=== PATIENT | female | born 1950 | race Caucasian/White ===

== ENCOUNTER 2023-04-06 05:58 | Inpatient (IN) | payer MEDICARE, SELFPAY ==
--- NOTE | ~2023-04-06 | US_ITS ---
EXAMINATION: US VENOUS ULTRASOUND WITH DOPPLER LOWER EXTREMITY, LEFT CLINICAL INFORMATION: New onset unilateral swelling and pain. COMPARISON: None available. TECHNIQUE: Ultrasound of the deep veins is performed from the hip to the calf with compression sonography and color and pulse Doppler assessment. Spectral analysis with color-flow imaging is performed. FINDINGS: There is normal venous compression and respiratory variation and augmented flow. The visualized common femoral vein, superficial femoral vein, profunda femoral vein, popliteal vein, and the trifurcation region shows no evidence of deep venous thrombosis. No left popliteal cyst. Mild subcutaneous edema in the left calf. US/US venous duplex LE LT IMPRESSION: No evidence of deep venous thrombosis in the visualized veins of the left lower extremity. Mild subcutaneous edema in the left calf.
--- NOTE | 2023-04-06 06:53 | PC.ADMIT ---
Patient 72 year old female. Reason for admission is AMS. Arrived via stretcher from [facility] in restraints. History of dementia and GERD Patient is confused at baseline. In ED patient unable to sign legal paperwork. Physician signed paperwork for section 12B. Patient has NKA. Refused vital signs and unable to participate in admission assessment. Report given to oncoming RN.
[2023-04-06 09:05] VITALS: BP 127/60; PULSE 106; RESP 22; TEMP 36.6; O2SAT 97
[2023-04-06] MEDS: chlorproMAZINE HCl 25 MG TABLET PO (10:58)
[2023-04-06] MEDS: amLODIPine Besylate 2.5 MG TABLET PO (11:01)
--- NOTE | 2023-04-06 11:41 | HO.PSYCHPN ---
Subjective Subjective Reason For Visit: Dementia w/ Psychosis; Amyloid Angiopathy Diagnostics Vital Signs (24Hr): Vital Signs - 24 hr 04/06/23 09:05 Temperature 98 F Pulse Rate 106 H Respiratory Rate 22 H Blood Pressure 127/60 Pulse Oximetry 97 Oxygen Delivery Method Room Air Labs 05/10/23 07:03 05/10/23 07:03 Medications Medications Current Medications Acetaminophen (Acetaminophen 325 Mg Tablet) 650 mg PO Q6H PRN PRN Reason: Headache/Pain Mild Scale (1-3) Al Hydroxide/Mg Hydroxide (Magnesium Hydrox/Alum Hydrox 30 Ml Oral.Susp) 30 ml PO Q6H PRN PRN Reason: Heartburn/Nausea Amlodipine Besylate (Amlodipine Besylate 2.5 Mg Tablet) 2.5 mg PO DAILY [facility]; Protocol Last Admin: 04/06/23 11:01 Dose: 2.5 mg Atorvastatin Calcium (Atorvastatin Calcium 40 Mg Tablet) 40 mg PO BEDTIME [facility] Chlorpromazine HCl (Chlorpromazine Hcl 25 Mg Tablet) 25 mg PO TID [facility] Last Admin: 04/06/23 10:58 Dose: 25 mg Hydroxyzine HCl (Hydroxyzine Hcl 25 Mg Tablet) 25 mg PO Q6H PRN PRN Reason: Anxiety Magnesium Hydroxide (Milk Of Magnesia 30 Ml Oral.Susp) 30 ml PO DAILY PRN PRN Reason: Constipation Melatonin (Melatonin 3 Mg Tablet) 3 mg PO BEDTIME PRN PRN Reason: Insomnia Senna/Docusate Sodium (Sennosides/Docusate Sodium Tablet) 1 tab PO BEDTIME [facility] Trazodone HCl (Trazodone Hcl 50 Mg Tablet) 50 mg PO BEDTIME MRX1 PRN PRN Reason: Insomnia Allergies Allergies Allergy/AdvReac Type Severity Reaction Status Date / Time No Known Allergies Allergy Verified 04/06/23 05:59 Assessment & Plan Time Spent With Patient Time: Total time managing care of this patient today ____ minutes.
--- NOTE | 2023-04-06 11:41 | HO.PSYADMNOT ---
HPI Date of Service: 04/06/23 Chief Complaint: Dementia w/ Psychosis; Amyloid Angiopathy Sources of Information: patient interviewed and chart reviewed Additional Sources of Information: RENAE discussed and talked to her son who is her healthcare proxy on the phone HPI Subjective Notes: Conditional Voluntary and Other Healthcare Proxy: Yes Guardianship: Yes Medical Problems Affecting Mental Status: No Narrative: Amy is a 72-year-old white, , disabled woman with 10 year history of moderate to severe dementia which has been getting worse. She was admitted very early this morning from [facility]. She is unable to give any pertinent information. Not much was available from the [facility] records. I was able to talk to her son, Isacc who is her healthcare proxy. Amy has been dealing with dementia around 10 years ago and has been on Aricept 5 mg daily. Last Saturday she became much more agitated, confused and aggressive and eventually she was taken to the emergency room and hospitalized medically at [facility] where she was put on Thorazine 50 mg t.i.d.. It was intermittently helpful. They started looking for a [facility] psych bed verses discharging her home. The family did not feel comfortable taking her home and excepted admission to [facility] as the only available option for now. She was admitted around 05:00 today and has not been a behavioral problem as of yet. Other medications include baby aspirin, daily, Lipitor 40 mg daily, Prilosec 20 mg daily and melatonin 5 mg q.h.s.. Past Psychiatric History: None known Medical Evaluation Reviewed: Yes [facility] Narrative: Positive for hypercholesterolemia and some upper GI complaints. Family History: Unknown Social History: Amy has been living with her who is a retired state wildlife officer. She has been for many years, has 3 sons. 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 I was not able to give much additional information at this time Substance History: None Trauma History: None known Diagnostics Vital Signs (24Hr): Vital Signs - 24 hr 04/06/23 09:05 Temperature 98 F Pulse Rate 106 H Respiratory Rate 22 H Blood Pressure 127/60 Pulse Oximetry 97 Oxygen Delivery Method Room Air Meds/Allergies Meds Home Medications Medication Instructions Recorded Confirmed Type aspirin 81 mg tablet,delayed 81 mg PO DAILY 04/06/23 04/06/23 History release atorvastatin 40 mg tablet 40 mg PO DAILY 04/06/23 04/06/23 History chlorpromazine 25 mg/mL injection See Rx Instructions .Route 04/06/23 04/06/23 History solution .COMPLEX PRN Agitation chlorpromazine 50 mg tablet 50 mg PO TID 04/06/23 04/06/23 History melatonin 5 mg tablet 5 mg PO BEDTIME 04/06/23 04/06/23 History omeprazole 20 mg capsule,delayed 20 mg PO DAILY 04/06/23 04/06/23 History release Allergies Allergies Allergy/AdvReac Type Severity Reaction Status Date / Time No Known Allergies Allergy Verified 04/06/23 05:59 Mental Status Exam Mental Status Exam Narrative: Nima slater was seen the morning of her admission. She is alert and oriented to person only. Speech is normal. She is not able to give any pertinent, coherent or reliable information with regards to her history. Little to no eye contact. She appears quite confused. No dangerous behaviors. She has been exhibiting paranoid ideations and possible delusions according to her son. Cognitively she is quite impaired and not able to be tested formally. Judgment impaired. Healthcare proxy is invoked Assessment & Plan Assessment & Plan (1) Dementia: Status: Acute Code(s): F03.90 - Unspecified dementia, unspecified severity, without behavioral disturbance, psychotic disturbance, mood disturbance, and anxiety Plan Amy meets criteria for hospital level of care because she is unable to function on the outside safely in light of her agitation, confusion and delusions in the past week or so. Current medications including Thorazine 50 mg t.i.d. were continued. Patient educated on: diagnosis and other Reason for continued inpatient stay Substantial Risk for: inability to function and med/psych decompensation Statement Statement: I have reviewed the history and physical and performed a pertinent examination on my patient. No changes have occurred unless specified. If the History and Physical was not performed prior to admission, the Hospitalist's service will be consulted for completing the admission physical. Time Spent With Patient Time: Total time managing care of this patient today ____ minutes.
--- NOTE | 2023-04-06 16:12 | HO.PM.IMCN ---
History of Present Illness Data of Consult Service Date: 04/06/23 Primary Care Provider: Unknown Physician HPI Reason for consult: Admission H&P Pt is a 72-year-old female with a PMH significant for advanced dementia, cerebral amyloid angiopathy, GERD, and HLD who is admitted to [facility] for worsening dementia with increased confusion, agitation, and aggressive behaviors. Patient is a transfer from [facility]. Medical consult for admission H&P. Pt is alert to person only, and only occasionally capable of following basic commands. Pt is incapable of providing HPI. Review of Systems Review of Systems: Unable to obtain due to patient's mentation [facility] Social History Household Members: Family Housing: Unknown / Unable to assess Unable to assess alcohol history related to: Unable to respond Patient Tobacco Use Status: Tobacco use Unknown Frequency of e-Cigarette/Vaping Use: Pt. unable to answer due to mental status Use of substances other than those prescribed or required for medical reasons: Unable to respond Last Used Substance: Unknown Last Used Substance Other:: Pt. unable to answer due to mental status Currently Displaying Signs/Symptoms of Drug Intoxication Withdrawal: No Spiritual Healthcare Practices: Pt. unable to answer due to mental status Anabaptist Healthcare Practices: Pt. unable to answer due to mental status Cultural Healthcare Practices: Pt. unable to answer due to mental status Advance Directives: Yes (MOLST DNR/DNI) Advance Directives Information Provided: Yes (MOLST DNR/DNI) Patient : No : No Meds Allergies Allergy/AdvReac Type Severity Reaction Status Date / Time No Known Allergies Allergy Verified 04/06/23 05:59 Active Medications: Current Medications Acetaminophen (Acetaminophen 325 Mg Tablet) 650 mg PO Q6H PRN PRN Reason: Headache/Pain Mild Scale (1-3) Al Hydroxide/Mg Hydroxide (Magnesium Hydrox/Alum Hydrox 30 Ml Oral.Susp) 30 ml PO Q6H PRN PRN Reason: Heartburn/Nausea Amlodipine Besylate (Amlodipine Besylate 2.5 Mg Tablet) 2.5 mg PO DAILY [facility]; Protocol Last Admin: 04/06/23 11:01 Dose: 2.5 mg Atorvastatin Calcium (Atorvastatin Calcium 40 Mg Tablet) 40 mg PO BEDTIME [facility] Chlorpromazine HCl (Chlorpromazine Hcl 25 Mg Tablet) 50 mg PO TID [facility] Hydroxyzine HCl (Hydroxyzine Hcl 25 Mg Tablet) 25 mg PO Q6H PRN PRN Reason: Anxiety Magnesium Hydroxide (Milk Of Magnesia 30 Ml Oral.Susp) 30 ml PO DAILY PRN PRN Reason: Constipation Melatonin (Melatonin 3 Mg Tablet) 3 mg PO BEDTIME PRN PRN Reason: Insomnia Omeprazole (Omeprazole 20 Mg Capsule.Dr) 20 mg PO DAILY@0630 [facility] Senna/Docusate Sodium (Sennosides/Docusate Sodium Tablet) 1 tab PO BEDTIME [facility] Trazodone HCl (Trazodone Hcl 50 Mg Tablet) 50 mg PO BEDTIME MRX1 PRN PRN Reason: Insomnia Home Medications Medication Instructions Recorded Confirmed Last Taken Type aspirin 81 mg tablet,delayed 81 mg PO DAILY 04/06/23 04/06/23 Unknown History release atorvastatin 40 mg tablet 40 mg PO DAILY 04/06/23 04/06/23 04/05/23 10:06 History chlorpromazine 25 mg/mL injection See Rx Instructions .Route 04/06/23 04/06/23 Unknown History solution .COMPLEX PRN Agitation chlorpromazine 50 mg tablet 50 mg PO TID 04/06/23 04/06/23 Unknown History melatonin 5 mg tablet 5 mg PO BEDTIME 04/06/23 04/06/23 04/04/23 23:47 History omeprazole 20 mg capsule,delayed 20 mg PO DAILY 04/06/23 04/06/23 Unknown History release Physical Exam Vital Signs and Narrative: Vital Signs: Last Vital Signs Temp 98 F 04/06/23 09:05 Pulse 106 H 04/06/23 09:05 Resp 22 H 04/06/23 09:05 BP 127/60 04/06/23 09:05 Pulse Ox 97 04/06/23 09:05 O2 Del Method Room Air 04/06/23 09:05 Limited d/t pt's advanced dementia and inability of following basic commands General: AOx1, no acute distress Resp: CTA bilaterally CVS: S1, S2, RRR GI: +BS, NT, no distention Skin: No rash Neuro: Cranial nerves II-XII grossly intact bilaterally. Motor grossly intact bilaterally Extremities: No edema Psych: Confused, cooperative, easily redirectable, not able to follow all commands Assessment and Plan (1) Routine history and physical examination of adult: Status: Acute Plan Pt is a 72-year-old female with a PMH significant for advanced dementia, cerebral amyloid angiopathy, GERD, and HLD who is admitted to [facility] for worsening dementia with increased confusion, agitation, and aggressive behaviors. Patient is a transfer from [facility]. Medical consult for admission H&P. Pt is alert to person only, and only occasionally capable of following basic commands. Mood disorder Plan as per Psychiatry Advanced dementia Patient presents with worsening dementia with behavioral disturbances No signs of precipitating factors: No clear sign of infection, no known recent med changes Most likely due to progression of disease HLD Continue aspirin, statin GERD Continue omeprazole Thank you for allowing us to participate in the care of this patient. Signing off at this time. Please let us know if there are any acute complaints or questions. Time Spent With Patient Time: Total time managing care of this patient today ____ minutes.
[2023-04-06] MEDS: chlorproMAZINE HCl 25 MG TABLET 50 MG PO ×2 (17:25→20:10)
[2023-04-06 18:00] VITALS: BP 130/58; PULSE 61; RESP 18; TEMP 37; O2SAT 97
[2023-04-06] MEDS: Atorvastatin Calcium 40 MG TABLET PO (20:10)
[2023-04-06] MEDS: Sennosides/Docusate Sodium TABLET 1 TAB PO (20:10)
[2023-04-07 06:00] VITALS: BP 135/60; PULSE 100; RESP 20; TEMP 37.1; O2SAT 98
[2023-04-07] MEDS: Omeprazole 20 MG CAPSULE.DR PO (06:13)
[2023-04-07] MEDS: amLODIPine Besylate 2.5 MG TABLET PO (08:24)
[2023-04-07] MEDS: chlorproMAZINE HCl 25 MG TABLET 50 MG PO ×3 (08:24→21:13)
--- NOTE | 2023-04-07 11:31 | P.PNPSI_ITS ---
Subjective Subjective Date of Service: 04/07/23 Reason For Visit: Dementia w/ Psychosis; Amyloid Angiopathy Subjective Notes: Conditional Voluntary Healthcare Proxy: Yes Medical Problems Affecting Mental Status: No Interim History: Patient was seen and discussed in rounds today. Records and plans were reviewed. She has actually settled in fairly well with no episodes of agitation or aggressive behaviors. Healthcare proxy was invoked yesterday, secondary to her current mental status and impaired judgment. She continues to exhibit signs of delusions and cognitive impairment. She has been medication compliant. Eating and sleeping adequately. She will be changed to 15 minute checks. No changes were made today Medication Compliance: Yes Side effects from medications: No Review of Systems Review of Systems Yes all other systems are reviewed and are negative Mental Status Exam Mental Status Exam Narrative: Nima slater was seen the morning of her admission. She is alert and oriented to person only. Speech is normal. She is not able to give any pertinent, coherent or reliable information with regards to her history. Little to no eye contact. She appears quite confused. No dangerous behaviors. She has been exhibiting paranoid ideations and possible delusions according to her son. Cognitively she is quite impaired and not able to be tested formally. Judgment impaired. Healthcare proxy is invoked Diagnostics Vital Signs (24Hr): Vital Signs - 24 hr 04/06/23 18:00 04/07/23 06:00 Temperature 98.6 F 98.7 F Pulse Rate 61 100 Respiratory Rate 18 20 Blood Pressure 130/58 L 135/60 Pulse Oximetry 97 98 Oxygen Delivery Method Room Air Room Air Medications Medications Current Medications Acetaminophen (Acetaminophen 325 Mg Tablet) 650 mg PO Q6H PRN PRN Reason: Headache/Pain Mild Scale (1-3) Al Hydroxide/Mg Hydroxide (Magnesium Hydrox/Alum Hydrox 30 Ml Oral.Susp) 30 ml PO Q6H PRN PRN Reason: Heartburn/Nausea Amlodipine Besylate (Amlodipine Besylate 2.5 Mg Tablet) 2.5 mg PO DAILY [facility]; Protocol Last Admin: 04/07/23 08:24 Dose: 2.5 mg Atorvastatin Calcium (Atorvastatin Calcium 40 Mg Tablet) 40 mg PO BEDTIME [facility] Last Admin: 04/06/23 20:10 Dose: 40 mg Chlorpromazine HCl (Chlorpromazine Hcl 25 Mg Tablet) 50 mg PO TID [facility] Last Admin: 04/07/23 08:24 Dose: 50 mg Hydroxyzine HCl (Hydroxyzine Hcl 25 Mg Tablet) 25 mg PO Q6H PRN PRN Reason: Anxiety Magnesium Hydroxide (Milk Of Magnesia 30 Ml Oral.Susp) 30 ml PO DAILY PRN PRN Reason: Constipation Melatonin (Melatonin 3 Mg Tablet) 3 mg PO BEDTIME PRN PRN Reason: Insomnia Omeprazole (Omeprazole 20 Mg Capsule.Dr) 20 mg PO DAILY@0630 [facility] Last Admin: 04/07/23 06:13 Dose: 20 mg Senna/Docusate Sodium (Sennosides/Docusate Sodium Tablet) 1 tab PO BEDTIME [facility] Last Admin: 04/06/23 20:10 Dose: 1 tab Trazodone HCl (Trazodone Hcl 50 Mg Tablet) 50 mg PO BEDTIME MRX1 PRN PRN Reason: Insomnia Allergies Allergies Allergy/AdvReac Type Severity Reaction Status Date / Time No Known Allergies Allergy Verified 04/06/23 05:59 Assessment & Plan Assessment & Plan (1) Routine history and physical examination of adult: Status: Acute Code(s): Z00.00 - Encounter for general adult medical examination without abnormal findings Plan Pt is a 72-year-old female with a PMH significant for advanced dementia, cerebral amyloid angiopathy, GERD, and HLD who is admitted to [facility] for worsening dementia with increased confusion, agitation, and aggressive behaviors. Patient is a transfer from [facility]. Medical consult for admission H&P. Pt is alert to person only, and only occasionally capable of following basic commands. Mood disorder Plan as per Psychiatry Advanced dementia Patient presents with worsening dementia with behavioral disturbances No signs of precipitating factors: No clear sign of infection, no known recent med changes Most likely due to progression of disease HLD Continue aspirin, statin GERD Continue omeprazole Thank you for allowing us to participate in the care of this patient. Signing off at this time. Please let us know if there are any acute complaints or questions. 04/07: Continue current regimen and plans Reason for continued inpatient stay Substantial Risk for: inability to function Time Spent With Patient Time: Total time managing care of this patient today ____ minutes.
[2023-04-07 18:00] VITALS: BP 137/65; PULSE 75; RESP 16; TEMP 37; O2SAT 97
[2023-04-07] MEDS: Atorvastatin Calcium 40 MG TABLET PO (21:12)
[2023-04-07] MEDS: Sennosides/Docusate Sodium TABLET 1 TAB PO (21:13)
[2023-04-08] MEDS: Omeprazole 20 MG CAPSULE.DR PO (06:44)
[2023-04-08 07:30] VITALS: BP 131/60; PULSE 100; RESP 15; TEMP 36.7; O2SAT 99
[2023-04-08] MEDS: amLODIPine Besylate 2.5 MG TABLET PO (09:37)
[2023-04-08] MEDS: chlorproMAZINE HCl 25 MG TABLET 50 MG PO ×3 (09:37→20:52)
--- NOTE | 2023-04-08 10:09 | P.PNPSI_ITS ---
Subjective Subjective Date of Service: 04/08/23 Reason For Visit: Dementia w/ Psychosis; Amyloid Angiopathy Subjective Notes: Conditional Voluntary (By healthcare proxy) Healthcare Proxy: Yes Interim History: The nursing staff reported that she was cooperative in the morning but nonsensical at times, it was noticed that in the evening she becomes more confused and leisure and. On interview the patient is pleasantly confused easily redirectable at this moment, she complained of back pain and we offered her Tylenol. Mental Status Exam Mental Status Exam Patient Appearance: Appropriate Patient Orientation: Person Level of Consciousness: Awake Patient Behavior: Guarded and Passive Mood Description: Withdrawn Affect Description: Constricted Patient Cognition Impaired: Yes Ability to Follow Directions: Fair Speech Pattern: Clear Hallucinations: None Delusions: Paranoid Ideation Thought Process: Distracted and Evasive Thought Content: positive for [place], positive for Poverty of Content and positive for Loose Associations Judgement: Poor Diagnostics Vital Signs (24Hr): Vital Signs - 24 hr 04/07/23 18:00 Temperature 98.6 F Pulse Rate 75 Respiratory Rate 16 Blood Pressure 137/65 Pulse Oximetry 97 Oxygen Delivery Method Room Air Medications Medications Current Medications Acetaminophen (Acetaminophen 325 Mg Tablet) 650 mg PO Q6H PRN PRN Reason: Headache/Pain Mild Scale (1-3) Al Hydroxide/Mg Hydroxide (Magnesium Hydrox/Alum Hydrox 30 Ml Oral.Susp) 30 ml PO Q6H PRN PRN Reason: Heartburn/Nausea Amlodipine Besylate (Amlodipine Besylate 2.5 Mg Tablet) 2.5 mg PO DAILY [facility]; Protocol Last Admin: 04/08/23 09:37 Dose: 2.5 mg Atorvastatin Calcium (Atorvastatin Calcium 40 Mg Tablet) 40 mg PO BEDTIME [facility] Last Admin: 04/07/23 21:12 Dose: 40 mg Chlorpromazine HCl (Chlorpromazine Hcl 25 Mg Tablet) 50 mg PO TID [facility] Last Admin: 04/08/23 09:37 Dose: 50 mg Hydroxyzine HCl (Hydroxyzine Hcl 25 Mg Tablet) 25 mg PO Q6H PRN PRN Reason: Anxiety Magnesium Hydroxide (Milk Of Magnesia 30 Ml Oral.Susp) 30 ml PO DAILY PRN PRN Reason: Constipation Melatonin (Melatonin 3 Mg Tablet) 3 mg PO BEDTIME PRN PRN Reason: Insomnia Omeprazole (Omeprazole 20 Mg Capsule.Dr) 20 mg PO DAILY@0630 [facility] Last Admin: 04/08/23 06:44 Dose: 20 mg Senna/Docusate Sodium (Sennosides/Docusate Sodium Tablet) 1 tab PO BEDTIME [facility] Last Admin: 04/07/23 21:13 Dose: 1 tab Trazodone HCl (Trazodone Hcl 50 Mg Tablet) 50 mg PO BEDTIME MRX1 PRN PRN Reason: Insomnia Allergies Allergies Allergy/AdvReac Type Severity Reaction Status Date / Time No Known Allergies Allergy Verified 04/06/23 05:59 Assessment & Plan Assessment & Plan (1) Routine history and physical examination of adult: Status: Acute Code(s): Z00.00 - Encounter for general adult medical examination without abnormal findings Plan Pt is a 72-year-old female with a PMH significant for advanced dementia, cer ebral amyloid angiopathy, GERD, and HLD who is admitted to [facility] for worsening dementia with increased confusion, agitation, and aggressive behaviors. Patient is a transfer from [facility]. Medical consult for admission H&P. Pt is alert to person only, and only occasionally capable of following basic commands. Mood disorder Plan as per Psychiatry Advanced dementia Patient presents with worsening dementia with behavioral disturbances No signs of precipitating factors: No clear sign of infection, no known recent med changes Most likely due to progression of disease HLD Continue aspirin, statin GERD Continue omeprazole Thank you for allowing us to participate in the care of this patient. Signing off at this time. Please let us know if there are any acute complaints or questions. 04/07: Continue current regimen and plans Reason for continued inpatient stay Substantial Risk for: inability to function, rapid decompensation and med/psych decompensation Time Spent With Patient Time: Total time managing care of this patient today _20___ minutes.
[2023-04-08 18:00] VITALS: BP 164/72; PULSE 105; RESP 18; TEMP 36.9; O2SAT 97
[2023-04-08] MEDS: Atorvastatin Calcium 40 MG TABLET PO (20:52)
[2023-04-08] MEDS: Sennosides/Docusate Sodium TABLET 1 TAB PO (20:52)
[2023-04-09 06:00] VITALS: BP 128/78; PULSE 101; TEMP 36.4; O2SAT 97
[2023-04-09 08:24] LABS: Glucose, Whole Blood 113 mg/dL (60-115)
[2023-04-09] MEDS: Omeprazole 20 MG CAPSULE.DR PO (10:26)
[2023-04-09] MEDS: amLODIPine Besylate 2.5 MG TABLET PO (10:26)
[2023-04-09] MEDS: chlorproMAZINE HCl 25 MG TABLET 50 MG PO ×3 (10:26→20:18)
--- NOTE | 2023-04-09 15:19 | P.PNPSI_ITS ---
Subjective Subjective Date of Service: 04/09/23 Reason For Visit: Dementia w/ Psychosis; Amyloid Angiopathy Subjective Notes: Section 7 and Section 8 Interim History: The nursing staff reported the patient had been wandering, irritable responding to internal stimuli. According to the chart the patient had been receiving Thorazine at the [facility] in [place]. The social work nurse reported that she spoke with to his children and they want her [facility]. On interview the patient is very disoriented, grossly psychotic responding to internal stimuli. Mental Status Exam Mental Status Exam Patient Appearance: Disheveled and Unkempt Patient Orientation: Person and Situation Level of Consciousness: Restless Patient Behavior: Guarded and Passive Mood Description: Withdrawn Affect Description: Labile Patient Cognition Impaired: Yes Speech Pattern: Impoverished Hallucinations: Auditory Delusions: Paranoid Ideation Thought Process: Illogical and Slowed Thinking Judgement: Poor Diagnostics Vital Signs (24Hr): Vital Signs - 24 hr 04/08/23 18:00 04/09/23 06:00 Temperature 98.4 F 97.6 F Pulse Rate 105 H 101 H Respiratory Rate 18 Blood Pressure 164/72 H 128/78 Pulse Oximetry 97 97 Oxygen Delivery Method Room Air Room Air Labs Labs: Laboratory Results - last 48 hr 04/09/23 08:19 POC Glucose 113 Medications Medications Current Medications Acetaminophen (Acetaminophen 325 Mg Tablet) 650 mg PO Q6H PRN PRN Reason: Headache/Pain Mild Scale (1-3) Al Hydroxide/Mg Hydroxide (Magnesium Hydrox/Alum Hydrox 30 Ml Oral.Susp) 30 ml PO Q6H PRN PRN Reason: Heartburn/Nausea Amlodipine Besylate (Amlodipine Besylate 2.5 Mg Tablet) 2.5 mg PO DAILY INEZ; Protocol Last Admin: 04/09/23 10:26 Dose: 2.5 mg Atorvastatin Calcium (Atorvastatin Calcium 40 Mg Tablet) 40 mg PO BEDTIME INEZ Last Admin: 04/08/23 20:52 Dose: 40 mg Chlorpromazine HCl (Chlorpromazine Hcl 25 Mg Tablet) 50 mg PO TID INEZ Last Admin: 04/09/23 10:26 Dose: 50 mg Hydroxyzine HCl (Hydroxyzine Hcl 25 Mg Tablet) 25 mg PO Q6H PRN PRN Reason: Anxiety Magnesium Hydroxide (Milk Of Magnesia 30 Ml Oral.Susp) 30 ml PO DAILY PRN PRN Reason: Constipation Melatonin (Melatonin 3 Mg Tablet) 3 mg PO BEDTIME PRN PRN Reason: Insomnia Omeprazole (Omeprazole 20 Mg Capsule.) 20 mg PO DAILY@0630 [facility] Last Admin: 04/09/23 10:26 Dose: 20 mg Senna/Docusate Sodium (Sennosides/Docusate Sodium Tablet) 1 tab PO BEDTIME [facility] Last Admin: 04/08/23 20:52 Dose: 1 tab Trazodone HCl (Trazodone Hcl 50 Mg Tablet) 50 mg PO BEDTIME MRX1 PRN PRN Reason: Insomnia Allergies Allergies Allergy/AdvReac Type Severity Reaction Status Date / Time No Known Allergies Allergy Verified 04/06/23 05:59 Assessment & Plan Assessment & Plan (1) Routine history and physical examination of adult: Status: Acute Code(s): Z00.00 - Encounter for general adult medical examination without abnormal findings Plan Pt is a 72-year-old female with a PMH significant for advanced dementia, cerebral amyloid angiopathy, GERD, and HLD who is admitted to [facility] for worsening dementia with increased confusion, agitation, and aggressive behaviors. Patient is a transfer from [facility]. Medical consult for admission H&P. Pt is alert to person only, and only occasionally capable of following basic commands. Mood disorder Plan as per Psychiatry Advanced dementia Patient presents with worsening dementia with behavioral disturbances No signs of precipitating factors: No clear sign of infection, no known recent med changes Most likely due to progression of disease HLD Continue aspirin, statin GERD Continue omeprazole Thank you for allowing us to participate in the care of this patient. Signing off at this time. Please let us know if there are any acute complaints or questions. 04/07: Continue current regimen and plans Reason for continued inpatient stay Substantial Risk for: inability to function, rapid decompensation and med/psych decompensation Time Spent With Patient Time: Total time managing care of this patient today __20__ minutes.
[2023-04-09 18:00] VITALS: BP 133/74; PULSE 110; RESP 18; TEMP 36.6; O2SAT 97
[2023-04-09] MEDS: Atorvastatin Calcium 40 MG TABLET PO (20:18)
[2023-04-09] MEDS: Sennosides/Docusate Sodium TABLET 1 TAB PO (20:18)
[2023-04-09] MEDS: hydrOXYzine HCL 25 MG TABLET PO (20:19)
[2023-04-09] MEDS: Melatonin 3 MG TABLET PO (20:19)
[2023-04-10] MEDS: Acetaminophen 325 MG TABLET 650 MG PO (01:55)
[2023-04-10] MEDS: traZODone HCL 50 MG TABLET PO (01:55)
[2023-04-10] MEDS: Omeprazole 20 MG CAPSULE.DR PO (06:14)
[2023-04-10 07:45] VITALS: BP 129/59; PULSE 88; RESP 16; TEMP 36.4; O2SAT 96
[2023-04-10] MEDS: amLODIPine Besylate 2.5 MG TABLET PO (08:11)
[2023-04-10] MEDS: chlorproMAZINE HCl 25 MG TABLET 50 MG PO ×3 (08:12→20:13)
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
[2023-04-10 18:00] VITALS: BP 141/63; PULSE 88; RESP 18; TEMP 36.6; O2SAT 96
[2023-04-10] MEDS: Atorvastatin Calcium 40 MG TABLET PO (20:13)
[2023-04-10] MEDS: Sennosides/Docusate Sodium TABLET 1 TAB PO (20:13)
[2023-04-11] MEDS: Omeprazole 20 MG CAPSULE.DR PO (05:43)
[2023-04-11 06:00] VITALS: BP 125/67; PULSE 93; RESP 18; TEMP 36.9; O2SAT 97
[2023-04-11 07:00] VITALS: BMI 24.1
[2023-04-11] MEDS: amLODIPine Besylate 2.5 MG TABLET PO (09:15)
[2023-04-11] MEDS: chlorproMAZINE HCl 25 MG TABLET 50 MG PO (09:15)
[2023-04-11] MEDS: risperiDONE 0.5 MG TABLET PO ×2 (16:26→20:52)
--- NOTE | 2023-04-11 17:02 | P.PNPSI_ITS ---
Subjective Subjective Date of Service: 04/11/23 Reason For Visit: Dementia w/ Psychosis; Amyloid Angiopathy Subjective Notes: Conditional Voluntary Interim History: The nursing staff reported the patient had being seen in the common areas watching TV calmly. She was a loosen eating picking up objects from the floor. She slept 6 hours and she states on one-to-one for safety. Today we had a family meeting and I explained that Thorazine has not help her and due to the possibility of low in blood pressure, we decided to change to a different antipsychotic the family agreed. On interview the patient is pleasantly confused. Very disorganized. Mental Status Exam Mental Status Exam Patient Appearance: Appropriate Patient Orientation: Person and Situation Level of Consciousness: Awake and Appropriate Patient Behavior: Guarded and Suspicious Mood Description: Withdrawn Affect Description: Calm Patient Cognition Impaired: Yes Ability to Follow Directions: Good Speech Pattern: Clear Hallucinations: Auditory and Visual Delusions: Paranoid Ideation Thought Process: Incoherent and Illogical Thought Content: positive for Disoriented and positive for Circumstantial Judgement: Poor Diagnostics Vital Signs (24Hr): Vital Signs - 24 hr 04/10/23 18:00 04/11/23 06:00 Temperature 97.8 F 98.4 F Pulse Rate 88 93 Respiratory Rate 18 18 Blood Pressure 141/63 H 125/67 Pulse Oximetry 96 97 Oxygen Delivery Method Room Air Room Air BMI result Body Mass Index 24.1 Medications Medications Current Medications Acetaminophen (Acetaminophen 325 Mg Tablet) 650 mg PO Q6H PRN PRN Reason: Headache/Pain Mild Scale (1-3) Last Admin: 04/10/23 01:55 Dose: 650 mg Al Hydroxide/Mg Hydroxide (Magnesium Hydrox/Alum Hydrox 30 Ml Oral.Susp) 30 ml PO Q6H PRN PRN Reason: Heartburn/Nausea Amlodipine Besylate (Amlodipine Besylate 2.5 Mg Tablet) 2.5 mg PO DAILY INEZ; Protocol Last Admin: 04/11/23 09:15 Dose: 2.5 mg Atorvastatin Calcium (Atorvastatin Calcium 40 Mg Tablet) 40 mg PO BEDTIME INEZ Last Admin: 04/10/23 20:13 Dose: 40 mg Hydroxyzine HCl (Hydroxyzine Hcl 25 Mg Tablet) 25 mg PO Q6H PRN PRN Reason: Anxiety Last Admin: 04/09/23 20:19 Dose: 25 mg Magnesium Hydroxide (Milk Of Magnesia 30 Ml Oral.Susp) 30 ml PO DAILY PRN PRN Reason: Constipation Melatonin (Melatonin 3 Mg Tablet) 3 mg PO BEDTIME PRN PRN Reason: Insomnia Last Admin: 04/09/23 20:19 Dose: 3 mg Omeprazole (Omeprazole 20 Mg Capsule.) 20 mg PO DAILY@0630 [facility] Last Admin: 04/11/23 05:43 Dose: 20 mg Risperidone (Risperidone 0.5 Mg Tablet) 0.5 mg PO TID [facility] Last Admin: 04/11/23 16:26 Dose: 0.5 mg Senna/Docusate Sodium (Sennosides/Docusate Sodium Tablet) 1 tab PO BEDTIME [facility] Last Admin: 04/10/23 20:13 Dose: 1 tab Trazodone HCl (Trazodone Hcl 50 Mg Tablet) 50 mg PO BEDTIME MRX1 PRN PRN Reason: Insomnia Last Admin: 04/10/23 01:55 Dose: 50 mg Allergies Allergies Allergy/AdvReac Type Severity Reaction Status Date / Time No Known Allergies Allergy Verified 04/06/23 05:59 Assessment & Plan Assessment & Plan (1) Routine history and physical examination of adult: Status: Acute Code(s): Z00.00 - Encounter for general adult medical examination without abnormal findings Plan Pt is a 72-year-old female with a PMH significant for advanced dementia, cerebral amyloid angiopathy, GERD, and HLD who is admitted to [facility] for worsening dementia with increased confusion, agitation, and aggressive behaviors. Patient is a transfer from [facility]. Medical consult for admission H&P. Pt is alert to person only, and only occasionally capable of following basic commands. Mood disorder Plan as per Psychiatry Advanced dementia Patient presents with worsening dementia with behavioral disturbances No signs of precipitating factors: No clear sign of infection, no known recent med changes Most likely due to progression of disease HLD Continue aspirin, statin GERD Continue omeprazole Thank you for allowing us to participate in the care of this patient. Signing off at this time. Please let us know if there are any acute complaints or questions. Plan 1. Continue with antipsychotics. 2. Continue with medical workout 3. Discontinue Thorazine 50 mg p.o. t.i.d. 4. Start Risperdal 0.5 mg p.o. t.i.d. to target psychosis Reason for continued inpatient stay Substantial Risk for: inability to function, rapid decompensation and med/psych decompensation Time Spent With Patient Time: Total time managing care of this patient today __20__ minutes.
[2023-04-11 18:00] VITALS: BP 119/57; PULSE 92; RESP 18; TEMP 36.3; O2SAT 100
[2023-04-11] MEDS: Atorvastatin Calcium 40 MG TABLET PO (20:52)
[2023-04-11] MEDS: Sennosides/Docusate Sodium TABLET 1 TAB PO (20:52)
[2023-04-12] MEDS: Omeprazole 20 MG CAPSULE.DR PO (06:07)
[2023-04-12 08:15] VITALS: BP 125/59; PULSE 91; RESP 18; TEMP 36.4; O2SAT 100
[2023-04-12] MEDS: amLODIPine Besylate 2.5 MG TABLET PO (08:35)
[2023-04-12] MEDS: risperiDONE 0.5 MG TABLET PO ×3 (08:35→20:30)
--- NOTE | 2023-04-12 14:45 | P.PNPSI_ITS ---
Subjective Subjective Date of Service: 04/12/23 Reason For Visit: Dementia w/ Psychosis; Amyloid Angiopathy Subjective Notes: Conditional Voluntary Interim History: The nursing staff reported that she had been much better less impulsive compliant with treatment. On interview the patient remains calmer but still very confused. We discussed with the team and we are going to lower her observation for one-to-one to 5 minute checks. Mental Status Exam Mental Status Exam Patient Appearance: Appropriate Patient Orientation: Person and Situation Level of Consciousness: Awake and Appropriate Patient Behavior: Guarded and Passive Mood Description: Withdrawn Affect Description: Constricted Patient Cognition Impaired: Yes Ability to Follow Directions: Good Speech Pattern: Clear Hallucinations: None Delusions: Not Present Thought Process: Distracted and Evasive Thought Content: positive for [place] and positive for Circumstantial Judgement: Fair Diagnostics Vital Signs (24Hr): Vital Signs - 24 hr 04/11/23 18:00 04/12/23 08:15 Temperature 97.4 F 97.6 F Pulse Rate 92 91 Respiratory Rate 18 18 Blood Pressure 119/57 L 125/59 L Pulse Oximetry 100 100 Oxygen Delivery Method Room Air Room Air BMI result Body Mass Index 24.1 Medications Medications Current Medications Acetaminophen (Acetaminophen 325 Mg Tablet) 650 mg PO Q6H PRN PRN Reason: Headache/Pain Mild Scale (1-3) Last Admin: 04/10/23 01:55 Dose: 650 mg Al Hydroxide/Mg Hydroxide (Magnesium Hydrox/Alum Hydrox 30 Ml Oral.Susp) 30 ml PO Q6H PRN PRN Reason: Heartburn/Nausea Amlodipine Besylate (Amlodipine Besylate 2.5 Mg Tablet) 2.5 mg PO DAILY INEZ; Protocol Last Admin: 04/12/23 08:35 Dose: 2.5 mg Atorvastatin Calcium (Atorvastatin Calcium 40 Mg Tablet) 40 mg PO BEDTIME INEZ Last Admin: 04/11/23 20:52 Dose: 40 mg Hydroxyzine HCl (Hydroxyzine Hcl 25 Mg Tablet) 25 mg PO Q6H PRN PRN Reason: Anxiety Last Admin: 04/09/23 20:19 Dose: 25 mg Magnesium Hydroxide (Milk Of Magnesia 30 Ml Oral.Susp) 30 ml PO DAILY PRN PRN Reason: Constipation Melatonin (Melatonin 3 Mg Tablet) 3 mg PO BEDTIME PRN PRN Reason: Insomnia Last Admin: 04/09/23 20:19 Dose: 3 mg Omeprazole (Omeprazole 20 Mg Capsule.Dr) 20 mg PO DAILY@0630 [facility] Last Admin: 04/12/23 06:07 Dose: 20 mg Risperidone (Risperidone 0.5 Mg Tablet) 0.5 mg PO TID [facility] Last Admin: 04/12/23 14:42 Dose: 0.5 mg Senna/Docusate Sodium (Sennosides/Docusate Sodium Tablet) 1 tab PO BEDTIME [facility] Last Admin: 04/11/23 20:52 Dose: 1 tab Trazodone HCl (Trazodone Hcl 50 Mg Tablet) 50 mg PO BEDTIME MRX1 PRN PRN Reason: Insomnia Last Admin: 04/10/23 01:55 Dose: 50 mg Allergies Allergies Allergy/AdvReac Type Severity Reaction Status Date / Time No Known Allergies Allergy Verified 04/06/23 05:59 Assessment & Plan Assessment & Plan (1) Routine history and physical examination of adult: Status: Acute Code(s): Z00.00 - Encounter for general adult medical examination without abnormal findings Plan Pt is a 72-year-old female with a PMH significant for advanced dementia, cerebral amyloid angiopathy, GERD, and HLD who is admitted to [facility] for worsening dementia with increased confusion, agitation, and aggressive behaviors. Patient is a transfer from [facility]. Medical consult for admission H&P. Pt is alert to person only, and only occasionally capable of following basic commands. Mood disorder Plan as per Psychiatry Advanced dementia Patient presents with worsening dementia with behavioral disturbances No signs of precipitating factors: No clear sign of infection, no known recent med changes Most likely due to progression of disease HLD Continue aspirin, statin GERD Continue omeprazole Thank you for allowing us to participate in the care of this patient. Signing off at this time. Please let us know if there are any acute complaints or questions. Plan 1. Continue with antipsychotics. 2. Continue with medical workout 3. Discontinue Thorazine 50 mg p.o. t.i.d. 4. Start Risperdal 0.5 mg p.o. t.i.d. to target psychosis Reason for continued inpatient stay Substantial Risk for: inability to function, rapid decompensation and med/psych decompensation Time Spent With Patient Time: Total time managing care of this patient today __20__ minutes.
[2023-04-12 18:00] VITALS: BP 120/80; PULSE 93; RESP 17; TEMP 36.3; O2SAT 100
[2023-04-12] MEDS: Sennosides/Docusate Sodium TABLET 1 TAB PO (20:30)
[2023-04-12] MEDS: Atorvastatin Calcium 40 MG TABLET PO (20:30)
[2023-04-13] MEDS: Omeprazole 20 MG CAPSULE.DR PO (07:38)
[2023-04-13 08:30] VITALS: BP 121/63; PULSE 89; RESP 15; TEMP 36.7; O2SAT 99
[2023-04-13] MEDS: amLODIPine Besylate 2.5 MG TABLET PO (09:27)
[2023-04-13] MEDS: risperiDONE 0.5 MG TABLET PO ×3 (09:27→18:25)
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
[2023-04-13 18:00] VITALS: BP 152/67; PULSE 86; RESP 16; TEMP 36.1; O2SAT 98
[2023-04-13] MEDS: Atorvastatin Calcium 40 MG TABLET PO (18:25)
[2023-04-13] MEDS: Sennosides/Docusate Sodium TABLET 1 TAB PO (18:25)
[2023-04-13] MEDS: hydrOXYzine HCL 25 MG TABLET PO (18:25)
[2023-04-13] MEDS: Melatonin 3 MG TABLET PO (21:10)
[2023-04-13] MEDS: traZODone HCL 50 MG TABLET PO (21:15)
[2023-04-14 07:30] VITALS: BP 126/60; PULSE 89; RESP 15; TEMP 36.3; O2SAT 99
[2023-04-14] MEDS: Omeprazole 20 MG CAPSULE.DR PO (08:47)
[2023-04-14] MEDS: risperiDONE 0.5 MG TABLET PO ×3 (08:47→20:30)
[2023-04-14] MEDS: amLODIPine Besylate 2.5 MG TABLET PO (08:47)
--- NOTE | 2023-04-14 10:55 | P.PNPSI_ITS ---
Subjective Subjective Date of Service: 04/14/23 Reason For Visit: Dementia w/ Psychosis; Amyloid Angiopathy Interim History: pleasant in brief interaction. exchange social niceties, no questions or complaints. per staff, on 1:1. more agitated last NOC, screaming at peer. to sleep at [place]. paranoid. taking meds. erotomanic behaviors toward 1:1 last NOC. Mental Status Exam Mental Status Exam Narrative: walking the butterfield with 1:1, adequately groomed, dressed in conor. cooperative. no PMA/PMR. speech nml rate, decr amount, decr loundess, nml latency. thoughts seem to be a mix of stereotyped social banalities and non-sequiturs. affect constricted, normo-intense, non-labile. no SI/HI/AVH expressed. Diagnostics Vital Signs (24Hr): Vital Signs - 24 hr 04/13/23 18:00 Temperature 97 F Pulse Rate 86 Respiratory Rate 16 Blood Pressure 152/67 H Pulse Oximetry 98 Oxygen Delivery Method Room Air BMI result Body Mass Index 24.1 Medications Medications Current Medications Acetaminophen (Acetaminophen 325 Mg Tablet) 650 mg PO Q6H PRN PRN Reason: Headache/Pain Mild Scale (1-3) Last Admin: 04/10/23 01:55 Dose: 650 mg Al Hydroxide/Mg Hydroxide (Magnesium Hydrox/Alum Hydrox 30 Ml Oral.Susp) 30 ml PO Q6H PRN PRN Reason: Heartburn/Nausea Amlodipine Besylate (Amlodipine Besylate 2.5 Mg Tablet) 2.5 mg PO DAILY REPLACED BY [facility]; Protocol Last Admin: 04/14/23 08:47 Dose: 2.5 mg Atorvastatin Calcium (Atorvastatin Calcium 40 Mg Tablet) 40 mg PO BEDTIME [facility] Last Admin: 04/13/23 18:25 Dose: 40 mg Hydroxyzine HCl (Hydroxyzine Hcl 25 Mg Tablet) 25 mg PO Q6H PRN PRN Reason: Anxiety Last Admin: 04/13/23 18:25 Dose: 25 mg Magnesium Hydroxide (Milk Of Magnesia 30 Ml Oral.Susp) 30 ml PO DAILY PRN PRN Reason: Constipation Melatonin (Melatonin 3 Mg Tablet) 3 mg PO BEDTIME PRN PRN Reason: Insomnia Last Admin: 04/13/23 21:10 Dose: 3 mg Omeprazole (Omeprazole 20 Mg Capsule.Dr) 20 mg PO DAILY@0630 REPLACED BY [facility] Last Admin: 04/14/23 08:47 Dose: 20 mg Risperidone (Risperidone 0.5 Mg Tablet) 0.5 mg PO TID REPLACED BY [facility] Last Admin: 04/14/23 08:47 Dose: 0.5 mg Senna/Docusate Sodium (Sennosides/Docusate Sodium Tablet) 1 tab PO BEDTIME REPLACED BY [facility] Last Admin: 04/13/23 18:25 Dose: 1 tab Trazodone HCl (Trazodone Hcl 50 Mg Tablet) 50 mg PO BEDTIME MRX1 PRN PRN Reason: Insomnia Last Admin: 04/13/23 21:15 Dose: 50 mg Allergies Allergies Allergy/AdvReac Type Severity Reaction Status Date / Time No Known Allergies Allergy Verified 04/06/23 05:59 Assessment & Plan Assessment & Plan (1) Routine history and physical examination of adult: Status: Acute Code(s): Z00.00 - Encounter for general adult medical examination without abnormal findings Plan Pt is a 72-year-old female with a PMH significant for advanced dementia, cerebral amyloid angiopathy, GERD, and HLD who is admitted to [facility] for worsening dementia with increased confusion, agitation, and aggressive behaviors. Patient is a transfer from [facility]. Medical consult for admission H&P. Pt is alert to person only, and only occasionally capable of following basic commands. Mood disorder Plan as per Psychiatry Advanced dementia Patient presents with worsening dementia with behavioral disturbances No signs of precipitating factors: No clear sign of infection, no known recent med changes Most likely due to progression of disease HLD Continue aspirin, statin GERD Continue omeprazole Thank you for allowing us to participate in the care of this patient. Signing off at this time. Please let us know if there are any acute complaints or questions. Plan 1. Continue with antipsychotics. 2. Continue with medical workout 3. Discontinue Thorazine 50 mg p.o. t.i.d. 4. Start Risperdal 0.5 mg p.o. t.i.d. to target psychosis 04/13: place back on 1:1 for safety. otherwise continue current mgmt. 04/14: continue current mgmt. periods of agitation and aggression, periods of erotomanic behavior including inappropriate touching. Reason for continued inpatient stay Substantial Risk for: harm to self, harm to others, inability to function and rapid decompensation Time Spent With Patient Time: Total time managing care of this patient today ____ minutes.
[2023-04-14] MEDS: hydrOXYzine HCL 25 MG TABLET PO (15:38)
[2023-04-14 18:00] VITALS: BP 144/67; PULSE 77; RESP 16; TEMP 36.6; O2SAT 97
[2023-04-14] MEDS: Atorvastatin Calcium 40 MG TABLET PO (20:30)
[2023-04-14] MEDS: Sennosides/Docusate Sodium TABLET 1 TAB PO (20:30)
[2023-04-15] MEDS: Omeprazole 20 MG CAPSULE.DR PO (05:34)
[2023-04-15 08:42] VITALS: BP 128/62; PULSE 82; RESP 18; TEMP 36.4; O2SAT 99
[2023-04-15] MEDS: amLODIPine Besylate 2.5 MG TABLET PO (08:44)
[2023-04-15] MEDS: risperiDONE 0.5 MG TABLET PO ×3 (08:44→20:56)
--- NOTE | 2023-04-15 10:54 | HO.PSYCHPN ---
Subjective Subjective Date of Service: 04/15/23 Reason For Visit: Dementia w/ Psychosis; Amyloid Angiopathy Interim History: calm, cooperative. walking the butterfield with 1:1 staff. social niceties, not necessarily socially appropriately put (i adrienne her a good shower, as she was heading in to have one, and she replied in kind). per staff, up and down all NOC. +meds. confused. 1:1. less restless. Mental Status Exam Mental Status Exam Narrative: walking the butterfield with 1:1, adequately groomed, dressed in conor. cooperative. no PMA/PMR. speech nml rate, decr amount, decr loundess, nml latency. thoughts seem to be a mix of stereotyped social banalities and non-sequiturs. affect constricted, normo-intense, non-labile. no SI/HI/AVH expressed. Diagnostics Vital Signs (24Hr): Vital Signs - 24 hr 04/14/23 18:00 04/15/23 08:42 Temperature 97.9 F 97.6 F Pulse Rate 77 82 Respiratory Rate 16 18 Blood Pressure 144/67 H 128/62 Pulse Oximetry 97 99 Oxygen Delivery Method Room Air Room Air BMI result Body Mass Index 24.1 Medications Medications Current Medications Acetaminophen (Acetaminophen 325 Mg Tablet) 650 mg PO Q6H PRN PRN Reason: Headache/Pain Mild Scale (1-3) Last Admin: 04/10/23 01:55 Dose: 650 mg Al Hydroxide/Mg Hydroxide (Magnesium Hydrox/Alum Hydrox 30 Ml Oral.Susp) 30 ml PO Q6H PRN PRN Reason: Heartburn/Nausea Amlodipine Besylate (Amlodipine Besylate 2.5 Mg Tablet) 2.5 mg PO DAILY [facility]; Protocol Last Admin: 04/15/23 08:44 Dose: 2.5 mg Atorvastatin Calcium (Atorvastatin Calcium 40 Mg Tablet) 40 mg PO BEDTIME [facility] Last Admin: 04/14/23 20:30 Dose: 40 mg Hydroxyzine HCl (Hydroxyzine Hcl 25 Mg Tablet) 25 mg PO Q6H PRN PRN Reason: Anxiety Last Admin: 04/14/23 15:38 Dose: 25 mg Magnesium Hydroxide (Milk Of Magnesia 30 Ml Oral.Susp) 30 ml PO DAILY PRN PRN Reason: Constipation Melatonin (Melatonin 3 Mg Tablet) 3 mg PO BEDTIME PRN PRN Reason: Insomnia Last Admin: 04/13/23 21:10 Dose: 3 mg Omeprazole (Omeprazole 20 Mg Capsule.) 20 mg PO DAILY@0630 [facility] Last Admin: 04/15/23 05:34 Dose: 20 mg Risperidone (Risperidone 0.5 Mg Tablet) 0.5 mg PO TID [facility] Last Admin: 04/15/23 08:44 Dose: 0.5 mg Senna/Docusate Sodium (Sennosides/Docusate Sodium Tablet) 1 tab PO BEDTIME [facility] Last Admin: 04/14/23 20:30 Dose: 1 tab Trazodone HCl (Trazodone Hcl 50 Mg Tablet) 50 mg PO BEDTIME MRX1 PRN PRN Reason: Insomnia Last Admin: 04/13/23 21:15 Dose: 50 mg Allergies Allergies Allergy/AdvReac Type Severity Reaction Status Date / Time No Known Allergies Allergy Verified 04/06/23 05:59 Assessment & Plan Assessment & Plan (1) Routine history and physical examination of adult: Status: Acute Code(s): Z00.00 - Encounter for general adult medical examination without abnormal findings Plan Pt is a 72-year-old female with a PMH significant for advanced dementia, cerebral amyloid angiopathy, GERD, and HLD who is admitted to [facility] for worsening dementia with increased confusion, agitation, and aggressive behaviors. Patient is a transfer from [facility]. Medical consult for admission H&P. Pt is alert to person only, and only occasionally capable of following basic commands. Mood disorder Plan as per Psychiatry Advanced dementia Patient presents with worsening dementia with behavioral disturbances No signs of precipitating factors: No clear sign of infection, no known recent med changes Most likely due to progression of disease HLD Continue aspirin, statin GERD Continue omeprazole Thank you for allowing us to participate in the care of this patient. Signing off at this time. Please let us know if there are any acute complaints or questions. Plan 1. Continue with antipsychotics. 2. Continue with medical workout 3. Discontinue Thorazine 50 mg p.o. t.i.d. 4. Start Risperdal 0.5 mg p.o. t.i.d. to target psychosis 04/13: place back on 1:1 for safety. otherwise continue current mgmt. 04/14: continue current mgmt. periods of agitation and aggression, periods of erotomanic behavior including inappropriate touching. 04/15: up and down all night, disorganized. pleasant today. less restless per staff. Reason for continued inpatient stay Substantial Risk for: inability to function and rapid decompensation Time Spent With Patient Time: Total time managing care of this patient today ____ minutes.
[2023-04-15 18:00] VITALS: BP 127/69; PULSE 89; RESP 18; TEMP 36.8; O2SAT 99
[2023-04-15] MEDS: Melatonin 3 MG TABLET PO (20:56)
[2023-04-15] MEDS: Atorvastatin Calcium 40 MG TABLET PO (20:56)
[2023-04-15] MEDS: Sennosides/Docusate Sodium TABLET 1 TAB PO (20:56)
[2023-04-15] MEDS: hydrOXYzine HCL 25 MG TABLET PO (20:56)
[2023-04-16] MEDS: Omeprazole 20 MG CAPSULE.DR PO (05:32)
[2023-04-16 08:45] VITALS: BP 123/56; PULSE 93; RESP 18; TEMP 36.7; O2SAT 100
[2023-04-16] MEDS: amLODIPine Besylate 2.5 MG TABLET PO (08:47)
[2023-04-16] MEDS: risperiDONE 0.5 MG TABLET PO ×3 (08:47→21:20)
--- NOTE | 2023-04-16 10:20 | P.PNPSI_ITS ---
Subjective Subjective Date of Service: 04/16/23 Reason For Visit: Dementia w/ Psychosis; Amyloid Angiopathy Subjective Notes: Conditional Voluntary Interim History: The nursing staff reported the patient has been fully compliant with treatment, she denies suicidal ideation or homicidal ideation no evidence of hallucinations at this point. She looks disorganized and she slept 7 hours. Her appetite has improved, she sleeps poorly in the morning and in the evening but 100% at lunch. 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 On interview the patient denies new symptoms pleasantly confused, easily redirectable. Mental Status Exam Mental Status Exam Patient Appearance: Appropriate Patient Orientation: Person and Situation Level of Consciousness: Awake Patient Behavior: Guarded and Passive Mood Description: Withdrawn Affect Description: Constricted Patient Cognition Impaired: Yes Ability to Follow Directions: Good Speech Pattern: Clear Hallucinations: None Delusions: Not Present Thought Process: Distracted and Evasive Thought Content: positive for [place] and positive for [place] of Content Judgement: Poor Diagnostics Vital Signs (24Hr): Vital Signs - 24 hr 04/15/23 18:00 04/16/23 08:45 Temperature 98.3 F 98.0 F Pulse Rate 89 93 Respiratory Rate 18 18 Blood Pressure 127/69 123/56 L Pulse Oximetry 99 100 Oxygen Delivery Method Room Air Room Air BMI result Body Mass Index 24.1 Medications Medications Current Medications Acetaminophen (Acetaminophen 325 Mg Tablet) 650 mg PO Q6H PRN PRN Reason: Headache/Pain Mild Scale (1-3) Last Admin: 04/10/23 01:55 Dose: 650 mg Al Hydroxide/Mg Hydroxide (Magnesium Hydrox/Alum Hydrox 30 Ml Oral.Susp) 30 ml PO Q6H PRN PRN Reason: Heartburn/Nausea Amlodipine Besylate (Amlodipine Besylate 2.5 Mg Tablet) 2.5 mg PO DAILY [facility]; Protocol Last Admin: 04/16/23 08:47 Dose: 2.5 mg Atorvastatin Calcium (Atorvastatin Calcium 40 Mg Tablet) 40 mg PO BEDTIME [facility] Last Admin: 04/15/23 20:56 Dose: 40 mg Hydroxyzine HCl (Hydroxyzine Hcl 25 Mg Tablet) 25 mg PO Q6H PRN PRN Reason: Anxiety Last Admin: 04/15/23 20:56 Dose: 25 mg Magnesium Hydroxide (Milk Of Magnesia 30 Ml Oral.Susp) 30 ml PO DAILY PRN PRN Reason: Constipation Melatonin (Melatonin 3 Mg Tablet) 3 mg PO BEDTIME PRN PRN Reason: Insomnia Last Admin: 04/15/23 20:56 Dose: 3 mg Omeprazole (Omeprazole 20 Mg Capsule.) 20 mg PO DAILY@0630 [facility] Last Admin: 04/16/23 05:32 Dose: 20 mg Risperidone (Risperidone 0.5 Mg Tablet) 0.5 mg PO TID [facility] Last Admin: 04/16/23 08:47 Dose: 0.5 mg Senna/Docusate Sodium (Sennosides/Docusate Sodium Tablet) 1 tab PO BEDTIME [facility] Last Admin: 04/15/23 20:56 Dose: 1 tab Trazodone HCl (Trazodone Hcl 50 Mg Tablet) 50 mg PO BEDTIME MRX1 PRN PRN Reason: Insomnia Last Admin: 04/13/23 21:15 Dose: 50 mg Allergies Allergies Allergy/AdvReac Type Severity Reaction Status Date / Time No Known Allergies Allergy Verified 04/06/23 05:59 Assessment & Plan Assessment & Plan (1) Routine history and physical examination of adult: Status: Acute Code(s): Z00.00 - Encounter for general adult medical examination without abnormal findings Plan Pt is a 72-year-old female with a PMH significant for advanced dementia, cerebral amyloid angiopathy, GERD, and HLD who is admitted to [facility] for worsening dementia with increased confusion, agitation, and aggressive behaviors. Patient is a transfer from [facility]. Medical consult for admission H&P. Pt is alert to person only, and only occasionally capable of following basic commands. Mood disorder Plan as per Psychiatry Advanced dementia Patient presents with worsening dementia with behavioral disturbances No signs of precipitating factors: No clear sign of infection, no known recent med changes Most likely due to progression of disease HLD Continue aspirin, statin GERD Continue omeprazole Thank you for allowing us to participate in the care of this patient. Signing off at this time. Please let us know if there are any acute complaints or questions. Plan 1. Continue with antipsychotics. 2. Continue with medical workout 3. Discontinue Thorazine 50 mg p.o. t.i.d. 4. Start Risperdal 0.5 mg p.o. t.i.d. to target psychosis 04/13: place back on 1:1 for safety. otherwise continue current mgmt. 04/14: continue current mgmt. periods of agitation and aggression, periods of erotomanic behavior including inappropriate touching. 04/15: up and down all night, disorganized. pleasant today. less restless per staff. 04/16 no changes in treatment Reason for continued inpatient stay Substantial Risk for: inability to function, rapid decompensation and med/psych decompensation Time Spent With Patient Time: Total time managing care of this patient today __20__ minutes.
[2023-04-16] MEDS: hydrOXYzine HCL 25 MG TABLET PO ×2 (16:45→23:42)
[2023-04-16 18:00] VITALS: BP 139/65; PULSE 96; RESP 18; TEMP 37.1; O2SAT 99
[2023-04-16] MEDS: Melatonin 3 MG TABLET PO (21:20)
[2023-04-16] MEDS: Atorvastatin Calcium 40 MG TABLET PO (21:20)
[2023-04-16] MEDS: Sennosides/Docusate Sodium TABLET 1 TAB PO (21:20)
[2023-04-16] MEDS: traZODone HCL 50 MG TABLET PO (23:35)
[2023-04-16] MEDS: Acetaminophen 325 MG TABLET 650 MG PO (23:35)
[2023-04-17] MEDS: Omeprazole 20 MG CAPSULE.DR PO (06:01)
[2023-04-17 07:50] VITALS: BP 127/58; PULSE 72; RESP 18; TEMP 36.4; O2SAT 97
[2023-04-17] MEDS: amLODIPine Besylate 2.5 MG TABLET PO (07:51)
[2023-04-17] MEDS: risperiDONE 0.5 MG TABLET PO ×3 (07:51→20:08)
--- NOTE | 2023-04-17 11:29 | HO.PSYCHPN ---
Subjective Subjective Date of Service: 04/17/23 Reason For Visit: Dementia w/ Psychosis; Amyloid Angiopathy Subjective Notes: Conditional Voluntary Healthcare Proxy: Yes Interim History: The nursing staff reported the patient had been confused, she remains on one-to-one for safety. Yesterday in the evening she was slightly agitated and needed Atarax p.r.n.. She slept 6 hours. The social sciences research scientist reported that the family is working with the family and divorce legal assistant to take care of her assets. On interview the patient denies new symptoms she looks pleasantly confused. In general, the staff has noticed that the patient is slightly better since we changed Thorazine and started Risperdal. Mental Status Exam Mental Status Exam Patient Appearance: Appropriate Patient Orientation: Person Level of Consciousness: Awake and Disoriented Patient Behavior: Guarded Mood Description: Constricted Affect Description: Constricted Patient Cognition Impaired: Yes Ability to Follow Directions: Fair Speech Pattern: Impoverished Hallucinations: None Delusions: Not Present Thought Process: Distracted Thought Content: positive for [place] and positive for Thought Blocking Judgement: Poor Diagnostics Vital Signs (24Hr): Vital Signs - 24 hr 04/16/23 18:00 04/17/23 07:50 Temperature 98.8 F 97.6 F Pulse Rate 96 72 Respiratory Rate 18 18 Blood Pressure 139/65 127/58 L Pulse Oximetry 99 97 Oxygen Delivery Method Room Air Room Air BMI result Body Mass Index 24.1 Medications Medications Current Medications Acetaminophen (Acetaminophen 325 Mg Tablet) 650 mg PO Q6H PRN PRN Reason: Headache/Pain Mild Scale (1-3) Last Admin: 04/16/23 23:35 Dose: 650 mg Al Hydroxide/Mg Hydroxide (Magnesium Hydrox/Alum Hydrox 30 Ml Oral.Susp) 30 ml PO Q6H PRN PRN Reason: Heartburn/Nausea Amlodipine Besylate (Amlodipine Besylate 2.5 Mg Tablet) 2.5 mg PO DAILY [facility]; Protocol Last Admin: 04/17/23 07:51 Dose: 2.5 mg Atorvastatin Calcium (Atorvastatin Calcium 40 Mg Tablet) 40 mg PO BEDTIME [facility] Last Admin: 04/16/23 21:20 Dose: 40 mg Hydroxyzine HCl (Hydroxyzine Hcl 25 Mg Tablet) 25 mg PO Q6H PRN PRN Reason: Anxiety Last Admin: 04/16/23 23:42 Dose: 25 mg Magnesium Hydroxide (Milk Of Magnesia 30 Ml Oral.Susp) 30 ml PO DAILY PRN PRN Reason: Constipation Melatonin (Melatonin 3 Mg Tablet) 3 mg PO BEDTIME PRN PRN Reason: Insomnia Last Admin: 04/16/23 21:20 Dose: 3 mg Omeprazole (Omeprazole 20 Mg Capsule.Dr) 20 mg PO DAILY@0630 [facility] Last Admin: 04/17/23 06:01 Dose: 20 mg Risperidone (Risperidone 0.5 Mg Tablet) 0.5 mg PO TID [facility] Last Admin: 04/17/23 07:51 Dose: 0.5 mg Senna/Docusate Sodium (Sennosides/Docusate Sodium Tablet) 1 tab PO BEDTIME [facility] Last Admin: 04/16/23 21:20 Dose: 1 tab Trazodone HCl (Trazodone Hcl 50 Mg Tablet) 50 mg PO BEDTIME MRX1 PRN PRN Reason: Insomnia Last Admin: 04/16/23 23:35 Dose: 50 mg Allergies Allergies Allergy/AdvReac Type Severity Reaction Status Date / Time No Known Allergies Allergy Verified 04/06/23 05:59 Assessment & Plan Assessment & Plan (1) Routine history and physical examination of adult: Status: Acute Code(s): Z00.00 - Encounter for general adult medical examination without abnormal findings Plan Pt is a 72-year-old female with a PMH significant for advanced dementia, cerebral amyloid angiopathy, GERD, and HLD who is admitted to [facility] for worsening dementia with increased confusion, agitation, and aggressive behaviors. Patient is a transfer from [facility]. Medical consult for admission H&P. Pt is alert to person only, and only occasionally capable of following basic commands. Mood disorder Plan as per Psychiatry Advanced dementia Patient presents with worsening dementia with behavioral disturbances No signs of precipitating factors: No clear sign of infection, no known recent med changes Most likely due to progression of disease HLD Continue aspirin, statin GERD Continue omeprazole Thank you for allowing us to participate in the care of this patient. Signing off at this time. Please let us know if there are any acute complaints or questions. Plan 1. Continue with antipsychotics. 2. Continue with medical workout 3. Discontinue Thorazine 50 mg p.o. t.i.d. 4. Start Risperdal 0.5 mg p.o. t.i.d. to target psychosis 5. On one-to-one for safety. 6. Continue assessment of her behavior Reason for continued inpatient stay Substantial Risk for: inability to function, rapid decompensation and med/psych decompensation Time Spent With Patient Time: Total time managing care of this patient today _20___ minutes.
[2023-04-17 19:00] VITALS: BP 144/65; PULSE 73; RESP 16; TEMP 36; O2SAT 98
[2023-04-17] MEDS: Atorvastatin Calcium 40 MG TABLET PO (20:08)
[2023-04-17] MEDS: Sennosides/Docusate Sodium TABLET 1 TAB PO (20:08)
[2023-04-18 06:00] VITALS: BP 121/75; PULSE 95; RESP 18; TEMP 36.6; O2SAT 94
[2023-04-18] MEDS: Omeprazole 20 MG CAPSULE.DR PO (08:33)
[2023-04-18] MEDS: amLODIPine Besylate 2.5 MG TABLET PO (08:33)
[2023-04-18] MEDS: risperiDONE 0.5 MG TABLET PO ×3 (08:33→20:04)
--- NOTE | 2023-04-18 14:17 | HO.PSYCHPN ---
Subjective Subjective Date of Service: 04/18/23 Reason For Visit: Dementia w/ Psychosis; Amyloid Angiopathy Subjective Notes: Conditional Voluntary Interim History: The nursing staff reported the patient had been confused labile at times but no changes in her behavior. The occupational therapist reports that she has been participating groups. The psychiatric social worker supervisor reported the family is trying to get the financial clearance for long-term care. On interview the patient remains pleasantly confused. No evidence of EPS with current medications Mental Status Exam Mental Status Exam Patient Appearance: Appropriate Patient Orientation: Person and Situation Level of Consciousness: Awake and Appropriate Patient Behavior: Guarded and Passive Mood Description: Withdrawn Affect Description: Constricted Patient Cognition Impaired: Yes Ability to Follow Directions: Good Speech Pattern: Clear Hallucinations: None Delusions: Not Present Thought Process: Illogical Thought Content: positive for [place] Judgement: Fair Diagnostics Vital Signs (24Hr): Vital Signs - 24 hr 04/17/23 19:00 Temperature 96.8 F Pulse Rate 73 Respiratory Rate 16 Blood Pressure 144/65 H Pulse Oximetry 98 Oxygen Delivery Method Room Air BMI result Body Mass Index 24.1 Medications Medications Current Medications Acetaminophen (Acetaminophen 325 Mg Tablet) 650 mg PO Q6H PRN PRN Reason: Headache/Pain Mild Scale (1-3) Last Admin: 04/16/23 23:35 Dose: 650 mg Al Hydroxide/Mg Hydroxide (Magnesium Hydrox/Alum Hydrox 30 Ml Oral.Susp) 30 ml PO Q6H PRN PRN Reason: Heartburn/Nausea Amlodipine Besylate (Amlodipine Besylate 2.5 Mg Tablet) 2.5 mg PO DAILY [facility]; Protocol Last Admin: 04/18/23 08:33 Dose: 2.5 mg Atorvastatin Calcium (Atorvastatin Calcium 40 Mg Tablet) 40 mg PO BEDTIME [facility] Last Admin: 04/17/23 20:08 Dose: 40 mg Hydroxyzine HCl (Hydroxyzine Hcl 25 Mg Tablet) 25 mg PO Q6H PRN PRN Reason: Anxiety Last Admin: 04/16/23 23:42 Dose: 25 mg Magnesium Hydroxide (Milk Of Magnesia 30 Ml Oral.Susp) 30 ml PO DAILY PRN PRN Reason: Constipation Melatonin (Melatonin 3 Mg Tablet) 3 mg PO BEDTIME PRN PRN Reason: Insomnia Last Admin: 04/16/23 21:20 Dose: 3 mg Omeprazole (Omeprazole 20 Mg Capsule.Dr) 20 mg PO DAILY@30 [facility] Last Admin: 04/18/23 08:33 Dose: 20 mg Risperidone (Risperidone 0.5 Mg Tablet) 0.5 mg PO TID [facility] Last Admin: 04/18/23 08:33 Dose: 0.5 mg Senna/Docusate Sodium (Sennosides/Docusate Sodium Tablet) 1 tab PO BEDTIME [facility] Last Admin: 04/17/23 20:08 Dose: 1 tab Trazodone HCl (Trazodone Hcl 50 Mg Tablet) 50 mg PO BEDTIME MRX1 PRN PRN Reason: Insomnia Last Admin: 04/16/23 23:35 Dose: 50 mg Allergies Allergies Allergy/AdvReac Type Severity Reaction Status Date / Time No Known Allergies Allergy Verified 04/06/23 05:59 Assessment & Plan Assessment & Plan (1) Routine history and physical examination of adult: Status: Acute Code(s): Z00.00 - Encounter for general adult medical examination without abnormal findings Plan Pt is a 72-year-old female with a PMH significant for advanced dementia, cerebral amyloid angiopathy, GERD, and HLD who is admitted to [facility] for worsening dementia with increased confusion, agitation, and aggressive behaviors. Patient is a transfer from [facility]. Medical consult for admission H&P. Pt is alert to person only, and only occasionally capable of following basic commands. Mood disorder Plan as per Psychiatry Advanced dementia Patient presents with worsening dementia with behavioral disturbances No signs of precipitating factors: No clear sign of infection, no known recent med changes Most likely due to progression of disease HLD Continue aspirin, statin GERD Continue omeprazole Thank you for allowing us to participate in the care of this patient. Signing off at this time. Please let us know if there are any acute complaints or questions. Plan 1. Continue with antipsychotics. 2. Continue with medical workout 3. Discontinue Thorazine 50 mg p.o. t.i.d. 4. Start Risperdal 0.5 mg p.o. t.i.d. to target psychosis 5. On one-to-one for safety. 6. Continue assessment of her behavior Reason for continued inpatient stay Substantial Risk for: inability to function, rapid decompensation and med/psych decompensation Time Spent With Patient Time: Total time managing care of this patient today __20__ minutes.
[2023-04-18 20:01] VITALS: BP 132/60; PULSE 82; RESP 18; TEMP 36.8; O2SAT 99
[2023-04-18] MEDS: Sennosides/Docusate Sodium TABLET 1 TAB PO (20:04)
[2023-04-18] MEDS: Atorvastatin Calcium 40 MG TABLET PO (20:04)
[2023-04-18] MEDS: traZODone HCL 50 MG TABLET PO (23:52)
[2023-04-18] MEDS: hydrOXYzine HCL 25 MG TABLET PO (23:52)
[2023-04-19 08:20] VITALS: BP 122/58; PULSE 86; TEMP 36.8; O2SAT 98
[2023-04-19] MEDS: Omeprazole 20 MG CAPSULE.DR PO (08:23)
[2023-04-19] MEDS: amLODIPine Besylate 2.5 MG TABLET PO (08:24)
[2023-04-19] MEDS: risperiDONE 0.5 MG TABLET PO ×2 (08:24→16:39)
--- NOTE | 2023-04-19 13:43 | P.PNPSI_ITS ---
Subjective Subjective Date of Service: 04/19/23 Reason For Visit: Dementia w/ Psychosis; Amyloid Angiopathy Subjective Notes: Conditional Voluntary Interim History: The nursing staff reported the patient is on one-to-one for safety. She had been pacing all day long and she has poor safety awareness. She has been pleasant and cooperative but later in the evening more agitated. She went to bed at 13:00. On interview the patient looks pleasantly confused we increase Risperdal to 1 mg p.o. q.h.s. and 0.5 p.o. b.i.d. since she responded initially to Risperdal. Mental Status Exam Mental Status Exam Patient Appearance: Appropriate Patient Orientation: Person Level of Consciousness: Disoriented Patient Behavior: Guarded and Passive Mood Description: Withdrawn Affect Description: Constricted Patient Cognition Impaired: Yes Ability to Follow Directions: Good Speech Pattern: Clear Hallucinations: None Delusions: Paranoid Ideation Thought Process: Distracted and Linear Thought Content: positive for [place] and positive for Thought [place] Judgement: Poor Diagnostics Vital Signs (24Hr): Vital Signs - 24 hr 04/18/23 20:01 04/19/23 06:00 Temperature 98.2 F 98.2 F Pulse Rate 82 86 Respiratory Rate 18 Blood Pressure 132/60 122/58 L Pulse Oximetry 99 98 Oxygen Delivery Method Room Air Room Air BMI result Body Mass Index 24.1 Medications Medications Current Medications Acetaminophen (Acetaminophen 325 Mg Tablet) 650 mg PO Q6H PRN PRN Reason: Headache/Pain Mild Scale (1-3) Last Admin: 04/16/23 23:35 Dose: 650 mg Al Hydroxide/Mg Hydroxide (Magnesium Hydrox/Alum Hydrox 30 Ml Oral.Susp) 30 ml PO Q6H PRN PRN Reason: Heartburn/Nausea Amlodipine Besylate (Amlodipine Besylate 2.5 Mg Tablet) 2.5 mg PO DAILY [facility]; Protocol Last Admin: 04/19/23 08:24 Dose: 2.5 mg Atorvastatin Calcium (Atorvastatin Calcium 40 Mg Tablet) 40 mg PO BEDTIME [facility] Last Admin: 04/18/23 20:04 Dose: 40 mg Hydroxyzine HCl (Hydroxyzine Hcl 25 Mg Tablet) 25 mg PO Q6H PRN PRN Reason: Anxiety Last Admin: 04/18/23 23:52 Dose: 25 mg Magnesium Hydroxide (Milk Of Magnesia 30 Ml Oral.Susp) 30 ml PO DAILY PRN PRN Reason: Constipation Melatonin (Melatonin 3 Mg Tablet) 3 mg PO BEDTIME PRN PRN Reason: Insomnia Last Admin: 04/16/23 21:20 Dose: 3 mg Omeprazole (Omeprazole 20 Mg Capsule.Dr) 20 mg PO DAILY@0630 [facility] Last Admin: 04/19/23 08:23 Dose: 20 mg Risperidone (Risperidone 0.5 Mg Tablet) 0.5 mg PO BID@0800,1700 [facility] Risperidone (Risperidone 1 Mg Tablet) 1 mg PO BEDTIME [facility] Senna/Docusate Sodium (Sennosides/Docusate Sodium Tablet) 1 tab PO BEDTIME [facility] Last Admin: 04/18/23 20:04 Dose: 1 tab Trazodone HCl (Trazodone Hcl 50 Mg Tablet) 50 mg PO BEDTIME MRX1 PRN PRN Reason: Insomnia Last Admin: 04/18/23 23:52 Dose: 50 mg Allergies Allergies Allergy/AdvReac Type Severity Reaction Status Date / Time No Known Allergies Allergy Verified 04/06/23 05:59 Assessment & Plan Assessment & Plan (1) Routine history and physical examination of adult: Status: Acute Code(s): Z00.00 - Encounter for general adult medical examination without abnormal findings Plan Pt is a 72-year-old female with a PMH significant for advanced dementia, cerebral amyloid angiopathy, GERD, and HLD who is admitted to [facility] for worsening dementia with increased confusion, agitation, and aggressive behaviors. Patient is a transfer from [facility]. Medical consult for admission H&P. Pt is alert to person only, and only occasionally capable of following basic commands. Mood disorder Plan as per Psychiatry Advanced dementia Patient presents with worsening dementia with behavioral disturbances No signs of precipitating factors: No clear sign of infection, no known recent med changes Most likely due to progression of disease HLD Continue aspirin, statin GERD Continue omeprazole Thank you for allowing us to participate in the care of this patient. Signing off at this time. Please let us know if there are any acute complaints or questions. Plan 1. Continue with antipsychotics. 2. Continue with medical workout 3. Discontinue Thorazine 50 mg p.o. t.i.d. 4. Start Risperdal 0.5 mg p.o. t.i.d. to target psychosis. On 04/19 Risperdal was increased to 0.5 p.o. b.i.d. and 1 p.o. q.h.s. 5. On one-to-one for safety. 6. Continue assessment of her behavior Reason for continued inpatient stay Substantial Risk for: inability to function, rapid decompensation and med/psych decompensation Time Spent With Patient Time: Total time managing care of this patient today _20___ minutes.
[2023-04-19 18:00] VITALS: BP 136/72; PULSE 76; RESP 18; TEMP 36.8; O2SAT 94
[2023-04-19 18:20] VITALS: BMI 24.4
[2023-04-19] MEDS: Sennosides/Docusate Sodium TABLET 1 TAB PO (20:26)
[2023-04-19] MEDS: Acetaminophen 325 MG TABLET 650 MG PO (20:26)
[2023-04-19] MEDS: risperiDONE 1 MG TABLET PO (20:26)
[2023-04-19] MEDS: Atorvastatin Calcium 40 MG TABLET PO (20:26)
[2023-04-19] MEDS: hydrOXYzine HCL 25 MG TABLET PO (20:26)
[2023-04-19] MEDS: Melatonin 3 MG TABLET PO (20:26)
[2023-04-20] MEDS: Omeprazole 20 MG CAPSULE.DR PO (06:11)
[2023-04-20 07:52] VITALS: BP 106/58; PULSE 82; RESP 20; TEMP 36.5; O2SAT 98
[2023-04-20] MEDS: risperiDONE 0.5 MG TABLET PO ×2 (08:48→17:09)
[2023-04-20] MEDS: amLODIPine Besylate 2.5 MG TABLET PO (08:48)
[2023-04-20 11:01] VITALS: BP 115/57
--- NOTE | 2023-04-20 11:11 | P.PNPSI_ITS ---
Subjective Subjective Date of Service: 04/20/23 Reason For Visit: Dementia w/ Psychosis; Amyloid Angiopathy Subjective Notes: Conditional Voluntary Interim History: The nursing staff reported the patient had been compliant with treatment, she remains confused. On interview the patient denies new symptoms she has nonsensical at times but easily redirectable. Mental Status Exam Mental Status Exam Patient Appearance: Appropriate Patient Orientation: Person and Situation Level of Consciousness: Awake and Appropriate Patient Behavior: Cooperative Mood Description: Withdrawn Affect Description: Labile Patient Cognition Impaired: Yes Ability to Follow Directions: Good Speech Pattern: Clear Hallucinations: None Delusions: Not Present Thought Process: Illogical and Distracted Thought Content: positive for Disoriented and positive for [place] Judgement: Poor Diagnostics Vital Signs (24Hr): Vital Signs - 24 hr 04/19/23 18:00 04/20/23 07:52 04/20/23 11:01 Temperature 98.3 F 97.7 F Pulse Rate 76 82 Respiratory Rate 18 20 Blood Pressure 136/72 106/58 L 115/57 L Pulse Oximetry 94 98 Oxygen Delivery Method Room Air Room Air BMI result Body Mass Index 24.4 Medications Medications Current Medications Acetaminophen (Acetaminophen 325 Mg Tablet) 650 mg PO Q6H PRN PRN Reason: Headache/Pain Mild Scale (1-3) Last Admin: 04/19/23 20:26 Dose: 650 mg Al Hydroxide/Mg Hydroxide (Magnesium Hydrox/Alum Hydrox 30 Ml Oral.Susp) 30 ml PO Q6H PRN PRN Reason: Heartburn/Nausea Amlodipine Besylate (Amlodipine Besylate 2.5 Mg Tablet) 2.5 mg PO DAILY [facility]; Protocol Last Admin: 04/20/23 08:48 Dose: 2.5 mg Atorvastatin Calcium (Atorvastatin Calcium 40 Mg Tablet) 40 mg PO BEDTIME [facility] Last Admin: 04/19/23 20:26 Dose: 40 mg Hydroxyzine HCl (Hydroxyzine Hcl 25 Mg Tablet) 25 mg PO Q6H PRN PRN Reason: Anxiety Last Admin: 04/19/23 20:26 Dose: 25 mg Magnesium Hydroxide (Milk Of Magnesia 30 Ml Oral.Susp) 30 ml PO DAILY PRN PRN Reason: Constipation Melatonin (Melatonin 3 Mg Tablet) 3 mg PO BEDTIME PRN PRN Reason: Insomnia Last Admin: 04/19/23 20:26 Dose: 3 mg Omeprazole (Omeprazole 20 Mg Capsule.Dr) 20 mg PO DAILY@0630 [facility] Last Admin: 04/20/23 06:11 Dose: 20 mg Risperidone (Risperidone 0.5 Mg Tablet) 0.5 mg PO BID@0800,1700 [facility] Last Admin: 04/20/23 08:48 Dose: 0.5 mg Risperidone (Risperidone 1 Mg Tablet) 1 mg PO BEDTIME [facility] Last Admin: 04/19/23 20:26 Dose: 1 mg Senna/Docusate Sodium (Sennosides/Docusate Sodium Tablet) 1 tab PO BEDTIME [facility] Last Admin: 04/19/23 20:26 Dose: 1 tab Trazodone HCl (Trazodone Hcl 50 Mg Tablet) 50 mg PO BEDTIME MRX1 PRN PRN Reason: Insomnia Last Admin: 04/18/23 23:52 Dose: 50 mg Allergies Allergies Allergy/AdvReac Type Severity Reaction Status Date / Time No Known Allergies Allergy Verified 04/06/23 05:59 Assessment & Plan Assessment & Plan (1) Routine history and physical examination of adult: Status: Acute Code(s): Z00.00 - Encounter for general adult medical examination without abnormal findings Plan Pt is a 72-year-old female with a PMH significant for advanced dementia, cerebral amyloid angiopathy, GERD, and HLD who is admitted to [facility] for worsening dementia with increased confusion, agitation, and aggressive behaviors. Patient is a transfer from [facility]. Medical consult for admission H&P. Pt is alert to person only, and only occasionally capable of following basic commands. Mood disorder Plan as per Psychiatry Advanced dementia Patient presents with worsening dementia with behavioral disturbances No signs of precipitating factors: No clear sign of infection, no known recent med changes Most likely due to progression of disease HLD Continue aspirin, statin GERD Continue omeprazole Thank you for allowing us to participate in the care of this patient. Signing off at this time. Please let us know if there are any acute complaints or questions. Plan 1. Continue with antipsychotics. 2. Continue with medical workout 3. Discontinue Thorazine 50 mg p.o. t.i.d. 4. Start Risperdal 0.5 mg p.o. t.i.d. to target psychosis. On 04/19 Risperdal was increased to 0.5 p.o. b.i.d. and 1 p.o. q.h.s. 5. On one-to-one for safety. 6. Continue assessment of her behavior Reason for continued inpatient stay Substantial Risk for: inability to function, rapid decompensation and med/psych decompensation Time Spent With Patient Time: Total time managing care of this patient today _20___ minutes.
--- NOTE | 2023-04-20 14:53 | PC.NURSE ---
Morning blood pressure 106/58 and asymptomatic. Rechecked Amy's bp at 1100 and 115/57 and MD Norma engel.
[2023-04-20] MEDS: traZODone HCL 50 MG TABLET PO (20:36)
[2023-04-20] MEDS: risperiDONE 1 MG TABLET PO (20:36)
[2023-04-20] MEDS: Atorvastatin Calcium 40 MG TABLET PO (20:36)
[2023-04-20] MEDS: Sennosides/Docusate Sodium TABLET 1 TAB PO (20:36)
[2023-04-20] MEDS: hydrOXYzine HCL 25 MG TABLET PO (23:11)
[2023-04-20] MEDS: Melatonin 3 MG TABLET PO (23:11)
[2023-04-21 08:21] VITALS: BP 115/68; PULSE 87; RESP 20; TEMP 36.4; O2SAT 99
[2023-04-21] MEDS: risperiDONE 0.5 MG TABLET PO ×2 (08:40→16:50)
[2023-04-21] MEDS: Omeprazole 20 MG CAPSULE.DR PO (08:40)
[2023-04-21] MEDS: amLODIPine Besylate 2.5 MG TABLET PO (08:40)
--- NOTE | 2023-04-21 08:41 | P.PNPSI_ITS ---
Subjective Subjective Date of Service: 04/21/23 Reason For Visit: Dementia w/ Psychosis; Amyloid Angiopathy Subjective Notes: Conditional Voluntary Interim History: The nursing staff reported the patient being pleasantly confused she remains on one-to-one for safety. Last night she was up at night but slept 5-6 hours she was trying to kind of the bed. On interview the patient remains pleasantly confused. Mental Status Exam Mental Status Exam Patient Appearance: Appropriate Patient Orientation: Person Level of Consciousness: Awake Patient Behavior: Guarded and Passive Mood Description: Calm and Withdrawn Affect Description: Labile Patient Cognition Impaired: Yes Ability to Follow Directions: Good Speech Pattern: Clear Hallucinations: None Delusions: Paranoid Ideation Thought Process: Illogical Thought Content: positive for [place] and positive for [place] Judgement: Poor Diagnostics Vital Signs (24Hr): Vital Signs - 24 hr 04/20/23 11:01 Blood Pressure 115/57 L BMI result Body Mass Index 24.4 Medications Medications Current Medications Acetaminophen (Acetaminophen 325 Mg Tablet) 650 mg PO Q6H PRN PRN Reason: Headache/Pain Mild Scale (1-3) Last Admin: 04/19/23 20:26 Dose: 650 mg Al Hydroxide/Mg Hydroxide (Magnesium Hydrox/Alum Hydrox 30 Ml Oral.Susp) 30 ml PO Q6H PRN PRN Reason: Heartburn/Nausea Amlodipine Besylate (Amlodipine Besylate 2.5 Mg Tablet) 2.5 mg PO DAILY [facility]; Protocol Last Admin: 04/20/23 08:48 Dose: 2.5 mg Atorvastatin Calcium (Atorvastatin Calcium 40 Mg Tablet) 40 mg PO BEDTIME [facility] Last Admin: 04/20/23 20:36 Dose: 40 mg Hydroxyzine HCl (Hydroxyzine Hcl 25 Mg Tablet) 25 mg PO Q6H PRN PRN Reason: Anxiety Last Admin: 04/20/23 23:11 Dose: 25 mg Magnesium Hydroxide (Milk Of Magnesia 30 Ml Oral.Susp) 30 ml PO DAILY PRN PRN Reason: Constipation Melatonin (Melatonin 3 Mg Tablet) 3 mg PO BEDTIME PRN PRN Reason: Insomnia Last Admin: 04/20/23 23:11 Dose: 3 mg Omeprazole (Omeprazole 20 Mg Capsule.Dr) 20 mg PO DAILY@0630 [facility] Last Admin: 04/20/23 06:11 Dose: 20 mg Risperidone (Risperidone 0.5 Mg Tablet) 0.5 mg PO BID@0800,1700 [facility] Last Admin: 04/20/23 17:09 Dose: 0.5 mg Risperidone (Risperidone 1 Mg Tablet) 1 mg PO BEDTIME [facility] Last Admin: 04/20/23 20:36 Dose: 1 mg Senna/Docusate Sodium (Sennosides/Docusate Sodium Tablet) 1 tab PO BEDTIME [facility] Last Admin: 04/20/23 20:36 Dose: 1 tab Trazodone HCl (Trazodone Hcl 50 Mg Tablet) 50 mg PO BEDTIME MRX1 PRN PRN Reason: Insomnia Last Admin: 04/20/23 20:36 Dose: 50 mg Allergies Allergies Allergy/AdvReac Type Severity Reaction Status Date / Time No Known Allergies Allergy Verified 04/06/23 05:59 Assessment & Plan Assessment & Plan (1) Routine history and physical examination of adult: Status: Acute Code(s): Z00.00 - Encounter for general adult medical examination without abnormal findings Plan Pt is a 72-year-old female with a PMH significant for advanced dementia, cerebral amyloid angiopathy, GERD, and HLD who is admitted to [facility] for worsening dementia with increased confusion, agitation, and aggressive behaviors. Patient is a transfer from [facility]. Medical consult for admission H&P. Pt is alert to person only, and only occasionally capable of following basic commands. Mood disorder Plan as per Psychiatry Advanced dementia Patient presents with worsening dementia with behavioral disturbances No signs of precipitating factors: No clear sign of infection, no known recent med changes Most likely due to progression of disease HLD Continue aspirin, statin GERD Continue omeprazole Thank you for allowing us to participate in the care of this patient. Signing off at this time. Please let us know if there are any acute complaints or que stions. Plan 1. Continue with antipsychotics. 2. Continue with medical workout 3. Discontinue Thorazine 50 mg p.o. t.i.d. 4. Start Risperdal 0.5 mg p.o. t.i.d. to target psychosis. On 04/19 Risperdal was increased to 0.5 p.o. b.i.d. and 1 p.o. q.h.s. 5. On one-to-one for safety. 6. Continue assessment of her behavior Reason for continued inpatient stay Substantial Risk for: inability to function, rapid decompensation and med/psych decompensation Time Spent With Patient Time: Total time managing care of this patient today _20___ minutes.
[2023-04-21 18:00] VITALS: BP 132/60; PULSE 80; RESP 20; TEMP 36.7; O2SAT 95
[2023-04-21] MEDS: Sennosides/Docusate Sodium TABLET 1 TAB PO (20:10)
[2023-04-21] MEDS: Atorvastatin Calcium 40 MG TABLET PO (20:10)
[2023-04-21] MEDS: risperiDONE 1 MG TABLET PO (20:10)
[2023-04-22] MEDS: traZODone HCL 50 MG TABLET PO ×2 (00:53→20:01)
[2023-04-22] MEDS: hydrOXYzine HCL 25 MG TABLET PO (00:54)
[2023-04-22] MEDS: Omeprazole 20 MG CAPSULE.DR PO (06:15)
[2023-04-22 09:30] VITALS: BP 110/80; PULSE 84; RESP 20; TEMP 35.9; O2SAT 99
[2023-04-22] MEDS: risperiDONE 0.5 MG TABLET PO ×2 (09:35→16:38)
[2023-04-22] MEDS: amLODIPine Besylate 2.5 MG TABLET PO (09:36)
[2023-04-22] MEDS: Divalproex Sodium Sprinkles 125 MG CAP.DR.SPR PO ×3 (09:37→19:59)
--- NOTE | 2023-04-22 16:05 | P.PNPSI_ITS ---
Subjective Subjective Date of Service: 04/22/23 Reason For Visit: Dementia w/ Psychosis; Amyloid Angiopathy Subjective Notes: Conditional Voluntary Interim History: The nursing staff reported the patient had been confused on one-to-one, needs constant redirection. The staff has noticed that the patient has been touching the clothing of other peers and staff. On interview the patient denies new symptoms she stated that she is doing fabulous that she does not have any medical concerns. She looks very disoriented and confused but easily redirectable. A little more in impulsive. Mental Status Exam Mental Status Exam Patient Appearance: Well Grooomed and Appropriate Patient Orientation: Person and Situation Level of Consciousness: Awake and Appropriate Patient Behavior: Guarded and Passive Mood Description: Calm Affect Description: Cheerful and Anxious Patient Cognition Impaired: Yes Ability to Follow Directions: Good Speech Pattern: Clear Hallucinations: None Delusions: Not Present Thought Process: Distracted Thought Content: positive for [place] Judgement: Poor Diagnostics Vital Signs (24Hr): Vital Signs - 24 hr 04/21/23 18:00 04/22/23 09:30 Temperature 98.1 F 96.6 F L Pulse Rate 80 84 Respiratory Rate 20 20 Blood Pressure 132/60 110/80 Pulse Oximetry 95 99 Oxygen Delivery Method Room Air Room Air BMI result Body Mass Index 24.4 Medications Medications Current Medications Acetaminophen (Acetaminophen 325 Mg Tablet) 650 mg PO Q6H PRN PRN Reason: Headache/Pain Mild Scale (1-3) Last Admin: 04/19/23 20:26 Dose: 650 mg Al Hydroxide/Mg Hydroxide (Magnesium Hydrox/Alum Hydrox 30 Ml Oral.Susp) 30 ml PO Q6H PRN PRN Reason: Heartburn/Nausea Amlodipine Besylate (Amlodipine Besylate 2.5 Mg Tablet) 2.5 mg PO DAILY [facility]; Protocol Last Admin: 04/22/23 09:36 Dose: 2.5 mg Atorvastatin Calcium (Atorvastatin Calcium 40 Mg Tablet) 40 mg PO BEDTIME [facility] Last Admin: 04/21/23 20:10 Dose: 40 mg Divalproex Sodium (Divalproex Sodium Sprinkles 125 Mg ) 125 mg PO TID [facility] Last Admin: 04/22/23 15:28 Dose: 125 mg Hydroxyzine HCl (Hydroxyzine Hcl 25 Mg Tablet) 25 mg PO Q6H PRN PRN Reason: Anxiety Last Admin: 04/22/23 00:54 Dose: 25 mg Magnesium Hydroxide (Milk Of Magnesia 30 Ml Oral.Susp) 30 ml PO DAILY PRN PRN Reason: Constipation Melatonin (Melatonin 3 Mg Tablet) 3 mg PO BEDTIME PRN PRN Reason: Insomnia Last Admin: 04/20/23 23:11 Dose: 3 mg Omeprazole (Omeprazole 20 Mg Capsule.Dr) 20 mg PO DAILY@0630 [facility] Last Admin: 04/22/23 06:15 Dose: 20 mg Risperidone (Risperidone 0.5 Mg Tablet) 0.5 mg PO BID@0800,1700 [facility] Last Admin: 04/22/23 09:35 Dose: 0.5 mg Risperidone (Risperidone 1 Mg Tablet) 1 mg PO BEDTIME [facility] Last Admin: 04/21/23 20:10 Dose: 1 mg Senna/Docusate Sodium (Sennosides/Docusate Sodium Tablet) 1 tab PO BEDTIME [facility] Last Admin: 04/21/23 20:10 Dose: 1 tab Trazodone HCl (Trazodone Hcl 50 Mg Tablet) 50 mg PO BEDTIME MRX1 PRN PRN Reason: Insomnia Last Admin: 04/22/23 00:53 Dose: 50 mg Allergies Allergies Allergy/AdvReac Type Severity Reaction Status Date / Time No Known Allergies Allergy Verified 04/06/23 05:59 Assessment & Plan Assessment & Plan (1) Routine history and physical examination of adult: Status: Acute Code(s): Z00.00 - Encounter for general adult medical examination without abnormal findings Plan Pt is a 72-year-old female with a PMH significant for advanced dementia, cerebral amyloid angiopathy, GERD, and HLD who is admitted to [facility] for worsening dementia with increased confusion, agitation, and aggressive behaviors. Patient is a transfer from [facility]. Medical consult for admission H&P. Pt is alert to person only, and only occasionally capable of following basic commands. Mood disorder Plan as per Psychiatry Advanced dementia Patient presents with worsening dementia with behavioral disturbances No signs of precipitating factors: No clear sign of infection, no known recent med changes Most likely due to progression of disease HLD Continue aspirin, statin GERD Continue omeprazole Thank you for allowing us to participate in the care of this patient. Signing off at this time. Please let us know if there are any acute complaints or questions. Plan 1. Continue with antipsychotics. 2. Continue with medical workout 3. Discontinue Thorazine 50 mg p.o. t.i.d. 4. Start Risperdal 0.5 mg p.o. t.i.d. to target psychosis. On 04/19 Risperdal was increased to 0.5 p.o. b.i.d. and 1 p.o. q.h.s. 5. On one-to-one for safety. 6. Continue assessment of her behavior . 7. On April 22 to be started Depakote 125 p.o. t.i.d. to target impulsivity Reason for continued inpatient stay Substantial Risk for: inability to function, rapid decompensation and med/psych decompensation Time Spent With Patient Time: Total time managing care of this patient today __20__ minutes.
[2023-04-22 18:00] VITALS: BP 133/59; PULSE 88; TEMP 36.6; O2SAT 97
[2023-04-22] MEDS: Melatonin 3 MG TABLET PO (19:59)
[2023-04-22] MEDS: Sennosides/Docusate Sodium TABLET 1 TAB PO (20:00)
[2023-04-22] MEDS: risperiDONE 1 MG TABLET PO (20:00)
[2023-04-22] MEDS: Atorvastatin Calcium 40 MG TABLET PO (20:00)
[2023-04-23 08:10] VITALS: BP 120/55; PULSE 81; RESP 20; TEMP 36; O2SAT 96
[2023-04-23] MEDS: risperiDONE 0.5 MG TABLET PO ×2 (08:11→16:46)
[2023-04-23] MEDS: Omeprazole 20 MG CAPSULE.DR PO (08:11)
[2023-04-23] MEDS: Divalproex Sodium Sprinkles 125 MG CAP.DR.SPR PO ×3 (08:11→20:34)
[2023-04-23] MEDS: amLODIPine Besylate 2.5 MG TABLET PO (08:12)
--- NOTE | 2023-04-23 17:17 | HO.PSYCHPN ---
Subjective Subjective Date of Service: 04/23/23 Reason For Visit: Dementia w/ Psychosis; Amyloid Angiopathy Subjective Notes: Conditional Voluntary Interim History: Pt presents as pleasant. Some degree of aphasia noted. Pt not oriented to place or situation. Pt visible on the unit, holding hands with staff. She denies SI/HI. Per nursing, pt slept through the night. No behavioral concerns. Medication Compliance: Yes Review of Systems Review of Systems Unable to obtain due to patient's mentation Yes all other systems are reviewed and are negative and Unobtainable due to mental status Mental Status Exam Mental Status Exam Patient Appearance: Well Grooomed and Appropriate Patient Orientation: Person and Situation Level of Consciousness: Awake and Appropriate Patient Behavior: Guarded and Passive Mood Description: Calm Affect Description: Cheerful and Anxious Patient Cognition Impaired: Yes Ability to Follow Directions: Good Speech Pattern: Clear Diagnostics Vital Signs (24Hr): Vital Signs - 24 hr 04/22/23 18:00 04/23/23 08:10 Temperature 97.8 F 96.8 F Pulse Rate 88 81 Respiratory Rate 20 Blood Pressure 133/59 L 120/55 L Pulse Oximetry 97 96 Oxygen Delivery Method Room Air Room Air BMI result Body Mass Index 24.4 Medications Medications Current Medications Acetaminophen (Acetaminophen 325 Mg Tablet) 650 mg PO Q6H PRN PRN Reason: Headache/Pain Mild Scale (1-3) Last Admin: 04/19/23 20:26 Dose: 650 mg Al Hydroxide/Mg Hydroxide (Magnesium Hydrox/Alum Hydrox 30 Ml Oral.Susp) 30 ml PO Q6H PRN PRN Reason: Heartburn/Nausea Amlodipine Besylate (Amlodipine Besylate 2.5 Mg Tablet) 2.5 mg PO DAILY [facility]; Protocol Last Admin: 04/23/23 08:12 Dose: 2.5 mg Atorvastatin Calcium (Atorvastatin Calcium 40 Mg Tablet) 40 mg PO BEDTIME [facility] Last Admin: 04/22/23 20:00 Dose: 40 mg Divalproex Sodium (Divalproex Sodium Sprinkles 125 Mg ) 125 mg PO TID [facility] Last Admin: 04/23/23 15:07 Dose: 125 mg Hydroxyzine HCl (Hydroxyzine Hcl 25 Mg Tablet) 25 mg PO Q6H PRN PRN Reason: Anxiety Last Admin: 04/22/23 00:54 Dose: 25 mg Magnesium Hydroxide (Milk Of Magnesia 30 Ml Oral.Susp) 30 ml PO DAILY PRN PRN Reason: Constipation Melatonin (Melatonin 3 Mg Tablet) 3 mg PO BEDTIME PRN PRN Reason: Insomnia Last Admin: 04/22/23 19:59 Dose: 3 mg Omeprazole (Omeprazole 20 Mg Capsule.Dr) 20 mg PO DAILY@0630 [facility] Last Admin: 04/23/23 08:11 Dose: 20 mg Risperidone (Risperidone 0.5 Mg Tablet) 0.5 mg PO BID@0800,1700 [facility] Last Admin: 04/23/23 16:46 Dose: 0.5 mg Risperidone (Risperidone 1 Mg Tablet) 1 mg PO BEDTIME [facility] Last Admin: 04/22/23 20:00 Dose: 1 mg Senna/Docusate Sodium (Sennosides/Docusate Sodium Tablet) 1 tab PO BEDTIME [facility] Last Admin: 04/22/23 20:00 Dose: 1 tab Trazodone HCl (Trazodone Hcl 50 Mg Tablet) 50 mg PO BEDTIME PRN PRN Reason: Insomnia Allergies Allergies Allergy/AdvReac Type Severity Reaction Status Date / Time No Known Allergies Allergy Verified 04/06/23 05:59 Assessment & Plan Assessment & Plan (1) Routine history and physical examination of adult: Status: Acute Code(s): Z00.00 - Encounter for general adult medical examination without abnormal findings Plan Pt is a 72-year-old female with a PMH significant for advanced dementia, cerebral amyloid angiopathy, GERD, and HLD who is admitted to [facility] for worsening dementia with increased confusion, agitation, and aggressive behaviors. Patient is a transfer from [facility]. Medical consult for admission H&P. Pt is alert to person only, and only occasionally capable of following basic commands. Mood disorder Plan as per Psychiatry Advanced dementia Patient presents with worsening dementia with behavioral disturbances No signs of precipitating factors: No clear sign of infection, no known recent med changes Most likely due to progression of disease HLD Continue aspirin, statin GERD Continue omeprazole Thank you for allowing us to participate in the care of this patient. Signing off at this time. Please let us know if there are any acute complaints or questions. Plan 04/23 continue tx. Reason for continued inpatient stay Substantial Risk for: inability to function Time Spent With Patient Time: Total time managing care of this patient today ____ minutes.
[2023-04-23 18:00] VITALS: BP 135/64; PULSE 82; RESP 19; TEMP 36.4
[2023-04-23] MEDS: Sennosides/Docusate Sodium TABLET 1 TAB PO (20:34)
[2023-04-23] MEDS: traZODone HCL 50 MG TABLET PO (20:34)
[2023-04-23] MEDS: Acetaminophen 325 MG TABLET 650 MG PO (20:34)
[2023-04-23] MEDS: Atorvastatin Calcium 40 MG TABLET PO (20:34)
[2023-04-23] MEDS: risperiDONE 1 MG TABLET PO (20:35)
[2023-04-24 08:00] VITALS: BP 101/55; PULSE 79; RESP 18; TEMP 36.8; O2SAT 96
[2023-04-24] MEDS: risperiDONE 0.5 MG TABLET PO ×2 (08:36→17:55)
[2023-04-24] MEDS: Divalproex Sodium Sprinkles 125 MG CAP.DR.SPR PO ×2 (08:37→14:37)
[2023-04-24] MEDS: amLODIPine Besylate 2.5 MG TABLET PO (08:37)
--- NOTE | 2023-04-24 12:21 | HO.PSYCHPN ---
Subjective Subjective Date of Service: 04/24/23 Reason For Visit: Dementia w/ Psychosis; Amyloid Angiopathy Subjective Notes: Conditional Voluntary Interim History: The nursing staff reported the patient had been count, cooperative, fully compliant with treatment. Impulsive at times but easily redirectable. Yesterday she touched and other p.r.n. she was redirected. No evidence of aggression. On interview the patient is pleasantly confused. Mental Status Exam Mental Status Exam Patient Appearance: Appropriate Patient Orientation: Person and Situation Level of Consciousness: Awake and Appropriate Patient Behavior: Guarded and Passive Mood Description: Withdrawn Affect Description: Constricted Patient Cognition Impaired: Yes Ability to Follow Directions: Good Speech Pattern: Clear Hallucinations: None Delusions: Not Present Thought Process: Distracted and Linear Thought Content: positive for [place] and positive for Poverty of Content Judgement: Fair Diagnostics Vital Signs (24Hr): Vital Signs - 24 hr 04/23/23 18:00 04/24/23 08:00 Temperature 97.5 F 98.3 F Pulse Rate 82 79 Respiratory Rate 19 18 Blood Pressure 135/64 101/55 L Pulse Oximetry 96 Oxygen Delivery Method Room Air Room Air BMI result Body Mass Index 24.4 Medications Medications Current Medications Acetaminophen (Acetaminophen 325 Mg Tablet) 650 mg PO Q6H PRN PRN Reason: Headache/Pain Mild Scale (1-3) Last Admin: 04/23/23 20:34 Dose: 650 mg Al Hydroxide/Mg Hydroxide (Magnesium Hydrox/Alum Hydrox 30 Ml Oral.Susp) 30 ml PO Q6H PRN PRN Reason: Heartburn/Nausea Amlodipine Besylate (Amlodipine Besylate 2.5 Mg Tablet) 2.5 mg PO DAILY [facility]; Protocol Last Admin: 04/24/23 08:37 Dose: 2.5 mg Atorvastatin Calcium (Atorvastatin Calcium 40 Mg Tablet) 40 mg PO BEDTIME [facility] Last Admin: 04/23/23 20:34 Dose: 40 mg Divalproex Sodium (Divalproex Sodium Sprinkles 125 Mg ) 125 mg PO TID [facility] Last Admin: 04/24/23 08:37 Dose: 125 mg Hydroxyzine HCl (Hydroxyzine Hcl 25 Mg Tablet) 25 mg PO Q6H PRN PRN Reason: Anxiety Last Admin: 04/22/23 00:54 Dose: 25 mg Magnesium Hydroxide (Milk Of Magnesia 30 Ml Oral.Susp) 30 ml PO DAILY PRN PRN Reason: Constipation Melatonin (Melatonin 3 Mg Tablet) 3 mg PO BEDTIME PRN PRN Reason: Insomnia Last Admin: 04/22/23 19:59 Dose: 3 mg Omeprazole (Omeprazole 20 Mg Capsule.Dr) 20 mg PO DAILY@0630 [facility] Last Admin: 04/24/23 05:47 Dose: Not Given Risperidone (Risperidone 0.5 Mg Tablet) 0.5 mg PO BID@0800,1700 [facility] Last Admin: 04/24/23 08:36 Dose: 0.5 mg Risperidone (Risperidone 1 Mg Tablet) 1 mg PO BEDTIME [facility] Last Admin: 04/23/23 20:35 Dose: 1 mg Senna/Docusate Sodium (Sennosides/Docusate Sodium Tablet) 1 tab PO BEDTIME [facility] Last Admin: 04/23/23 20:34 Dose: 1 tab Trazodone HCl (Trazodone Hcl 50 Mg Tablet) 50 mg PO BEDTIME PRN PRN Reason: Insomnia Last Admin: 04/23/23 20:34 Dose: 50 mg Allergies Allergies Allergy/AdvReac Type Severity Reaction Status Date / Time No Known Allergies Allergy Verified 04/06/23 05:59 Assessment & Plan Assessment & Plan (1) Routine history and physical examination of adult: Status: Acute Code(s): Z00.00 - Encounter for general adult medical examination without abnormal findings Plan Pt is a 72-year-old female with a PMH significant for advanced dementia, cerebral amyloid angiopathy, GERD, and HLD who is admitted to [facility] for worsening dementia with increased confusion, agitation, and aggressive behaviors. Patient is a transfer from [facility]. Medical consult for admission H&P. Pt is alert to person only, and only occasionally capable of following basic commands. Mood disorder Plan as per Psychiatry Advanced dementia Patient presents with worsening dementia with behavioral disturbances No signs of precipitating factors: No clear sign of infection, no known recent med changes Most likely due to progression of disease HLD Continue aspirin, statin GERD Continue omeprazole Thank you for allowing us to participate in the care of this patient. Signing off at this time. Please let us know if there are any acute complaints or questions. Plan 1. Continue with antipsychotics. 2. Waiting for placement Reason for continued inpatient stay Substantial Risk for: inability to function, rapid decompensation and med/psych decompensation Time Spent With Patient Time: Total time managing care of this patient today ____ minutes.
[2023-04-24 18:00] VITALS: BP 134/65; PULSE 90; RESP 18; TEMP 36.8; O2SAT 98
[2023-04-24] MEDS: risperiDONE 1 MG TABLET PO (20:36)
[2023-04-24] MEDS: Atorvastatin Calcium 40 MG TABLET PO (20:36)
[2023-04-24] MEDS: traZODone HCL 50 MG TABLET PO (20:36)
[2023-04-24] MEDS: Divalproex Sodium Sprinkles 125 MG CAP.DR.SPR 250 MG PO (20:37)
[2023-04-24] MEDS: hydrOXYzine HCL 25 MG TABLET PO (20:37)
[2023-04-24] MEDS: Melatonin 3 MG TABLET PO (20:38)
[2023-04-24] MEDS: Sennosides/Docusate Sodium TABLET 1 TAB PO (20:38)
[2023-04-25 09:30] VITALS: BP 120/53; PULSE 74; RESP 15; TEMP 36.4; O2SAT 99
[2023-04-25] MEDS: amLODIPine Besylate 2.5 MG TABLET PO (09:48)
[2023-04-25] MEDS: Divalproex Sodium Sprinkles 125 MG CAP.DR.SPR 250 MG PO ×3 (09:48→20:49)
[2023-04-25] MEDS: Omeprazole 20 MG CAPSULE.DR PO (09:49)
--- NOTE | 2023-04-25 13:39 | P.PNPSI_ITS ---
Subjective Subjective Date of Service: 04/25/23 Reason For Visit: Dementia w/ Psychosis; Amyloid Angiopathy Subjective Notes: Conditional Voluntary Interim History: The nursing staff reported the patient has been impulsive still on one-to-one since she is unsafe. On interview the patient is pleasantly confused, disinhibited at times. Yesterday we increase Depakote up to 250 mg p.o. t.i.d. to target impulsivity. Mental Status Exam Mental Status Exam Patient Appearance: Well Grooomed and Appropriate Patient Orientation: Person and Situation Level of Consciousness: Awake and Appropriate Patient Behavior: Cooperative and Restless Mood Description: Cheerful Affect Description: Labile Patient Cognition Impaired: Yes Ability to Follow Directions: Good Speech Pattern: Clear Hallucinations: None Delusions: Paranoid Ideation Thought Process: Incoherent, Illogical and Distracted Thought Content: positive for Poverty of Content and positive for Loose Associations Judgement: Poor Diagnostics Vital Signs (24Hr): Vital Signs - 24 hr 04/24/23 18:00 04/25/23 09:30 Temperature 98.2 F 97.5 F Pulse Rate 90 74 Respiratory Rate 18 15 Blood Pressure 134/65 120/53 L Pulse Oximetry 98 99 Oxygen Delivery Method Room Air Room Air BMI result Body Mass Index 24.4 Medications Medications Current Medications Acetaminophen (Acetaminophen 325 Mg Tablet) 650 mg PO Q6H PRN PRN Reason: Headache/Pain Mild Scale (1-3) Last Admin: 04/23/23 20:34 Dose: 650 mg Al Hydroxide/Mg Hydroxide (Magnesium Hydrox/Alum Hydrox 30 Ml Oral.Susp) 30 ml PO Q6H PRN PRN Reason: Heartburn/Nausea Amlodipine Besylate (Amlodipine Besylate 2.5 Mg Tablet) 2.5 mg PO DAILY [facility]; Protocol Last Admin: 04/25/23 09:48 Dose: 2.5 mg Atorvastatin Calcium (Atorvastatin Calcium 40 Mg Tablet) 40 mg PO BEDTIME [facility] Last Admin: 04/24/23 20:36 Dose: 40 mg Divalproex Sodium (Divalproex Sodium Sprinkles 125 Mg ) 250 mg PO TID [facility] Last Admin: 04/25/23 09:48 Dose: 250 mg Hydroxyzine HCl (Hydroxyzine Hcl 25 Mg Tablet) 25 mg PO Q6H PRN PRN Reason: Anxiety Last Admin: 04/24/23 20:37 Dose: 25 mg Magnesium Hydroxide (Milk Of Magnesia 30 Ml Oral.Susp) 30 ml PO DAILY PRN PRN Reason: Constipation Melatonin (Melatonin 3 Mg Tablet) 3 mg PO BEDTIME PRN PRN Reason: Insomnia Last Admin: 04/24/23 20:38 Dose: 3 mg Omeprazole (Omeprazole 20 Mg Capsule.Dr) 20 mg PO DAILY@0630 [facility] Last Admin: 04/25/23 09:49 Dose: 20 mg Risperidone (Risperidone 0.5 Mg Tablet) 0.5 mg PO BID@0800,1700 [facility] Last Admin: 04/24/23 17:55 Dose: 0.5 mg Risperidone (Risperidone 1 Mg Tablet) 1 mg PO BEDTIME [facility] Last Admin: 04/24/23 20:36 Dose: 1 mg Senna/Docusate Sodium (Sennosides/Docusate Sodium Tablet) 1 tab PO BEDTIME [facility] Last Admin: 04/24/23 20:38 Dose: 1 tab Trazodone HCl (Trazodone Hcl 50 Mg Tablet) 50 mg PO BEDTIME PRN PRN Reason: Insomnia Last Admin: 04/24/23 20:36 Dose: 50 mg Allergies Allergies Allergy/AdvReac Type Severity Reaction Status Date / Time No Known Allergies Allergy Verified 04/06/23 05:59 Assessment & Plan Assessment & Plan (1) Routine history and physical examination of adult: Status: Acute Code(s): Z00.00 - Encounter for general adult medical examination without abnormal findings Plan Pt is a 72-year-old female with a PMH significant for advanced dementia, cerebral amyloid angiopathy, GERD, and HLD who is admitted to [facility] for worsening dementia with increased confusion, agitation, and aggressive behaviors. Patient is a transfer from [facility]. Medical consult for admission H&P. Pt is alert to person only, and only occasionally capable of following basic commands. Mood disorder Plan as per Psychiatry Advanced dementia Patient presents with worsening dementia with behavioral disturbances No signs of precipitating factors: No clear sign of infection, no known recent med changes Most likely due to progression of disease HLD Continue aspirin, statin GERD Continue omeprazole Thank you for allowing us to participate in the care of this patient. Signing off at this time. Please let us know if there are any acute complaints or questions. Plan 1. Continue with antipsychotics. 2. Waiting for placement 3. Increased Depakote up to 250 mg p.o. t.i.d. to target impulsivity Reason for continued inpatient stay Substantial Risk for: inability to function, rapid decompensation and med/psych decompensation Time Spent With Patient Time: Total time managing care of this patient today __20__ minutes.
[2023-04-25] MEDS: risperiDONE 0.5 MG TABLET PO ×2 (14:51→18:59)
--- NOTE | 2023-04-25 16:49 | PC.NURSE ---
THIS PT.'S MORNING DOSE OF RISPERADOL WAS ADMINISTERED AT 1451. THIS NURSE REACHED OUT TO DR. DUKES VIA [place], TO INQUIRE ABOUT HER STILL RECEIVING HER 1700 DOSE OF THE MEDICATION. HE STATED THAT LONG HER SYSTALIC BP IS GREATER THAN 90 AND DIASTOLIC BP IS GREATER THAN 60, TO ADMINISTER THE EVENING DOSE.
[2023-04-25 18:00] VITALS: BP 134/59; PULSE 70; RESP 18; TEMP 36.4; O2SAT 98
[2023-04-25] MEDS: Sennosides/Docusate Sodium TABLET 1 TAB PO (20:49)
[2023-04-25] MEDS: Atorvastatin Calcium 40 MG TABLET PO (20:49)
[2023-04-25] MEDS: risperiDONE 1 MG TABLET PO (20:49)
[2023-04-26 07:30] VITALS: BP 117/56; PULSE 71; RESP 15; TEMP 36.5; O2SAT 99
[2023-04-26] MEDS: Divalproex Sodium Sprinkles 125 MG CAP.DR.SPR 250 MG PO ×3 (10:55→20:22)
[2023-04-26] MEDS: risperiDONE 0.5 MG TABLET PO ×2 (10:55→18:18)
[2023-04-26] MEDS: Omeprazole 20 MG CAPSULE.DR PO (10:55)
[2023-04-26] MEDS: amLODIPine Besylate 2.5 MG TABLET PO (10:56)
[2023-04-26 18:00] VITALS: BP 134/69; PULSE 75; RESP 16; TEMP 37.2; O2SAT 99
--- NOTE | 2023-04-26 19:32 | HO.PSYCHPN ---
Subjective Subjective Date of Service: 04/26/23 Reason For Visit: Dementia w/ Psychosis; Amyloid Angiopathy Interim History: Pt has been walking around unit, with one to one holding staff hand which seems to be related to her vision and reassurance fear of fall. Pt pleasant on approach although not oriented to place, situation. She is easily redirected. no aggression or combative behaviors, mostly pacing and walking. VS stable. Review of Systems Review of Systems Unable to obtain due to patient's mentation Yes all other systems are reviewed and are negative and Unobtainable due to mental status Mental Status Exam Mental Status Exam Narrative: walking the butterfield with 1:1, adequately groomed, dressed in conor. cooperative. no PMA/PMR. speech nml rate, decr amount, decr loundess, nml latency. thoughts seem to be a mix of stereotyped social banalities and non-sequiturs. affect constricted, normo-intense, non-labile. no SI/HI/AVH expressed. Diagnostics Vital Signs (24Hr): Vital Signs - 24 hr 04/26/23 07:30 Temperature 97.7 F Pulse Rate 71 Respiratory Rate 15 Blood Pressure 117/56 L Pulse Oximetry 99 Oxygen Delivery Method Room Air BMI result Body Mass Index 24.4 Medications Medications Current Medications Acetaminophen (Acetaminophen 325 Mg Tablet) 650 mg PO Q6H PRN PRN Reason: Headache/Pain Mild Scale (1-3) Last Admin: 04/23/23 20:34 Dose: 650 mg Al Hydroxide/Mg Hydroxide (Magnesium Hydrox/Alum Hydrox 30 Ml Oral.Susp) 30 ml PO Q6H PRN PRN Reason: Heartburn/Nausea Amlodipine Besylate (Amlodipine Besylate 2.5 Mg Tablet) 2.5 mg PO DAILY [facility]; Protocol Last Admin: 04/26/23 10:56 Dose: 2.5 mg Atorvastatin Calcium (Atorvastatin Calcium 40 Mg Tablet) 40 mg PO BEDTIME [facility] Last Admin: 04/25/23 20:49 Dose: 40 mg Divalproex Sodium (Divalproex Sodium Sprinkles 125 Mg ) 250 mg PO TID [facility] Last Admin: 04/26/23 16:17 Dose: 250 mg Hydroxyzine HCl (Hydroxyzine Hcl 25 Mg Tablet) 25 mg PO Q6H PRN PRN Reason: Anxiety Last Admin: 04/24/23 20:37 Dose: 25 mg Magnesium Hydroxide (Milk Of Magnesia 30 Ml Oral.Susp) 30 ml PO DAILY PRN PRN Reason: Constipation Melatonin (Melatonin 3 Mg Tablet) 3 mg PO BEDTIME PRN PRN Reason: Insomnia Last Admin: 04/24/23 20:38 Dose: 3 mg Omeprazole (Omeprazole 20 Mg Capsule.Dr) 20 mg PO DAILY@0630 [facility] Last Admin: 04/26/23 10:55 Dose: 20 mg Risperidone (Risperidone 0.5 Mg Tablet) 0.5 mg PO BID@0800,1700 [facility] Last Admin: 04/26/23 18:18 Dose: 0.5 mg Risperidone (Risperidone 1 Mg Tablet) 1 mg PO BEDTIME [facility] Last Admin: 04/25/23 20:49 Dose: 1 mg Senna/Docusate Sodium (Sennosides/Docusate Sodium Tablet) 1 tab PO BEDTIME [facility] Last Admin: 04/25/23 20:49 Dose: 1 tab Trazodone HCl (Trazodone Hcl 50 Mg Tablet) 50 mg PO BEDTIME PRN PRN Reason: Insomnia Last Admin: 04/24/23 20:36 Dose: 50 mg Allergies Allergies Allergy/AdvReac Type Severity Reaction Status Date / Time No Known Allergies Allergy Verified 04/06/23 05:59 Assessment & Plan Assessment & Plan (1) Major neurocognitive disorder: Status: Acute Code(s): F03.90 - Unspecified dementia, unspecified severity, without behavioral disturbance, psychotic disturbance, mood disturbance, and anxiety Plan Pt is a 72-year-old female with a PMH significant for advanced dementia, cerebral amyloid angiopathy, GERD, and HLD who is admitted to [facility] for worsening dementia with increased confusion, agitation, and aggressive behaviors. Patient is a transfer from [facility]. Medical consult for admission H&P. Pt is alert to person only, and only occasionally capable of following basic commands. Mood disorder Plan as per Psychiatry Advanced dementia Patient presents with worsening dementia with behavioral disturbances No signs of precipitating factors: No clear sign of infection, no known recent med changes Most likely due to progression of disease HLD Continue aspirin, statin GERD Continue omeprazole Thank you for allowing us to participate in the care of this patient. Signing off at this time. Please let us know if there are any acute complaints or questions. Plan 04/26 continue tx. Reason for continued inpatient stay Substantial Risk for: inability to function Time Spent With Patient Time: Total time managing care of this patient today ____ minutes.
[2023-04-26] MEDS: Atorvastatin Calcium 40 MG TABLET PO (20:21)
[2023-04-26] MEDS: Sennosides/Docusate Sodium TABLET 1 TAB PO (20:21)
[2023-04-26] MEDS: traZODone HCL 50 MG TABLET PO (20:23)
[2023-04-26] MEDS: risperiDONE 1 MG TABLET PO (20:23)
[2023-04-26] MEDS: Melatonin 3 MG TABLET PO (20:23)
[2023-04-27] MEDS: Omeprazole 20 MG CAPSULE.DR PO (05:29)
[2023-04-27 08:45] VITALS: BP 114/73; PULSE 76; RESP 16; TEMP 36.3; O2SAT 98
[2023-04-27] MEDS: risperiDONE 0.5 MG TABLET PO ×2 (08:50→17:16)
[2023-04-27] MEDS: amLODIPine Besylate 2.5 MG TABLET PO (08:50)
[2023-04-27] MEDS: Divalproex Sodium Sprinkles 125 MG CAP.DR.SPR 250 MG PO ×3 (08:51→22:11)
--- NOTE | 2023-04-27 17:19 | P.PNPSI_ITS ---
Subjective Subjective Date of Service: 04/27/23 Reason For Visit: Dementia w/ Psychosis; Amyloid Angiopathy Subjective Notes: Conditional Voluntary Interim History: Pt continues to present as pleasant, she has been walking around unit, with one to one holding staff hand. Pt pleasant on approach although not oriented to place, situation. She is easily redirected. no aggression or combative behaviors, mostly pacing and walking. VS stable. Per nursing, pt slept through the night. Taking meds as prescribed. Review of Systems Review of Systems Unable to obtain due to patient's mentation Yes all other systems are reviewed and are negative and Unobtainable due to mental status Mental Status Exam Mental Status Exam Narrative: walking the butterfield with 1:1, adequately groomed, dressed in conor. cooperative. no PMA/PMR. speech nml rate, decr amount, decr loundess, nml latency. thoughts seem to be a mix of stereotyped social banalities and non-sequiturs. affect constricted, normo-intense, non-labile. no SI/HI/AVH expressed. Diagnostics Vital Signs (24Hr): Vital Signs - 24 hr 04/26/23 18:00 04/27/23 08:45 Temperature 98.9 F 97.3 F Pulse Rate 75 76 Respiratory Rate 16 16 Blood Pressure 134/69 114/73 Pulse Oximetry 99 98 Oxygen Delivery Method Room Air Room Air BMI result Body Mass Index 24.4 Medications Medications Current Medications Acetaminophen (Acetaminophen 325 Mg Tablet) 650 mg PO Q6H PRN PRN Reason: Headache/Pain Mild Scale (1-3) Last Admin: 04/23/23 20:34 Dose: 650 mg Al Hydroxide/Mg Hydroxide (Magnesium Hydrox/Alum Hydrox 30 Ml Oral.Susp) 30 ml PO Q6H PRN PRN Reason: Heartburn/Nausea Amlodipine Besylate (Amlodipine Besylate 2.5 Mg Tablet) 2.5 mg PO DAILY [facility]; Protocol Last Admin: 04/27/23 08:50 Dose: 2.5 mg Atorvastatin Calcium (Atorvastatin Calcium 40 Mg Tablet) 40 mg PO BEDTIME [facility] Last Admin: 04/26/23 20:21 Dose: 40 mg Divalproex Sodium (Divalproex Sodium Sprinkles 125 Mg ) 250 mg PO TID [facility] Last Admin: 04/27/23 15:57 Dose: 250 mg Hydroxyzine HCl (Hydroxyzine Hcl 25 Mg Tablet) 25 mg PO Q6H PRN PRN Reason: Anxiety Last Admin: 04/24/23 20:37 Dose: 25 mg Magnesium Hydroxide (Milk Of Magnesia 30 Ml Oral.Susp) 30 ml PO DAILY PRN PRN Reason: Constipation Melatonin (Melatonin 3 Mg Tablet) 3 mg PO BEDTIME PRN PRN Reason: Insomnia Last Admin: 04/26/23 20:23 Dose: 3 mg Omeprazole (Omeprazole 20 Mg Capsule.Dr) 20 mg PO DAILY@0630 [facility] Last Admin: 04/27/23 05:29 Dose: 20 mg Risperidone (Risperidone 0.5 Mg Tablet) 0.5 mg PO BID@0800,1700 [facility] Last Admin: 04/27/23 17:16 Dose: 0.5 mg Risperidone (Risperidone 1 Mg Tablet) 1 mg PO BEDTIME [facility] Last Admin: 04/26/23 20:23 Dose: 1 mg Senna/Docusate Sodium (Sennosides/Docusate Sodium Tablet) 1 tab PO BEDTIME [facility] Last Admin: 04/26/23 20:21 Dose: 1 tab Trazodone HCl (Trazodone Hcl 50 Mg Tablet) 50 mg PO BEDTIME PRN PRN Reason: Insomnia Last Admin: 04/26/23 20:23 Dose: 50 mg Allergies Allergies Allergy/AdvReac Type Severity Reaction Status Date / Time No Known Allergies Allergy Verified 04/06/23 05:59 Assessment & Plan Assessment & Plan (1) Major neurocognitive disorder: Status: Acute Code(s): F03.90 - Unspecified dementia, unspecified severity, without behavioral disturbance, psychotic disturbance, mood disturbance, and anxiety Plan Pt is a 72-year-old female with a PMH significant for advanced dementia, cerebral amyloid angiopathy, GERD, and HLD who is admitted to [facility] for worsening dementia with increased confusion, agitation, and aggressive behaviors. Patient is a transfer from [facility]. Medical consult for admission H&P. Pt is alert to person only, and only occasionally capable of following basic commands. Mood disorder Plan as per Psychiatry Advanced dementia Patient presents with worsening dementia with behavioral disturbances No signs of precipitating factors: No clear sign of infection, no known recent med changes Most likely due to progression of disease HLD Continue aspirin, statin GERD Continue omeprazole Thank you for allowing us to participate in the care of this patient. Signing off at this time. Please let us know if there are any acute complaints or questions. Plan 04/26 continue tx. 04/27 continue tx. Reason for continued inpatient stay Substantial Risk for: inability to function Time Spent With Patient Time: Total time managing care of this patient today ____ minutes.
[2023-04-27 18:00] VITALS: RESP 17
[2023-04-27] MEDS: Atorvastatin Calcium 40 MG TABLET PO (22:11)
[2023-04-27] MEDS: Sennosides/Docusate Sodium TABLET 1 TAB PO (22:12)
[2023-04-27] MEDS: risperiDONE 1 MG TABLET PO (22:12)
[2023-04-28] MEDS: Omeprazole 20 MG CAPSULE.DR PO (06:20)
[2023-04-28 08:27] VITALS: BP 114/56; PULSE 72; RESP 18; TEMP 36.5; O2SAT 99
[2023-04-28] MEDS: risperiDONE 0.5 MG TABLET PO ×2 (09:23→17:09)
[2023-04-28] MEDS: amLODIPine Besylate 2.5 MG TABLET PO (09:23)
[2023-04-28] MEDS: Divalproex Sodium Sprinkles 125 MG CAP.DR.SPR 250 MG PO ×3 (09:24→20:46)
[2023-04-28 18:00] VITALS: BP 117/63; PULSE 81; RESP 18; TEMP 36.8; O2SAT 97
--- NOTE | 2023-04-28 18:20 | P.PNPSI_ITS ---
Subjective Subjective Date of Service: 04/28/23 Reason For Visit: Dementia w/ Psychosis; Amyloid Angiopathy Subjective Notes: Conditional Voluntary Interim History: Pt continues to present as pleasant, she has been walking around unit, with one to one holding staff hand. Pt pleasant on approach although not oriented to place, situation. She is easily redirected. no aggression or combative behaviors, mostly pacing and walking. VS stable. Per nursing, pt slept through the night. Taking meds as prescribed. Review of Systems Review of Systems Unable to obtain due to patient's mentation Yes all other systems are reviewed and are negative and Unobtainable due to mental status Mental Status Exam Mental Status Exam Narrative: walking the butterfield with 1:1, adequately groomed, dressed in conor. cooperative. no PMA/PMR. speech nml rate, decr amount, decr loundess, nml latency. thoughts seem to be a mix of stereotyped social banalities and non-sequiturs. affect constricted, normo-intense, non-labile. no SI/HI/AVH expressed. Diagnostics Vital Signs (24Hr): Vital Signs - 24 hr 04/28/23 08:27 Temperature 97.7 F Pulse Rate 72 Respiratory Rate 18 Blood Pressure 114/56 L Pulse Oximetry 99 Oxygen Delivery Method Room Air BMI result Body Mass Index 24.4 Medications Medications Current Medications Acetaminophen (Acetaminophen 325 Mg Tablet) 650 mg PO Q6H PRN PRN Reason: Headache/Pain Mild Scale (1-3) Last Admin: 04/23/23 20:34 Dose: 650 mg Al Hydroxide/Mg Hydroxide (Magnesium Hydrox/Alum Hydrox 30 Ml Oral.Susp) 30 ml PO Q6H PRN PRN Reason: Heartburn/Nausea Amlodipine Besylate (Amlodipine Besylate 2.5 Mg Tablet) 2.5 mg PO DAILY [facility]; Protocol Last Admin: 04/28/23 09:23 Dose: 2.5 mg Atorvastatin Calcium (Atorvastatin Calcium 40 Mg Tablet) 40 mg PO BEDTIME [facility] Last Admin: 04/27/23 22:19 Dose: Not Given Divalproex Sodium (Divalproex Sodium Sprinkles 125 Mg ) 250 mg PO TID [facility] Last Admin: 04/28/23 14:36 Dose: 250 mg Hydroxyzine HCl (Hydroxyzine Hcl 25 Mg Tablet) 25 mg PO Q6H PRN PRN Reason: Anxiety Last Admin: 04/24/23 20:37 Dose: 25 mg Magnesium Hydroxide (Milk Of Magnesia 30 Ml Oral.Susp) 30 ml PO DAILY PRN PRN Reason: Constipation Melatonin (Melatonin 3 Mg Tablet) 3 mg PO BEDTIME PRN PRN Reason: Insomnia Last Admin: 04/26/23 20:23 Dose: 3 mg Omeprazole (Omeprazole 20 Mg Capsule.Dr) 20 mg PO DAILY@0630 [facility] Last Admin: 04/28/23 06:20 Dose: 20 mg Risperidone (Risperidone 0.5 Mg Tablet) 0.5 mg PO BID@0800,1700 [facility] Last Admin: 04/28/23 17:09 Dose: 0.5 mg Risperidone (Risperidone 1 Mg Tablet) 1 mg PO BEDTIME [facility] Last Admin: 04/27/23 22:19 Dose: Not Given Senna/Docusate Sodium (Sennosides/Docusate Sodium Tablet) 1 tab PO BEDTIME [facility] Last Admin: 04/27/23 22:20 Dose: Not Given Trazodone HCl (Trazodone Hcl 50 Mg Tablet) 50 mg PO BEDTIME PRN PRN Reason: Insomnia Last Admin: 04/26/23 20:23 Dose: 50 mg Allergies Allergies Allergy/AdvReac Type Severity Reaction Status Date / Time No Known Allergies Allergy Verified 04/06/23 05:59 Assessment & Plan Assessment & Plan (1) Major neurocognitive disorder: Status: Acute Code(s): F03.90 - Unspecified dementia, unspecified severity, without behavioral disturbance, psychotic disturbance, mood disturbance, and anxiety Plan Pt is a 72-year-old female with a PMH significant for advanced dementia, cerebral amyloid angiopathy, GERD, and HLD who is admitted to [facility] for worsening dementia with increased confusion, agitation, and aggressive behaviors. Patient is a transfer from [facility]. Medical consult for admission H&P. Pt is alert to person only, and only occasionally capable of following basic commands. Mood disorder Plan as per Psychiatry Advanced dementia Patient presents with worsening dementia with behavioral disturbances No signs of precipitating factors: No clear sign of infection, no known recent med changes Most likely due to progression of disease HLD Continue aspirin, statin GERD Continue omeprazole Thank you for allowing us to participate in the care of this patient. Signing off at this time. Please let us know if there are any acute complaints or questions. Plan 6/9 continue tx. 04/27 continue tx. 04/28 continue tx. Reason for continued inpatient stay Substantial Risk for: inability to function Time Spent With Patient Time: Total time managing care of this patient today ____ minutes.
[2023-04-28] MEDS: Melatonin 3 MG TABLET PO (20:44)
[2023-04-28] MEDS: Sennosides/Docusate Sodium TABLET 1 TAB PO (20:44)
[2023-04-28] MEDS: risperiDONE 1 MG TABLET PO (20:45)
[2023-04-28] MEDS: traZODone HCL 50 MG TABLET PO (20:45)
[2023-04-28] MEDS: Acetaminophen 325 MG TABLET 650 MG PO (20:45)
[2023-04-28] MEDS: hydrOXYzine HCL 25 MG TABLET PO (20:46)
[2023-04-28] MEDS: Atorvastatin Calcium 40 MG TABLET PO (20:46)
[2023-04-29] MEDS: Omeprazole 20 MG CAPSULE.DR PO (06:03)
[2023-04-29 08:35] VITALS: BP 104/61; PULSE 80; RESP 18; TEMP 36.7; O2SAT 96
[2023-04-29] MEDS: Divalproex Sodium Sprinkles 125 MG CAP.DR.SPR 250 MG PO ×3 (08:54→20:52)
[2023-04-29] MEDS: amLODIPine Besylate 2.5 MG TABLET PO (08:54)
[2023-04-29] MEDS: risperiDONE 0.5 MG TABLET PO ×2 (08:54→16:55)
--- NOTE | 2023-04-29 13:30 | P.PNPSI_ITS ---
Subjective Subjective Date of Service: 04/29/23 Reason For Visit: Dementia w/ Psychosis; Amyloid Angiopathy Subjective Notes: Conditional Voluntary (By healthcare proxy) Healthcare Proxy: Yes Interim History: The nursing staff reported that she had been confused nonsensical on one-to-one observation for impulsivity. She had been incontinent of urine overnight. Today on rounds we decided to lower her level of observation to 5 minutes checks but later on the nursing staff reported that the patient was in the bathroom playing with her feces, smearing around her vagina and hands. We needed to put her back on one-to-one. On interview the patient is pleasantly confused. Mental Status Exam Mental Status Exam Patient Appearance: Appropriate Patient Orientation: Person and Situation Level of Consciousness: Awake and Appropriate Patient Behavior: Guarded and Passive Mood Description: Withdrawn Affect Description: Withdrawn and Constricted Patient Cognition Impaired: Yes Ability to Follow Directions: Good Speech Pattern: Clear Hallucinations: None Delusions: Not Present Thought Process: Illogical and Distracted Thought Content: positive for [place] and positive for Poverty of Content Judgement: Fair Diagnostics Vital Signs (24Hr): Vital Signs - 24 hr 04/28/23 18:00 04/29/23 08:35 Temperature 98.2 F 98.0 F Pulse Rate 81 80 Respiratory Rate 18 18 Blood Pressure 117/63 104/61 Pulse Oximetry 97 96 Oxygen Delivery Method Room Air Room Air BMI result Body Mass Index 24.4 Medications Medications Current Medications Acetaminophen (Acetaminophen 325 Mg Tablet) 650 mg PO Q6H PRN PRN Reason: Headache/Pain Mild Scale (1-3) Last Admin: 04/28/23 20:45 Dose: 650 mg Al Hydroxide/Mg Hydroxide (Magnesium Hydrox/Alum Hydrox 30 Ml Oral.Susp) 30 ml PO Q6H PRN PRN Reason: Heartburn/Nausea Amlodipine Besylate (Amlodipine Besylate 2.5 Mg Tablet) 2.5 mg PO DAILY ON LICENSE OF [facility]; Protocol Last Admin: 04/29/23 08:54 Dose: 2.5 mg Atorvastatin Calcium (Atorvastatin Calcium 40 Mg Tablet) 40 mg PO BEDTIME ON LICENSE OF [facility] Last Admin: 04/28/23 20:46 Dose: 40 mg Divalproex Sodium (Divalproex Sodium Sprinkles 125 Mg ) 250 mg PO TID ON LICENSE OF [facility] Last Admin: 04/29/23 08:54 Dose: 250 mg Hydroxyzine HCl (Hydroxyzine Hcl 25 Mg Tablet) 25 mg PO Q6H PRN PRN Reason: Anxiety Last Admin: 04/28/23 20:46 Dose: 25 mg Magnesium Hydroxide (Milk Of Magnesia 30 Ml Oral.Susp) 30 ml PO DAILY PRN PRN Reason: Constipation Melatonin (Melatonin 3 Mg Tablet) 3 mg PO BEDTIME PRN PRN Reason: Insomnia Last Admin: 04/28/23 20:44 Dose: 3 mg Omeprazole (Omeprazole 20 Mg Capsule.Dr) 20 mg PO DAILY@0630 ON LICENSE OF [facility] Last Admin: 04/29/23 06:03 Dose: 20 mg Risperidone (Risperidone 0.5 Mg Tablet) 0.5 mg PO BID@0800,1700 ON LICENSE OF [facility] Last Admin: 04/29/23 08:54 Dose: 0.5 mg Risperidone (Risperidone 1 Mg Tablet) 1 mg PO BEDTIME ON LICENSE OF [facility] Last Admin: 04/28/23 20:45 Dose: 1 mg Senna/Docusate Sodium (Sennosides/Docusate Sodium Tablet) 1 tab PO BEDTIME ON LICENSE OF [facility] Last Admin: 04/28/23 20:44 Dose: 1 tab Trazodone HCl (Trazodone Hcl 50 Mg Tablet) 50 mg PO BEDTIME PRN PRN Reason: Insomnia Last Admin: 04/28/23 20:45 Dose: 50 mg Allergies Allergies Allergy/AdvReac Type Severity Reaction Status Date / Time No Known Allergies Allergy Verified 04/06/23 05:59 Assessment & Plan Assessment & Plan (1) Major neurocognitive disorder: Status: Acute Code(s): F03.90 - Unspecified dementia, unspecified severity, without behavioral disturbance, psychotic disturbance, mood disturbance, and anxiety Plan Pt is a 72-year-old female with a PMH significant for advanced dementia, cerebral amyloid angiopathy, GERD, and HLD who is admitted to [facility] for worsening dementia with increased confusion, agitation, and aggressive behaviors. Patient is a transfer from [facility]. Medical consult for admission H&P. Pt is alert to person only, and only occasionally capable of following basic commands. Mood disorder Plan as per Psychiatry Advanced dementia Patient presents with worsening dementia with behavioral disturbances No signs of precipitating factors: No clear sign of infection, no known recent med changes Most likely due to progression of disease HLD Continue aspirin, statin GERD Continue omeprazole Thank you for allowing us to participate in the care of this patient. Signing off at this time. Please let us know if there are any acute complaints or questions. Plan 1. Keep on one-to-one. 2. Depakote level for tomorrow. 3. Continue antipsychotics as prescribed. 4. Depakote level, CBC with differential BMP and lipid panel for tomorrow morning fasting Reason for continued inpatient stay Substantial Risk for: inability to function, rapid decompensation and med/psych decompensation Time Spent With Patient Time: Total time managing care of this patient today _20___ minutes.
[2023-04-29 18:00] VITALS: BP 119/62; PULSE 80; RESP 18; TEMP 36.7; O2SAT 97
[2023-04-29] MEDS: risperiDONE 1 MG TABLET PO (20:52)
[2023-04-29] MEDS: Sennosides/Docusate Sodium TABLET 1 TAB PO (20:52)
[2023-04-29] MEDS: Atorvastatin Calcium 40 MG TABLET PO (20:52)
[2023-04-30 07:38] LABS: MANUAL DIFF FLAG NO
[2023-04-30 07:41] LABS: Basophils Percent Auto 0.8 % (0-2); Eosinophils Absolute Auto 0.1 X10*3/uL (0.0-0.4); Eosinophils Percent Auto 1.8 % (0-4); Hematocrit 34.4 % (37.0-47.0); Hemoglobin 11.3 g/dl (12.0-16.0); Imm Gran Abs Auto 0.01 X10*3/uL (0.00-0.03); Imm Gran Pct Auto 0.3 % (0.0-0.4); Lymphocytes Absolute Auto 1.4 X10*3/uL (1.2-4.9); Lymphocytes Percent Auto 36.6 % (20-40); Mean Corpuscular HGB Conc 32.8 g/dl (31.0-35.0); Mean Corpuscular Hemoglobin 29.2 pg (27.0-33.0); Mean Corpuscular Volume 88.9 fL (80.0-98.0); Mean Platelet Volume 9.9 fL (9.4-12.3); Monocytes Absolute Auto 0.4 X10*3/uL (0.1-1.2); Monocytes Percent Auto 11.3 % (2-11); Neutrophils Absolute Auto 1.9 x10*3/uL (2.0-8.3); Neutrophils Percent Auto 49.2 % (45-73); Platelet Count 262 X10*3/uL (160-400); Red Blood Count 3.87 X10*6/uL (4.20-5.50); White Blood Count 3.9 X10*3/uL (4.8-10.8)
[2023-04-30 07:54] LABS: Estimated Average Glucose 97 mg/dL; Hemoglobin A1C 93.5255 umol/L
[2023-04-30 07:55] VITALS: BP 106/57; PULSE 73; RESP 16; TEMP 36.6; O2SAT 97
[2023-04-30 07:56] LABS: Valproate 95.3 mcg/mL (50.0-100.0)
[2023-04-30] MEDS: Divalproex Sodium Sprinkles 125 MG CAP.DR.SPR 250 MG PO ×3 (07:58→20:01)
[2023-04-30] MEDS: Omeprazole 20 MG CAPSULE.DR PO (07:58)
[2023-04-30] MEDS: amLODIPine Besylate 2.5 MG TABLET PO (07:58)
[2023-04-30] MEDS: risperiDONE 0.5 MG TABLET PO ×2 (07:58→15:59)
[2023-04-30 08:05] LABS: Alanine Aminotransferase 25 U/L (0-31); Albumin Level 3.5 g/dL (3.5-5.0); Alkaline Phosphatase 57 U/L (39-117); Anion Gap 12 (12-20); Aspartate Amino Transferase 21 U/L (5-31); Bilirubin Direct 0.1 mg/dL (0.0-0.5); Bilirubin Total 0.5 mg/dL (0.0-1.0); Blood Urea Nitrogen 14 mg/dL (9-16); Calcium 9.2 mg/dL (8.4-10.2); Carbon Dioxide 28 mmol/L (22-29); Chloride 106 mmol/L (96-108); Cholesterol 143 mg/dL; Creatinine Clr Calc Pharmacy 64.3; Estimated Glomerular Filt Rate > 60; Glucose Random 77 mg/dL (60-115); HDL Cholesterol 38 mg/dL; LDL Cholesterol Calculated 93 mg/dl; Potassium 3.9 mmol/L (3.3-5.1); Sodium 142 mmol/L (135-145); Total Protein 5.9 g/dL (6.5-8.0); Triglycerides 61 mg/dL
[2023-04-30 08:19] LABS: Thyroid Stimulating Hormone 0.04 uIU/mL (0.32-4.0)
--- NOTE | 2023-04-30 10:54 | HO.PSYCHPN ---
Subjective Subjective Date of Service: 04/30/23 Reason For Visit: Dementia w/ Psychosis; Amyloid Angiopathy Subjective Notes: Conditional Voluntary (By healthcare proxy) Healthcare Proxy: Yes Interim History: The nursing staff reported the patient is back on one-to-one since she was playing with feces yesterday. Her blood work of today came back with Depakote and a therapeutic level. He The occupational therapist reports that the patient is too demented to be clinically assessed. On interview the patient is pleasantly confused denies new symptoms. We will start Namenda 5 mg p.o. q.a.m. since the patient is very demented Mental Status Exam Mental Status Exam Patient Appearance: Well Grooomed and Appropriate Patient Orientation: Person and Situation Level of Consciousness: Awake and Appropriate Patient Behavior: Cooperative and Passive Mood Description: Withdrawn Affect Description: Labile Patient Cognition Impaired: Yes Ability to Follow Directions: Fair Speech Pattern: Clear Hallucinations: None Delusions: Paranoid Ideation Thought Process: Illogical and Distracted Thought Content: positive for Poverty of Content, positive for Thought Blocking and positive for Incoherent Judgement: Fair Diagnostics Vital Signs (24Hr): Vital Signs - 24 hr 04/29/23 18:00 04/30/23 07:55 Temperature 98.1 F 97.9 F Pulse Rate 80 73 Respiratory Rate 18 16 Blood Pressure 119/62 106/57 L Pulse Oximetry 97 97 Oxygen Delivery Method Room Air Room Air BMI result Body Mass Index 24.4 Labs 04/30/23 07:24 04/30/23 07:24 Labs: Laboratory Results - last 48 hr 04/30/23 04/30/23 04/30/23 07:24 07:24 07:24 WBC 3.9 L RBC 3.87 L Hgb 11.3 L Hct 34.4 L MCV 88.9 MCH 29.2 MCHC 32.8 RDW 13.0 Plt Count 262 MPV 9.9 Immature Gran % (Auto) 0.3 Neut % (Auto) 49.2 Lymph % (Auto) 36.6 [place] % (Auto) 11.3 H Eos % (Auto) 1.8 Baso % (Auto) 0.8 Lymph # (Auto) 1.4 [place] # (Auto) 0.4 Eos # (Auto) 0.1 Baso # (Auto) 0.0 Abs Immat Gran (auto) 0.01 Absolute Neuts (auto) 1.9 L Absolute Nucleated RBC 0.000 Nucleated RBC % (auto) 0.0 Sodium 142 Potassium 3.9 Chloride 106 Carbon Dioxide 28 Anion Gap 12 BUN 14 Creatinine 0.74 Estim Creat Clear Calc 64.3 Estimated GFR > 60 Random Glucose 77 Estimat Average Glucose 97 Hemoglobin A1c % 5.0 Calcium 9.2 Total Bilirubin 0.5 Direct Bilirubin 0.1 AST 21 ALT 25 Alkaline Phosphatase 57 Total Protein 5.9 L Albumin 3.5 Triglycerides 61 Cholesterol 143 LDL Cholesterol, Calc 93 HDL Cholesterol 38 TSH 0.04 L Valproic Acid 04/30/23 07:24 WBC RBC Hgb Hct MCV MCH MCHC RDW Plt Count MPV Immature Gran % (Auto) Neut % (Auto) Lymph % (Auto) [place] % (Auto) Eos % (Auto) Baso % (Auto) Lymph # (Auto) [place] # (Auto) Eos # (Auto) Baso # (Auto) Abs Immat Gran (auto) Absolute Neuts (auto) Absolute Nucleated RBC Nucleated RBC % (auto) Sodium Potassium Chloride Carbon Dioxide Anion Gap BUN Creatinine Estim Creat Clear Calc Estimated GFR Random Glucose Estimat Average Glucose Hemoglobin A1c % Calcium Total Bilirubin Direct Bilirubin AST ALT Alkaline Phosphatase Total Protein Albumin Triglycerides Cholesterol LDL Cholesterol, Calc HDL Cholesterol TSH Valproic Acid 95.3 Medications Medications Current Medications Acetaminophen (Acetaminophen 325 Mg Tablet) 650 mg PO Q6H PRN PRN Reason: Headache/Pain Mild Scale (1-3) Last Admin: 04/28/23 20:45 Dose: 650 mg Al Hydroxide/Mg Hydroxide (Magnesium Hydrox/Alum Hydrox 30 Ml Oral.Susp) 30 ml PO Q6H PRN PRN Reason: Heartburn/Nausea Amlodipine Besylate (Amlodipine Besylate 2.5 Mg Tablet) 2.5 mg PO DAILY [facility]; Protocol Last Admin: 04/30/23 07:58 Dose: 2.5 mg Atorvastatin Calcium (Atorvastatin Calcium 40 Mg Tablet) 40 mg PO BEDTIME [facility] Last Admin: 04/29/23 20:52 Dose: 40 mg Divalproex Sodium (Divalproex Sodium Sprinkles 125 Mg ) 250 mg PO TID [facility] Last Admin: 04/30/23 07:58 Dose: 250 mg Hydroxyzine HCl (Hydroxyzine Hcl 25 Mg Tablet) 25 mg PO Q6H PRN PRN Reason: Anxiety Last Admin: 06/11/23 20:46 Dose: 25 mg Magnesium Hydroxide (Milk Of Magnesia 30 Ml Oral.Susp) 30 ml PO DAILY PRN PRN Reason: Constipation Melatonin (Melatonin 3 Mg Tablet) 3 mg PO BEDTIME PRN PRN Reason: Insomnia Last Admin: 04/28/23 20:44 Dose: 3 mg Memantine (Memantine Hcl 5 Mg Tablet) 5 mg PO DAILY [facility] Last Admin: 04/30/23 10:16 Dose: Not Given Omeprazole (Omeprazole 20 Mg Capsule.Dr) 20 mg PO DAILY@0630 [facility] Last Admin: 04/30/23 07:58 Dose: 20 mg Risperidone (Risperidone 0.5 Mg Tablet) 0.5 mg PO BID@0800,1700 [facility] Last Admin: 04/30/23 07:58 Dose: 0.5 mg Risperidone (Risperidone 1 Mg Tablet) 1 mg PO BEDTIME [facility] Last Admin: 04/29/23 20:52 Dose: 1 mg Senna/Docusate Sodium (Sennosides/Docusate Sodium Tablet) 1 tab PO BEDTIME [facility] Last Admin: 04/29/23 20:52 Dose: 1 tab Trazodone HCl (Trazodone Hcl 50 Mg Tablet) 50 mg PO BEDTIME PRN PRN Reason: Insomnia Last Admin: 04/28/23 20:45 Dose: 50 mg Allergies Allergies Allergy/AdvReac Type Severity Reaction Status Date / Time No Known Allergies Allergy Verified 04/06/23 05:59 Assessment & Plan Assessment & Plan (1) Major neurocognitive disorder: Status: Acute Code(s): F03.90 - Unspecified dementia, unspecified severity, without behavioral disturbance, psychotic disturbance, mood disturbance, and anxiety Plan Pt is a 72-year-old female with a PMH significant for advanced dementia, cerebral amyloid angiopathy, GERD, and HLD who is admitted to [facility] for worsening dementia with increased confusion, agitation, and aggressive behaviors. Patient is a transfer from [facility]. Medical consult for admission H&P. Pt is alert to person only, and only occasionally capable of following basic commands. Mood disorder Plan as per Psychiatry Advanced dementia Patient presents with worsening dementia with behavioral disturbances No signs of precipitating factors: No clear sign of infection, no known recent med changes Most likely due to progression of disease HLD Continue aspirin, statin GERD Continue omeprazole Thank you for allowing us to participate in the care of this patient. Signing off at this time. Please let us know if there are any acute complaints or questions. Plan 1. Keep on one-to-one. 2. Depakote level for tomorrow. 3. Continue antipsychotics as prescribed. 4. Depakote level, CBC with differential BMP and lipid panel came back with therapeutic Depakote and low TSH. 5. Start Namenda 5 mg p.o. daily. 6. Referral to hospitalist team for low TSH Reason for continued inpatient stay Substantial Risk for: inability to function, rapid decompensation and med/psych decompensation Time Spent With Patient Time: Total time managing care of this patient today __20__ minutes.
[2023-04-30 14:26] LABS: Free T4 (Free Thyroxine) 1.02 ng/dL (0.71-1.85)
--- NOTE | 2023-04-30 15:22 | PM.EVENT ---
Event Note Date of Service: 04/30/23 Event Note: 72 year old female advanced dementia, cerebral amyloid angiopathy, GERD, and hyperlipidemia admitted [facility] found to have suppressed TSH of 0.04 this morning. Free T4 normal at 1.02. On exam, there is no exophthalmos, tremors, goiter. Patient is not a good historian secondary to her dementia but does deny any visual changes or palpitations. There have been no episodes of tachycardia. No known history of thyroid dysfunction. Discussed with Dr. Nunez in endocrinology. This is likely a sick euthyroid. Recommends repeat TSH, free T4, and free T3. Will also check TRAb. If free T3 elevated, recommends treating with methimazole. If TRAb posive, suggestive of Graves, check thyroid uptake NM study. At this point, treatment not necessary per endocrinology. Time Spent With Patient Time: Total time managing care of this patient today ____ minutes.
[2023-04-30 18:00] VITALS: BP 126/73; PULSE 79; RESP 18; TEMP 36.5; O2SAT 97
[2023-04-30] MEDS: risperiDONE 1 MG TABLET PO (20:01)
[2023-04-30] MEDS: Sennosides/Docusate Sodium TABLET 1 TAB PO (20:01)
[2023-04-30] MEDS: Atorvastatin Calcium 40 MG TABLET PO (20:01)
[2023-05-01] MEDS: Acetaminophen 325 MG TABLET 650 MG PO (01:20)
[2023-05-01] MEDS: traZODone HCL 50 MG TABLET PO ×2 (01:21→21:14)
[2023-05-01] MEDS: hydrOXYzine HCL 25 MG TABLET PO ×2 (01:21→21:14)
[2023-05-01 08:19] VITALS: BP 124/57; PULSE 73; RESP 18; TEMP 36.2; O2SAT 98
[2023-05-01 09:01] LABS: TSH reflex Free T4 0.07 uIU/mL (0.32-4.0)
[2023-05-01 09:34] LABS: Free T4 (Free Thyroxine) 0.99 ng/dL (0.71-1.85)
[2023-05-01] MEDS: Divalproex Sodium Sprinkles 125 MG CAP.DR.SPR 250 MG PO ×3 (11:28→21:14)
[2023-05-01] MEDS: amLODIPine Besylate 2.5 MG TABLET PO (11:28)
[2023-05-01] MEDS: Omeprazole 20 MG CAPSULE.DR PO (11:28)
[2023-05-01] MEDS: Memantine HCl 5 MG TABLET PO (11:28)
[2023-05-01] MEDS: risperiDONE 0.5 MG TABLET PO (11:28)
--- NOTE | 2023-05-01 13:11 | HO.PSYCHPN ---
Subjective Subjective Date of Service: 05/01/23 Reason For Visit: Dementia w/ Psychosis; Amyloid Angiopathy Subjective Notes: Conditional Voluntary (By healthcare proxy) Interim History: The nursing staff reported the patient had we wandering the unit, with her eyes closed at times and she has verbalized that she had being scared at times self dialogue in. On interview the patient was confused. We will increase Risperdal up to 1 mg p.o. t.i.d. Mental Status Exam Mental Status Exam Patient Appearance: Well Grooomed and Appropriate Patient Orientation: Person and Situation Level of Consciousness: Awake and Appropriate Patient Behavior: Guarded and Passive Mood Description: Withdrawn Affect Description: Constricted Patient Cognition Impaired: Yes Ability to Follow Directions: Good Speech Pattern: Clear Hallucinations: None Delusions: Paranoid Ideation Thought Process: Illogical and Evasive Thought Content: positive for [place] Judgement: Poor Diagnostics Vital Signs (24Hr): Vital Signs - 24 hr 04/30/23 18:00 05/01/23 08:19 Temperature 97.7 F 97.1 F Pulse Rate 79 73 Respiratory Rate 18 18 Blood Pressure 126/73 124/57 L Pulse Oximetry 97 98 Oxygen Delivery Method Room Air Room Air BMI result Body Mass Index 24.4 Labs 04/30/23 07:24 04/30/23 07:24 Labs: Laboratory Results - last 48 hr 04/30/23 04/30/23 04/30/23 07:24 07:24 07:24 WBC 3.9 L RBC 3.87 L Hgb 11.3 L Hct 34.4 L MCV 88.9 MCH 29.2 MCHC 32.8 RDW 13.0 Plt Count 262 MPV 9.9 Immature Gran % (Auto) 0.3 Neut % (Auto) 49.2 Lymph % (Auto) 36.6 [place] % (Auto) 11.3 H Eos % (Auto) 1.8 Baso % (Auto) 0.8 Lymph # (Auto) 1.4 [place] # (Auto) 0.4 Eos # (Auto) 0.1 Baso # (Auto) 0.0 Abs Immat Gran (auto) 0.01 Absolute Neuts (auto) 1.9 L Absolute Nucleated RBC 0.000 Nucleated RBC % (auto) 0.0 Sodium 142 Potassium 3.9 Chloride 106 Carbon Dioxide 28 Anion Gap 12 BUN 14 Creatinine 0.74 Estim Creat Clear Calc 64.3 Estimated GFR > 60 Random Glucose 77 Estimat Average Glucose 97 Hemoglobin A1c % 5.0 Calcium 9.2 Total Bilirubin 0.5 Direct Bilirubin 0.1 AST 21 ALT 25 Alkaline Phosphatase 57 Total Protein 5.9 L Albumin 3.5 Triglycerides 61 Cholesterol 143 LDL Cholesterol, Calc 93 HDL Cholesterol 38 TSH 0.04 L Free T4 1.02 Valproic Acid 04/30/23 05/01/23 07:24 08:07 WBC RBC Hgb Hct MCV MCH MCHC RDW Plt Count MPV Immature Gran % (Auto) Neut % (Auto) Lymph % (Auto) [place] % (Auto) Eos % (Auto) Baso % (Auto) Lymph # (Auto) [place] # (Auto) Eos # (Auto) Baso # (Auto) Abs Immat Gran (auto) Absolute Neuts (auto) Absolute Nucleated RBC Nucleated RBC % (auto) Sodium Potassium Chloride Carbon Dioxide Anion Gap BUN Creatinine Estim Creat Clear Calc Estimated GFR Random Glucose Estimat Average Glucose Hemoglobin A1c % Calcium Total Bilirubin Direct Bilirubin AST ALT Alkaline Phosphatase Total Protein Albumin Triglycerides Cholesterol LDL Cholesterol, Calc HDL Cholesterol TSH 0.07 L Free T4 0.99 Valproic Acid 95.3 Medications Medications Current Medications Acetaminophen (Acetaminophen 325 Mg Tablet) 650 mg PO Q6H PRN PRN Reason: Headache/Pain Mild Scale (1-3) Last Admin: 05/01/23 01:20 Dose: 650 mg Al Hydroxide/Mg Hydroxide (Magnesium Hydrox/Alum Hydrox 30 Ml Oral.Susp) 30 ml PO Q6H PRN PRN Reason: Heartburn/Nausea Amlodipine Besylate (Amlodipine Besylate 2.5 Mg Tablet) 2.5 mg PO DAILY [facility]; Protocol Last Admin: 05/01/23 11:28 Dose: 2.5 mg Atorvastatin Calcium (Atorvastatin Calcium 40 Mg Tablet) 40 mg PO BEDTIME [facility] Last Admin: 04/30/23 20:01 Dose: 40 mg Divalproex Sodium (Divalproex Sodium Sprinkles 125 Mg ) 250 mg PO TID [facility] Last Admin: 05/01/23 11:28 Dose: 250 mg Hydroxyzine HCl (Hydroxyzine Hcl 25 Mg Tablet) 25 mg PO Q6H PRN PRN Reason: Anxiety Last Admin: 05/01/23 01:21 Dose: 25 mg Magnesium Hydroxide (Milk Of Magnesia 30 Ml Oral.Susp) 30 ml PO DAILY PRN PRN Reason: Constipation Melatonin (Melatonin 3 Mg Tablet) 3 mg PO BEDTIME PRN PRN Reason: Insomnia Last Admin: 04/28/23 20:44 Dose: 3 mg Memantine (Memantine Hcl 5 Mg Tablet) 5 mg PO DAILY [facility] Last Admin: 05/01/23 11:28 Dose: 5 mg Omeprazole (Omeprazole 20 Mg Capsule.) 20 mg PO DAILY@0630 [facility] Last Admin: 05/01/23 11:28 Dose: 20 mg Risperidone (Risperidone 1 Mg Tablet) 1 mg PO BEDTIME [facility] Last Admin: 04/30/23 20:01 Dose: 1 mg Risperidone (Risperidone 1 Mg Tablet) 1 mg PO BID@0800,1700 [facility] Senna/Docusate Sodium (Sennosides/Docusate Sodium Tablet) 1 tab PO BEDTIME [facility] Last Admin: 04/30/23 20:01 Dose: 1 tab Trazodone HCl (Trazodone Hcl 50 Mg Tablet) 50 mg PO BEDTIME PRN PRN Reason: Insomnia Last Admin: 05/01/23 01:21 Dose: 50 mg Allergies Allergies Allergy/AdvReac Type Severity Reaction Status Date / Time No Known Allergies Allergy Verified 04/06/23 05:59 Assessment & Plan Assessment & Plan (1) Major neurocognitive disorder: Status: Acute Code(s): F03.90 - Unspecified dementia, unspecified severity, without behavioral disturbance, psychotic disturbance, mood disturbance, and anxiety Plan Pt is a 72-year-old female with a PMH significant for advanced dementia, cerebral amyloid angiopathy, GERD, and HLD who is admitted to [facility] for worsening dementia with increased confusion, agitation, and aggressive behaviors. Patient is a transfer from [facility]. Medical consult for admission H&P. Pt is alert to person only, and only occasionally capable of following basic commands. Mood disorder Plan as per Psychiatry Advanced dementia Patient presents with worsening dementia with behavioral disturbances No signs of precipitating factors: No clear sign of infection, no known recent med changes Most likely due to progression of disease HLD Continue aspirin, statin GERD Continue omeprazole Thank you for allowing us to participate in the care of this patient. Signing off at this time. Please let us know if there are any acute complaints or questions. Plan 1. Keep on one-to-one. 2. Depakote level for tomorrow. 3. Continue antipsychotics as prescribed. On May 01 we increased Risperdal at to 3 mg a day 4. Depakote level, CBC with differential BMP and lipid panel came back with therapeutic Depakote and low TSH. 5. Start Namenda 5 mg p.o. daily. 6. Referral to hospitalist team for low TSH Reason for continued inpatient stay Substantial Risk for: inability to function, rapid decompensation and med/psych decompensation Time Spent With Patient Time: Total time managing care of this patient today _20___ minutes.
[2023-05-01] MEDS: risperiDONE 1 MG TABLET PO ×2 (17:46→21:15)
[2023-05-01 18:00] VITALS: BP 102/53; PULSE 77; RESP 16; TEMP 36.6; O2SAT 97
[2023-05-01] MEDS: Atorvastatin Calcium 40 MG TABLET PO (21:15)
[2023-05-01] MEDS: Melatonin 3 MG TABLET PO (21:15)
[2023-05-01] MEDS: Sennosides/Docusate Sodium TABLET 1 TAB PO (21:15)
[2023-05-02] MEDS: risperiDONE 1 MG TABLET PO ×3 (09:34→20:19)
[2023-05-02] MEDS: Memantine HCl 5 MG TABLET PO ×2 (09:34→20:19)
[2023-05-02] MEDS: Divalproex Sodium Sprinkles 125 MG CAP.DR.SPR 250 MG PO ×3 (09:34→20:19)
[2023-05-02 09:35] VITALS: BP 101/56; PULSE 67; RESP 18; TEMP 36.4; O2SAT 97
[2023-05-02] MEDS: amLODIPine Besylate 2.5 MG TABLET PO (09:35)
[2023-05-02 13:43] VITALS: BMI 23.7
--- NOTE | 2023-05-02 15:12 | HO.PSYCHPN ---
Subjective Subjective Date of Service: 05/02/23 Reason For Visit: Dementia w/ Psychosis; Amyloid Angiopathy Subjective Notes: Conditional Voluntary (By healthcare proxy) Interim History: The nursing staff reported the patient has been on one-to-one, remains confused but easily redirectable. On interview the patient denies new symptoms, still impulsive at times at this moment she is on Risperdal 1 mg p.o. t.i.d. and Namenda will be increased to 5 mg p.o. b.i.d. for severe neuro cognitive impairment. Mental Status Exam Mental Status Exam Patient Appearance: Well Grooomed and Appropriate Patient Orientation: Person and Situation Level of Consciousness: Awake and Appropriate Patient Behavior: Guarded and Passive Mood Description: Withdrawn Affect Description: Constricted Patient Cognition Impaired: Yes Ability to Follow Directions: Good Speech Pattern: Clear Hallucinations: None Delusions: Paranoid Ideation Thought Process: Illogical Thought Content: positive for [place] and positive for Poverty of Content Judgement: Fair Diagnostics Vital Signs (24Hr): Vital Signs - 24 hr 05/01/23 18:00 05/02/23 09:35 Temperature 97.9 F 97.6 F Pulse Rate 77 67 Respiratory Rate 16 18 Blood Pressure 102/53 L 101/56 L Pulse Oximetry 97 97 Oxygen Delivery Method Room Air Room Air BMI result Body Mass Index 23.7 Labs 04/30/23 07:24 04/30/23 07:24 Labs: Laboratory Results - last 48 hr 05/01/23 08:07 TSH 0.07 L Free T4 0.99 Medications Medications Current Medications Acetaminophen (Acetaminophen 325 Mg Tablet) 650 mg PO Q6H PRN PRN Reason: Headache/Pain Mild Scale (1-3) Last Admin: 05/01/23 01:20 Dose: 650 mg Al Hydroxide/Mg Hydroxide (Magnesium Hydrox/Alum Hydrox 30 Ml Oral.Susp) 30 ml PO Q6H PRN PRN Reason: Heartburn/Nausea Amlodipine Besylate (Amlodipine Besylate 2.5 Mg Tablet) 2.5 mg PO DAILY [facility]; Protocol Last Admin: 05/02/23 09:35 Dose: 2.5 mg Atorvastatin Calcium (Atorvastatin Calcium 40 Mg Tablet) 40 mg PO BEDTIME [facility] Last Admin: 05/01/23 21:15 Dose: 40 mg Divalproex Sodium (Divalproex Sodium Sprinkles 125 Mg ) 250 mg PO TID [facility] Last Admin: 05/02/23 14:06 Dose: 250 mg Hydroxyzine HCl (Hydroxyzine Hcl 25 Mg Tablet) 25 mg PO Q6H PRN PRN Reason: Anxiety Last Admin: 05/01/23 21:14 Dose: 25 mg Magnesium Hydroxide (Milk Of Magnesia 30 Ml Oral.Susp) 30 ml PO DAILY PRN PRN Reason: Constipation Melatonin (Melatonin 3 Mg Tablet) 3 mg PO BEDTIME PRN PRN Reason: Insomnia Last Admin: 05/01/23 21:15 Dose: 3 mg Memantine (Memantine Hcl 5 Mg Tablet) 5 mg PO BID [facility] Last Admin: 05/02/23 09:34 Dose: 5 mg Omeprazole (Omeprazole 20 Mg Capsule.) 20 mg PO DAILY@0630 [facility] Last Admin: 05/02/23 06:23 Dose: Not Given Risperidone (Risperidone 1 Mg Tablet) 1 mg PO BEDTIME [facility] Last Admin: 05/01/23 21:15 Dose: 1 mg Risperidone (Risperidone 1 Mg Tablet) 1 mg PO BID@0800,1700 [facility] Last Admin: 05/02/23 09:34 Dose: 1 mg Senna/Docusate Sodium (Sennosides/Docusate Sodium Tablet) 1 tab PO BEDTIME [facility] Last Admin: 05/01/23 21:15 Dose: 1 tab Trazodone HCl (Trazodone Hcl 50 Mg Tablet) 50 mg PO BEDTIME PRN PRN Reason: Insomnia Last Admin: 05/01/23 21:14 Dose: 50 mg Allergies Allergies Allergy/AdvReac Type Severity Reaction Status Date / Time No Known Allergies Allergy Verified 04/06/23 05:59 Assessment & Plan Assessment & Plan (1) Major neurocognitive disorder: Status: Acute Code(s): F03.90 - Unspecified dementia, unspecified severity, without behavioral disturbance, psychotic disturbance, mood disturbance, and anxiety Plan Pt is a 72-year-old female with a PMH significant for advanced dementia, cerebral amyloid angiopathy, GERD, and HLD who is admitted to [facility] for worsening dementia with increased confusion, agitation, and aggressive behaviors. Patient is a transfer from [facility]. Medical consult for admission H&P. Pt is alert to person only, and only occasionally capable of following basic commands. Mood disorder Plan as per Psychiatry Advanced dementia Patient presents with worsening dementia with behavioral disturbances No signs of precipitating factors: No clear sign of infection, no known recent med changes Most likely due to progression of disease HLD Continue aspirin, statin GERD Continue omeprazole Thank you for allowing us to participate in the care of this patient. Signing off at this time. Please let us know if there are any acute complaints or questions. Plan 1. Keep on one-to-one. 2. Depakote level for tomorrow. 3. Continue antipsychotics as prescribed. On May 01 we increased Risperdal at to 3 mg a day 4. Depakote level, CBC with differential BMP and lipid panel came back with therapeutic Depakote and low TSH. 5. Start Namenda 5 mg p.o. daily. On May 02 it was increased to 5 mg p.o. b.i.d. 6. Referral to hospitalist team for low TSH Reason for continued inpatient stay Substantial Risk for: inability to function, rapid decompensation and med/psych decompensation Time Spent With Patient Time: Total time managing care of this patient today __20__ minutes.
[2023-05-02] MEDS: Acetaminophen 325 MG TABLET 650 MG PO (17:12)
[2023-05-02 18:00] VITALS: BP 119/53; PULSE 80; RESP 18; TEMP 36.8; O2SAT 99
[2023-05-02] MEDS: Atorvastatin Calcium 40 MG TABLET PO (20:19)
[2023-05-02] MEDS: Sennosides/Docusate Sodium TABLET 1 TAB PO (20:19)
[2023-05-03 08:12] VITALS: BP 108/56; PULSE 88; RESP 18; TEMP 36.3; O2SAT 98
[2023-05-03] MEDS: risperiDONE 1 MG TABLET PO ×3 (09:48→20:20)
[2023-05-03] MEDS: Divalproex Sodium Sprinkles 125 MG CAP.DR.SPR 250 MG PO ×3 (09:48→20:20)
[2023-05-03] MEDS: amLODIPine Besylate 2.5 MG TABLET PO (09:49)
[2023-05-03] MEDS: Memantine HCl 5 MG TABLET PO ×2 (09:49→20:20)
--- NOTE | 2023-05-03 14:17 | HO.PSYCHPN ---
Subjective Subjective Date of Service: 05/03/23 Reason For Visit: Dementia w/ Psychosis; Amyloid Angiopathy Subjective Notes: Conditional Voluntary Interim History: The nursing staff reported the patient had being slightly sedated after Namenda was started. Still on one-to-one, confused but redirectable. The administrator social welfare reported that she was referred to [facility]. On interview the patient is pleasantly confused no new symptoms. We will keep on Namenda 5 mg p.o. b.i.d. to target dementia. Mental Status Exam Mental Status Exam Patient Appearance: Well Grooomed and Appropriate Patient Orientation: Person and Situation Level of Consciousness: Awake and Appropriate Patient Behavior: Guarded and Passive Mood Description: Withdrawn Affect Description: Constricted Patient Cognition Impaired: Yes Ability to Follow Directions: Good Speech Pattern: Clear Hallucinations: None Delusions: Not Present Thought Process: Illogical and Distracted Thought Content: positive for [place], positive for Poverty of Content and positive for Thought Blocking Judgement: Poor Diagnostics Vital Signs (24Hr): Vital Signs - 24 hr 05/02/23 18:00 05/03/23 08:12 Temperature 98.2 F 97.3 F Pulse Rate 80 88 Respiratory Rate 18 18 Blood Pressure 119/53 L 108/56 L Pulse Oximetry 99 98 Oxygen Delivery Method Room Air Room Air BMI result Body Mass Index 23.7 Labs 04/30/23 07:24 04/30/23 07:24 Medications Medications Current Medications Acetaminophen (Acetaminophen 325 Mg Tablet) 650 mg PO Q6H PRN PRN Reason: Headache/Pain Mild Scale (1-3) Last Admin: 05/02/23 17:12 Dose: 650 mg Al Hydroxide/Mg Hydroxide (Magnesium Hydrox/Alum Hydrox 30 Ml Oral.Susp) 30 ml PO Q6H PRN PRN Reason: Heartburn/Nausea Amlodipine Besylate (Amlodipine Besylate 2.5 Mg Tablet) 2.5 mg PO DAILY [facility]; Protocol Last Admin: 05/03/23 09:49 Dose: 2.5 mg Atorvastatin Calcium (Atorvastatin Calcium 40 Mg Tablet) 40 mg PO BEDTIME [facility] Last Admin: 05/02/23 20:19 Dose: 40 mg Divalproex Sodium (Divalproex Sodium Sprinkles 125 Mg ) 250 mg PO TID [facility] Last Admin: 05/03/23 09:48 Dose: 250 mg Hydroxyzine HCl (Hydroxyzine Hcl 25 Mg Tablet) 25 mg PO Q6H PRN PRN Reason: Anxiety Last Admin: 05/01/23 21:14 Dose: 25 mg Magnesium Hydroxide (Milk Of Magnesia 30 Ml Oral.Susp) 30 ml PO DAILY PRN PRN Reason: Constipation Melatonin (Melatonin 3 Mg Tablet) 3 mg PO BEDTIME PRN PRN Reason: Insomnia Last Admin: 05/01/23 21:15 Dose: 3 mg Memantine (Memantine Hcl 5 Mg Tablet) 5 mg PO BID [facility] Last Admin: 05/03/23 09:49 Dose: 5 mg Omeprazole (Omeprazole 20 Mg Capsule.Dr) 20 mg PO DAILY@0630 [facility] Last Admin: 05/03/23 06:30 Dose: Not Given Risperidone (Risperidone 1 Mg Tablet) 1 mg PO BEDTIME [facility] Last Admin: 05/02/23 20:19 Dose: 1 mg Risperidone (Risperidone 1 Mg Tablet) 1 mg PO BID@0800,1700 [facility] Last Admin: 05/03/23 09:48 Dose: 1 mg Senna/Docusate Sodium (Sennosides/Docusate Sodium Tablet) 1 tab PO BEDTIME [facility] Last Admin: 05/02/23 20:19 Dose: 1 tab Trazodone HCl (Trazodone Hcl 50 Mg Tablet) 50 mg PO BEDTIME PRN PRN Reason: Insomnia Last Admin: 05/01/23 21:14 Dose: 50 mg Allergies Allergies Allergy/AdvReac Type Severity Reaction Status Date / Time No Known Allergies Allergy Verified 04/06/23 05:59 Assessment & Plan Assessment & Plan (1) Major neurocognitive disorder: Status: Acute Code(s): F03.90 - Unspecified dementia, unspecified severity, without behavioral disturbance, psychotic disturbance, mood disturbance, and anxiety Plan Pt is a 72-year-old female with a PMH significant for advanced dementia, cerebral amyloid angiopathy, GERD, and HLD who is admitted to [facility] for worsening dementia with increased confusion, agitation, and aggressive behaviors. Patient is a transfer from [facility]. Medical consult for admission H&P. Pt is alert to person only, and only occasionally capable of following basic commands. Mood disorder Plan as per Psychiatry Advanced dementia Patient presents with worsening dementia with behavioral disturbances No signs of precipitating factors: No clear sign of infection, no known recent med changes Most likely due to progression of disease HLD Continue aspirin, statin GERD Continue omeprazole Thank you for allowing us to participate in the care of this patient. Signing off at this time. Please let us know if there are any acute complaints or questions. Plan 1. Keep on one-to-one. 2. Depakote level for tomorrow. 3. Continue antipsychotics as prescribed. On May 01 we increased Risperdal at to 3 mg a day 4. Depakote level, CBC with differential BMP and lipid panel came back with therapeutic Depakote and low TSH. 5. Start Namenda 5 mg p.o. daily. On May 02 it was increased to 5 mg p.o. b.i.d. 6. Referral to hospitalist team for low TSH Reason for continued inpatient stay Substantial Risk for: inability to function, rapid decompensation and med/psych decompensation Time Spent With Patient Time: Total time managing care of this patient today __20__ minutes.
[2023-05-03 18:00] VITALS: BP 143/68; PULSE 78; RESP 18; TEMP 36.6; O2SAT 95
[2023-05-03 18:49] LABS: Triiodothyronine T3 Free 3.6 pg/mL (2.3-4.2)
[2023-05-03] MEDS: hydrOXYzine HCL 25 MG TABLET PO (20:20)
[2023-05-03] MEDS: Acetaminophen 325 MG TABLET 650 MG PO (20:20)
[2023-05-03] MEDS: Melatonin 3 MG TABLET PO (20:20)
[2023-05-03] MEDS: Sennosides/Docusate Sodium TABLET 1 TAB PO (20:20)
[2023-05-03] MEDS: Atorvastatin Calcium 40 MG TABLET PO (20:20)
[2023-05-04] MEDS: Omeprazole 20 MG CAPSULE.DR PO (05:53)
[2023-05-04 08:35] VITALS: BP 136/63; PULSE 80; RESP 18; TEMP 36.1; O2SAT 98
--- NOTE | 2023-05-04 11:04 | P.PNPSI_ITS ---
Subjective Subjective Date of Service: 05/04/23 Reason For Visit: Dementia w/ Psychosis; Amyloid Angiopathy Subjective Notes: Conditional Voluntary Healthcare Proxy: No Guardianship: No Medical Problems Affecting Mental Status: No Interim History: Patient was seen and discussed in rounds today. Records and plans were reviewed. She continues to be confused. Placement is being explored. She is on one-to-one because of intrusiveness. She is medication compliant. Eating most of the time. No changes were made today. She is tolerating Namenda Review of Systems Review of Systems Unable to obtain due to patient's mentation Yes all other systems are reviewed and are negative and Unobtainable due to mental status Mental Status Exam Mental Status Exam Patient Appearance: Well Grooomed and Appropriate Patient Orientation: Person and Situation Level of Consciousness: Awake and Appropriate Patient Behavior: Guarded and Passive Mood Description: Withdrawn Affect Description: Constricted Patient Cognition Impaired: Yes Ability to Follow Directions: Good Speech Pattern: Clear Hallucinations: None Delusions: Not Present Thought Process: Illogical and Distracted Thought Content: positive for [place], positive for Poverty of Content and positive for Thought Blocking Judgement: Poor Diagnostics Vital Signs (24Hr): Vital Signs - 24 hr 05/03/23 18:00 05/04/23 08:35 Temperature 97.8 F 96.9 F Pulse Rate 78 80 Respiratory Rate 18 18 Blood Pressure 143/68 H 136/63 Pulse Oximetry 95 98 Oxygen Delivery Method Room Air Room Air BMI result Body Mass Index 23.7 Labs 04/30/23 07:24 04/30/23 07:24 Labs: Laboratory Results - last 48 hr 05/01/23 08:07 Free T3 3.6 Medications Medications Current Medications Acetaminophen (Acetaminophen 325 Mg Tablet) 650 mg PO Q6H PRN PRN Reason: Headache/Pain Mild Scale (1-3) Last Admin: 05/03/23 20:20 Dose: 650 mg Al Hydroxide/Mg Hydroxide (Magnesium Hydrox/Alum Hydrox 30 Ml Oral.Susp) 30 ml PO Q6H PRN PRN Reason: Heartburn/Nausea Amlodipine Besylate (Amlodipine Besylate 2.5 Mg Tablet) 2.5 mg PO DAILY [facility]; Protocol Last Admin: 05/03/23 09:49 Dose: 2.5 mg Atorvastatin Calcium (Atorvastatin Calcium 40 Mg Tablet) 40 mg PO BEDTIME [facility] Last Admin: 05/03/23 20:20 Dose: 40 mg Divalproex Sodium (Divalproex Sodium Sprinkles 125 Mg Cap.) 250 mg PO TID [facility] Last Admin: 05/03/23 20:20 Dose: 250 mg Hydroxyzine HCl (Hydroxyzine Hcl 25 Mg Tablet) 25 mg PO Q6H PRN PRN Reason: Anxiety Last Admin: 05/03/23 20:20 Dose: 25 mg Magnesium Hydroxide (Milk Of Magnesia 30 Ml Oral.Susp) 30 ml PO DAILY PRN PRN Reason: Constipation Melatonin (Melatonin 3 Mg Tablet) 3 mg PO BEDTIME PRN PRN Reason: Insomnia Last Admin: 05/03/23 20:20 Dose: 3 mg Memantine (Memantine Hcl 5 Mg Tablet) 5 mg PO BID [facility] Last Admin: 05/03/23 20:20 Dose: 5 mg Omeprazole (Omeprazole 20 Mg Capsule.) 20 mg PO DAILY@0630 [facility] Last Admin: 05/04/23 05:53 Dose: 20 mg Risperidone (Risperidone 1 Mg Tablet) 1 mg PO BEDTIME [facility] Last Admin: 05/03/23 20:20 Dose: 1 mg Risperidone (Risperidone 1 Mg Tablet) 1 mg PO BID@0800,1700 [facility] Last Admin: 05/03/23 16:01 Dose: 1 mg Senna/Docusate Sodium (Sennosides/Docusate Sodium Tablet) 1 tab PO BEDTIME [facility] Last Admin: 05/03/23 20:20 Dose: 1 tab Trazodone HCl (Trazodone Hcl 50 Mg Tablet) 50 mg PO BEDTIME PRN PRN Reason: Insomnia Last Admin: 05/01/23 21:14 Dose: 50 mg Allergies Allergies Allergy/AdvReac Type Severity Reaction Status Date / Time No Known Allergies Allergy Verified 04/06/23 05:59 Assessment & Plan Assessment & Plan (1) Major neurocognitive disorder: Status: Acute Code(s): F03.90 - Unspecified dementia, unspecified severity, without behavioral disturbance, psychotic disturbance, mood disturbance, and anxiety Plan Pt is a 72-year-old female with a PMH significant for advanced dementia, cerebral amyloid angiopathy, GERD, and HLD who is admitted to [facility] for worsening dementia with increased confusion, agitation, and aggressive behaviors. Patient is a transfer from [facility]. Medical consult for admission H&P. Pt is alert to person only, and only occasionally capable of following basic commands. Mood disorder Plan as per Psychiatry Advanced dementia Patient presents with worsening dementia with behavioral disturbances No signs of precipitating factors: No clear sign of infection, no known recent med changes Most likely due to progression of disease HLD Continue aspirin, statin GERD Continue omeprazole Thank you for allowing us to participate in the care of this patient. Signing off at this time. Please let us know if there are any acute complaints or questions. Plan 1. Keep on one-to-one. 2. Depakote level for tomorrow. 3. Continue antipsychotics as prescribed. On May 01 we increased Risperdal at to 3 mg a day 4. Depakote level, CBC with differential BMP and lipid panel came back with therapeutic Depakote and low TSH. 5. Start Namenda 5 mg p.o. daily. On May 02 it was increased to 5 mg p.o. b.i.d. 6. Referral to hospitalist team for low TSH 05/04: Continue current regimen and plans Reason for continued inpatient stay Substantial Risk for: inability to function Time Spent With Patient Time: Total time managing care of this patient today ____ minutes.
[2023-05-04] MEDS: amLODIPine Besylate 2.5 MG TABLET PO (11:39)
[2023-05-04] MEDS: risperiDONE 1 MG TABLET PO ×3 (11:39→20:02)
[2023-05-04] MEDS: Divalproex Sodium Sprinkles 125 MG CAP.DR.SPR 250 MG PO ×3 (11:39→20:01)
[2023-05-04] MEDS: Memantine HCl 5 MG TABLET PO ×2 (11:40→20:02)
[2023-05-04 18:00] VITALS: BP 132/85; PULSE 86; RESP 18; TEMP 36.7; O2SAT 96
[2023-05-04] MEDS: Acetaminophen 325 MG TABLET 650 MG PO (20:01)
[2023-05-04] MEDS: Sennosides/Docusate Sodium TABLET 1 TAB PO (20:02)
[2023-05-04] MEDS: Melatonin 3 MG TABLET PO (20:02)
[2023-05-04] MEDS: hydrOXYzine HCL 25 MG TABLET PO (20:02)
[2023-05-04] MEDS: Atorvastatin Calcium 40 MG TABLET PO (20:02)
[2023-05-05] MEDS: Omeprazole 20 MG CAPSULE.DR PO (05:28)
[2023-05-05 08:29] VITALS: BP 134/63; PULSE 62; RESP 18; TEMP 36.1; O2SAT 96
[2023-05-05] MEDS: risperiDONE 1 MG TABLET PO ×3 (09:23→21:04)
[2023-05-05] MEDS: amLODIPine Besylate 2.5 MG TABLET PO (09:23)
[2023-05-05] MEDS: Memantine HCl 5 MG TABLET PO ×2 (09:24→21:03)
[2023-05-05] MEDS: Divalproex Sodium Sprinkles 125 MG CAP.DR.SPR 250 MG PO ×3 (09:24→21:03)
--- NOTE | 2023-05-05 10:37 | P.PNPSI_ITS ---
Subjective Subjective Date of Service: 05/05/23 Reason For Visit: Dementia w/ Psychosis; Amyloid Angiopathy Subjective Notes: Conditional Voluntary Healthcare Proxy: No Guardianship: No Medical Problems Affecting Mental Status: No Interim History: Patient was seen and discussed in rounds today. Records and plans were reviewed. She continues to be disorganized and confused. She was incontinent of feces. She is in bed, calm with no complaints. Eating adequately. No changes were made today Medication Compliance: Yes Side effects from medications: No Attending Groups: No Review of Systems Review of Systems Yes Unobtainable due to mental status Diagnostics Vital Signs (24Hr): Vital Signs - 24 hr 05/04/23 18:00 Temperature 98.1 F Pulse Rate 86 Respiratory Rate 18 Blood Pressure 132/85 Pulse Oximetry 96 Oxygen Delivery Method Room Air BMI result Body Mass Index 23.7 Labs 04/30/23 07:24 04/30/23 07:24 Labs: Laboratory Results - last 48 hr 05/01/23 08:07 Free T3 3.6 Medications Medications Current Medications Acetaminophen (Acetaminophen 325 Mg Tablet) 650 mg PO Q6H PRN PRN Reason: Headache/Pain Mild Scale (1-3) Last Admin: 05/04/23 20:01 Dose: 650 mg Al Hydroxide/Mg Hydroxide (Magnesium Hydrox/Alum Hydrox 30 Ml Oral.Susp) 30 ml PO Q6H PRN PRN Reason: Heartburn/Nausea Amlodipine Besylate (Amlodipine Besylate 2.5 Mg Tablet) 2.5 mg PO DAILY [facility]; Protocol Last Admin: 05/05/23 09:23 Dose: 2.5 mg Atorvastatin Calcium (Atorvastatin Calcium 40 Mg Tablet) 40 mg PO BEDTIME [facility] Last Admin: 05/04/23 20:02 Dose: 40 mg Divalproex Sodium (Divalproex Sodium Sprinkles 125 Mg ) 250 mg PO TID [facility] Last Admin: 05/05/23 09:24 Dose: 250 mg Hydroxyzine HCl (Hydroxyzine Hcl 25 Mg Tablet) 25 mg PO Q6H PRN PRN Reason: Anxiety Last Admin: 05/04/23 20:02 Dose: 25 mg Magnesium Hydroxide (Milk Of Magnesia 30 Ml Oral.Susp) 30 ml PO DAILY PRN PRN Reason: Constipation Melatonin (Melatonin 3 Mg Tablet) 3 mg PO BEDTIME PRN PRN Reason: Insomnia Last Admin: 05/04/23 20:02 Dose: 3 mg Memantine (Memantine Hcl 5 Mg Tablet) 5 mg PO BID [facility] Last Admin: 05/05/23 09:24 Dose: 5 mg Omeprazole (Omeprazole 20 Mg Capsule.) 20 mg PO DAILY@0630 [facility] Last Admin: 05/05/23 05:28 Dose: 20 mg Risperidone (Risperidone 1 Mg Tablet) 1 mg PO BEDTIME [facility] Last Admin: 05/04/23 20:02 Dose: 1 mg Risperidone (Risperidone 1 Mg Tablet) 1 mg PO BID@0800,1700 [facility] Last Admin: 05/05/23 09:23 Dose: 1 mg Senna/Docusate Sodium (Sennosides/Docusate Sodium Tablet) 1 tab PO BEDTIME [facility] Last Admin: 05/04/23 20:02 Dose: 1 tab Trazodone HCl (Trazodone Hcl 50 Mg Tablet) 50 mg PO BEDTIME PRN PRN Reason: Insomnia Last Admin: 05/01/23 21:14 Dose: 50 mg Allergies Allergies Allergy/AdvReac Type Severity Reaction Status Date / Time No Known Allergies Allergy Verified 04/06/23 05:59 Assessment & Plan Assessment & Plan (1) Major neurocognitive disorder: Status: Acute Code(s): F03.90 - Unspecified dementia, unspecified severity, without behavioral disturbance, psychotic disturbance, mood disturbance, and anxiety Plan Pt is a 72-year-old female with a PMH significant for advanced dementia, cerebral amyloid angiopathy, GERD, and HLD who is admitted to [facility] for worsening dementia with increased confusion, agitation, and aggressive behaviors. Patient is a transfer from [facility]. Medical consult for admission H&P. Pt is alert to person only, and only occasionally capable of following basic commands. Mood disorder Plan as per Psychiatry Advanced dementia Patient presents with worsening dementia with behavioral disturbances No signs of precipitating factors: No clear sign of infection, no known recent med changes Most likely due to progression of disease HLD Continue aspirin, statin GERD Continue omeprazole Thank you for allowing us to participate in the care of this patient. Signing off at this time. Please let us know if there are any acute complaints or questions. Plan 1. Keep on one-to-one. 2. Depakote level for tomorrow. 3. Continue antipsychotics as prescribed. On May 01 we increased Risperdal at to 3 mg a day 4. Depakote level, CBC with differential BMP and lipid panel came back with therapeutic Depakote and low TSH. 5. Start Namenda 5 mg p.o. daily. On May 02 it was increased to 5 mg p.o. b.i.d. 6. Referral to hospitalist team for low TSH 05/04: Continue current regimen and plans 05/05: Continue current plans and regimen Reason for continued inpatient stay Substantial Risk for: inability to function Time Spent With Patient Time: Total time managing care of this patient today ____ minutes.
[2023-05-05 18:00] VITALS: BP 139/62; PULSE 69; RESP 18; TEMP 36.3; O2SAT 94
[2023-05-05] MEDS: Atorvastatin Calcium 40 MG TABLET PO (21:03)
[2023-05-05] MEDS: Sennosides/Docusate Sodium TABLET 1 TAB PO (21:04)
[2023-05-05] MEDS: hydrOXYzine HCL 25 MG TABLET PO (22:21)
[2023-05-05] MEDS: traZODone HCL 50 MG TABLET PO (22:21)
[2023-05-06 08:06] VITALS: BP 119/58; PULSE 74; RESP 18; TEMP 36.6; O2SAT 97
[2023-05-06] MEDS: amLODIPine Besylate 2.5 MG TABLET PO (09:49)
[2023-05-06] MEDS: Omeprazole 20 MG CAPSULE.DR PO (09:49)
[2023-05-06] MEDS: risperiDONE 1 MG TABLET PO ×3 (09:50→20:44)
[2023-05-06] MEDS: Divalproex Sodium Sprinkles 125 MG CAP.DR.SPR 250 MG PO ×3 (09:50→20:43)
--- NOTE | 2023-05-06 09:53 | HO.PSYCHPN ---
Subjective Subjective Date of Service: 05/06/23 Reason For Visit: Dementia w/ Psychosis; Amyloid Angiopathy Subjective Notes: Conditional Voluntary Interim History: The nursing staff reported the patient was disorganized, pacing the hallway on one-to-one for safety. She needed trazodone at night for sleep. The staff has noticed that since we started amend that the patient looks more hypoactive and sedated. On interview the patient was sleeping soundly in her bed, she responded to verbal stimuli reported that she was doing fine but looks extremely confused. We will discontinue Namenda due to over-sedation and due to her advanced dementia, it is unlikely that Namenda will do a positive impact on her mental status. Mental Status Exam Mental Status Exam Patient Appearance: Appropriate Patient Orientation: Person and Situation Level of Consciousness: Awake and Appropriate Patient Behavior: Guarded and Passive Mood Description: Labile Affect Description: Appropriate and Cheerful Patient Cognition Impaired: Yes Ability to Follow Directions: Good Speech Pattern: Clear Hallucinations: None Delusions: Paranoid Ideation Thought Process: Incoherent and Illogical Thought Content: positive for [place], positive for Poverty of Content and positive for Thought Blocking Judgement: Poor Diagnostics Vital Signs (24Hr): Vital Signs - 24 hr 05/05/23 18:00 05/06/23 08:06 Temperature 97.4 F 97.9 F Pulse Rate 69 74 Respiratory Rate 18 18 Blood Pressure 139/62 119/58 L Pulse Oximetry 94 97 Oxygen Delivery Method Room Air Room Air BMI result Body Mass Index 23.7 Labs 04/30/23 07:24 04/30/23 07:24 Medications Medications Current Medications Acetaminophen (Acetaminophen 325 Mg Tablet) 650 mg PO Q6H PRN PRN Reason: Headache/Pain Mild Scale (1-3) Last Admin: 05/04/23 20:01 Dose: 650 mg Al Hydroxide/Mg Hydroxide (Magnesium Hydrox/Alum Hydrox 30 Ml Oral.Susp) 30 ml PO Q6H PRN PRN Reason: Heartburn/Nausea Amlodipine Besylate (Amlodipine Besylate 2.5 Mg Tablet) 2.5 mg PO DAILY [facility]; Protocol Last Admin: 05/06/23 09:49 Dose: 2.5 mg Atorvastatin Calcium (Atorvastatin Calcium 40 Mg Tablet) 40 mg PO BEDTIME [facility] Last Admin: 05/05/23 21:03 Dose: 40 mg Divalproex Sodium (Divalproex Sodium Sprinkles 125 Mg Cap..Spr) 250 mg PO TID [facility] Last Admin: 05/06/23 09:50 Dose: 250 mg Hydroxyzine HCl (Hydroxyzine Hcl 25 Mg Tablet) 25 mg PO Q6H PRN PRN Reason: Anxiety Last Admin: 05/05/23 22:21 Dose: 25 mg Magnesium Hydroxide (Milk Of Magnesia 30 Ml Oral.Susp) 30 ml PO DAILY PRN PRN Reason: Constipation Melatonin (Melatonin 3 Mg Tablet) 3 mg PO BEDTIME PRN PRN Reason: Insomnia Last Admin: 05/04/23 20:02 Dose: 3 mg Omeprazole (Omeprazole 20 Mg Capsule.) 20 mg PO DAILY@0630 [facility] Last Admin: 05/06/23 09:49 Dose: 20 mg Risperidone (Risperidone 1 Mg Tablet) 1 mg PO BEDTIME [facility] Last Admin: 05/05/23 21:04 Dose: 1 mg Risperidone (Risperidone 1 Mg Tablet) 1 mg PO BID@0800,1700 [facility] Last Admin: 05/06/23 09:50 Dose: 1 mg Senna/Docusate Sodium (Sennosides/Docusate Sodium Tablet) 1 tab PO BEDTIME [facility] Last Admin: 05/05/23 21:04 Dose: 1 tab Trazodone HCl (Trazodone Hcl 50 Mg Tablet) 50 mg PO BEDTIME PRN PRN Reason: Insomnia Last Admin: 05/05/23 22:21 Dose: 50 mg Allergies Allergies Allergy/AdvReac Type Severity Reaction Status Date / Time No Known Allergies Allergy Verified 04/06/23 05:59 Assessment & Plan Assessment & Plan (1) Major neurocognitive disorder: Status: Acute Code(s): F03.90 - Unspecified dementia, unspecified severity, without behavioral disturbance, psychotic disturbance, mood disturbance, and anxiety Plan Pt is a 72-year-old female with a PMH significant for advanced dementia, cerebral amyloid angiopathy, GERD, and HLD who is admitted to [facility] for worsening dementia with increased confusion, agitation, and aggressive behaviors. Patient is a transfer [facility]. Medical consult for admission H&P. Pt is alert to person only, and only occasionally capable of following basic commands. Mood disorder Plan as per Psychiatry Advanced dementia Patient presents with worsening dementia with behavioral disturbances No signs of precipitating factors: No clear sign of infection, no known recent med changes Most likely due to progression of disease HLD Continue aspirin, statin GERD Continue omeprazole Thank you for allowing us to participate in the care of this patient. Signing off at this time. Please let us know if there are any acute complaints or questions. Plan 1. Keep on one-to-one. 2. Depakote level for tomorrow. 3. Continue antipsychotics as prescribed. On May 01 we increased Risperdal at to 3 mg a day 4. Depakote level, CBC with differential BMP and lipid panel came back with therapeutic Depakote and low TSH. 5. Start Namenda 5 mg p.o. daily. On May 02 it was increased to 5 mg p.o. b.i.d. but later on May 06 we discontinued due to over-sedation. 6. Referral to hospitalist team for low TSH Reason for continued inpatient stay Substantial Risk for: inability to function, rapid decompensation and med/psych decompensation Time Spent With Patient Time: Total time managing care of this patient today _20___ minutes.
[2023-05-06 18:00] VITALS: BP 116/56; PULSE 79; RESP 18; TEMP 36.6; O2SAT 98
[2023-05-06] MEDS: Atorvastatin Calcium 40 MG TABLET PO (20:43)
[2023-05-06] MEDS: Sennosides/Docusate Sodium TABLET 1 TAB PO (20:44)
[2023-05-07 08:05] VITALS: BP 153/83; PULSE 78; RESP 18; TEMP 36.1; O2SAT 98
[2023-05-07] MEDS: Omeprazole 20 MG CAPSULE.DR PO (08:26)
[2023-05-07] MEDS: amLODIPine Besylate 2.5 MG TABLET PO (08:26)
[2023-05-07] MEDS: risperiDONE 1 MG TABLET PO ×3 (08:26→20:17)
[2023-05-07] MEDS: Divalproex Sodium Sprinkles 125 MG CAP.DR.SPR 250 MG PO ×3 (08:26→20:17)
--- NOTE | 2023-05-07 13:29 | P.PNPSI_ITS ---
Subjective Subjective Date of Service: 05/07/23 Reason For Visit: Dementia w/ Psychosis; Amyloid Angiopathy Subjective Notes: Conditional Voluntary Interim History: The nursing staff reported the patient remains confused and slightly sedated. She slept 8 hours. Yesterday we discontinue Namenda due to over-sedation but there is no changes in her mental status. On interview the patient remains pleasantly confused, impulsive on one-to-one for safety. Mental Status Exam Mental Status Exam Patient Appearance: Appropriate Patient Orientation: Person and Situation Level of Consciousness: Awake and Appropriate Patient Behavior: Guarded and Passive Mood Description: Withdrawn Affect Description: Constricted Patient Cognition Impaired: Yes Ability to Follow Directions: Good Speech Pattern: Clear Hallucinations: None Delusions: Not Present Thought Process: Incoherent and Distracted Thought Content: positive for [place] and positive for Poverty of Content Judgement: Fair Diagnostics Vital Signs (24Hr): Vital Signs - 24 hr 05/06/23 18:00 05/07/23 08:05 Temperature 97.9 F 97 F Pulse Rate 79 78 Respiratory Rate 18 18 Blood Pressure 116/56 L 153/83 H Pulse Oximetry 98 98 Oxygen Delivery Method Room Air Room Air BMI result Body Mass Index 23.7 Labs 04/30/23 07:24 04/30/23 07:24 Medications Medications Current Medications Acetaminophen (Acetaminophen 325 Mg Tablet) 650 mg PO Q6H PRN PRN Reason: Headache/Pain Mild Scale (1-3) Last Admin: 05/04/23 20:01 Dose: 650 mg Al Hydroxide/Mg Hydroxide (Magnesium Hydrox/Alum Hydrox 30 Ml Oral.Susp) 30 ml PO Q6H PRN PRN Reason: Heartburn/Nausea Amlodipine Besylate (Amlodipine Besylate 2.5 Mg Tablet) 2.5 mg PO DAILY [facility]; Protocol Last Admin: 05/07/23 08:26 Dose: 2.5 mg Atorvastatin Calcium (Atorvastatin Calcium 40 Mg Tablet) 40 mg PO BEDTIME [facility] Last Admin: 05/06/23 20:43 Dose: 40 mg Divalproex Sodium (Divalproex Sodium Sprinkles 125 Mg ) 250 mg PO TID [facility] Last Admin: 05/07/23 08:26 Dose: 250 mg Hydroxyzine HCl (Hydroxyzine Hcl 25 Mg Tablet) 25 mg PO Q6H PRN PRN Reason: Anxiety Last Admin: 05/05/23 22:21 Dose: 25 mg Magnesium Hydroxide (Milk Of Magnesia 30 Ml Oral.Susp) 30 ml PO DAILY PRN PRN Reason: Constipation Melatonin (Melatonin 3 Mg Tablet) 3 mg PO BEDTIME PRN PRN Reason: Insomnia Last Admin: 05/04/23 20:02 Dose: 3 mg Omeprazole (Omeprazole 20 Mg Capsule.Dr) 20 mg PO DAILY@0630 [facility] Last Admin: 05/07/23 08:26 Dose: 20 mg Risperidone (Risperidone 1 Mg Tablet) 1 mg PO BEDTIME [facility] Last Admin: 05/06/23 20:44 Dose: 1 mg Risperidone (Risperidone 1 Mg Tablet) 1 mg PO BID@0800,1700 [facility] Last Admin: 05/07/23 08:26 Dose: 1 mg Senna/Docusate Sodium (Sennosides/Docusate Sodium Tablet) 1 tab PO BEDTIME [facility] Last Admin: 05/06/23 20:44 Dose: 1 tab Trazodone HCl (Trazodone Hcl 50 Mg Tablet) 50 mg PO BEDTIME PRN PRN Reason: Insomnia Last Admin: 05/05/23 22:21 Dose: 50 mg Allergies Allergies Allergy/AdvReac Type Severity Reaction Status Date / Time No Known Allergies Allergy Verified 04/06/23 05:59 Assessment & Plan Assessment & Plan (1) Major neurocognitive disorder: Status: Acute Code(s): F03.90 - Unspecified dementia, unspecified severity, without behavioral disturbance, psychotic disturbance, mood disturbance, and anxiety Plan Pt is a 72-year-old female with a PMH significant for advanced dementia, c erebral amyloid angiopathy, GERD, and HLD who is admitted to [facility] for worsening dementia with increased confusion, agitation, and aggressive behaviors. Patient is a transfer from [facility]. Medical consult for admission H&P. Pt is alert to person only, and only occasionally c apable of following basic commands. Mood disorder Plan as per Psychiatry Advanced dementia Patient presents with worsening dementia with behavioral disturbances No signs of precipitating factors: No clear sign of infection, no known recent med changes Most likely due to progression of disease HLD Continue aspirin, statin GERD Continue omeprazole Thank you for allowing us to participate in the care of this patient. Signing off at this time. Please let us know if there are any acute complaints or questions. Plan 1. Keep on one-to-one. 2. Depakote level for tomorrow. 3. Continue antipsychotics as prescribed. On May 01 we increased Risperdal at to 3 mg a day 4. Depakote level, CBC with differential BMP and lipid panel came back with therapeutic Depakote and low TSH. 5. Start Namenda 5 mg p.o. daily. On May 02 it was increased to 5 mg p.o. b.i.d. but later on May 06 we discontinued due to over-sedation. 6. Referral to hospitalist team for low TSH Reason for continued inpatient stay Substantial Risk for: inability to function, rapid decompensation and med/psych decompensation Time Spent With Patient Time: Total time managing care of this patient today __20__ minutes.
[2023-05-07 19:35] VITALS: BP 115/84; PULSE 75; RESP 18; TEMP 36.7; O2SAT 96
[2023-05-07] MEDS: Atorvastatin Calcium 40 MG TABLET PO (20:17)
[2023-05-07] MEDS: Sennosides/Docusate Sodium TABLET 1 TAB PO (20:17)
[2023-05-07 20:48] LABS: Thyrotropin Receptor Antibody <1.00 IU/L (<=2.00)
[2023-05-07] MEDS: Melatonin 3 MG TABLET PO (23:24)
[2023-05-07] MEDS: hydrOXYzine HCL 25 MG TABLET PO (23:24)
[2023-05-08 08:00] VITALS: BP 113/56; PULSE 73; RESP 18; TEMP 36.7; O2SAT 96
[2023-05-08] MEDS: risperiDONE 1 MG TABLET PO ×3 (08:28→20:58)
[2023-05-08] MEDS: Divalproex Sodium Sprinkles 125 MG CAP.DR.SPR 250 MG PO ×3 (08:29→20:58)
[2023-05-08] MEDS: Omeprazole 20 MG CAPSULE.DR PO (08:29)
[2023-05-08] MEDS: amLODIPine Besylate 2.5 MG TABLET PO (08:29)
--- NOTE | 2023-05-08 11:16 | P.PNPSI_ITS ---
Subjective Subjective Date of Service: 05/08/23 Reason For Visit: Dementia w/ Psychosis; Amyloid Angiopathy Subjective Notes: Conditional Voluntary Interim History: The nursing staff reported the patient slept well last night she is on one-to-one since she walks with art close and she is very demented, extremely impaired, needs help for feeding and other ADL less. On interview the patient is pleasantly confused easily redirectable. Mental Status Exam Mental Status Exam Patient Appearance: Appropriate Patient Orientation: Person and Situation Level of Consciousness: Awake Patient Behavior: Guarded and Suspicious Mood Description: Constricted Affect Description: Labile Patient Cognition Impaired: Yes Ability to Follow Directions: Good Speech Pattern: Clear Hallucinations: None Delusions: Not Present Thought Process: Disoriented and Illogical Thought Content: positive for [place], positive for Poverty of Content and positive for Disorganized Judgement: Poor Diagnostics Vital Signs (24Hr): Vital Signs - 24 hr 05/07/23 19:35 05/08/23 08:00 Temperature 98.0 F 98.0 F Pulse Rate 75 73 Respiratory Rate 18 18 Blood Pressure 115/84 113/56 L Pulse Oximetry 96 96 Oxygen Delivery Method Room Air Room Air BMI result Body Mass Index 23.7 Labs 04/30/23 07:24 04/30/23 07:24 Labs: Laboratory Results - last 48 hr 05/01/23 08:07 TSH Receptor Ab <1.00 Medications Medications Current Medications Acetaminophen (Acetaminophen 325 Mg Tablet) 650 mg PO Q6H PRN PRN Reason: Headache/Pain Mild Scale (1-3) Last Admin: 05/04/23 20:01 Dose: 650 mg Al Hydroxide/Mg Hydroxide (Magnesium Hydrox/Alum Hydrox 30 Ml Oral.Susp) 30 ml PO Q6H PRN PRN Reason: Heartburn/Nausea Amlodipine Besylate (Amlodipine Besylate 2.5 Mg Tablet) 2.5 mg PO DAILY [facility]; Protocol Last Admin: 05/08/23 08:29 Dose: 2.5 mg Atorvastatin Calcium (Atorvastatin Calcium 40 Mg Tablet) 40 mg PO BEDTIME [facility] Last Admin: 05/07/23 20:17 Dose: 40 mg Divalproex Sodium (Divalproex Sodium Sprinkles 125 Mg Jhon.) 250 mg PO TID [facility] Last Admin: 05/08/23 08:29 Dose: 250 mg Hydroxyzine HCl (Hydroxyzine Hcl 25 Mg Tablet) 25 mg PO Q6H PRN PRN Reason: Anxiety Last Admin: 05/07/23 23:24 Dose: 25 mg Magnesium Hydroxide (Milk Of Magnesia 30 Ml Oral.Susp) 30 ml PO DAILY PRN PRN Reason: Constipation Melatonin (Melatonin 3 Mg Tablet) 3 mg PO BEDTIME PRN PRN Reason: Insomnia Last Admin: 05/07/23 23:24 Dose: 3 mg Omeprazole (Omeprazole 20 Mg Capsule.Dr) 20 mg PO DAILY@0630 [facility] Last Admin: 05/08/23 08:29 Dose: 20 mg Risperidone (Risperidone 1 Mg Tablet) 1 mg PO BEDTIME [facility] Last Admin: 05/07/23 20:17 Dose: 1 mg Risperidone (Risperidone 1 Mg Tablet) 1 mg PO BID@0800,1700 [facility] Last Admin: 05/08/23 08:28 Dose: 1 mg Senna/Docusate Sodium (Sennosides/Docusate Sodium Tablet) 1 tab PO BEDTIME [facility] Last Admin: 05/07/23 20:17 Dose: 1 tab Trazodone HCl (Trazodone Hcl 50 Mg Tablet) 50 mg PO BEDTIME PRN PRN Reason: Insomnia Last Admin: 05/05/23 22:21 Dose: 50 mg Allergies Allergies Allergy/AdvReac Type Severity Reaction Status Date / Time No Known Allergies Allergy Verified 04/06/23 05:59 Assessment & Plan Assessment & Plan (1) Major neurocognitive disorder: Status: Acute Code(s): F03.90 - Unspecified dementia, unspecified severity, without behavioral disturbance, psychotic disturbance, mood disturbance, and anxiety Plan Pt is a 72-year-old female with a PMH significant for advanced dementia, cerebral amyloid angiopathy, GERD, and HLD who is admitted to [facility] for worsening dementia with increased confusion, agitation, and aggressive behavior s. Patient is a transfer from [facility]. Medical consult for admission H&P. Pt is alert to person only, and only occasionally capable of following basic commands. Mood disorder Plan as per Psychiatry Advanced dementia Patient presents with worsening dementia with behavioral disturbances No signs of precipitating factors: No clear sign of infection, no known recent med changes Most likely due to progression of disease HLD Continue aspirin, statin GERD Continue omeprazole Thank you for allowing us to participate in the care of this patient. Signing off at this time. Please let us know if there are any acute complaints or questions. Plan 1. Keep on one-to-one. 2. Depakote level for tomorrow. 3. Continue antipsychotics as prescribed. On May 01 we increased Risperdal at to 3 mg a day 4. Depakote level, CBC with differential BMP and lipid panel came back with therapeutic Depakote and low TSH. 5. Start Namenda 5 mg p.o. daily. On May 02 it was increased to 5 mg p.o. b.i.d. but later on May 06 we discontinued due to over-sedation. 6. Referral to hospitalist team for low TSH. Workout came up negative no need to add any medication at this point Reason for continued inpatient stay Substantial Risk for: inability to function, rapid decompensation and med/psych decompensation Time Spent With Patient Time: Total time managing care of this patient today __20__ minutes.
[2023-05-08 18:00] VITALS: BP 128/68; PULSE 83; RESP 18; TEMP 36.3; O2SAT 96
[2023-05-08] MEDS: Sennosides/Docusate Sodium TABLET 1 TAB PO (20:58)
[2023-05-08] MEDS: hydrOXYzine HCL 25 MG TABLET PO (20:58)
[2023-05-08] MEDS: Atorvastatin Calcium 40 MG TABLET PO (20:58)
[2023-05-08] MEDS: Acetaminophen 325 MG TABLET 650 MG PO (20:58)
[2023-05-08] MEDS: Melatonin 3 MG TABLET PO (23:28)
[2023-05-09] MEDS: Omeprazole 20 MG CAPSULE.DR PO (05:46)
[2023-05-09 07:00] VITALS: BMI 24.3
[2023-05-09 07:30] VITALS: BP 128/59; PULSE 82; RESP 18; TEMP 36.9; O2SAT 96
[2023-05-09] MEDS: amLODIPine Besylate 2.5 MG TABLET PO (10:17)
[2023-05-09] MEDS: Divalproex Sodium Sprinkles 125 MG CAP.DR.SPR 250 MG PO ×3 (10:17→20:28)
[2023-05-09] MEDS: risperiDONE 1 MG TABLET PO ×3 (10:17→20:28)
--- NOTE | 2023-05-09 15:09 | HO.PSYCHPN ---
Subjective Subjective Date of Service: 05/09/23 Reason For Visit: Dementia w/ Psychosis; Amyloid Angiopathy Subjective Notes: Conditional Voluntary Interim History: The nursing staff reported the patient remains on one-to-one, very confused. No changes on her mental status after discontinue Namenda. On interview, the patient is very confused unable to follow the interview. Mental Status Exam Mental Status Exam Patient Appearance: Well Grooomed Patient Orientation: Person and Situation Level of Consciousness: Awake and Appropriate Patient Behavior: Guarded and Passive Mood Description: Withdrawn Affect Description: Labile Patient Cognition Impaired: Yes Ability to Follow Directions: Fair Speech Pattern: Impoverished Hallucinations: None Delusions: Paranoid Ideation Thought Process: Disoriented, Illogical and Distracted Thought Content: positive for Poverty of Content and positive for Thought Blocking Judgement: Poor Diagnostics Vital Signs (24Hr): Vital Signs - 24 hr 05/08/23 18:00 05/09/23 07:30 Temperature 97.4 F 98.4 F Pulse Rate 83 82 Respiratory Rate 18 18 Blood Pressure 128/68 128/59 L Pulse Oximetry 96 96 Oxygen Delivery Method Room Air Room Air BMI result Body Mass Index 24.3 Labs 04/30/23 07:24 04/30/23 07:24 Labs: Laboratory Results - last 48 hr 05/01/23 08:07 TSH Receptor Ab <1.00 Medications Medications Current Medications Acetaminophen (Acetaminophen 325 Mg Tablet) 650 mg PO Q6H PRN PRN Reason: Headache/Pain Mild Scale (1-3) Last Admin: 05/08/23 20:58 Dose: 650 mg Al Hydroxide/Mg Hydroxide (Magnesium Hydrox/Alum Hydrox 30 Ml Oral.Susp) 30 ml PO Q6H PRN PRN Reason: Heartburn/Nausea Amlodipine Besylate (Amlodipine Besylate 2.5 Mg Tablet) 2.5 mg PO DAILY [facility]; Protocol Last Admin: 05/09/23 10:17 Dose: 2.5 mg Atorvastatin Calcium (Atorvastatin Calcium 40 Mg Tablet) 40 mg PO BEDTIME [facility] Last Admin: 05/08/23 20:58 Dose: 40 mg Divalproex Sodium (Divalproex Sodium Sprinkles 125 Mg ) 250 mg PO TID [facility] Last Admin: 05/09/23 10:17 Dose: 250 mg Hydroxyzine HCl (Hydroxyzine Hcl 25 Mg Tablet) 25 mg PO Q6H PRN PRN Reason: Anxiety Last Admin: 05/08/23 20:58 Dose: 25 mg Magnesium Hydroxide (Milk Of Magnesia 30 Ml Oral.Susp) 30 ml PO DAILY PRN PRN Reason: Constipation Melatonin (Melatonin 3 Mg Tablet) 3 mg PO BEDTIME PRN PRN Reason: Insomnia Last Admin: 05/08/23 23:28 Dose: 3 mg Omeprazole (Omeprazole 20 Mg Capsule.Dr) 20 mg PO DAILY@0630 [facility] Last Admin: 05/09/23 05:46 Dose: 20 mg Risperidone (Risperidone 1 Mg Tablet) 1 mg PO BEDTIME [facility] Last Admin: 05/08/23 20:58 Dose: 1 mg Risperidone (Risperidone 1 Mg Tablet) 1 mg PO BID@0800,1700 [facility] Last Admin: 05/09/23 10:17 Dose: 1 mg Senna/Docusate Sodium (Sennosides/Docusate Sodium Tablet) 1 tab PO BEDTIME [facility] Last Admin: 05/08/23 20:58 Dose: 1 tab Trazodone HCl (Trazodone Hcl 50 Mg Tablet) 50 mg PO BEDTIME PRN PRN Reason: Insomnia Last Admin: 05/05/23 22:21 Dose: 50 mg Allergies Allergies Allergy/AdvReac Type Severity Reaction Status Date / Time No Known Allergies Allergy Verified 04/06/23 05:59 Assessment & Plan Assessment & Plan (1) Major neurocognitive disorder: Status: Acute Code(s): F03.90 - Unspecified dementia, unspecified severity, without behavioral disturbance, psychotic disturbance, mood disturbance, and anxiety Plan Pt is a 72-year-old female with a PMH significant for advanced dementia, cerebral amyloid angiopathy, GERD, and HLD who is admitted to [facility] for worsening dementia with increased confusion, agitation, and aggressive behaviors. Patient is a transfer from [facility]. Medical consult for admission H&P. Pt is alert to person only, and only occasionally capable of following basic commands. Mood disorder Plan as per Psychiatry Advanced dementia Patient presents with worsening dementia with behavioral disturbances No signs of precipitating factors: No clear sign of infection, no known recent med changes Most likely due to progression of disease HLD Continue aspirin, statin GERD Continue omeprazole Thank you for allowing us to participate in the care of this patient. Signing off at this time. Please let us know if there are any acute complaints or questions. Plan 1. Keep on one-to-one. 2. Depakote level for tomorrow. 3. Continue antipsychotics as prescribed. On May 01 we increased Risperdal at to 3 mg a day 4. Depakote level, CBC with differential BMP and lipid panel came back with therapeutic Depakote and low TSH. 5. Start Namenda 5 mg p.o. daily. On May 02 it was increased to 5 mg p.o. b.i.d. but later on May 06 we discontinued due to over-sedation. 6. Referral to hospitalist team for low TSH. Workout came up negative no need to add any medication at this point 7. Family meeting for tomorrow. Reason for continued inpatient stay Substantial Risk for: inability to function, rapid decompensation and med/psych decompensation Time Spent With Patient Time: Total time managing care of this patient today __20__ minutes.
[2023-05-09 18:00] VITALS: BP 115/62; PULSE 87; RESP 18; TEMP 36.8; O2SAT 97
[2023-05-09] MEDS: Sennosides/Docusate Sodium TABLET 1 TAB PO (20:28)
[2023-05-09] MEDS: Atorvastatin Calcium 40 MG TABLET PO (20:28)
[2023-05-10] MEDS: traZODone HCL 50 MG TABLET PO ×2 (00:53→20:03)
[2023-05-10] MEDS: hydrOXYzine HCL 25 MG TABLET PO (00:53)
--- NOTE | 2023-05-10 00:59 | PC.NURSE ---
Addendum entered by Ramírez Bob RN 05/10/23 06:37: Patient was arousable to light pain and took her omeprazole at followup Addendum entered by Ramírez Bob RN 05/10/23 05:39: Patient arouses to sternal rub, but is very sleepy and unable to take her omeprazole despite attempts to awaken her. Addendum entered by Ramírez Bob RN 05/10/23 05:11: Patient continued to be OOB with eyes closed wandering and refusing to try and sleep, was assisted to [facility] in wheelchair and was assisted to ambulate. Discussed with MD and new order for Ativan 1 mg PO once administered with good effect, slept the remainder of the night. Addendum entered by Ramírez Bob RN 05/10/23 01:05: noncompliant patient, agitated, swearing and inappropriate language threatening staff. redirectable. Ambulated. refusing to attempt to sleep. Original Note: Patient with insomnia, agitation, anxiety, wandering with eyes closed, 1:1 sitter helping to maintain safety. Administered PRN atarax and trazodone with results pending, per emar
[2023-05-10] MEDS: LORazepam 1 MG TABLET PO (03:03)
[2023-05-10] MEDS: Omeprazole 20 MG CAPSULE.DR PO (06:31)
[2023-05-10 07:18] LABS: MANUAL DIFF FLAG NO
[2023-05-10 07:30] LABS: Basophils Percent Auto 0.8 % (0-2); Eosinophils Absolute Auto 0.2 X10*3/uL (0.0-0.4); Eosinophils Percent Auto 3.1 % (0-4); Hemoglobin 10.8 g/dl (12.0-16.0); Imm Gran Abs Auto 0.01 X10*3/uL (0.00-0.03); Imm Gran Pct Auto 0.2 % (0.0-0.4); Lymphocytes Absolute Auto 1.3 X10*3/uL (1.2-4.9); Lymphocytes Percent Auto 26.8 % (20-40); Mean Corpuscular HGB Conc 32.7 g/dl (31.0-35.0); Mean Corpuscular Hemoglobin 28.7 pg (27.0-33.0); Mean Corpuscular Volume 87.8 fL (80.0-98.0); Mean Platelet Volume 10.4 fL (9.4-12.3); Monocytes Absolute Auto 0.8 X10*3/uL (0.1-1.2); Monocytes Percent Auto 17.2 % (2-11); Neutrophils Absolute Auto 2.5 x10*3/uL (2.0-8.3); Neutrophils Percent Auto 51.9 % (45-73); Platelet Count 167 X10*3/uL (160-400); Red Blood Count 3.76 X10*6/uL (4.20-5.50); Red Cell Distribution Width 13.2 % (11.0-16.0); White Blood Count 4.8 X10*3/uL (4.8-10.8)
[2023-05-10 07:33] LABS: Valproate 92.1 mcg/mL (50.0-100.0)
[2023-05-10 07:35] LABS: Anion Gap 11 (12-20); Blood Urea Nitrogen 13 mg/dL (9-16); Calcium 9.1 mg/dL (8.4-10.2); Carbon Dioxide 30 mmol/L (22-29); Chloride 106 mmol/L (96-108); Estimated Glomerular Filt Rate > 60; Glucose Random 79 mg/dL (60-115); Potassium 3.7 mmol/L (3.3-5.1); Sodium 143 mmol/L (135-145)
[2023-05-10 08:00] VITALS: BP 126/64; PULSE 84; RESP 18; TEMP 36.6; O2SAT 95
[2023-05-10] MEDS: Divalproex Sodium Sprinkles 125 MG CAP.DR.SPR 250 MG PO ×3 (11:35→20:03)
[2023-05-10] MEDS: amLODIPine Besylate 2.5 MG TABLET PO (11:35)
--- NOTE | 2023-05-10 12:22 | HO.PSYCHPN ---
Subjective Subjective Date of Service: 05/10/23 Reason For Visit: Dementia w/ Psychosis; Amyloid Angiopathy Subjective Notes: Conditional Voluntary Interim History: The nursing staff reported the patient remains on one-to-one for safety, she is unable to participate in groups and she is extremely impaired. Last night she received Ativan for anxiety. Today we decided to discontinue hydroxyzine as p.r.n. since it can worsen her confusion and changed to Ativan. On interview the patient is pleasantly confused but looks slightly sedated so we will decided to lower Risperdal to 0.5 p.o. b.i.d. 1 mg p.o. q.h.s.. We will have a family meeting today at 01:30. Mental Status Exam Mental Status Exam Patient Appearance: Well Grooomed and Appropriate Patient Orientation: Person and Situation Level of Consciousness: Awake and Appropriate Patient Behavior: Guarded and Passive Mood Description: Withdrawn Affect Description: Constricted Patient Cognition Impaired: Yes Ability to Follow Directions: Good Speech Pattern: Clear Hallucinations: None Delusions: Paranoid Ideation Thought Process: Incoherent and Distracted Thought Content: positive for Poverty of Content, positive for Loose Associations and positive for Thought Blocking Judgement: Fair Diagnostics Vital Signs (24Hr): Vital Signs - 24 hr 05/09/23 18:00 05/10/23 08:00 Temperature 98.2 F 97.8 F Pulse Rate 87 84 Respiratory Rate 18 18 Blood Pressure 115/62 126/64 Pulse Oximetry 97 95 Oxygen Delivery Method Room Air Room Air BMI result Body Mass Index 24.3 Labs 05/10/23 07:03 05/10/23 07:03 Labs: Laboratory Results - last 48 hr 05/10/23 05/10/23 05/10/23 07:03 07:03 07:03 WBC 4.8 RBC 3.76 L Hgb 10.8 L Hct 33.0 L MCV 87.8 MCH 28.7 MCHC 32.7 RDW 13.2 Plt Count 167 D MPV 10.4 Immature Gran % (Auto) 0.2 Neut % (Auto) 51.9 Lymph % (Auto) 26.8 [place] % (Auto) 17.2 H Eos % (Auto) 3.1 Baso % (Auto) 0.8 Lymph # (Auto) 1.3 [place] # (Auto) 0.8 Eos # (Auto) 0.2 Baso # (Auto) 0.0 Abs Immat Gran (auto) 0.01 Absolute Neuts (auto) 2.5 Absolute Nucleated RBC 0.000 Nucleated RBC % (auto) 0.0 Sodium 143 Potassium 3.7 Chloride 106 Carbon Dioxide 30 H Anion Gap 11 L BUN 13 Creatinine 0.78 Estim Creat Clear Calc 61.0 Estimated GFR > 60 Random Glucose 79 Calcium 9.1 Valproic Acid 92.1 Medications Medications Current Medications Acetaminophen (Acetaminophen 325 Mg Tablet) 650 mg PO Q6H PRN PRN Reason: Headache/Pain Mild Scale (1-3) Last Admin: 05/08/23 20:58 Dose: 650 mg Al Hydroxide/Mg Hydroxide (Magnesium Hydrox/Alum Hydrox 30 Ml Oral.Susp) 30 ml PO Q6H PRN PRN Reason: Heartburn/Nausea Amlodipine Besylate (Amlodipine Besylate 2.5 Mg Tablet) 2.5 mg PO DAILY [facility]; Protocol Last Admin: 05/10/23 11:35 Dose: 2.5 mg Atorvastatin Calcium (Atorvastatin Calcium 40 Mg Tablet) 40 mg PO BEDTIME [facility] Last Admin: 05/09/23 20:28 Dose: 40 mg Divalproex Sodium (Divalproex Sodium Sprinkles 125 Mg ) 250 mg PO TID [facility] Last Admin: 05/10/23 11:35 Dose: 250 mg Lorazepam (Lorazepam 0.5 Mg Tablet) 0.5 mg PO Q8H PRN PRN Reason: Anxiety Magnesium Hydroxide (Milk Of Magnesia 30 Ml Oral.Susp) 30 ml PO DAILY PRN PRN Reason: Constipation Melatonin (Melatonin 3 Mg Tablet) 3 mg PO BEDTIME PRN PRN Reason: Insomnia Last Admin: 05/08/23 23:28 Dose: 3 mg Omeprazole (Omeprazole 20 Mg Capsule.) 20 mg PO DAILY@0630 [facility] Last Admin: 05/10/23 06:31 Dose: 20 mg Risperidone (Risperidone 1 Mg Tablet) 1 mg PO BEDTIME [facility] Last Admin: 05/09/23 20:28 Dose: 1 mg Risperidone (Risperidone 0.5 Mg Tablet) 0.5 mg PO BID@0800,1700 [facility] Senna/Docusate Sodium (Sennosides/Docusate Sodium Tablet) 1 tab PO BEDTIME [facility] Last Admin: 05/09/23 20:28 Dose: 1 tab Trazodone HCl (Trazodone Hcl 50 Mg Tablet) 50 mg PO BEDTIME PRN PRN Reason: Insomnia Last Admin: 05/10/23 00:53 Dose: 50 mg Allergies Allergies Allergy/AdvReac Type Severity Reaction Status Date / Time No Known Allergies Allergy Verified 04/06/23 05:59 Assessment & Plan Assessment & Plan (1) Major neurocognitive disorder: Status: Acute Code(s): F03.90 - Unspecified dementia, unspecified severity, without behavioral disturbance, psychotic disturbance, mood disturbance, and anxiety Plan Pt is a 72-year-old female with a PMH significant for advanced dementia, cerebral amyloid angiopathy, GERD, and HLD who is admitted to [facility] for worsening dementia with increased confusion, agitation, and aggressive behaviors. Patient is a transfer from [facility]. Medical consult for admission H&P. Pt is alert to person only, and only occasionally capable of following basic commands. Mood disorder Plan as per Psychiatry Advanced dementia Patient presents with worsening dementia with behavioral disturbances No signs of precipitating factors: No clear sign of infection, no known recent med changes Most likely due to progression of disease HLD Continue aspirin, statin GERD Continue omeprazole Thank you for allowing us to participate in the care of this patient. Signing off at this time. Please let us know if there are any acute complaints or questions. Plan 1. Keep on one-to-one. 2. Depakote level for tomorrow. 3. Continue antipsychotics as prescribed. On May 01 we increased Risperdal at to 3 mg a day 4. Depakote level, CBC with differential BMP and lipid panel came back with therapeutic Depakote and low TSH. 5. Start Namenda 5 mg p.o. daily. On May 02 it was increased to 5 mg p.o. b.i.d. but later on May 06 we discontinued due to over-sedation. 6. Referral to hospitalist team for low TSH. Workout came up negative no need to add any medication at this point 7. Family meeting for today at 13:30. Reason for continued inpatient stay Substantial Risk for: inability to function, rapid decompensation and med/psych decompensation Time Spent With Patient Time: Total time managing care of this patient today _20___ minutes.
[2023-05-10] MEDS: risperiDONE 0.5 MG TABLET PO (17:54)
[2023-05-10 18:00] VITALS: BP 114/55; PULSE 80; RESP 16; TEMP 37.1; O2SAT 98
[2023-05-10] MEDS: LORazepam 0.5 MG TABLET PO (18:33)
[2023-05-10] MEDS: Atorvastatin Calcium 40 MG TABLET PO (20:03)
[2023-05-10] MEDS: Sennosides/Docusate Sodium TABLET 1 TAB PO (20:03)
[2023-05-10] MEDS: Melatonin 3 MG TABLET PO (20:03)
[2023-05-10] MEDS: risperiDONE 1 MG TABLET PO (20:04)
[2023-05-11 08:26] VITALS: BP 118/67; PULSE 80; RESP 18; TEMP 36.5; O2SAT 97
[2023-05-11] MEDS: amLODIPine Besylate 2.5 MG TABLET PO (08:51)
[2023-05-11] MEDS: Divalproex Sodium Sprinkles 125 MG CAP.DR.SPR 250 MG PO ×3 (08:52→19:59)
[2023-05-11] MEDS: Omeprazole 20 MG CAPSULE.DR PO (08:52)
[2023-05-11] MEDS: risperiDONE 0.5 MG TABLET PO ×2 (08:52→16:17)
--- NOTE | 2023-05-11 11:41 | HO.PSYCHPN ---
Subjective Subjective Date of Service: 05/11/23 Reason For Visit: Dementia w/ Psychosis; Amyloid Angiopathy Interim History: The RN reported they feel she is less communicative and less alert since last week (this RN worked with her a week ago.) The patient remains on one-to-one for safety, she is unable to participate in groups and she is extremely impaired. She was seen in her room and was laying in bed. 1:1 at bedside. Patient said I feel wonderful when asked how she's doing. She was laying in bed, eyes closed but awake. Review of Systems Review of Systems Unable to obtain due to patient's mentation Yes all other systems are reviewed and are negative and Unobtainable due to mental status Mental Status Exam Mental Status Exam Narrative: walking the butterfield with 1:1, adequately groomed, dressed in conor. cooperative. no PMA/PMR. speech nml rate, decr amount, decr loundess, nml latency. thoughts seem to be a mix of stereotyped social banalities and non-sequiturs. affect constricted, normo-intense, non-labile. no SI/HI/AVH expressed. Patient Appearance: Well Grooomed and Appropriate Patient Orientation: Person and Situation Level of Consciousness: Awake and Appropriate Patient Behavior: Guarded and Passive Mood Description: Withdrawn Affect Description: Constricted Patient Cognition Impaired: Yes Ability to Follow Directions: Good Speech Pattern: Clear Diagnostics Vital Signs (24Hr): Vital Signs - 24 hr 05/10/23 18:00 05/11/23 08:26 Temperature 98.8 F 97.7 F Pulse Rate 80 80 Respiratory Rate 16 18 Blood Pressure 114/55 L 118/67 Pulse Oximetry 98 97 Oxygen Delivery Method Room Air Room Air BMI result Body Mass Index 24.3 Labs 05/10/23 07:03 05/10/23 07:03 Labs: Laboratory Results - last 48 hr 05/10/23 05/10/23 05/10/23 07:03 07:03 07:03 WBC 4.8 RBC 3.76 L Hgb 10.8 L Hct 33.0 L MCV 87.8 MCH 28.7 MCHC 32.7 RDW 13.2 Plt Count 167 D MPV 10.4 Immature Gran % (Auto) 0.2 Neut % (Auto) 51.9 Lymph % (Auto) 26.8 [place] % (Auto) 17.2 H Eos % (Auto) 3.1 Baso % (Auto) 0.8 Lymph # (Auto) 1.3 [place] # (Auto) 0.8 Eos # (Auto) 0.2 Baso # (Auto) 0.0 Abs Immat Gran (auto) 0.01 Absolute Neuts (auto) 2.5 Absolute Nucleated RBC 0.000 Nucleated RBC % (auto) 0.0 Sodium 143 Potassium 3.7 Chloride 106 Carbon Dioxide 30 H Anion Gap 11 L BUN 13 Creatinine 0.78 Estim Creat Clear Calc 61.0 Estimated GFR > 60 Random Glucose 79 Calcium 9.1 Valproic Acid 92.1 Medications Medications Current Medications Acetaminophen (Acetaminophen 325 Mg Tablet) 650 mg PO Q6H PRN PRN Reason: Headache/Pain Mild Scale (1-3) Last Admin: 05/08/23 20:58 Dose: 650 mg Al Hydroxide/Mg Hydroxide (Magnesium Hydrox/Alum Hydrox 30 Ml Oral.Susp) 30 ml PO Q6H PRN PRN Reason: Heartburn/Nausea Amlodipine Besylate (Amlodipine Besylate 2.5 Mg Tablet) 2.5 mg PO DAILY [facility]; Protocol Last Admin: 05/11/23 08:51 Dose: 2.5 mg Atorvastatin Calcium (Atorvastatin Calcium 40 Mg Tablet) 40 mg PO BEDTIME [facility] Last Admin: 05/10/23 20:03 Dose: 40 mg Divalproex Sodium (Divalproex Sodium Sprinkles 125 Mg Cap.) 250 mg PO TID [facility] Last Admin: 05/11/23 08:52 Dose: 250 mg Lorazepam (Lorazepam 0.5 Mg Tablet) 0.5 mg PO Q8H PRN PRN Reason: Anxiety Last Admin: 05/10/23 18:33 Dose: 0.5 mg Magnesium Hydroxide (Milk Of Magnesia 30 Ml Oral.Susp) 30 ml PO DAILY PRN PRN Reason: Constipation Melatonin (Melatonin 3 Mg Tablet) 3 mg PO BEDTIME PRN PRN Reason: Insomnia Last Admin: 05/10/23 20:03 Dose: 3 mg Omeprazole (Omeprazole 20 Mg Capsule.) 20 mg PO DAILY@0630 [facility] Last Admin: 05/11/23 08:52 Dose: 20 mg Risperidone (Risperidone 1 Mg Tablet) 1 mg PO BEDTIME [facility] Last Admin: 05/10/23 20:04 Dose: 1 mg Risperidone (Risperidone 0.5 Mg Tablet) 0.5 mg PO BID@0800,1700 [facility] Last Admin: 05/11/23 08:52 Dose: 0.5 mg Senna/Docusate Sodium (Sennosides/Docusate Sodium Tablet) 1 tab PO BEDTIME [facility] Last Admin: 05/10/23 20:03 Dose: 1 tab Trazodone HCl (Trazodone Hcl 50 Mg Tablet) 50 mg PO BEDTIME PRN PRN Reason: Insomnia Last Admin: 05/10/23 20:03 Dose: 50 mg Allergies Allergies Allergy/AdvReac Type Severity Reaction Status Date / Time No Known Allergies Allergy Verified 04/06/23 05:59 Assessment & Plan Assessment & Plan (1) Major neurocognitive disorder: Status: Acute Code(s): F03.90 - Unspecified dementia, unspecified severity, without behavioral disturbance, psychotic disturbance, mood disturbance, and anxiety Plan Pt is a 72-year-old female with a PMH significant for advanced dementia, cerebral amyloid angiopathy, GERD, and HLD who is admitted to [facility] for worsening dementia with increased confusion, agitation, and aggressive behaviors. Patient is a transfer from [facility]. Medical consult for admission H&P. Pt is alert to person only, and only occasionally capable of following basic commands. Mood disorder Plan as per Psychiatry Advanced dementia Patient presents with worsening dementia with behavioral disturbances No signs of precipitating factors: No clear sign of infection, no known recent med changes Most likely due to progression of disease HLD Continue aspirin, statin GERD Continue omeprazole Thank you for allowing us to participate in the care of this patient. Signing off at this time. Please let us know if there are any acute complaints or questions. Plan 1. Keep on one-to-one. 2. Depakote level for tomorrow. 3. Continue antipsychotics as prescribed. On May 01 we increased Risperdal at to 3 mg a day 4. Depakote level, CBC with differential BMP and lipid panel came back with therapeutic Depakote and low TSH. 5. Start Namenda 5 mg p.o. daily. On May 02 it was increased to 5 mg p.o. b.i.d. but later on May 06 we discontinued due to over-sedation. 6. Referral to hospitalist team for low TSH. Workout came up negative no need to add any medication at this point 7. Family meeting for today at 13:30. 05/11: Checked Ammonia and UA which were unrevealing. Will lower Risperidone to HS only. Reason for continued inpatient stay Substantial Risk for: harm to others, inability to function and rapid decompensation Time Spent With Patient Time: Total time managing care of this patient today ____ minutes.
[2023-05-11 14:22] LABS: Ammonia 17 umol/L (13-55)
--- NOTE | 2023-05-11 17:51 | PC.NURSE ---
Clean catch urine obtained from resident after dinner. Specimens being sent to lab. Urine strong smelling and dark yellow.
[2023-05-11 18:00] VITALS: BP 168/65; PULSE 80; RESP 18; TEMP 36.8; O2SAT 97
[2023-05-11 18:01] LABS: Appearance Urine Clear; Color Urine Yellow; Glucose Urine UA Negative (Negative); Leukocyte Esterase Urine Trace (Negative); Nitrite Urine Negative (Negative); PH 5.5 (5.0-9.0); Specific Gravity - Urine 1.025 (1.005-1.025); UMIC TRIGGER UACC YES; Urine Blood Negative (Negative); Urine Ketones Trace mg/dL (Negative); Urine Protein Negative (Neg-Trace)
[2023-05-11 18:03] LABS: Bacteria Urine None Seen (None Seen); Hyaline Casts Urine 0-2 /LPF (0-2); RBC Urine 0-2 /HPF (0-2); Squamous Epithelial Cell Urine 0-2 /HPF (0-2); WBC Urine 0-5 /HPF (0-5)
[2023-05-11] MEDS: traZODone HCL 50 MG TABLET PO (19:57)
[2023-05-11] MEDS: risperiDONE 1 MG TABLET PO (19:58)
[2023-05-11] MEDS: LORazepam 0.5 MG TABLET PO (19:58)
[2023-05-11] MEDS: Atorvastatin Calcium 40 MG TABLET PO (20:01)
[2023-05-11] MEDS: Melatonin 3 MG TABLET PO (20:01)
[2023-05-11] MEDS: Sennosides/Docusate Sodium TABLET 1 TAB PO (22:40)
[2023-05-12 08:34] VITALS: BP 134/59; PULSE 72; RESP 18; TEMP 36.1; O2SAT 98
[2023-05-12] MEDS: Omeprazole 20 MG CAPSULE.DR PO (08:54)
[2023-05-12] MEDS: Divalproex Sodium Sprinkles 125 MG CAP.DR.SPR 250 MG PO ×3 (08:55→20:38)
[2023-05-12] MEDS: risperiDONE 0.5 MG TABLET PO ×2 (08:55→16:07)
[2023-05-12] MEDS: amLODIPine Besylate 2.5 MG TABLET PO (09:25)
[2023-05-12 18:00] VITALS: BP 120/70; PULSE 70; RESP 18; TEMP 36.2; O2SAT 97
--- NOTE | 2023-05-12 19:38 | HO.PSYCHPN ---
Subjective Subjective Date of Service: 05/12/23 Reason For Visit: Dementia w/ Psychosis; Amyloid Angiopathy Interim History: Patient continues confused. She has her eyes shut majority of the time when talking with others and sometimes even when using the walker. She has a 1:1 with her. The patient remains on one-to-one for safety, she is unable to participate in groups and she is extremely impaired. Patient's Ammonia level and urinalysis were non-revelaing for reversible causes of confusion. Review of Systems Review of Systems Unable to obtain due to patient's mentation Yes all other systems are reviewed and are negative and Unobtainable due to mental status Mental Status Exam Mental Status Exam Narrative: walking the butterfield with 1:1, adequately groomed, dressed in conor. cooperative. no PMA/PMR. speech nml rate, decr amount, decr loundess, nml latency. thoughts seem to be a mix of stereotyped social banalities and non-sequiturs. affect constricted, normo-intense, non-labile. no SI/HI/AVH expressed. Patient Appearance: Well Grooomed and Appropriate Patient Orientation: Person and Situation Level of Consciousness: Awake and Appropriate Patient Behavior: Guarded and Passive Mood Description: Withdrawn Affect Description: Constricted Patient Cognition Impaired: Yes Ability to Follow Directions: Good Speech Pattern: Clear Diagnostics Vital Signs (24Hr): Vital Signs - 24 hr 05/12/23 08:34 Temperature 97 F Pulse Rate 72 Respiratory Rate 18 Blood Pressure 134/59 L Pulse Oximetry 98 Oxygen Delivery Method Room Air BMI result Body Mass Index 24.3 Labs 05/10/23 07:03 05/10/23 07:03 Labs: Laboratory Results - last 48 hr 05/11/23 05/11/23 14:11 17:45 Ammonia 17 Urine Color Yellow Urine Appearance Clear Urine pH 5.5 Ur Specific Energy 1.025 Urine Protein Negative Urine Glucose (UA) Negative Urine Ketones Trace Urine Blood Negative Urine Nitrite Negative Ur Leukocyte Esterase Trace H Urine RBC 0-2 Urine WBC 0-5 Ur Squamous Epith Cells 0-2 Urine Bacteria None Seen Hyaline Casts 0-2 Medications Medications Current Medications Acetaminophen (Acetaminophen 325 Mg Tablet) 650 mg PO Q6H PRN PRN Reason: Headache/Pain Mild Scale (1-3) Last Admin: 05/08/23 20:58 Dose: 650 mg Al Hydroxide/Mg Hydroxide (Magnesium Hydrox/Alum Hydrox 30 Ml Oral.Susp) 30 ml PO Q6H PRN PRN Reason: Heartburn/Nausea Amlodipine Besylate (Amlodipine Besylate 2.5 Mg Tablet) 2.5 mg PO DAILY [facility]; Protocol Last Admin: 05/12/23 09:25 Dose: 2.5 mg Atorvastatin Calcium (Atorvastatin Calcium 40 Mg Tablet) 40 mg PO BEDTIME [facility] Last Admin: 05/11/23 20:01 Dose: 40 mg Divalproex Sodium (Divalproex Sodium Sprinkles 125 Mg CapSpr) 250 mg PO TID [facility] Last Admin: 05/12/23 14:40 Dose: 250 mg Lorazepam (Lorazepam 0.5 Mg Tablet) 0.5 mg PO Q8H PRN PRN Reason: Anxiety Last Admin: 05/11/23 19:58 Dose: 0.5 mg Magnesium Hydroxide (Milk Of Magnesia 30 Ml Oral.Susp) 30 ml PO DAILY PRN PRN Reason: Constipation Melatonin (Melatonin 3 Mg Tablet) 3 mg PO BEDTIME PRN PRN Reason: Insomnia Last Admin: 05/11/23 20:01 Dose: 3 mg Omeprazole (Omeprazole 20 Mg Capsule.) 20 mg PO DAILY@0630 [facility] Last Admin: 05/12/23 08:54 Dose: 20 mg Risperidone (Risperidone 1 Mg Tablet) 1 mg PO BEDTIME [facility] Last Admin: 05/11/23 19:58 Dose: 1 mg Risperidone (Risperidone 0.5 Mg Tablet) 0.5 mg PO BID@0800,1700 [facility] Last Admin: 05/12/23 16:07 Dose: 0.5 mg Senna/Docusate Sodium (Sennosides/Docusate Sodium Tablet) 1 tab PO BEDTIME [facility] Last Admin: 05/11/23 22:40 Dose: 1 tab Trazodone HCl (Trazodone Hcl 50 Mg Tablet) 50 mg PO BEDTIME PRN PRN Reason: Insomnia Last Admin: 05/11/23 19:57 Dose: 50 mg Allergies Allergies Allergy/AdvReac Type Severity Reaction Status Date / Time No Known Allergies Allergy Verified 04/06/23 05:59 Assessment & Plan Assessment & Plan (1) Major neurocognitive disorder: Status: Acute Code(s): F03.90 - Unspecified dementia, unspecified severity, without behavioral disturbance, psychotic disturbance, mood disturbance, and anxiety Plan Pt is a 72-year-old female with a PMH significant for advanced dementia, cerebral amyloid angiopathy, GERD, and HLD who is admitted to [facility] for worsening dementia with increased confusion, agitation, and aggressive behaviors. Patient is a transfer from [facility]. Medical consult for admission H&P. Pt is alert to person only, and only occasionally capable of following basic commands. Mood disorder Plan as per Psychiatry Advanced dementia Patient presents with worsening dementia with behavioral disturbances No signs of precipitating factors: No clear sign of infection, no known recent med changes Most likely due to progression of disease HLD Continue aspirin, statin GERD Continue omeprazole Thank you for allowing us to participate in the care of this patient. Signing off at this time. Please let us know if there are any acute complaints or questions. Plan 1. Keep on one-to-one. 2. Depakote level for tomorrow. 3. Continue antipsychotics as prescribed. On May 01 we increased Risperdal at to 3 mg a day 4. Depakote level, CBC with differential BMP and lipid panel came back with therapeutic Depakote and low TSH. 5. Start Namenda 5 mg p.o. daily. On May 02 it was increased to 5 mg p.o. b.i.d. but later on May 06 we discontinued due to over-sedation. 6. Referral to hospitalist team for low TSH. Workout came up negative no need to add any medication at this point 7. Family meeting for today at 13:30. 05/11: Checked Ammonia and UA which were unrevealing. Will lower Risperidone to HS only. 05/12:Continue current treatment plan. Reason for continued inpatient stay Substantial Risk for: inability to function and rapid decompensation Time Spent With Patient Time: Total time managing care of this patient today ____ minutes.
[2023-05-12] MEDS: Sennosides/Docusate Sodium TABLET 1 TAB PO (20:38)
[2023-05-12] MEDS: traZODone HCL 50 MG TABLET PO (20:38)
[2023-05-12] MEDS: risperiDONE 1 MG TABLET PO (20:38)
[2023-05-12] MEDS: Atorvastatin Calcium 40 MG TABLET PO (20:38)
[2023-05-12] MEDS: LORazepam 0.5 MG TABLET PO (20:42)
[2023-05-12] MEDS: Melatonin 3 MG TABLET PO (20:42)
[2023-05-13 07:48] VITALS: BP 109/59; PULSE 73; RESP 20; TEMP 36.4; O2SAT 97
--- NOTE | 2023-05-13 10:02 | HO.PSYCHPN ---
Subjective Subjective Date of Service: 05/13/23 Reason For Visit: Dementia w/ Psychosis; Amyloid Angiopathy Subjective Notes: Conditional Voluntary (By healthcare proxy) Interim History: The nursing staff reported the patient has shown decreased mobility, she is confused nonsensical at times on one-to-one for safety. She had been still walking with her eyes closed even though that Risperdal had been lowered. No changes in her behavior with the lower end of Zyprexa. On interview the patient is pleasantly confused, nonsensical at times. Mental Status Exam Mental Status Exam Patient Appearance: Well Grooomed Patient Orientation: Person Level of Consciousness: Awake Patient Behavior: Guarded and Passive Mood Description: Withdrawn Affect Description: Constricted Patient Cognition Impaired: Yes Ability to Follow Directions: Good Speech Pattern: Clear Hallucinations: None Delusions: Not Present Thought Process: Incoherent and Distracted Thought Content: positive for [place], positive for [place] of Content and positive for Thought Blocking Judgement: Poor Diagnostics Vital Signs (24Hr): Vital Signs - 24 hr 05/12/23 18:00 05/13/23 07:48 Temperature 97.1 F 97.6 F Pulse Rate 70 73 Respiratory Rate 18 20 Blood Pressure 120/70 109/59 L Pulse Oximetry 97 97 Oxygen Delivery Method Room Air Room Air BMI result Body Mass Index 24.3 Labs 05/10/23 07:03 05/10/23 07:03 Labs: Laboratory Results - last 48 hr 05/11/23 05/11/23 14:11 17:45 Ammonia 17 Urine Color Yellow Urine Appearance Clear Urine pH 5.5 Ur Specific Stacy 1.025 Urine Protein Negative Urine Glucose (UA) Negative Urine Ketones Trace Urine Blood Negative Urine Nitrite Negative Ur Leukocyte Esterase Trace H Urine RBC 0-2 Urine WBC 0-5 Ur Squamous Epith Cells 0-2 Urine Bacteria None Seen Hyaline Casts 0-2 Medications Medications Current Medications Acetaminophen (Acetaminophen 325 Mg Tablet) 650 mg PO Q6H PRN PRN Reason: Headache/Pain Mild Scale (1-3) Last Admin: 05/08/23 20:58 Dose: 650 mg Al Hydroxide/Mg Hydroxide (Magnesium Hydrox/Alum Hydrox 30 Ml Oral.Susp) 30 ml PO Q6H PRN PRN Reason: Heartburn/Nausea Amlodipine Besylate (Amlodipine Besylate 2.5 Mg Tablet) 2.5 mg PO DAILY [facility]; Protocol Last Admin: 05/12/23 09:25 Dose: 2.5 mg Atorvastatin Calcium (Atorvastatin Calcium 40 Mg Tablet) 40 mg PO BEDTIME [facility] Last Admin: 05/12/23 20:38 Dose: 40 mg Divalproex Sodium (Divalproex Sodium Sprinkles 125 Mg Cap.Spr) 250 mg PO TID [facility] Last Admin: 05/12/23 20:38 Dose: 250 mg Lorazepam (Lorazepam 0.5 Mg Tablet) 0.5 mg PO Q8H PRN PRN Reason: Anxiety Last Admin: 05/12/23 20:42 Dose: 0.5 mg Magnesium Hydroxide (Milk Of Magnesia 30 Ml Oral.Susp) 30 ml PO DAILY PRN PRN Reason: Constipation Melatonin (Melatonin 3 Mg Tablet) 3 mg PO BEDTIME PRN PRN Reason: Insomnia Last Admin: 05/12/23 20:42 Dose: 3 mg Omeprazole (Omeprazole 20 Mg Capsule.) 20 mg PO DAILY@0630 [facility] Last Admin: 05/12/23 08:54 Dose: 20 mg Risperidone (Risperidone 1 Mg Tablet) 1 mg PO BEDTIME [facility] Last Admin: 05/12/23 20:38 Dose: 1 mg Senna/Docusate Sodium (Sennosides/Docusate Sodium Tablet) 1 tab PO BEDTIME [facility] Last Admin: 05/12/23 20:38 Dose: 1 tab Trazodone HCl (Trazodone Hcl 50 Mg Tablet) 50 mg PO BEDTIME PRN PRN Reason: Insomnia Last Admin: 05/12/23 20:38 Dose: 50 mg Allergies Allergies Allergy/AdvReac Type Severity Reaction Status Date / Time No Known Allergies Allergy Verified 04/06/23 05:59 Assessment & Plan Assessment & Plan (1) Major neurocognitive disorder: Status: Acute Code(s): F03.90 - Unspecified dementia, unspecified severity, without behavioral disturbance, psychotic disturbance, mood disturbance, and anxiety Plan Pt is a 72-year-old female with a PMH significant for advanced dementia, cerebral amyloid angiopathy, GERD, and HLD who is admitted to [facility] for worsening dementia with increased confusion, agitation, and aggressive behaviors. Patient is a transfer from [facility]. Medical consult for admission H&P. Pt is alert to person only, and only occasionally capable of following basic commands. Mood disorder Plan as per Psychiatry Advanced dementia Patient presents with worsening dementia with behavioral disturbances No signs of precipitating factors: No clear sign of infection, no known recent med changes Most likely due to progression of disease HLD Continue aspirin, statin GERD Continue omeprazole Thank you for allowing us to participate in the care of this patient. Signing off at this time. Please let us know if there are any acute complaints or questions. Plan 1. Keep on one-to-one. 2. Depakote level for tomorrow. 3. Continue antipsychotics as prescribed. On May 01 we increased Risperdal at to 3 mg a day 4. Depakote level, CBC with differential BMP and lipid panel came back with therapeutic Depakote and low TSH. 5. Start Namenda 5 mg p.o. daily. On May 02 it was increased to 5 mg p.o. b.i.d. but later on May 06 we discontinued due to over-sedation. 6. Referral to hospitalist team for low TSH. Workout came up negative no need to add any medication at this point 7. Family meeting last Saturday and discussed discharge planning. The family is aware that the barrier for discharge is the need of one-to-one for safety. 8. Risperdal has been lowered due to over-sedation but still she walks with her eyes closed. Reason for continued inpatient stay Substantial Risk for: inability to function, rapid decompensation and med/psych decompensation Time Spent With Patient Time: Total time managing care of this patient today __20__ minutes.
[2023-05-13] MEDS: amLODIPine Besylate 2.5 MG TABLET PO (10:59)
[2023-05-13] MEDS: Divalproex Sodium Sprinkles 125 MG CAP.DR.SPR 250 MG PO ×3 (10:59→20:10)
[2023-05-13 18:00] VITALS: BP 136/89; PULSE 85; RESP 18; TEMP 36.5; O2SAT 95
[2023-05-13] MEDS: Atorvastatin Calcium 40 MG TABLET PO (20:10)
[2023-05-13] MEDS: Sennosides/Docusate Sodium TABLET 1 TAB PO (20:10)
[2023-05-13] MEDS: risperiDONE 1 MG TABLET PO (20:10)
[2023-05-13] MEDS: Acetaminophen 325 MG TABLET 650 MG PO (20:10)
[2023-05-13] MEDS: Melatonin 3 MG TABLET PO (20:10)
[2023-05-13] MEDS: traZODone HCL 50 MG TABLET PO (20:11)
[2023-05-14] MEDS: LORazepam 0.5 MG TABLET PO ×2 (04:21→21:11)
[2023-05-14] MEDS: Omeprazole 20 MG CAPSULE.DR PO (06:35)
[2023-05-14 10:30] VITALS: BP 132/78; PULSE 87; RESP 18; TEMP 36.2; O2SAT 97
[2023-05-14] MEDS: Divalproex Sodium Sprinkles 125 MG CAP.DR.SPR 250 MG PO ×3 (10:37→21:10)
[2023-05-14] MEDS: amLODIPine Besylate 2.5 MG TABLET PO (10:37)
--- NOTE | 2023-05-14 11:13 | P.PNPSI_ITS ---
Subjective Subjective Date of Service: 05/14/23 Reason For Visit: Dementia w/ Psychosis; Amyloid Angiopathy Subjective Notes: Conditional Voluntary Interim History: The nursing staff reported the patient slept poorly on and off during the night. Her ammonia level was normal. She was seeing pacing the hallway with one-to-one since she walks with her eyes closed. The social sciences department chair reported that [facility] that probably could accommodate to her needs. On interview the patient is pleasantly confused no new symptoms. Mental Status Exam Mental Status Exam Patient Appearance: Well Grooomed and Appropriate Patient Orientation: Person and Situation Level of Consciousness: Awake and Appropriate Patient Behavior: Guarded and Passive Mood Description: Calm Affect Description: Constricted Patient Cognition Impaired: Yes Ability to Follow Directions: Good Speech Pattern: Clear Hallucinations: None Delusions: Paranoid Ideation Thought Process: Distracted Thought Content: positive for Poverty of Content and positive for Thought Blocking Judgement: Poor Diagnostics Vital Signs (24Hr): Vital Signs - 24 hr 05/13/23 18:00 05/14/23 10:30 Temperature 97.7 F 97.2 F Pulse Rate 85 87 Respiratory Rate 18 18 Blood Pressure 136/89 132/78 Pulse Oximetry 95 97 Oxygen Delivery Method Room Air Room Air BMI result Body Mass Index 24.3 Labs 05/10/23 07:03 05/10/23 07:03 Medications Medications Current Medications Acetaminophen (Acetaminophen 325 Mg Tablet) 650 mg PO Q6H PRN PRN Reason: Headache/Pain Mild Scale (1-3) Last Admin: 05/13/23 20:10 Dose: 650 mg Al Hydroxide/Mg Hydroxide (Magnesium Hydrox/Alum Hydrox 30 Ml Oral.Susp) 30 ml PO Q6H PRN PRN Reason: Heartburn/Nausea Amlodipine Besylate (Amlodipine Besylate 2.5 Mg Tablet) 2.5 mg PO DAILY [facility]; Protocol Last Admin: 05/14/23 10:37 Dose: 2.5 mg Atorvastatin Calcium (Atorvastatin Calcium 40 Mg Tablet) 40 mg PO BEDTIME [facility] Last Admin: 05/13/23 20:10 Dose: 40 mg Divalproex Sodium (Divalproex Sodium Sprinkles 125 Mg ) 250 mg PO TID [facility] Last Admin: 05/14/23 10:37 Dose: 250 mg Lorazepam (Lorazepam 0.5 Mg Tablet) 0.5 mg PO Q8H PRN PRN Reason: Anxiety Last Admin: 05/14/23 04:21 Dose: 0.5 mg Magnesium Hydroxide (Milk Of Magnesia 30 Ml Oral.Susp) 30 ml PO DAILY PRN PRN Reason: Constipation Melatonin (Melatonin 3 Mg Tablet) 3 mg PO BEDTIME PRN PRN Reason: Insomnia Last Admin: 05/13/23 20:10 Dose: 3 mg Omeprazole (Omeprazole 20 Mg Capsule.Dr) 20 mg PO DAILY@0630 [facility] Last Admin: 05/14/23 06:35 Dose: 20 mg Risperidone (Risperidone 1 Mg Tablet) 1 mg PO BEDTIME [facility] Last Admin: 05/13/23 20:10 Dose: 1 mg Senna/Docusate Sodium (Sennosides/Docusate Sodium Tablet) 1 tab PO BEDTIME [facility] Last Admin: 05/13/23 20:10 Dose: 1 tab Trazodone HCl (Trazodone Hcl 50 Mg Tablet) 50 mg PO BEDTIME PRN PRN Reason: Insomnia Last Admin: 05/13/23 20:11 Dose: 50 mg Allergies Allergies Allergy/AdvReac Type Severity Reaction Status Date / Time No Known Allergies Allergy Verified 04/06/23 05:59 Assessment & Plan Assessment & Plan (1) Major neurocognitive disorder: Status: Acute Code(s): F03.90 - Unspecified dementia, unspecified severity, without behavioral disturbance, psychotic disturbance, mood disturbance, and anxiety Plan Pt is a 72-year-old female with a PMH significant for advanced dementia, cerebral amyloid angiopathy, GERD, and HLD who is admitted to [facility] for worsening dementia with increased confusion, agitation, and aggressive behaviors. Patient is a transfer from [facility]. Medical consult for admission H&P. Pt is alert to person only, and only occasionally capable of following basic commands. Mood disorder Plan as per Psychiatry Advanced dementia Patient presents with worsening dementia with behavioral disturbances No signs of precipitating factors: No clear sign of infection, no known recent med changes Most likely due to progression of disease HLD Continue aspirin, statin GERD Continue omeprazole Thank you for allowing us to participate in the care of this patient. Signing off at this time. Please let us know if there are any acute complaints or questions. Plan 1. Keep on one-to-one. 2. Depakote level for tomorrow. 3. Continue antipsychotics as prescribed. On May 01 we increased Risperdal at to 3 mg a day 4. Depakote level, CBC with differential BMP and lipid panel came back with therapeutic Depakote and low TSH. 5. Start Namenda 5 mg p.o. daily. On May 02 it was increased to 5 mg p.o. b.i.d. but later on May 06 we discontinued due to over-sedation. 6. Referral to hospitalist team for low TSH. Workout came up negative no need to add any medication at this point 7. Family meeting last Saturday and discussed discharge planning. The family is aware that the barrier for discharge is the need of one-to-one for safety. 8. Risperdal has been lowered due to over-sedation but still she walks with her eyes closed. Reason for continued inpatient stay Substantial Risk for: inability to function, rapid decompensation and med/psych decompensation Time Spent With Patient Time: Total time managing care of this patient today __20__ minutes.
[2023-05-14 18:00] VITALS: BP 119/61; PULSE 75; RESP 16; TEMP 36.1; O2SAT 95
[2023-05-14] MEDS: Melatonin 3 MG TABLET PO (21:10)
[2023-05-14] MEDS: Atorvastatin Calcium 40 MG TABLET PO (21:10)
[2023-05-14] MEDS: traZODone HCL 50 MG TABLET PO (21:10)
[2023-05-14] MEDS: risperiDONE 1 MG TABLET PO (21:11)
[2023-05-14] MEDS: Sennosides/Docusate Sodium TABLET 1 TAB PO (21:17)
[2023-05-15 08:32] VITALS: BP 117/57; PULSE 72; RESP 16; TEMP 36.6; O2SAT 94
[2023-05-15] MEDS: Divalproex Sodium Sprinkles 125 MG CAP.DR.SPR 250 MG PO ×3 (08:41→20:39)
[2023-05-15] MEDS: amLODIPine Besylate 2.5 MG TABLET PO (08:41)
--- NOTE | 2023-05-15 11:30 | P.PNPSI_ITS ---
Subjective Subjective Date of Service: 05/15/23 Reason For Visit: Dementia w/ Psychosis; Amyloid Angiopathy Subjective Notes: Conditional Voluntary Interim History: The nursing staff reported the patient had been compliant with treatment, she remains confused, walking with her eyes closed even though that Risperdal was lowered even only at night. The social worker aide reported that a facilities willing to take her with extra staff for one-to-one for safety. On interview the patient remains pleasantly confused. Mental Status Exam Mental Status Exam Patient Appearance: Well Grooomed and Appropriate Patient Orientation: Person and Situation Level of Consciousness: Awake and Appropriate Patient Behavior: Guarded and Passive Mood Description: Withdrawn Affect Description: Constricted Patient Cognition Impaired: Yes Ability to Follow Directions: Good Speech Pattern: Clear Hallucinations: None Delusions: Not Present Thought Process: Distracted and Evasive Thought Content: positive for [place] and positive for Thought Blocking Judgement: Poor Diagnostics Vital Signs (24Hr): Vital Signs - 24 hr 05/14/23 18:00 05/15/23 08:32 Temperature 97 F 97.9 F Pulse Rate 75 72 Respiratory Rate 16 16 Blood Pressure 119/61 117/57 L Pulse Oximetry 95 94 Oxygen Delivery Method Room Air Room Air BMI result Body Mass Index 24.3 Labs 05/10/23 07:03 05/10/23 07:03 Medications Medications Current Medications Acetaminophen (Acetaminophen 325 Mg Tablet) 650 mg PO Q6H PRN PRN Reason: Headache/Pain Mild Scale (1-3) Last Admin: 05/13/23 20:10 Dose: 650 mg Al Hydroxide/Mg Hydroxide (Magnesium Hydrox/Alum Hydrox 30 Ml Oral.Susp) 30 ml PO Q6H PRN PRN Reason: Heartburn/Nausea Amlodipine Besylate (Amlodipine Besylate 2.5 Mg Tablet) 2.5 mg PO DAILY [facility]; Protocol Last Admin: 05/15/23 08:41 Dose: 2.5 mg Atorvastatin Calcium (Atorvastatin Calcium 40 Mg Tablet) 40 mg PO BEDTIME [facility] Last Admin: 05/14/23 21:10 Dose: 40 mg Divalproex Sodium (Divalproex Sodium Sprinkles 125 Mg ) 250 mg PO TID [facility] Last Admin: 05/15/23 08:41 Dose: 250 mg Lorazepam (Lorazepam 0.5 Mg Tablet) 0.5 mg PO Q8H PRN PRN Reason: Anxiety Last Admin: 05/14/23 21:11 Dose: 0.5 mg Magnesium Hydroxide (Milk Of Magnesia 30 Ml Oral.Susp) 30 ml PO DAILY PRN PRN Reason: Constipation Melatonin (Melatonin 3 Mg Tablet) 3 mg PO BEDTIME PRN PRN Reason: Insomnia Last Admin: 05/14/23 21:10 Dose: 3 mg Omeprazole (Omeprazole 20 Mg Capsule.Dr) 20 mg PO DAILY@0630 [facility] Last Admin: 05/15/23 08:48 Dose: Not Given Risperidone (Risperidone 1 Mg Tablet) 1 mg PO BEDTIME [facility] Last Admin: 05/14/23 21:11 Dose: 1 mg Senna/Docusate Sodium (Sennosides/Docusate Sodium Tablet) 1 tab PO BEDTIME [facility] Last Admin: 05/14/23 21:17 Dose: 1 tab Trazodone HCl (Trazodone Hcl 50 Mg Tablet) 50 mg PO BEDTIME PRN PRN Reason: Insomnia Last Admin: 05/14/23 21:10 Dose: 50 mg Allergies Allergies Allergy/AdvReac Type Severity Reaction Status Date / Time No Known Allergies Allergy Verified 04/06/23 05:59 Assessment & Plan Assessment & Plan (1) Major neurocognitive disorder: Status: Acute Code(s): F03.90 - Unspecified dementia, unspecified severity, without behavioral disturbance, psychotic disturbance, mood disturbance, and anxiety Plan Pt is a 72-year-old female with a PMH significant for advanced dementia, cerebral amyloid angiopathy, GERD, and HLD who is admitted to [facility] for worsening dementia with increased confusion, agitation, and aggressive behavio rs. Patient is a transfer from [facility] [place]. Medical consult for admission H&P. Pt is alert to person only, and only occasionally capable of following basic commands. Mood disorder Plan as per Psychiatry Advanced dementia Patient presents with worsening dementia with behavioral disturbances No signs of precipitating factors: No clear sign of infection, no known recent med changes Most likely due to progression of disease HLD Continue aspirin, statin GERD Continue omeprazole Thank you for allowing us to participate in the care of this patient. Signing off at this time. Please let us know if there are any acute complaints or questions. Plan 1. Keep on one-to-one. 2. Depakote level for tomorrow. 3. Continue antipsychotics as prescribed. On May 01 we increased Risperdal at to 3 mg a day 4. Depakote level, CBC with differential BMP and lipid panel came back with therapeutic Depakote and low TSH. 5. Start Namenda 5 mg p.o. daily. On May 02 it was increased to 5 mg p.o. b.i.d. but later on May 06 we discontinued due to over-sedation. 6. Referral to hospitalist team for low TSH. Workout came up negative no need to add any medication at this point 7. Family meeting last Saturday and discussed discharge planning. The family is aware that the barrier for discharge is the need of one-to-one for safety. 8. Risperdal has been lowered due to over-sedation but still she walks with her eyes closed. Reason for continued inpatient stay Substantial Risk for: inability to function, rapid decompensation and med/psych decompensation Time Spent With Patient Time: Total time managing care of this patient today _20___ minutes.
[2023-05-15 18:00] VITALS: BP 143/63; PULSE 82; RESP 18; TEMP 36.6; O2SAT 97
[2023-05-15] MEDS: traZODone HCL 50 MG TABLET PO (20:39)
[2023-05-15] MEDS: risperiDONE 1 MG TABLET PO (20:40)
[2023-05-15] MEDS: LORazepam 0.5 MG TABLET PO (20:40)
[2023-05-15] MEDS: Melatonin 3 MG TABLET PO (20:40)
[2023-05-16] MEDS: Omeprazole 20 MG CAPSULE.DR PO (05:42)
[2023-05-16 08:00] VITALS: BP 104/56; PULSE 69; RESP 16; TEMP 36.8; O2SAT 96
[2023-05-16] MEDS: Divalproex Sodium Sprinkles 125 MG CAP.DR.SPR 250 MG PO ×3 (08:42→21:27)
[2023-05-16] MEDS: amLODIPine Besylate 2.5 MG TABLET PO (08:42)
--- NOTE | 2023-05-16 14:25 | P.PNPSI_ITS ---
Subjective Subjective Date of Service: 05/16/23 Reason For Visit: Dementia w/ Psychosis; Amyloid Angiopathy Subjective Notes: Conditional Voluntary Interim History: The nursing staff reported the patient had been compliant with treatment, she slept all night. She remains grossly confused but easily redirectable. The social human services assistants reported that she was referred to [facility] and we are waiting for response. On interview the patient remains pleasantly confused on one-to-one for safety. Mental Status Exam Mental Status Exam Patient Appearance: Well Grooomed and Appropriate Patient Orientation: Person and Situation Level of Consciousness: Awake and Appropriate Patient Behavior: Guarded and Passive Mood Description: Withdrawn Affect Description: Constricted Patient Cognition Impaired: Yes Ability to Follow Directions: Fair Speech Pattern: Clear Hallucinations: None Delusions: Not Present Thought Content: positive for [place], positive for Poverty of Content and positive for Thought Blocking Judgement: Poor Diagnostics Vital Signs (24Hr): Vital Signs - 24 hr 05/15/23 18:00 05/16/23 08:00 Temperature 98 F 98.3 F Pulse Rate 82 69 Respiratory Rate 18 16 Blood Pressure 143/63 H 104/56 L Pulse Oximetry 97 96 Oxygen Delivery Method Room Air Room Air BMI result Body Mass Index 24.3 Labs 05/10/23 07:03 05/10/23 07:03 Medications Medications Current Medications Acetaminophen (Acetaminophen 325 Mg Tablet) 650 mg PO Q6H PRN PRN Reason: Headache/Pain Mild Scale (1-3) Last Admin: 05/13/23 20:10 Dose: 650 mg Al Hydroxide/Mg Hydroxide (Magnesium Hydrox/Alum Hydrox 30 Ml Oral.Susp) 30 ml PO Q6H PRN PRN Reason: Heartburn/Nausea Amlodipine Besylate (Amlodipine Besylate 2.5 Mg Tablet) 2.5 mg PO DAILY [facility]; Protocol Last Admin: 05/16/23 08:42 Dose: 2.5 mg Atorvastatin Calcium (Atorvastatin Calcium 40 Mg Tablet) 40 mg PO BEDTIME [facility] Last Admin: 05/16/23 00:17 Dose: Not Given Divalproex Sodium (Divalproex Sodium Sprinkles 125 Mg ) 250 mg PO TID [facility] Last Admin: 05/16/23 08:42 Dose: 250 mg Lorazepam (Lorazepam 0.5 Mg Tablet) 0.5 mg PO Q8H PRN PRN Reason: Anxiety Last Admin: 05/15/23 20:40 Dose: 0.5 mg Magnesium Hydroxide (Milk Of Magnesia 30 Ml Oral.Susp) 30 ml PO DAILY PRN PRN Reason: Constipation Melatonin (Melatonin 3 Mg Tablet) 3 mg PO BEDTIME PRN PRN Reason: Insomnia Last Admin: 05/15/23 20:40 Dose: 3 mg Omeprazole (Omeprazole 20 Mg Capsule.Dr) 20 mg PO DAILY@0630 [facility] Last Admin: 05/16/23 05:42 Dose: 20 mg Risperidone (Risperidone 1 Mg Tablet) 1 mg PO BEDTIME [facility] Last Admin: 05/15/23 20:40 Dose: 1 mg Senna/Docusate Sodium (Sennosides/Docusate Sodium Tablet) 1 tab PO BEDTIME [facility] Last Admin: 05/16/23 00:18 Dose: Not Given Trazodone HCl (Trazodone Hcl 50 Mg Tablet) 50 mg PO BEDTIME PRN PRN Reason: Insomnia Last Admin: 05/15/23 20:39 Dose: 50 mg Allergies Allergies Allergy/AdvReac Type Severity Reaction Status Date / Time No Known Allergies Allergy Verified 04/06/23 05:59 Assessment & Plan Assessment & Plan (1) Major neurocognitive disorder: Status: Acute Code(s): F03.90 - Unspecified dementia, unspecified severity, without behavioral disturbance, psychotic disturbance, mood disturbance, and anxiety Plan Pt is a 72-year-old female with a PMH significant for advanced dementia, cerebral amyloid angiopathy, GERD, and HLD who is admitted to [facility] for worsening dementia with increased confusion, agitation, and aggressive behaviors. Patient is a transfer from [facility]. Medical consult for admission H&P. Pt is alert to person only, and only occasionally capable of following basic commands. Mood disorder Plan as per Psychiatry Advanced dementia Patient presents with worsening dementia with behavioral disturbances No signs of precipitating factors: No clear sign of infection, no known recent med changes Most likely due to progression of disease HLD Continue aspirin, statin GERD Continue omeprazole Thank you for allowing us to participate in the care of this patient. Signing off at this time. Please let us know if there are any acute complaints or questions. Plan 1. Keep on one-to-one. 2. Depakote level for tomorrow. 3. Continue antipsychotics as prescribed. On May 01 we increased Risperdal at to 3 mg a day 4. Depakote level, CBC with differential BMP and lipid panel came back with therapeutic Depakote and low TSH. 5. Start Namenda 5 mg p.o. daily. On May 02 it was increased to 5 mg p.o. b.i.d. but later on May 06 we discontinued due to over-sedation. 6. Referral to hospitalist team for low TSH. Workout came up negative no need to add any medication at this point 7. Family meeting last Saturday and discussed discharge planning. The family is aware that the barrier for discharge is the need of one-to-one for safety. 8. Risperdal has been lowered due to over-sedation but still she walks with her eyes closed. Reason for continued inpatient stay Substantial Risk for: inability to function, rapid decompensation and med/psych decompensation Time Spent With Patient Time: Total time managing care of this patient today __20__ minutes.
[2023-05-16 15:00] VITALS: BMI 24.4
[2023-05-16] MEDS: risperiDONE 1 MG TABLET PO (21:27)
[2023-05-16] MEDS: Sennosides/Docusate Sodium TABLET 1 TAB PO (21:27)
[2023-05-16] MEDS: LORazepam 0.5 MG TABLET PO (21:27)
[2023-05-16] MEDS: Atorvastatin Calcium 40 MG TABLET PO (21:27)
[2023-05-16] MEDS: traZODone HCL 50 MG TABLET PO (21:27)
[2023-05-16] MEDS: Melatonin 3 MG TABLET PO (21:27)
[2023-05-17 08:30] VITALS: BP 113/60; PULSE 78; TEMP 36.2; O2SAT 100
[2023-05-17] MEDS: Divalproex Sodium Sprinkles 125 MG CAP.DR.SPR 250 MG PO ×3 (08:37→20:27)
[2023-05-17] MEDS: amLODIPine Besylate 2.5 MG TABLET PO (08:37)
[2023-05-17] MEDS: Omeprazole 20 MG CAPSULE.DR PO (08:38)
--- NOTE | 2023-05-17 09:24 | P.PNPSI_ITS ---
Subjective Subjective Date of Service: 05/17/23 Reason For Visit: Dementia w/ Psychosis; Amyloid Angiopathy Subjective Notes: Conditional Voluntary Interim History: The nursing staff reported the patient had been compliant with treatment, she had limited p.o. intake but overall she looks stable. She has been walking with her eyes closed even though that we discontinue Risperdal during the day. The social media campaign manager reported that the family went to [facility] and they are waiting for placement. On interview the patient denies new symptoms pleasantly confused and easily redirectable, one-to-one for safety. Mental Status Exam Mental Status Exam Patient Appearance: Appropriate Patient Orientation: Person and Situation Level of Consciousness: Awake and Appropriate Patient Behavior: Guarded and Passive Mood Description: Withdrawn Affect Description: Constricted Patient Cognition Impaired: Yes Ability to Follow Directions: Good Speech Pattern: Clear Hallucinations: None Delusions: Not Present Thought Process: Distracted and Slowed Thinking Thought Content: positive for [place] and positive for Poverty of Content Judgement: Poor Diagnostics Vital Signs (24Hr): Vital Signs - 24 hr 05/17/23 08:30 Temperature 97.2 F Pulse Rate 78 Blood Pressure 113/60 Pulse Oximetry 100 Oxygen Delivery Method Room Air BMI result Body Mass Index 24.4 Labs 05/10/23 07:03 05/10/23 07:03 Medications Medications Current Medications Acetaminophen (Acetaminophen 325 Mg Tablet) 650 mg PO Q6H PRN PRN Reason: Headache/Pain Mild Scale (1-3) Last Admin: 05/13/23 20:10 Dose: 650 mg Al Hydroxide/Mg Hydroxide (Magnesium Hydrox/Alum Hydrox 30 Ml Oral.Susp) 30 ml PO Q6H PRN PRN Reason: Heartburn/Nausea Amlodipine Besylate (Amlodipine Besylate 2.5 Mg Tablet) 2.5 mg PO DAILY [facility]; Protocol Last Admin: 05/17/23 08:37 Dose: 2.5 mg Atorvastatin Calcium (Atorvastatin Calcium 40 Mg Tablet) 40 mg PO BEDTIME [facility] Last Admin: 05/16/23 21:27 Dose: 40 mg Divalproex Sodium (Divalproex Sodium Sprinkles 125 Mg ) 250 mg PO TID [facility] Last Admin: 05/17/23 08:37 Dose: 250 mg Lorazepam (Lorazepam 0.5 Mg Tablet) 0.5 mg PO Q8H PRN PRN Reason: Anxiety Last Admin: 05/16/23 21:27 Dose: 0.5 mg Magnesium Hydroxide (Milk Of Magnesia 30 Ml Oral.Susp) 30 ml PO DAILY PRN PRN Reason: Constipation Melatonin (Melatonin 3 Mg Tablet) 3 mg PO BEDTIME PRN PRN Reason: Insomnia Last Admin: 05/16/23 21:27 Dose: 3 mg Omeprazole (Omeprazole 20 Mg Capsule.Dr) 20 mg PO DAILY@0630 [facility] Last Admin: 05/17/23 08:38 Dose: 20 mg Risperidone (Risperidone 1 Mg Tablet) 1 mg PO BEDTIME [facility] Last Admin: 05/16/23 21:27 Dose: 1 mg Senna/Docusate Sodium (Sennosides/Docusate Sodium Tablet) 1 tab PO BEDTIME [facility] Last Admin: 05/16/23 21:27 Dose: 1 tab Trazodone HCl (Trazodone Hcl 50 Mg Tablet) 50 mg PO BEDTIME PRN PRN Reason: Insomnia Last Admin: 05/16/23 21:27 Dose: 50 mg Allergies Allergies Allergy/AdvReac Type Severity Reaction Status Date / Time No Known Allergies Allergy Verified 04/06/23 05:59 Assessment & Plan Assessment & Plan (1) Major neurocognitive disorder: Status: Acute Code(s): F03.90 - Unspecified dementia, unspecified severity, without behavioral disturbance, psychotic disturbance, mood disturbance, and anxiety Plan Pt is a 72-year-old female with a PMH significant for advanced dementia, cerebral amyloid angiopathy, GERD, and HLD who is admitted to [facility] for worsening dementia with increased confusion, agitation, and aggressive behaviors. Patient is a transfer from [facility]. Medical consult for admission H&P. Pt is alert to person only, and only occasionally capable of following basic commands. Mood disorder Plan as per Psychiatry Advanced dementia Patient presents with worsening dementia with behavioral disturbances No signs of precipitating factors: No clear sign of infection, no known recent med changes Most likely due to progression of disease HLD Continue aspirin, statin GERD Continue omeprazole Thank you for allowing us to participate in the care of this patient. Signing off at this time. Please let us know if there are any acute complaints or questions. Plan 1. Keep on one-to-one. 2. Depakote level for tomorrow. 3. Continue antipsychotics as prescribed. On May 01 we increased Risperdal at to 3 mg a day 4. Depakote level, CBC with differential BMP and lipid panel came back with therapeutic Depakote and low TSH. 5. Start Namenda 5 mg p.o. daily. On May 02 it was increased to 5 mg p.o. b.i.d. but later on May 06 we discontinued due to over-sedation. 6. Referral to hospitalist team for low TSH. Workout came up negative no need to add any medication at this point 7. Family meeting last Saturday and discussed discharge planning. The family is aware that the barrier for discharge is the need of one-to-one for safety. 8. Risperdal has been lowered due to over-sedation but still she walks with her eyes closed. Reason for continued inpatient stay Substantial Risk for: inability to function, rapid decompensation and med/psych decompensation Time Spent With Patient Time: Total time managing care of this patient today _20___ minutes.
[2023-05-17 18:00] VITALS: BP 139/68; PULSE 79; RESP 18; TEMP 36.6; O2SAT 96
[2023-05-17] MEDS: Acetaminophen 325 MG TABLET 650 MG PO (20:27)
[2023-05-17] MEDS: Atorvastatin Calcium 40 MG TABLET PO (20:28)
[2023-05-17] MEDS: Sennosides/Docusate Sodium TABLET 1 TAB PO (20:28)
[2023-05-17] MEDS: traZODone HCL 50 MG TABLET PO (20:29)
[2023-05-17] MEDS: risperiDONE 1 MG TABLET PO (20:29)
[2023-05-17] MEDS: Melatonin 3 MG TABLET PO (20:29)
[2023-05-18] MEDS: Omeprazole 20 MG CAPSULE.DR PO (05:34)
[2023-05-18 08:29] VITALS: BP 110/55; PULSE 75; RESP 20; TEMP 36.7; O2SAT 96
[2023-05-18] MEDS: Divalproex Sodium Sprinkles 125 MG CAP.DR.SPR 250 MG PO ×3 (09:11→20:47)
[2023-05-18 11:23] VITALS: BP 116/59; PULSE 73
--- NOTE | 2023-05-18 15:15 | PC.NURSE ---
Morning BP 110/55 and asymptomatic, held morning Norvasc 2.5mg. Rechecked BP at 1123 and 116/59. Madeleine Hunt NP aware of BP readings and holding of Norvasc.
--- NOTE | 2023-05-18 16:02 | HO.PSYCHPN ---
Subjective Subjective Date of Service: 05/18/23 Reason For Visit: Dementia w/ Psychosis; Amyloid Angiopathy Interim History: Pt was seen and discussed with her team. Records and plans reviewed. She remains on one to one as team report she ambulates often, but with eyes closed, so her fall risk is high. Team reports improvement after visited on 05/17. Hypotensive this a.m. 110/55-[facility] held. Medication Compliance: Yes Side effects from medications: Yes (hypotensive this a.m.) Attending Groups: Intermittent Review of Systems Acute medical concerns: No Medical Review of Systems: unchanged Mental Status Exam Mental Status Exam Patient Appearance: Appropriate Patient Orientation: Person and Situation Level of Consciousness: Awake and Appropriate Patient Behavior: Guarded and Passive Mood Description: Withdrawn Affect Description: Constricted Patient Cognition Impaired: Yes Ability to Follow Directions: Good Speech Pattern: Clear Hallucinations: None Delusions: Not Present Thought Process: Distracted and Slowed Thinking Thought Content: positive for [place] and positive for Poverty of Content Judgement: Poor Diagnostics Vital Signs (24Hr): Vital Signs - 24 hr 05/17/23 18:00 05/18/23 08:29 05/18/23 11:23 Temperature 98 F 98.0 F Pulse Rate 79 75 73 Respiratory Rate 18 20 Blood Pressure 139/68 110/55 L 116/59 L Pulse Oximetry 96 96 Oxygen Delivery Method Room Air Room Air BMI result Body Mass Index 24.4 Labs 05/10/23 07:03 05/10/23 07:03 Medications Medications Current Medications Acetaminophen (Acetaminophen 325 Mg Tablet) 650 mg PO Q6H PRN PRN Reason: Headache/Pain Mild Scale (1-3) Last Admin: 05/17/23 20:27 Dose: 650 mg Al Hydroxide/Mg Hydroxide (Magnesium Hydrox/Alum Hydrox 30 Ml Oral.Susp) 30 ml PO Q6H PRN PRN Reason: Heartburn/Nausea Amlodipine Besylate (Amlodipine Besylate 2.5 Mg Tablet) 2.5 mg PO DAILY [facility]; Protocol Last Admin: 05/18/23 09:14 Dose: Not Given Atorvastatin Calcium (Atorvastatin Calcium 40 Mg Tablet) 40 mg PO BEDTIME [facility] Last Admin: 05/17/23 20:28 Dose: 40 mg Divalproex Sodium (Divalproex Sodium Sprinkles 125 Mg ) 250 mg PO TID [facility] Last Admin: 05/18/23 14:36 Dose: 250 mg Lorazepam (Lorazepam 0.5 Mg Tablet) 0.5 mg PO Q8H PRN PRN Reason: Anxiety Last Admin: 05/16/23 21:27 Dose: 0.5 mg Magnesium Hydroxide (Milk Of Magnesia 30 Ml Oral.Susp) 30 ml PO DAILY PRN PRN Reason: Constipation Melatonin (Melatonin 3 Mg Tablet) 3 mg PO BEDTIME PRN PRN Reason: Insomnia Last Admin: 05/17/23 20:29 Dose: 3 mg Omeprazole (Omeprazole 20 Mg Capsule.Dr) 20 mg PO DAILY@30 [facility] Last Admin: 05/18/23 05:34 Dose: 20 mg Risperidone (Risperidone 1 Mg Tablet) 1 mg PO BEDTIME [facility] Last Admin: 05/17/23 20:29 Dose: 1 mg Senna/Docusate Sodium (Sennosides/Docusate Sodium Tablet) 1 tab PO BEDTIME [facility] Last Admin: 05/17/23 20:28 Dose: 1 tab Trazodone HCl (Trazodone Hcl 50 Mg Tablet) 50 mg PO BEDTIME PRN PRN Reason: Insomnia Last Admin: 05/17/23 20:29 Dose: 50 mg Allergies Allergies Allergy/AdvReac Type Severity Reaction Status Date / Time No Known Allergies Allergy Verified 04/06/23 05:59 Assessment & Plan Assessment & Plan (1) Major neurocognitive disorder: Status: Acute Code(s): F03.90 - Unspecified dementia, unspecified severity, without behavioral disturbance, psychotic disturbance, mood disturbance, and anxiety Plan Pt is a 72-year-old female with a PMH significant for advanced dementia, cerebral amyloid angiopathy, GERD, and HLD who is admitted to [facility] for worsening dementia with increased confusion, agitation, and aggressive behaviors. Patient is a transfer from [facility]. Medical consult for admission H&P. Pt is alert to person only, and only occasionally capable of following basic commands. Mood disorder Plan as per Psychiatry Advanced dementia Patient presents with worsening dementia with behavioral disturbances No signs of precipitating factors: No clear sign of infection, no known recent med changes Most likely due to progression of disease HLD Continue aspirin, statin GERD Continue omeprazole Thank you for allowing us to participate in the care of this patient. Signing off at this time. Please let us know if there are any acute complaints or questions. Plan 1. Keep on one-to-one. 2. Depakote level for tomorrow. 3. Continue antipsychotics as prescribed. On May 01 we increased Risperdal at to 3 mg a day 4. Depakote level, CBC with differential BMP and lipid panel came back with therapeutic Depakote and low TSH. 5. Start Namenda 5 mg p.o. daily. On May 02 it was increased to 5 mg p.o. b.i.d. but later on May 06 we discontinued due to over-sedation. 6. Referral to hospitalist team for low TSH. Workout came up negative no need to add any medication at this point 7. Family meeting last Saturday and discussed discharge planning. The family is aware that the barrier for discharge is the need of one-to-one for safety. 8. Risperdal has been lowered due to over-sedation but still she walks with her eyes closed. 05/18/23: Continue current regime and plan of care. Reason for continued inpatient stay Substantial Risk for: med/psych decompensation Time Spent With Patient Time: Total time managing care of this patient today ____ minutes.
[2023-05-18 18:00] VITALS: BP 137/64; PULSE 95; RESP 18; TEMP 37.1; O2SAT 95
[2023-05-18] MEDS: Melatonin 3 MG TABLET PO (20:47)
[2023-05-18] MEDS: risperiDONE 1 MG TABLET PO (20:47)
[2023-05-18] MEDS: Atorvastatin Calcium 40 MG TABLET PO (20:47)
[2023-05-18] MEDS: traZODone HCL 50 MG TABLET PO (20:47)
[2023-05-18] MEDS: Sennosides/Docusate Sodium TABLET 1 TAB PO (20:47)
[2023-05-18] MEDS: Acetaminophen 325 MG TABLET 650 MG PO (20:48)
[2023-05-19] MEDS: Omeprazole 20 MG CAPSULE.DR PO (05:33)
[2023-05-19 08:22] VITALS: BP 98/52; PULSE 77; RESP 20; TEMP 36.1; O2SAT 96
[2023-05-19] MEDS: Divalproex Sodium Sprinkles 125 MG CAP.DR.SPR 250 MG PO ×3 (08:26→20:30)
[2023-05-19] MEDS: Acetaminophen 325 MG TABLET 650 MG PO ×2 (09:03→23:09)
--- NOTE | 2023-05-19 09:04 | HO.PSYCHPN ---
Subjective Subjective Date of Service: 05/19/23 Reason For Visit: Dementia w/ Psychosis; Amyloid Angiopathy Interim History: Pt seen, reviewed with team. Dejon landers, BP 111/53. PO intake has decreased, team will order nutrition consult. Pt remains with confusion and disorganization. Mental Status Exam Mental Status Exam Patient Appearance: Appropriate Patient Orientation: Person and Situation Level of Consciousness: Awake and Appropriate Patient Behavior: Guarded and Passive Mood Description: Withdrawn Affect Description: Constricted Patient Cognition Impaired: Yes Ability to Follow Directions: Good Speech Pattern: Clear Hallucinations: None Delusions: Not Present Thought Process: Distracted and Slowed Thinking Thought Content: positive for [place] and positive for Poverty of Content Judgement: Poor Diagnostics Vital Signs (24Hr): Vital Signs - 24 hr 05/18/23 11:23 05/18/23 18:00 05/19/23 08:22 Temperature 98.7 F 97.0 F Pulse Rate 73 95 77 Respiratory Rate 18 20 Blood Pressure 116/59 L 137/64 98/52 L Pulse Oximetry 95 96 Oxygen Delivery Method Room Air Room Air BMI result Body Mass Index 24.4 Labs 05/10/23 07:03 05/10/23 07:03 Medications Medications Current Medications Acetaminophen (Acetaminophen 325 Mg Tablet) 650 mg PO Q6H PRN PRN Reason: Headache/Pain Mild Scale (1-3) Last Admin: 05/18/23 20:48 Dose: 650 mg Al Hydroxide/Mg Hydroxide (Magnesium Hydrox/Alum Hydrox 30 Ml Oral.Susp) 30 ml PO Q6H PRN PRN Reason: Heartburn/Nausea Amlodipine Besylate (Amlodipine Besylate 2.5 Mg Tablet) 2.5 mg PO DAILY [facility]; Protocol Last Admin: 05/19/23 08:28 Dose: Not Given Atorvastatin Calcium (Atorvastatin Calcium 40 Mg Tablet) 40 mg PO BEDTIME [facility] Last Admin: 05/18/23 20:47 Dose: 40 mg Divalproex Sodium (Divalproex Sodium Sprinkles 125 Mg ) 250 mg PO TID [facility] Last Admin: 05/19/23 08:26 Dose: 250 mg Lorazepam (Lorazepam 0.5 Mg Tablet) 0.5 mg PO Q8H PRN PRN Reason: Anxiety Last Admin: 05/16/23 21:27 Dose: 0.5 mg Magnesium Hydroxide (Milk Of Magnesia 30 Ml Oral.Susp) 30 ml PO DAILY PRN PRN Reason: Constipation Melatonin (Melatonin 3 Mg Tablet) 3 mg PO BEDTIME PRN PRN Reason: Insomnia Last Admin: 05/18/23 20:47 Dose: 3 mg Omeprazole (Omeprazole 20 Mg Capsule.Dr) 20 mg PO DAILY@0630 [facility] Last Admin: 05/19/23 05:33 Dose: 20 mg Risperidone (Risperidone 1 Mg Tablet) 1 mg PO BEDTIME [facility] Last Admin: 05/18/23 20:47 Dose: 1 mg Senna/Docusate Sodium (Sennosides/Docusate Sodium Tablet) 1 tab PO BEDTIME [facility] Last Admin: 05/18/23 20:47 Dose: 1 tab Trazodone HCl (Trazodone Hcl 50 Mg Tablet) 50 mg PO BEDTIME PRN PRN Reason: Insomnia Last Admin: 05/18/23 20:47 Dose: 50 mg Allergies Allergies Allergy/AdvReac Type Severity Reaction Status Date / Time No Known Allergies Allergy Verified 04/06/23 05:59 Assessment & Plan Assessment & Plan (1) Major neurocognitive disorder: Status: Acute Code(s): F03.90 - Unspecified dementia, unspecified severity, without behavioral disturbance, psychotic disturbance, mood disturbance, and anxiety Plan Pt is a 72-year-old female with a PMH significant for advanced dementia, cerebral amyloid angiopathy, GERD, and HLD who is admitted to [facility] for worsening dementia with increased confusion, agitation, and aggressive behaviors. Patient is a transfer from [facility]. Medical consult for admission H&P. Pt is alert to person only, and only occasionally capable of following basic commands. Mood disorder Plan as per Psychiatry Advanced dementia Patient presents with worsening dementia with behavioral disturbances No signs of precipitating factors: No clear sign of infection, no known recent med changes Most likely due to progression of disease HLD Continue aspirin, statin GERD Continue omeprazole Thank you for allowing us to participate in the care of this patient. Signing off at this time. Please let us know if there are any acute complaints or questions. Plan 1. Keep on one-to-one. 2. Depakote level for tomorrow. 3. Continue antipsychotics as prescribed. On May 01 we increased Risperdal at to 3 mg a day 4. Depakote level, CBC with differential BMP and lipid panel came back with therapeutic Depakote and low TSH. 5. Start Namenda 5 mg p.o. daily. On May 02 it was increased to 5 mg p.o. b.i.d. but later on May 06 we discontinued due to over-sedation. 6. Referral to hospitalist team for low TSH. Workout came up negative no need to add any medication at this point 7. Family meeting last Saturday and discussed discharge planning. The family is aware that the barrier for discharge is the need of one-to-one for safety. 8. Risperdal has been lowered due to over-sedation but still she walks with her eyes closed. 05/18/23: Continue current regime and plan of care. 05/19/23: Nutrition Consult Continue current regime Informed Consent: does not understand Reason for continued inpatient stay Substantial Risk for: rapid decompensation Time Spent With Patient Time: Total time managing care of this patient today ____ minutes.
[2023-05-19 11:27] VITALS: BP 111/53
--- NOTE | 2023-05-19 12:28 | PC.NURSE ---
Morning BP 98/52 and Amy reported some lightheadedness. Morning dose of Norvasc held and Madeleine Bailon NP notified. Oral fluids encouraged and provided. Recheck of BP at 1127 111/53 and Amy reported lightheadedness resolved. Updated Madeleine Bailon on new BP and resolved lightheadedness. Will continue to encourage and provide oral fluids.
--- NOTE | 2023-05-19 14:58 | PC.NURSE ---
Intake of meals poor. Only bites of breakfast eaten and sips of Ensure taken. Declined lunch and declined Ensure when offered at lunchtime. Madeleine Bailon NP notified and nutritional consult placed.
[2023-05-19 18:00] VITALS: BP 114/56; PULSE 75; RESP 18; TEMP 36.6; O2SAT 94
[2023-05-19] MEDS: risperiDONE 1 MG TABLET PO (20:30)
[2023-05-19] MEDS: Sennosides/Docusate Sodium TABLET 1 TAB PO (20:30)
[2023-05-19] MEDS: Atorvastatin Calcium 40 MG TABLET PO (20:30)
[2023-05-19] MEDS: LORazepam 0.5 MG TABLET PO (20:31)
[2023-05-19] MEDS: Melatonin 3 MG TABLET PO (20:31)
[2023-05-19] MEDS: traZODone HCL 50 MG TABLET PO (23:10)
[2023-05-20 08:00] VITALS: BP 103/59; PULSE 74; RESP 18; TEMP 36.4; O2SAT 98
[2023-05-20] MEDS: amLODIPine Besylate 2.5 MG TABLET PO (08:40)
[2023-05-20] MEDS: Omeprazole 20 MG CAPSULE.DR PO (08:40)
[2023-05-20] MEDS: Divalproex Sodium Sprinkles 125 MG CAP.DR.SPR 250 MG PO ×3 (08:41→20:34)
--- NOTE | 2023-05-20 12:13 | HO.PSYCHPN ---
Subjective Subjective Date of Service: 05/20/23 Reason For Visit: Dementia w/ Psychosis; Amyloid Angiopathy Subjective Notes: Conditional Voluntary Interim History: The nursing staff reported the patient remains on one-to-one for safety, she had been compliant with treatment. On interview the patient remains pleasantly confused easily redirectable, waiting for placement. The social work lecturer reported that they are working on the placement on the halfway facility with extra help for safety. The family is very involved in her care. Mental Status Exam Mental Status Exam Patient Appearance: Appropriate Patient Orientation: Person Level of Consciousness: Awake Patient Behavior: Appropriate and Cooperative Mood Description: Calm Affect Description: Blunted Patient Cognition Impaired: Yes Ability to Follow Directions: Good Speech Pattern: Clear Hallucinations: None Delusions: Not Present Thought Process: Illogical, Distracted and Slowed Thinking Thought Content: positive for [place] and positive for Poverty of Content Judgement: Fair Diagnostics Vital Signs (24Hr): Vital Signs - 24 hr 05/19/23 18:00 05/20/23 08:00 Temperature 97.8 F 97.6 F Pulse Rate 75 74 Respiratory Rate 18 18 Blood Pressure 114/56 L 103/59 L Pulse Oximetry 94 98 Oxygen Delivery Method Room Air Room Air BMI result Body Mass Index 24.4 Labs 05/10/23 07:03 05/10/23 07:03 Medications Medications Current Medications Acetaminophen (Acetaminophen 325 Mg Tablet) 650 mg PO Q6H PRN PRN Reason: Headache/Pain Mild Scale (1-3) Last Admin: 05/19/23 23:09 Dose: 650 mg Al Hydroxide/Mg Hydroxide (Magnesium Hydrox/Alum Hydrox 30 Ml Oral.Susp) 30 ml PO Q6H PRN PRN Reason: Heartburn/Nausea Amlodipine Besylate (Amlodipine Besylate 2.5 Mg Tablet) 2.5 mg PO DAILY [facility]; Protocol Last Admin: 05/20/23 08:40 Dose: 2.5 mg Atorvastatin Calcium (Atorvastatin Calcium 40 Mg Tablet) 40 mg PO BEDTIME [facility] Last Admin: 05/19/23 20:30 Dose: 40 mg Divalproex Sodium (Divalproex Sodium Sprinkles 125 Mg ) 250 mg PO TID [facility] Last Admin: 05/20/23 08:41 Dose: 250 mg Magnesium Hydroxide (Milk Of Magnesia 30 Ml Oral.Susp) 30 ml PO DAILY PRN PRN Reason: Constipation Melatonin (Melatonin 3 Mg Tablet) 3 mg PO BEDTIME PRN PRN Reason: Insomnia Last Admin: 05/19/23 20:31 Dose: 3 mg Omeprazole (Omeprazole 20 Mg Capsule.) 20 mg PO DAILY@0630 [facility] Last Admin: 05/20/23 08:40 Dose: 20 mg Risperidone (Risperidone 1 Mg Tablet) 1 mg PO BEDTIME [facility] Last Admin: 05/19/23 20:30 Dose: 1 mg Senna/Docusate Sodium (Sennosides/Docusate Sodium Tablet) 1 tab PO BEDTIME [facility] Last Admin: 05/19/23 20:30 Dose: 1 tab Trazodone HCl (Trazodone Hcl 50 Mg Tablet) 50 mg PO BEDTIME PRN PRN Reason: Insomnia Last Admin: 05/19/23 23:10 Dose: 50 mg Allergies Allergies Allergy/AdvReac Type Severity Reaction Status Date / Time No Known Allergies Allergy Verified 04/06/23 05:59 Assessment & Plan Assessment & Plan (1) Major neurocognitive disorder: Status: Acute Code(s): F03.90 - Unspecified dementia, unspecified severity, without behavioral disturbance, psychotic disturbance, mood disturbance, and anxiety Plan Pt is a 72-year-old female with a PMH significant for advanced dementia, cerebral amyloid angiopathy, GERD, and HLD who is admitted to [facility] for worsening dementia with increased confusion, agitation, and aggressive behaviors. Patient is a transfer from [facility]. Medical consult for admission H&P. Pt is alert to person only, and only occasionally capable of following basic commands. Mood disorder Plan as per Psychiatry Advanced dementia Patient presents with worsening dementia with behavioral disturbances No signs of precipitating factors: No clear sign of infection, no known recent med changes Most likely due to progression of disease HLD Continue aspirin, statin GERD Continue omeprazole Thank you for allowing us to participate in the care of this patient. Signing off at this time. Please let us know if there are any acute complaints or questions. Plan 1. Keep on one-to-one. 2. Depakote level for tomorrow. 3. Continue antipsychotics as prescribed. On May 01 we increased Risperdal at to 3 mg a day 4. Depakote level, CBC with differential BMP and lipid panel came back with therapeutic Depakote and low TSH. 5. Start Namenda 5 mg p.o. daily. On May 02 it was increased to 5 mg p.o. b.i.d. but later on May 06 we discontinued due to over-sedation. 6. Referral to hospitalist team for low TSH. Workout came up negative no need to add any medication at this point 7. Family meeting last Saturday and discussed discharge planning. The family is aware that the barrier for discharge is the need of one-to-one for safety. 8. Risperdal has been lowered due to over-sedation but still she walks with her eyes closed. She is on 1 mg p.o. q.h.s. with resolution of her psychosis. 9. Waiting for placement Reason for continued inpatient stay Substantial Risk for: inability to function, rapid decompensation and med/psych decompensation Time Spent With Patient Time: Total time managing care of this patient today __20__ minutes.
--- NOTE | 2023-05-20 13:40 | MHC.CLN ---
NUTRITION CONSULT FOR POOR PO. NURSING REPORTED THAT PATIENT TOOK BITES AND SIPS OVER WEEKEND. TODAY, ATE 100% AT BREAKFAST AND 25% AT LUNCH. STAFF REPORTS THAT PATIENT SITS ONLY A SHORT TIME FOR MEALS. ADDING ENSURE BID TO PROMOTE NUTRITIONAL INTAKE. SUPPLEMENT PROVIDES [address], [address] TO MONITOR WEEKLY.
[2023-05-20 18:00] VITALS: BP 126/58; PULSE 74; RESP 18; TEMP 36.4; O2SAT 96
[2023-05-20] MEDS: Atorvastatin Calcium 40 MG TABLET PO (20:34)
[2023-05-20] MEDS: Melatonin 3 MG TABLET PO (20:35)
[2023-05-20] MEDS: risperiDONE 1 MG TABLET PO (20:35)
[2023-05-20] MEDS: Acetaminophen 325 MG TABLET 650 MG PO (20:36)
[2023-05-20] MEDS: Sennosides/Docusate Sodium TABLET 1 TAB PO (20:36)
[2023-05-20] MEDS: traZODone HCL 50 MG TABLET PO (23:25)
[2023-05-21] MEDS: traZODone HCL 50 MG TABLET PO ×2 (01:36→19:51)
[2023-05-21] MEDS: Omeprazole 20 MG CAPSULE.DR PO (06:00)
[2023-05-21 08:15] VITALS: BP 109/59; PULSE 70; RESP 18; TEMP 36.7; O2SAT 96
[2023-05-21] MEDS: Divalproex Sodium Sprinkles 125 MG CAP.DR.SPR 250 MG PO ×3 (08:47→19:49)
[2023-05-21] MEDS: amLODIPine Besylate 2.5 MG TABLET PO (08:47)
--- NOTE | 2023-05-21 13:41 | HO.PSYCHPN ---
Subjective Subjective Date of Service: 05/21/23 Reason For Visit: Dementia w/ Psychosis; Amyloid Angiopathy Subjective Notes: Conditional Voluntary Interim History: Per nursing, pt up most night. Pt walking in [place] holding hand with one to one. No combative or aggressive behaviors towards self or others. Pt taking medications. BP low 109/59, Hr 70 Review of Systems Review of Systems Unable to obtain due to patient's mentation Yes all other systems are reviewed and are negative and Unobtainable due to mental status Mental Status Exam Mental Status Exam Narrative: walking the [place] with 1:1, adequately groomed, dressed in conor. cooperative. no PMA/PMR. speech nml rate, decr amount, decr loundess, nml latency. thoughts seem to be a mix of stereotyped social banalities and non-sequiturs. affect constricted, normo-intense, non-labile. no SI/HI/AVH expressed. Diagnostics Vital Signs (24Hr): Vital Signs - 24 hr 05/20/23 18:00 05/21/23 08:15 Temperature 97.6 F 98.1 F Pulse Rate 74 70 Respiratory Rate 18 18 Blood Pressure 126/58 L 109/59 L Pulse Oximetry 96 96 Oxygen Delivery Method Room Air Room Air BMI result Body Mass Index 24.4 Labs 05/10/23 07:03 05/10/23 07:03 Medications Medications Current Medications Acetaminophen (Acetaminophen 325 Mg Tablet) 650 mg PO Q6H PRN PRN Reason: Headache/Pain Mild Scale (1-3) Last Admin: 05/20/23 20:36 Dose: 650 mg Al Hydroxide/Mg Hydroxide (Magnesium Hydrox/Alum Hydrox 30 Ml Oral.Susp) 30 ml PO Q6H PRN PRN Reason: Heartburn/Nausea Amlodipine Besylate (Amlodipine Besylate 2.5 Mg Tablet) 2.5 mg PO DAILY [facility]; Protocol Last Admin: 05/21/23 08:47 Dose: 2.5 mg Atorvastatin Calcium (Atorvastatin Calcium 40 Mg Tablet) 40 mg PO BEDTIME [facility] Last Admin: 05/20/23 20:34 Dose: 40 mg Divalproex Sodium (Divalproex Sodium Sprinkles 125 Mg ) 250 mg PO TID [facility] Last Admin: 05/21/23 08:47 Dose: 250 mg Magnesium Hydroxide (Milk Of Magnesia 30 Ml Oral.Susp) 30 ml PO DAILY PRN PRN Reason: Constipation Melatonin (Melatonin 3 Mg Tablet) 3 mg PO BEDTIME PRN PRN Reason: Insomnia Last Admin: 05/20/23 20:35 Dose: 3 mg Omeprazole (Omeprazole 20 Mg Capsule.) 20 mg PO DAILY@0630 [facility] Last Admin: 05/21/23 06:00 Dose: 20 mg Risperidone (Risperidone 1 Mg Tablet) 1 mg PO BEDTIME COUNT [facility]CLUDES [facility] Last Admin: 05/20/23 20:35 Dose: 1 mg Senna/Docusate Sodium (Sennosides/Docusate Sodium Tablet) 1 tab PO BEDTIME COUNT [facility]CLUD[facility] Last Admin: 05/20/23 20:36 Dose: 1 tab Trazodone HCl (Trazodone Hcl 50 Mg Tablet) 50 mg PO BEDTIME PRN PRN Reason: Insomnia Last Admin: 05/21/23 01:36 Dose: 50 mg Allergies Allergies Allergy/AdvReac Type Severity Reaction Status Date / Time No Known Allergies Allergy Verified 04/06/23 05:59 Assessment & Plan Assessment & Plan (1) Major neurocognitive disorder: Status: Acute Code(s): F03.90 - Unspecified dementia, unspecified severity, without behavioral disturbance, psychotic disturbance, mood disturbance, and anxiety Plan Pt is a 72-year-old female with a PMH significant for advanced dementia, cerebral amyloid angiopathy, GERD, and HLD who is admitted to [facility] for worsening dementia with increased confusion, agitation, and aggressive behaviors. Patient is a transfer from [facility]. Medical consult for admission H&P. Pt is alert to person only, and only occasionally capable of following basic commands. Mood disorder Plan as per Psychiatry Advanced dementia Patient presents with worsening dementia with behavioral disturbances No signs of precipitating factors: No clear sign of infection, no known recent med changes Most likely due to progression of disease HLD Continue aspirin, statin GERD Continue omeprazole Thank you for allowing us to participate in the care of this patient. Signing off at this time. Please let us know if there are any acute complaints or questions. Plan 1. Keep on one-to-one. 2. Depakote level for tomorrow. 3. Continue antipsychotics as prescribed. On May 01 we increased Risperdal at to 3 mg a day 4. Depakote level, CBC with differential BMP and lipid panel came back with therapeutic Depakote and low TSH. 5. Start Namenda 5 mg p.o. daily. On May 02 it was increased to 5 mg p.o. b.i.d. but later on May 06 we discontinued due to over-sedation. 6. Referral to hospitalist team for low TSH. Workout came up negative no need to add any medication at this point 7. Family meeting last Saturday and discussed discharge planning. The family is aware that the barrier for discharge is the need of one-to-one for safety. 8. Risperdal has been lowered due to over-sedation but still she walks with her eyes closed. She is on 1 mg p.o. q.h.s. with resolution of her psychosis. 9. Waiting for placement 05/21 continue tx. Reason for continued inpatient stay Substantial Risk for: inability to function Time Spent With Patient Time: Total time managing care of this patient today ____ minutes.
[2023-05-21 18:00] VITALS: BP 152/68; PULSE 74; RESP 18; TEMP 36.8; O2SAT 96
[2023-05-21] MEDS: Melatonin 3 MG TABLET PO (19:49)
[2023-05-21] MEDS: Atorvastatin Calcium 40 MG TABLET PO (19:50)
[2023-05-21] MEDS: risperiDONE 1 MG TABLET PO (19:51)
[2023-05-21] MEDS: Sennosides/Docusate Sodium TABLET 1 TAB PO (19:52)
[2023-05-22 08:25] VITALS: BP 110/77; PULSE 83; RESP 18; TEMP 36; O2SAT 100
[2023-05-22] MEDS: Divalproex Sodium Sprinkles 125 MG CAP.DR.SPR 250 MG PO ×3 (08:57→20:26)
[2023-05-22] MEDS: amLODIPine Besylate 2.5 MG TABLET PO (08:57)
--- NOTE | 2023-05-22 11:19 | HO.PSYCHPN ---
Subjective Subjective Date of Service: 05/22/23 Reason For Visit: Dementia w/ Psychosis; Amyloid Angiopathy Subjective Notes: Conditional Voluntary Interim History: The nursing staff reported the patient confused wandering the unit on one-to-one for safety. The staff noted that she has better eye contact, she sleeps 6 or 7 hours with p.r.n. trazodone. On interview the patient is pleasantly confused easily redirectable. Waiting for placement. Mental Status Exam Mental Status Exam Patient Appearance: Well Grooomed and Appropriate Patient Orientation: Person and Situation Level of Consciousness: Awake and Appropriate Patient Behavior: Guarded and Cooperative Mood Description: Calm Affect Description: Constricted Patient Cognition Impaired: Yes Ability to Follow Directions: Good Speech Pattern: Appropriate Hallucinations: None Delusions: Not Present Thought Process: Distracted and Evasive Thought Content: positive for Poverty of Content Judgement: Poor Diagnostics Vital Signs (24Hr): Vital Signs - 24 hr 05/21/23 18:00 05/22/23 08:25 Temperature 98.2 F 96.8 F Pulse Rate 74 83 Respiratory Rate 18 18 Blood Pressure 152/68 H 110/77 Pulse Oximetry 96 100 Oxygen Delivery Method Room Air Room Air BMI result Body Mass Index 24.4 Labs 05/10/23 07:03 05/10/23 07:03 Medications Medications Current Medications Acetaminophen (Acetaminophen 325 Mg Tablet) 650 mg PO Q6H PRN PRN Reason: Headache/Pain Mild Scale (1-3) Last Admin: 05/20/23 20:36 Dose: 650 mg Al Hydroxide/Mg Hydroxide (Magnesium Hydrox/Alum Hydrox 30 Ml Oral.Susp) 30 ml PO Q6H PRN PRN Reason: Heartburn/Nausea Amlodipine Besylate (Amlodipine Besylate 2.5 Mg Tablet) 2.5 mg PO DAILY [facility]; Protocol Last Admin: 05/22/23 08:57 Dose: 2.5 mg Atorvastatin Calcium (Atorvastatin Calcium 40 Mg Tablet) 40 mg PO BEDTIME [facility] Last Admin: 05/21/23 19:50 Dose: 40 mg Divalproex Sodium (Divalproex Sodium Sprinkles 125 Mg Jhon.) 250 mg PO TID [facility] Last Admin: 05/22/23 08:57 Dose: 250 mg Magnesium Hydroxide (Milk Of Magnesia 30 Ml Oral.Susp) 30 ml PO DAILY PRN PRN Reason: Constipation Melatonin (Melatonin 3 Mg Tablet) 3 mg PO BEDTIME PRN PRN Reason: Insomnia Last Admin: 05/21/23 19:49 Dose: 3 mg Omeprazole (Omeprazole 20 Mg Capsule.) 20 mg PO DAILY@0630 [facility] Last Admin: 05/22/23 06:07 Dose: Not Given Risperidone (Risperidone 1 Mg Tablet) 1 mg PO BEDTIME [facility] Last Admin: 05/21/23 19:51 Dose: 1 mg Senna/Docusate Sodium (Sennosides/Docusate Sodium Tablet) 1 tab PO BEDTIME [facility] Last Admin: 05/21/23 19:52 Dose: 1 tab Trazodone HCl (Trazodone Hcl 50 Mg Tablet) 50 mg PO BEDTIME PRN PRN Reason: Insomnia Last Admin: 05/21/23 19:51 Dose: 50 mg Allergies Allergies Allergy/AdvReac Type Severity Reaction Status Date / Time No Known Allergies Allergy Verified 04/06/23 05:59 Assessment & Plan Assessment & Plan (1) Major neurocognitive disorder: Status: Acute Code(s): F03.90 - Unspecified dementia, unspecified severity, without behavioral disturbance, psychotic disturbance, mood disturbance, and anxiety Plan Pt is a 72-year-old female with a PMH significant for advanced dementia, cerebral amyloid angiopathy, GERD, and HLD who is admitted to [facility] for worsening dementia with increased confusion, agitation, and aggressive behaviors. Patient is a transfer from [facility]. Medical consult for admission H&P. Pt is alert to person only, and only occasionally capable of following basic commands. Mood disorder Plan as per Psychiatry Advanced dementia Patient presents with worsening dementia with behavioral disturbances No signs of precipitating factors: No clear sign of infection, no known recent med changes Most likely due to progression of disease HLD Continue aspirin, statin GERD Continue omeprazole Thank you for allowing us to participate in the care of this patient. Signing off at this time. Please let us know if there are any acute complaints or questions. Plan 1. Keep on one-to-one. 2. Depakote level for tomorrow. 3. Continue antipsychotics as prescribed. On May 01 we increased Risperdal at to 3 mg a day 4. Depakote level, CBC with differential BMP and lipid panel came back with therapeutic Depakote and low TSH. 5. Start Namenda 5 mg p.o. daily. On May 02 it was increased to 5 mg p.o. b.i.d. but later on May 06 we discontinued due to over-sedation. 6. Referral to hospitalist team for low TSH. Workout came up negative no need to add any medication at this point 7. Family meeting last Saturday and discussed discharge planning. The family is aware that the barrier for discharge is the need of one-to-one for safety. 8. Risperdal has been lowered due to over-sedation but still she walks with her eyes closed. She is on 1 mg p.o. q.h.s. with resolution of her psychosis. 9. Waiting for placement Reason for continued inpatient stay Substantial Risk for: inability to function, rapid decompensation and med/psych decompensation Time Spent With Patient Time: Total time managing care of this patient today __20__ minutes.
[2023-05-22 18:00] VITALS: BP 125/74; PULSE 84; RESP 16; TEMP 36.8; O2SAT 94
[2023-05-22] MEDS: risperiDONE 1 MG TABLET PO (20:26)
[2023-05-22] MEDS: Atorvastatin Calcium 40 MG TABLET PO (20:26)
[2023-05-22] MEDS: Sennosides/Docusate Sodium TABLET 1 TAB PO (20:26)
[2023-05-22] MEDS: Acetaminophen 325 MG TABLET 650 MG PO (20:32)
[2023-05-22] MEDS: Melatonin 3 MG TABLET PO (20:32)
[2023-05-22] MEDS: traZODone HCL 50 MG TABLET PO (20:32)
[2023-05-23] MEDS: traZODone HCL 50 MG TABLET PO (01:45)
--- NOTE | 2023-05-23 10:02 | HO.PSYCHPN ---
Subjective Subjective Date of Service: 05/23/23 Reason For Visit: Dementia w/ Psychosis; Amyloid Angiopathy Subjective Notes: Conditional Voluntary Interim History: The nursing staff reported the patient had been pleasantly confused, walking with her one-to-one. At times she closes her eyes and walks. The social insurance analyst reported that they are working with the family for proper disposition plan. On interview the patient is pleasantly confused no new symptoms, waiting for placement. We will start Namenda 5 mg p.o. q.h.s. to target dementia Mental Status Exam Mental Status Exam Patient Appearance: Well Grooomed and Appropriate Patient Orientation: Person Level of Consciousness: Awake Patient Behavior: Cooperative and Passive Mood Description: Withdrawn Affect Description: Constricted Patient Cognition Impaired: Yes Speech Pattern: Clear Hallucinations: None Delusions: Not Present Thought Process: Distracted and Linear Thought Content: positive for [place] and positive for Poverty of Content Judgement: Poor Diagnostics Vital Signs (24Hr): Vital Signs - 24 hr 05/22/23 18:00 Temperature 98.3 F Pulse Rate 84 Respiratory Rate 16 Blood Pressure 125/74 Pulse Oximetry 94 Oxygen Delivery Method Room Air BMI result Body Mass Index 24.4 Labs 05/10/23 07:03 05/10/23 07:03 Medications Medications Current Medications Acetaminophen (Acetaminophen 325 Mg Tablet) 650 mg PO Q6H PRN PRN Reason: Headache/Pain Mild Scale (1-3) Last Admin: 05/22/23 20:32 Dose: 650 mg Al Hydroxide/Mg Hydroxide (Magnesium Hydrox/Alum Hydrox 30 Ml Oral.Susp) 30 ml PO Q6H PRN PRN Reason: Heartburn/Nausea Amlodipine Besylate (Amlodipine Besylate 2.5 Mg Tablet) 2.5 mg PO DAILY [facility]; Protocol Last Admin: 05/22/23 08:57 Dose: 2.5 mg Atorvastatin Calcium (Atorvastatin Calcium 40 Mg Tablet) 40 mg PO BEDTIME [facility] Last Admin: 05/22/23 20:26 Dose: 40 mg Divalproex Sodium (Divalproex Sodium Sprinkles 125 Mg ) 250 mg PO TID [facility] Last Admin: 05/22/23 20:26 Dose: 250 mg Lorazepam (Lorazepam 0.5 Mg Tablet) 0.5 mg PO Q8H PRN PRN Reason: Anxiety Magnesium Hydroxide (Milk Of Magnesia 30 Ml Oral.Susp) 30 ml PO DAILY PRN PRN Reason: Constipation Melatonin (Melatonin 3 Mg Tablet) 3 mg PO BEDTIME PRN PRN Reason: Insomnia Last Admin: 05/22/23 20:32 Dose: 3 mg Memantine (Memantine Hcl 5 Mg Tablet) 5 mg PO DAILY [facility] Omeprazole (Omeprazole 20 Mg Capsule.Dr) 20 mg PO DAILY@0630 [facility] Last Admin: 05/22/23 06:07 Dose: Not Given Risperidone (Risperidone 1 Mg Tablet) 1 mg PO BEDTIME [facility] Last Admin: 05/22/23 20:26 Dose: 1 mg Senna/Docusate Sodium (Sennosides/Docusate Sodium Tablet) 1 tab PO BEDTIME [facility] Last Admin: 05/22/23 20:26 Dose: 1 tab Trazodone HCl (Trazodone Hcl 50 Mg Tablet) 50 mg PO BEDTIME PRN PRN Reason: Insomnia Last Admin: 05/23/23 01:45 Dose: 50 mg Allergies Allergies Allergy/AdvReac Type Severity Reaction Status Date / Time No Known Allergies Allergy Verified 04/06/23 05:59 Assessment & Plan Assessment & Plan (1) Major neurocognitive disorder: Status: Acute Code(s): F03.90 - Unspecified dementia, unspecified severity, without behavioral disturbance, psychotic disturbance, mood disturbance, and anxiety Plan Pt is a 72-year-old female with a PMH significant for advanced dementia, cerebral amyloid angiopathy, GERD, and HLD who is admitted to [facility] for worsening dementia with increased confusion, agitation, and aggressive behaviors. Patient is a transfer from [facility]. Medical consult for admission H&P. Pt is alert to person only, and only occasionally capable of following basic commands. Mood disorder Plan as per Psychiatry Advanced dementia Patient presents with worsening dementia with behavioral disturbances No signs of precipitating factors: No clear sign of infection, no known recent med changes Most likely due to progression of disease HLD Continue aspirin, statin GERD Continue omeprazole Thank you for allowing us to participate in the care of this patient. Signing off at this time. Please let us know if there are any acute complaints or questions. Plan 1. Keep on one-to-one. 2. Depakote level for tomorrow. 3. Continue antipsychotics as prescribed. On May 01 we increased Risperdal at to 3 mg a day 4. Depakote level, CBC with differential BMP and lipid panel came back with therapeutic Depakote and low TSH. 5. Start Namenda 5 mg p.o. daily. On May 02 it was increased to 5 mg p.o. b.i.d. but later on May 06 we discontinued due to over-sedation. We started our rechallenge on May 23 at 5 mg p.o. q.h.s. to help her sleep since it over-sedated her 6. Referral to hospitalist team for low TSH. Workout came up negative no need to add any medication at this point 7. Family meeting last Saturday and discussed discharge planning. The family is aware that the barrier for discharge is the need of one-to-one for safety. 8. Risperdal has been lowered due to over-sedation but still she walks with her eyes closed. She is on 1 mg p.o. q.h.s. with resolution of her psychosis. 9. Waiting for placement. Reason for continued inpatient stay Substantial Risk for: inability to function, rapid decompensation and med/psych decompensation Time Spent With Patient Time: Total time managing care of this patient today _20___ minutes.
[2023-05-23 10:19] VITALS: BP 113/63; PULSE 89; RESP 18; TEMP 36.2; O2SAT 97
[2023-05-23] MEDS: Divalproex Sodium Sprinkles 125 MG CAP.DR.SPR 250 MG PO ×3 (10:22→20:45)
[2023-05-23] MEDS: Omeprazole 20 MG CAPSULE.DR PO (10:23)
[2023-05-23] MEDS: amLODIPine Besylate 2.5 MG TABLET PO (10:23)
[2023-05-23 11:27] VITALS: BMI 23.8
--- NOTE | 2023-05-23 12:10 | PC.NURSE ---
Weight last week 68.49 kg and this week 66.91 kg; MD Green notified. Encouraging oral intake and dietary is following. Offering Ensure at meals.
[2023-05-23 18:00] VITALS: BP 130/63; PULSE 82; RESP 18; TEMP 36.9; O2SAT 97
[2023-05-23] MEDS: risperiDONE 1 MG TABLET PO (20:45)
[2023-05-23] MEDS: Atorvastatin Calcium 40 MG TABLET PO (20:45)
[2023-05-23] MEDS: Melatonin 3 MG TABLET PO (20:45)
[2023-05-23] MEDS: Sennosides/Docusate Sodium TABLET 1 TAB PO (20:45)
[2023-05-23] MEDS: Acetaminophen 325 MG TABLET 650 MG PO (20:46)
[2023-05-24] MEDS: traZODone HCL 50 MG TABLET PO (00:36)
[2023-05-24] MEDS: Omeprazole 20 MG CAPSULE.DR PO (06:09)
[2023-05-24] MEDS: amLODIPine Besylate 2.5 MG TABLET PO (08:38)
[2023-05-24] MEDS: Divalproex Sodium Sprinkles 125 MG CAP.DR.SPR 250 MG PO ×3 (08:38→20:27)
[2023-05-24 09:48] VITALS: BP 118/57; PULSE 81; RESP 18; TEMP 36.9; O2SAT 98
--- NOTE | 2023-05-24 14:52 | HO.PSYCHPN ---
Subjective Subjective Date of Service: 05/24/23 Reason For Visit: Dementia w/ Psychosis; Amyloid Angiopathy Subjective Notes: Conditional Voluntary Interim History: The nursing staff reported the patient had been pleasantly confused easily redirectable. On interview the patient denies new symptoms, waiting for placement Mental Status Exam Mental Status Exam Patient Appearance: Well Grooomed and Appropriate Patient Orientation: Person and Situation Level of Consciousness: Awake and Appropriate Patient Behavior: Guarded and Passive Mood Description: Withdrawn Affect Description: Constricted Patient Cognition Impaired: Yes Ability to Follow Directions: Good Speech Pattern: Clear Hallucinations: None Delusions: Not Present Thought Process: Disoriented and Distracted Thought Content: positive for Disoriented and positive for Mobile Judgement: Poor Diagnostics Vital Signs (24Hr): Vital Signs - 24 hr 05/23/23 18:00 05/24/23 09:48 Temperature 98.5 F 98.4 F Pulse Rate 82 81 Respiratory Rate 18 18 Blood Pressure 130/63 118/57 L Pulse Oximetry 97 98 Oxygen Delivery Method Room Air Room Air BMI result Body Mass Index 23.8 Labs 05/10/23 07:03 05/10/23 07:03 Medications Medications Current Medications Acetaminophen (Acetaminophen 325 Mg Tablet) 650 mg PO Q6H PRN PRN Reason: Headache/Pain Mild Scale (1-3) Last Admin: 05/23/23 20:46 Dose: 650 mg Al Hydroxide/Mg Hydroxide (Magnesium Hydrox/Alum Hydrox 30 Ml Oral.Susp) 30 ml PO Q6H PRN PRN Reason: Heartburn/Nausea Amlodipine Besylate (Amlodipine Besylate 2.5 Mg Tablet) 2.5 mg PO DAILY [facility]; Protocol Last Admin: 05/24/23 08:38 Dose: 2.5 mg Atorvastatin Calcium (Atorvastatin Calcium 40 Mg Tablet) 40 mg PO BEDTIME [facility] Last Admin: 05/23/23 20:45 Dose: 40 mg Divalproex Sodium (Divalproex Sodium Sprinkles 125 Mg ) 250 mg PO TID [facility] Last Admin: 05/24/23 08:38 Dose: 250 mg Lorazepam (Lorazepam 0.5 Mg Tablet) 0.5 mg PO Q8H PRN PRN Reason: Anxiety Magnesium Hydroxide (Milk Of Magnesia 30 Ml Oral.Susp) 30 ml PO DAILY PRN PRN Reason: Constipation Melatonin (Melatonin 3 Mg Tablet) 3 mg PO BEDTIME PRN PRN Reason: Insomnia Last Admin: 05/23/23 20:45 Dose: 3 mg Memantine (Memantine Hcl 5 Mg Tablet) 5 mg PO DAILY [facility] Last Admin: 05/24/23 08:38 Dose: 5 mg Omeprazole (Omeprazole 20 Mg Capsule.Dr) 20 mg PO DAILY@0630 [facility] Last Admin: 05/24/23 06:09 Dose: 20 mg Risperidone (Risperidone 1 Mg Tablet) 1 mg PO BEDTIME [facility] Last Admin: 05/23/23 20:45 Dose: 1 mg Senna/Docusate Sodium (Sennosides/Docusate Sodium Tablet) 1 tab PO BEDTIME [facility] Last Admin: 05/23/23 20:45 Dose: 1 tab Trazodone HCl (Trazodone Hcl 50 Mg Tablet) 50 mg PO BEDTIME PRN PRN Reason: Insomnia Last Admin: 05/24/23 00:36 Dose: 50 mg Allergies Allergies Allergy/AdvReac Type Severity Reaction Status Date / Time No Known Allergies Allergy Verified 04/06/23 05:59 Assessment & Plan Assessment & Plan (1) Major neurocognitive disorder: Status: Acute Code(s): F03.90 - Unspecified dementia, unspecified severity, without behavioral disturbance, psychotic disturbance, mood disturbance, and anxiety Plan Pt is a 72-year-old female with a PMH significant for advanced dementia, cerebral amyloid angiopathy, GERD, and HLD who is admitted to [facility] for worsening dementia with increased confusion, agitation, and aggressive behaviors. Patient is a transfer from [facility]. Medical consult for admission H&P. Pt is alert to person only, and only occasionally capable of following basic commands. Mood disorder Plan as per Psychiatry Advanced dementia Patient presents with worsening dementia with behavioral disturbances No signs of precipitating factors: No clear sign of infection, no known recent med changes Most likely due to progression of disease HLD Continue aspirin, statin GERD Continue omeprazole Thank you for allowing us to participate in the care of this patient. Signing off at this time. Please let us know if there are any acute complaints or questions. Plan 1. Keep on one-to-one. 2. Depakote level for tomorrow. 3. Continue antipsychotics as prescribed. On May 01 we increased Risperdal at to 3 mg a day 4. Depakote level, CBC with differential BMP and lipid panel came back with therapeutic Depakote and low TSH. 5. Start Namenda 5 mg p.o. daily. On May 02 it was increased to 5 mg p.o. b.i.d. but later on May 06 we discontinued due to over-sedation. We started our rechallenge on May 23 at 5 mg p.o. q.h.s. to help her sleep since it over-sedated her 6. Referral to hospitalist team for low TSH. Workout came up negative no need to add any medication at this point 7. Family meeting last Saturday and discussed discharge planning. The family is aware that the barrier for discharge is the need of one-to-one for safety. 8. Risperdal has been lowered due to over-sedation but still she walks with her eyes closed. She is on 1 mg p.o. q.h.s. with resolution of her psychosis. 9. Waiting for placement. Reason for continued inpatient stay Substantial Risk for: inability to function, rapid decompensation and med/psych decompensation Time Spent With Patient Time: Total time managing care of this patient today _20___ minutes.
[2023-05-24 18:00] VITALS: BP 137/63; PULSE 81; RESP 17; TEMP 36.4; O2SAT 96
[2023-05-24] MEDS: Atorvastatin Calcium 40 MG TABLET PO (20:27)
[2023-05-24] MEDS: risperiDONE 1 MG TABLET PO (20:27)
[2023-05-24] MEDS: Acetaminophen 325 MG TABLET 650 MG PO (20:28)
[2023-05-24] MEDS: Sennosides/Docusate Sodium TABLET 1 TAB PO (20:28)
[2023-05-25] MEDS: traZODone HCL 50 MG TABLET PO (01:25)
[2023-05-25] MEDS: Omeprazole 20 MG CAPSULE.DR PO (06:37)
[2023-05-25] MEDS: Divalproex Sodium Sprinkles 125 MG CAP.DR.SPR 250 MG PO ×3 (09:11→20:05)
[2023-05-25] MEDS: amLODIPine Besylate 2.5 MG TABLET PO (09:11)
[2023-05-25 09:19] VITALS: BP 111/56; PULSE 82; RESP 18; TEMP 36.3; O2SAT 97
--- NOTE | 2023-05-25 10:43 | HO.PSYCHPN ---
Subjective Subjective Date of Service: 05/25/23 Reason For Visit: Dementia w/ Psychosis; Amyloid Angiopathy Interim History: wandering about unit, in and out of others' rooms. no questions complaints requests. overtly impaired cognitively. per staff, doing more walking with eyes closed in past day. poor appetite. toileting adequately. taking meds. slept about 6 hours. trazodone and ativan for sleep. Mental Status Exam Mental Status Exam Patient Appearance: Well Grooomed and Appropriate Patient Orientation: Person Level of Consciousness: Awake and Appropriate Patient Behavior: Guarded and Passive Mood Description: Withdrawn Affect Description: Constricted Patient Cognition Impaired: Yes Ability to Follow Directions: Good Speech Pattern: Clear Hallucinations: None Delusions: Not Present Thought Process: Disoriented and Distracted Thought Content: positive for Disoriented and positive for [place] Judgement: Poor Diagnostics Vital Signs (24Hr): Vital Signs - 24 hr 05/24/23 18:00 05/25/23 09:19 Temperature 97.5 F 97.4 F Pulse Rate 81 82 Respiratory Rate 17 18 Blood Pressure 137/63 111/56 L Pulse Oximetry 96 97 Oxygen Delivery Method Room Air Room Air BMI result Body Mass Index 23.8 Labs 05/10/23 07:03 05/10/23 07:03 Medications Medications Current Medications Acetaminophen (Acetaminophen 325 Mg Tablet) 650 mg PO Q6H PRN PRN Reason: Headache/Pain Mild Scale (1-3) Last Admin: 05/24/23 20:28 Dose: 650 mg Al Hydroxide/Mg Hydroxide (Magnesium Hydrox/Alum Hydrox 30 Ml Oral.Susp) 30 ml PO Q6H PRN PRN Reason: Heartburn/Nausea Amlodipine Besylate (Amlodipine Besylate 2.5 Mg Tablet) 2.5 mg PO DAILY [facility]; Protocol Last Admin: 05/25/23 09:11 Dose: 2.5 mg Atorvastatin Calcium (Atorvastatin Calcium 40 Mg Tablet) 40 mg PO BEDTIME [facility] Last Admin: 05/24/23 20:27 Dose: 40 mg Divalproex Sodium (Divalproex Sodium Sprinkles 125 Mg Jhon.) 250 mg PO TID [facility] Last Admin: 05/25/23 09:11 Dose: 250 mg Lorazepam (Lorazepam 0.5 Mg Tablet) 0.5 mg PO Q8H PRN PRN Reason: Anxiety Last Admin: 05/25/23 01:25 Dose: 0.5 mg Magnesium Hydroxide (Milk Of Magnesia 30 Ml Oral.Susp) 30 ml PO DAILY PRN PRN Reason: Constipation Melatonin (Melatonin 3 Mg Tablet) 3 mg PO BEDTIME PRN PRN Reason: Insomnia Last Admin: 05/23/23 20:45 Dose: 3 mg Memantine (Memantine Hcl 5 Mg Tablet) 5 mg PO DAILY [facility] Last Admin: 05/25/23 09:11 Dose: 5 mg Omeprazole (Omeprazole 20 Mg Capsule.Dr) 20 mg PO DAILY@0630 [facility] Last Admin: 05/25/23 06:37 Dose: 20 mg Risperidone (Risperidone 1 Mg Tablet) 1 mg PO BEDTIME [facility] Last Admin: 05/24/23 20:27 Dose: 1 mg Senna/Docusate Sodium (Sennosides/Docusate Sodium Tablet) 1 tab PO BEDTIME [facility] Last Admin: 05/24/23 20:28 Dose: 1 tab Trazodone HCl (Trazodone Hcl 50 Mg Tablet) 50 mg PO BEDTIME PRN PRN Reason: Insomnia Last Admin: 05/25/23 01:25 Dose: 50 mg Allergies Allergies Allergy/AdvReac Type Severity Reaction Status Date / Time No Known Allergies Allergy Verified 04/06/23 05:59 Assessment & Plan Assessment & Plan (1) Major neurocognitive disorder: Status: Acute Code(s): F03.90 - Unspecified dementia, unspecified severity, without behavioral disturbance, psychotic disturbance, mood disturbance, and anxiety Plan Pt is a 72-year-old female with a PMH significant for advanced dementia, cerebral amyloid angiopathy, GERD, and HLD who is admitted to [facility] for worsening dementia with increased confusion, agitation, and aggressive behaviors. Patient is a transfer from [facility]. Medical consult for admission H&P. Pt is alert to person only, and only occasionally capable of following basic commands. Mood disorder Plan as per Psychiatry Advanced dementia Patient presents with worsening dementia with behavioral disturbances No signs of precipitating factors: No clear sign of infection, no known recent med changes Most likely due to progression of disease HLD Continue aspirin, statin GERD Continue omeprazole Thank you for allowing us to participate in the care of this patient. Signing off at this time. Please let us know if there are any acute complaints or questions. Plan 1. Keep on one-to-one. 2. Depakote level for tomorrow. 3. Continue antipsychotics as prescribed. On May 01 we increased Risperdal at to 3 mg a day 4. Depakote level, CBC with differential BMP and lipid panel came back with therapeutic Depakote and low TSH. 5. Start Namenda 5 mg p.o. daily. On May 02 it was increased to 5 mg p.o. b.i.d. but later on May 06 we discontinued due to over-sedation. We started our rechallenge on May 23 at 5 mg p.o. q.h.s. to help her sleep since it over-sedated her 6. Referral to hospitalist team for low TSH. Workout came up negative no need to add any medication at this point 7. Family meeting last Saturday and discussed discharge planning. The family is aware that the barrier for discharge is the need of one-to-one for safety. 8. Risperdal has been lowered due to over-sedation but still she walks with her eyes closed. She is on 1 mg p.o. q.h.s. with resolution of her psychosis. 9. Waiting for placement. 05/25: continue current mgmt. wandering. Reason for continued inpatient stay Substantial Risk for: inability to function and rapid decompensation Time Spent With Patient Time: Total time managing care of this patient today ____ minutes.
[2023-05-25 18:00] VITALS: BP 126/58; PULSE 91; RESP 18; TEMP 36.7; O2SAT 97
[2023-05-25] MEDS: Sennosides/Docusate Sodium TABLET 1 TAB PO (20:05)
[2023-05-25] MEDS: Melatonin 3 MG TABLET PO (20:05)
[2023-05-25] MEDS: risperiDONE 1 MG TABLET PO (20:05)
[2023-05-25] MEDS: Atorvastatin Calcium 40 MG TABLET PO (20:05)
[2023-05-26] MEDS: Omeprazole 20 MG CAPSULE.DR PO (06:00)
[2023-05-26 08:26] VITALS: BP 116/56; PULSE 83; RESP 18; TEMP 36.6; O2SAT 96
[2023-05-26] MEDS: amLODIPine Besylate 2.5 MG TABLET PO (09:45)
[2023-05-26] MEDS: Divalproex Sodium Sprinkles 125 MG CAP.DR.SPR 250 MG PO ×3 (09:45→20:09)
--- NOTE | 2023-05-26 11:06 | HO.PSYCHPN ---
Subjective Subjective Date of Service: 05/26/23 Reason For Visit: Dementia w/ Psychosis; Amyloid Angiopathy Interim History: wandering the [place] with peer, disorganized but pleasant. per staff, pacing, med-compliant. slept about 6 hours. pleasant. Mental Status Exam Mental Status Exam Patient Appearance: Well Grooomed and Appropriate Patient Orientation: Person Level of Consciousness: Awake and Appropriate Patient Behavior: Guarded and Passive Mood Description: Withdrawn Affect Description: Constricted Patient Cognition Impaired: Yes Ability to Follow Directions: Good Speech Pattern: Clear Hallucinations: None Delusions: Not Present Thought Process: Disoriented and Distracted Thought Content: positive for Disoriented and positive for [place] Judgement: Poor Diagnostics Vital Signs (24Hr): Vital Signs - 24 hr 05/25/23 18:00 05/26/23 08:26 Temperature 98.0 F 97.9 F Pulse Rate 91 83 Respiratory Rate 18 18 Blood Pressure 126/58 L 116/56 L Pulse Oximetry 97 96 Oxygen Delivery Method Room Air Room Air BMI result Body Mass Index 23.8 Labs 05/10/23 07:03 05/10/23 07:03 Medications Medications Current Medications Acetaminophen (Acetaminophen 325 Mg Tablet) 650 mg PO Q6H PRN PRN Reason: Headache/Pain Mild Scale (1-3) Last Admin: 05/24/23 20:28 Dose: 650 mg Al Hydroxide/Mg Hydroxide (Magnesium Hydrox/Alum Hydrox 30 Ml Oral.Susp) 30 ml PO Q6H PRN PRN Reason: Heartburn/Nausea Amlodipine Besylate (Amlodipine Besylate 2.5 Mg Tablet) 2.5 mg PO DAILY [facility]; Protocol Last Admin: 05/26/23 09:45 Dose: 2.5 mg Atorvastatin Calcium (Atorvastatin Calcium 40 Mg Tablet) 40 mg PO BEDTIME [facility] Last Admin: 05/25/23 20:05 Dose: 40 mg Divalproex Sodium (Divalproex Sodium Sprinkles 125 Mg Jhon.) 250 mg PO TID [facility] Last Admin: 05/26/23 09:45 Dose: 250 mg Lorazepam (Lorazepam 0.5 Mg Tablet) 0.5 mg PO Q8H PRN PRN Reason: Anxiety Last Admin: 05/25/23 20:43 Dose: 0.5 mg Magnesium Hydroxide (Milk Of Magnesia 30 Ml Oral.Susp) 30 ml PO DAILY PRN PRN Reason: Constipation Melatonin (Melatonin 3 Mg Tablet) 3 mg PO BEDTIME PRN PRN Reason: Insomnia Last Admin: 05/25/23 20:05 Dose: 3 mg Memantine (Memantine Hcl 5 Mg Tablet) 5 mg PO DAILY [facility] Last Admin: 05/26/23 09:45 Dose: 5 mg Omeprazole (Omeprazole 20 Mg Capsule.Dr) 20 mg PO DAILY@0630 [facility] Last Admin: 05/26/23 06:00 Dose: 20 mg Risperidone (Risperidone 1 Mg Tablet) 1 mg PO BEDTIME [facility] Last Admin: 05/25/23 20:05 Dose: 1 mg Senna/Docusate Sodium (Sennosides/Docusate Sodium Tablet) 1 tab PO BEDTIME [facility] Last Admin: 05/25/23 20:05 Dose: 1 tab Trazodone HCl (Trazodone Hcl 50 Mg Tablet) 50 mg PO BEDTIME PRN PRN Reason: Insomnia Last Admin: 05/25/23 01:25 Dose: 50 mg Allergies Allergies Allergy/AdvReac Type Severity Reaction Status Date / Time No Known Allergies Allergy Verified 04/06/23 05:59 Assessment & Plan Assessment & Plan (1) Major neurocognitive disorder: Status: Acute Code(s): F03.90 - Unspecified dementia, unspecified severity, without behavioral disturbance, psychotic disturbance, mood disturbance, and anxiety Plan Pt is a 72-year-old female with a PMH significant for advanced dementia, cerebral amyloid angiopathy, GERD, and HLD who is admitted to [facility] for worsening dementia with increased confusion, agitation, and aggressive behaviors. Patient is a transfer from [facility]. Medical consult for admission H&P. Pt is alert to person only, and only occasionally capable of following basic commands. Mood disorder Plan as per Psychiatry Advanced dementia Patient presents with worsening dementia with behavioral disturbances No signs of precipitating factors: No clear sign of infection, no known recent med changes Most likely due to progression of disease HLD Continue aspirin, statin GERD Continue omeprazole Thank you for allowing us to participate in the care of this patient. Signing off at this time. Please let us know if there are any acute complaints or questions. Plan 1. Keep on one-to-one. 2. Depakote level for tomorrow. 3. Continue antipsychotics as prescribed. On May 01 we increased Risperdal at to 3 mg a day 4. Depakote level, CBC with differential BMP and lipid panel came back with therapeutic Depakote and low TSH. 5. Start Namenda 5 mg p.o. daily. On May 02 it was increased to 5 mg p.o. b.i.d. but later on May 06 we discontinued due to over-sedation. We started our rechallenge on May 23 at 5 mg p.o. q.h.s. to help her sleep since it over-sedated her 6. Referral to hospitalist team for low TSH. Workout came up negative no need to add any medication at this point 7. Family meeting last Saturday and discussed discharge planning. The family is aware that the barrier for discharge is the need of one-to-one for safety. 8. Risperdal has been lowered due to over-sedation but still she walks with her eyes closed. She is on 1 mg p.o. q.h.s. with resolution of her psychosis. 9. Waiting for placement. 05/25: continue current mgmt. wandering. 05/26: continue current mgmt. wandering. slept 6 hours. Reason for continued inpatient stay Substantial Risk for: inability to function and rapid decompensation Time Spent With Patient Time: Total time managing care of this patient today ____ minutes.
[2023-05-26 18:00] VITALS: BP 132/65; PULSE 93; RESP 18; TEMP 36.6; O2SAT 96
[2023-05-26] MEDS: Sennosides/Docusate Sodium TABLET 1 TAB PO (20:08)
[2023-05-26] MEDS: Melatonin 3 MG TABLET PO (20:08)
[2023-05-26] MEDS: traZODone HCL 50 MG TABLET PO (20:09)
[2023-05-26] MEDS: Atorvastatin Calcium 40 MG TABLET PO (20:09)
[2023-05-26] MEDS: risperiDONE 1 MG TABLET PO (20:09)
[2023-05-26] MEDS: Acetaminophen 325 MG TABLET 650 MG PO (20:09)
[2023-05-27] MEDS: traZODone HCL 50 MG TABLET PO ×2 (00:04→20:59)
[2023-05-27] MEDS: Omeprazole 20 MG CAPSULE.DR PO (06:16)
[2023-05-27 07:36] VITALS: BP 113/60; PULSE 84; RESP 18; TEMP 36.4; O2SAT 95
[2023-05-27] MEDS: amLODIPine Besylate 2.5 MG TABLET PO (10:15)
[2023-05-27] MEDS: Memantine HCl 5 MG TABLET PO ×2 (10:15→20:59)
[2023-05-27] MEDS: Divalproex Sodium Sprinkles 125 MG CAP.DR.SPR 250 MG PO ×3 (10:15→20:58)
--- NOTE | 2023-05-27 11:37 | PM.EVENT ---
Event Note Date of Service: 05/27/23 Event Note: Pt reported to have unwitnessed fall around 730am this am. INFORMATION SYSTEMS ARCHITECT was steps away and heard the fall. Reported no LOC. Sustained small 1.5cm laceration to left brow. Psychiatrist was notified and head ct ordered without any acute intracranial abnormality. Hospitalist consult placed and was evaluated by my colleague earlier this morning without any changes from baseline or focal neuro deficits observed. Reevaluated by myself just now and patient is at baseline mentation per nursing staff. She is unable to participate in neuro exam and follow commands which is baseline but CN II-XII appear to be in tact, PERRLA, moving all extremities independently. 1.5cm laceration cleaned with sterile saline solution, dried with 2x2 gauze and dermabond applied and allowed to dry. No active bleeding. Thank you for allowing me to participate in this consult. Signing off at this time. Please do not hesitate to call for further questions. Time Spent With Patient Time: Total time managing care of this patient today ____ minutes.
--- NOTE | 2023-05-27 12:31 | HO.PSYCHPN ---
Subjective Subjective Date of Service: 05/27/23 Reason For Visit: Dementia w/ Psychosis; Amyloid Angiopathy Subjective Notes: Conditional Voluntary Interim History: The patient had a fall today and needed To be back on one-to-on in the morning. She was seen by the hospitalist And a CT scan was order. On interview she remains pleasantly confused, waiting for placement. Mental Status Exam Mental Status Exam Patient Appearance: Well Grooomed and Appropriate Patient Orientation: Person and Situation Level of Consciousness: Awake and Appropriate Patient Behavior: Guarded and Passive Mood Description: Withdrawn Affect Description: Constricted Patient Cognition Impaired: Yes Ability to Follow Directions: Good Speech Pattern: Clear Hallucinations: None Delusions: Not Present Thought Process: Illogical, Distracted and Evasive Thought Content: positive for [place] and positive for Poverty of Content Judgement: Poor Diagnostics Vital Signs (24Hr): Vital Signs - 24 hr 05/26/23 18:00 05/27/23 07:36 Temperature 97.8 F 97.5 F Pulse Rate 93 84 Respiratory Rate 18 18 Blood Pressure 132/65 113/60 Pulse Oximetry 96 95 Oxygen Delivery Method Room Air Room Air BMI result Body Mass Index 23.8 Labs 05/10/23 07:03 05/10/23 07:03 Imaging Radiology Impressions: ITS Impressions Head CT 05/27/23 08:09 IMPRESSION: There are scattered chronic small vessel ischemic changes within the periventricular white matter. Otherwise unremarkable examination. No evidence of acute territorial infarct or hemorrhage. Medications Medications Current Medications Acetaminophen (Acetaminophen 325 Mg Tablet) 650 mg PO Q6H PRN PRN Reason: Headache/Pain Mild Scale (1-3) Last Admin: 05/26/23 20:09 Dose: 650 mg Al Hydroxide/Mg Hydroxide (Magnesium Hydrox/Alum Hydrox 30 Ml Oral.Susp) 30 ml PO Q6H PRN PRN Reason: Heartburn/Nausea Amlodipine Besylate (Amlodipine Besylate 2.5 Mg Tablet) 2.5 mg PO DAILY [facility]; Protocol Last Admin: 05/27/23 10:15 Dose: 2.5 mg Atorvastatin Calcium (Atorvastatin Calcium 40 Mg Tablet) 40 mg PO BEDTIME [facility] Last Admin: 05/26/23 20:09 Dose: 40 mg Divalproex Sodium (Divalproex Sodium Sprinkles 125 Mg ) 250 mg PO TID [facility] Last Admin: 05/27/23 10:15 Dose: 250 mg Lorazepam (Lorazepam 0.5 Mg Tablet) 0.5 mg PO Q8H PRN PRN Reason: Anxiety Last Admin: 05/27/23 00:04 Dose: 0.5 mg Magnesium Hydroxide (Milk Of Magnesia 30 Ml Oral.Susp) 30 ml PO DAILY PRN PRN Reason: Constipation Melatonin (Melatonin 3 Mg Tablet) 3 mg PO BEDTIME PRN PRN Reason: Insomnia Last Admin: 05/26/23 20:08 Dose: 3 mg Memantine (Memantine Hcl 5 Mg Tablet) 5 mg PO BID [facility] Last Admin: 05/27/23 10:15 Dose: 5 mg Omeprazole (Omeprazole 20 Mg Capsule.Dr) 20 mg PO DAILY@0630 [facility] Last Admin: 05/27/23 06:16 Dose: 20 mg Risperidone (Risperidone 1 Mg Tablet) 1 mg PO BEDTIME [facility] Last Admin: 05/26/23 20:09 Dose: 1 mg Senna/Docusate Sodium (Sennosides/Docusate Sodium Tablet) 1 tab PO BEDTIME [facility] Last Admin: 05/26/23 20:08 Dose: 1 tab Trazodone HCl (Trazodone Hcl 50 Mg Tablet) 50 mg PO BEDTIME PRN PRN Reason: Insomnia Last Admin: 05/27/23 00:04 Dose: 50 mg Allergies Allergies Allergy/AdvReac Type Severity Reaction Status Date / Time No Known Allergies Allergy Verified 04/06/23 05:59 Assessment & Plan Assessment & Plan (1) Major neurocognitive disorder: Status: Acute Code(s): F03.90 - Unspecified dementia, unspecified severity, without behavioral disturbance, psychotic disturbance, mood disturbance, and anxiety Plan Pt is a 72-year-old female with a PMH significant for advanced dementia, cerebral amyloid angiopathy, GERD, and HLD who is admitted to [facility] for worsening dementia with increased confusion, agitation, and aggressive behaviors. Patient is a transfer from [facility]. Medical consult for admission H&P. Pt is alert to person only, and only occasionally capable of following basic commands. Mood disorder Plan as per Psychiatry Advanced dementia Patient presents with worsening dementia with behavioral disturbances No signs of precipitating factors: No clear sign of infection, no known recent med changes Most likely due to progression of disease HLD Continue aspirin, statin GERD Continue omeprazole Thank you for allowing us to participate in the care of this patient. Signing off at this time. Please let us know if there are any acute complaints or questions. Plan 1. Keep on one-to-one. 2. Depakote level for tomorrow. 3. Continue antipsychotics as prescribed. On May 01 we increased Risperdal at to 3 mg a day 4. Depakote level, CBC with differential BMP and lipid panel came back with therapeutic Depakote and low TSH. 5. Start Namenda 5 mg p.o. daily. On May 02 it was increased to 5 mg p.o. b.i.d. but later on May 06 we discontinued due to over-sedation. We started our rechallenge on May 23 at 5 mg p.o. q.h.s. to help her sleep since it over-sedated her 6. Referral to hospitalist team for low TSH. Workout came up negative no need to add any medication at this point 7. Family meeting last Saturday and discussed discharge planning. The family is aware that the barrier for discharge is the need of one-to-one for safety. 8. Risperdal has been lowered due to over-sedation but still she walks with her eyes closed. She is on 1 mg p.o. q.h.s. with resolution of her psychosis. 9. Waiting for placement. 10. Increase Namenda up to 5 mg p.o. b.i.d. On May 27 Reason for continued inpatient stay Substantial Risk for: inability to function, rapid decompensation and med/psych decompensation Time Spent With Patient Time: Total time managing care of this patient today __20__ minutes.
--- NOTE | 2023-05-27 14:40 | PC.NURSE ---
This hand sign writer was alerted that Amy was found lying on her left side in the common area with a small laceration on her left side of forehead. Fall was unwitnessed and patient is a poor historian due to diagnosis of dementia. The patient spontaneously got up and started walking around after she was found on her side on the floor. She denied any pain and MD Green notified. Vital signs 113/60, 84, 20, 95%. She did not appear to have any injuries and no neuro deficits noted. Amy has been uncooperative with pupil assessment with neuros and closes her eyes when light is shone in them. Dr. Hernandez and JEFF Lara assessed and Amy was brought to CT scan. This hand sign writer updated Amy's son Matt Graves of fall via phone call this morning. 1:1 ordered for safety. Post fall protocol initiated.
--- NOTE | 2023-05-27 15:17 | MHC.CLN ---
F/U DIET=REGULAR. ENSURE BID PROVIDES ADDITIONAL 700 KCALS, 40 G PROTEIN. INTAKE TODAY 10-50%. ACCEPTS SUPPLEMENT. RD TO MONITOR WEEKLY.
[2023-05-27 15:19] VITALS: BP 132/63; PULSE 84; RESP 20; TEMP 37; O2SAT 96
[2023-05-27 18:00] VITALS: BP 132/62; PULSE 81; RESP 18; TEMP 37.1; O2SAT 96
[2023-05-27] MEDS: Atorvastatin Calcium 40 MG TABLET PO (20:58)
[2023-05-27] MEDS: Acetaminophen 325 MG TABLET 650 MG PO (20:58)
[2023-05-27] MEDS: risperiDONE 1 MG TABLET PO (20:58)
[2023-05-27] MEDS: Melatonin 3 MG TABLET PO (20:59)
[2023-05-27] MEDS: Sennosides/Docusate Sodium TABLET 1 TAB PO (20:59)
[2023-05-28] MEDS: Omeprazole 20 MG CAPSULE.DR PO (05:35)
[2023-05-28 07:53] VITALS: BP 116/56; PULSE 78; RESP 18; TEMP 36.4; O2SAT 95
[2023-05-28] MEDS: Memantine HCl 5 MG TABLET PO ×2 (08:24→19:59)
[2023-05-28] MEDS: Acetaminophen 325 MG TABLET 650 MG PO (08:24)
[2023-05-28] MEDS: Divalproex Sodium Sprinkles 125 MG CAP.DR.SPR 250 MG PO ×3 (08:25→19:58)
[2023-05-28] MEDS: traZODone HCL 25 MG HALFTAB PO ×2 (09:26→22:36)
--- NOTE | 2023-05-28 09:47 | PC.NURSE ---
BP this morning 116/56 and Amy was asymptomatic however 0900 amlodipine not administered due to low diastolic BP; Dr. Horta notified.
--- NOTE | 2023-05-28 13:06 | P.PNPSI_ITS ---
Subjective Subjective Date of Service: 05/28/23 Reason For Visit: Dementia w/ Psychosis; Amyloid Angiopathy Subjective Notes: Conditional Voluntary Interim History: The nursing staff reported that she is on one-to-one due to the last fall. She slept well last night and she was slightly agitated and restless in the morning but easily redirectable. On interview the patient was pleasantly confused. We discontinue Ativan and put trazodone p.r.n. anxiety. The psychotherapist social worker will call the [facility] facility for placement. Mental Status Exam Mental Status Exam Patient Appearance: Well Grooomed and Appropriate Patient Orientation: Person and Situation Level of Consciousness: Awake and Appropriate Patient Behavior: Guarded and Passive Mood Description: Withdrawn Affect Description: Constricted Patient Cognition Impaired: Yes Ability to Follow Directions: Good Speech Pattern: Clear Hallucinations: None Delusions: Not Present Thought Process: Illogical and Distracted Thought Content: positive for [place] and positive for Poverty of Content Judgement: Fair Diagnostics Vital Signs (24Hr): Vital Signs - 24 hr 05/27/23 15:19 05/27/23 18:00 05/28/23 07:53 Temperature 98.6 F 98.8 F 97.6 F Pulse Rate 84 81 78 Respiratory Rate 20 18 18 Blood Pressure 132/63 132/62 116/56 L Pulse Oximetry 96 96 95 Oxygen Delivery Method Room Air Room Air Room Air BMI result Body Mass Index 23.8 Labs 05/10/23 07:03 05/10/23 07:03 Imaging Radiology Impressions: ITS Impressions Head CT 05/27/23 08:09 IMPRESSION: There are scattered chronic small vessel ischemic changes within the periventricular white matter. Otherwise unremarkable examination. No evidence of acute territorial infarct or hemorrhage. Medications Medications Current Medications Acetaminophen (Acetaminophen 325 Mg Tablet) 650 mg PO Q6H PRN PRN Reason: Headache/Pain Mild Scale (1-3) Last Admin: 05/28/23 08:24 Dose: 650 mg Al Hydroxide/Mg Hydroxide (Magnesium Hydrox/Alum Hydrox 30 Ml Oral.Susp) 30 ml PO Q6H PRN PRN Reason: Heartburn/Nausea Amlodipine Besylate (Amlodipine Besylate 2.5 Mg Tablet) 2.5 mg PO DAILY INEZ; Protocol Last Admin: 05/28/23 08:30 Dose: Not Given Atorvastatin Calcium (Atorvastatin Calcium 40 Mg Tablet) 40 mg PO BEDTIME INEZ Last Admin: 05/27/23 20:58 Dose: 40 mg Divalproex Sodium (Divalproex Sodium Sprinkles 125 Mg ) 250 mg PO TID [facility] Last Admin: 05/28/23 08:25 Dose: 250 mg Magnesium Hydroxide (Milk Of Magnesia 30 Ml Oral.Susp) 30 ml PO DAILY PRN PRN Reason: Constipation Melatonin (Melatonin 3 Mg Tablet) 3 mg PO BEDTIME PRN PRN Reason: Insomnia Last Admin: 05/27/23 20:59 Dose: 3 mg Memantine (Memantine Hcl 5 Mg Tablet) 5 mg PO BID [facility] Last Admin: 05/28/23 08:24 Dose: 5 mg Omeprazole (Omeprazole 20 Mg Capsule.Dr) 20 mg PO DAILY@0630 [facility] Last Admin: 05/28/23 05:35 Dose: 20 mg Risperidone (Risperidone 1 Mg Tablet) 1 mg PO BEDTIME [facility] Last Admin: 05/27/23 20:58 Dose: 1 mg Senna/Docusate Sodium (Sennosides/Docusate Sodium Tablet) 1 tab PO BEDTIME [facility] Last Admin: 05/27/23 20:59 Dose: 1 tab Trazodone HCl (Trazodone Hcl 50 Mg Tablet) 50 mg PO BEDTIME PRN PRN Reason: Insomnia Last Admin: 05/27/23 20:59 Dose: 50 mg Trazodone HCl (Trazodone Hcl 25 Mg Halftab) 25 mg PO TID PRN PRN Reason: Anxiety Last Admin: 05/28/23 09:26 Dose: 25 mg Allergies Allergies Allergy/AdvReac Type Severity Reaction Status Date / Time No Known Allergies Allergy Verified 04/06/23 05:59 Assessment & Plan Assessment & Plan (1) Major neurocognitive disorder: Status: Acute Code(s): F03.90 - Unspecified dementia, unspecified severity, without behavioral disturbance, psychotic disturbance, mood disturbance, and anxiety Plan Pt is a 72-year-old female with a PMH significant for advanced dementia, cerebral amyloid angiopathy, GERD, and HLD who is admitted to [facility] for worsening dementia with increased confusion, agitation, and aggressive behaviors. Patient is a transfer from [facility]. Medical consult for admission H&P. Pt is alert to person only, and only occasionally capable of following basic commands. Mood disorder Plan as per Psychiatry Advanced dementia Patient presents with worsening dementia with behavioral disturbances No signs of precipitating factors: No clear sign of infection, no known recent med changes Most likely due to progression of disease HLD Continue aspirin, statin GERD Continue omeprazole Thank you for allowing us to participate in the care of this patient. Signing off at this time. Please let us know if there are any acute complaints or questions. Plan 1. Keep on one-to-one. 2. Depakote level for tomorrow. 3. Continue antipsychotics as prescribed. On May 01 we increased Risperdal at to 3 mg a day 4. Depakote level, CBC with differential BMP and lipid panel came back with therapeutic Depakote and low TSH. 5. Start Namenda 5 mg p.o. daily. On May 02 it was increased to 5 mg p.o. b.i.d. but later on May 06 we discontinued due to over-sedation. We started our rechallenge on May 23 at 5 mg p.o. q.h.s. to help her sleep since it over- sedated her 6. Referral to hospitalist team for low TSH. Workout came up negative no need to add any medication at this point 7. Family meeting last Saturday and discussed discharge planning. The family is aware that the barrier for discharge is the need of one-to-one for safety. 8. Risperdal has been lowered due to over-sedation but still she walks with her eyes closed. She is on 1 mg p.o. q.h.s. with resolution of her psychosis. 9. Waiting for placement. 10. Increase Namenda up to 5 mg p.o. b.i.d. On May 27 Reason for continued inpatient stay Substantial Risk for: inability to function, rapid decompensation and med/psych decompensation Time Spent With Patient Time: Total time managing care of this patient today __20__ minutes.
[2023-05-28 18:00] VITALS: BP 131/61; PULSE 76; RESP 18; TEMP 35.9; O2SAT 94
[2023-05-28] MEDS: Sennosides/Docusate Sodium TABLET 1 TAB PO (19:59)
[2023-05-28] MEDS: traZODone HCL 50 MG TABLET PO ×2 (19:59→22:36)
[2023-05-28] MEDS: Melatonin 3 MG TABLET PO (20:00)
[2023-05-28] MEDS: Atorvastatin Calcium 40 MG TABLET PO (20:00)
[2023-05-28] MEDS: risperiDONE 1 MG TABLET PO (20:00)
[2023-05-29] MEDS: Divalproex Sodium Sprinkles 125 MG CAP.DR.SPR 250 MG PO ×3 (08:27→20:17)
[2023-05-29] MEDS: Memantine HCl 5 MG TABLET PO ×2 (08:28→20:18)
[2023-05-29] MEDS: Omeprazole 20 MG CAPSULE.DR PO (08:28)
[2023-05-29] MEDS: amLODIPine Besylate 2.5 MG TABLET PO (08:28)
[2023-05-29 08:46] VITALS: BP 111/59; PULSE 86; RESP 18; TEMP 36.7; O2SAT 97
--- NOTE | 2023-05-29 10:23 | P.PNPSI_ITS ---
Subjective Subjective Date of Service: 05/29/23 Reason For Visit: Dementia w/ Psychosis; Amyloid Angiopathy Subjective Notes: Conditional Voluntary Interim History: The nursing staff reported no changes in her mental status, she is alert only to herself and she slept 5 hours needed trazodone. The social worker school reported the family called custodial facility and probably they will take her this week. On interview no changes in her mental status pleasantly confused, easily redirectable. Waiting for placement. Mental Status Exam Mental Status Exam Patient Appearance: Appropriate Patient Orientation: Person and Situation Level of Consciousness: Awake and Appropriate Patient Behavior: Appropriate Mood Description: Withdrawn Affect Description: Constricted Patient Cognition Impaired: Yes Ability to Follow Directions: Good Speech Pattern: Clear Hallucinations: None Delusions: Not Present Thought Process: Illogical, Distracted and Slowed Thinking Thought Content: positive for Poverty of Content and positive for Thought Blocking Judgement: Poor Diagnostics Vital Signs (24Hr): Vital Signs - 24 hr 05/28/23 18:00 05/29/23 08:46 Temperature 96.6 F L 98.1 F Pulse Rate 76 86 Respiratory Rate 18 18 Blood Pressure 131/61 111/59 L Pulse Oximetry 94 97 Oxygen Delivery Method Room Air Room Air BMI result Body Mass Index 23.8 Labs 05/10/23 07:03 05/10/23 07:03 Imaging Radiology Impressions: ITS Impressions Head CT 05/27/23 08:09 IMPRESSION: There are scattered chronic small vessel ischemic changes within the periventricular white matter. Otherwise unremarkable examination. No evidence of acute territorial infarct or hemorrhage. Medications Medications Current Medications Acetaminophen (Acetaminophen 325 Mg Tablet) 650 mg PO Q6H PRN PRN Reason: Headache/Pain Mild Scale (1-3) Last Admin: 05/28/23 08:24 Dose: 650 mg Al Hydroxide/Mg Hydroxide (Magnesium Hydrox/Alum Hydrox 30 Ml Oral.Susp) 30 ml PO Q6H PRN PRN Reason: Heartburn/Nausea Amlodipine Besylate (Amlodipine Besylate 2.5 Mg Tablet) 2.5 mg PO DAILY [facility]; Protocol Last Admin: 05/29/23 08:28 Dose: 2.5 mg Atorvastatin Calcium (Atorvastatin Calcium 40 Mg Tablet) 40 mg PO BEDTIME [facility] Last Admin: 05/28/23 20:00 Dose: 40 mg Divalproex Sodium (Divalproex Sodium Sprinkles 125 Mg Jhon.) 250 mg PO TID [facility] Last Admin: 05/29/23 08:27 Dose: 250 mg Magnesium Hydroxide (Milk Of Magnesia 30 Ml Oral.Susp) 30 ml PO DAILY PRN PRN Reason: Constipation Melatonin (Melatonin 3 Mg Tablet) 3 mg PO BEDTIME PRN PRN Reason: Insomnia Last Admin: 05/28/23 20:00 Dose: 3 mg Memantine (Memantine Hcl 5 Mg Tablet) 5 mg PO BID [facility] Last Admin: 05/29/23 08:28 Dose: 5 mg Omeprazole (Omeprazole 20 Mg Capsule.) 20 mg PO DAILY@0630 [facility] Last Admin: 05/29/23 08:28 Dose: 20 mg Risperidone (Risperidone 1 Mg Tablet) 1 mg PO BEDTIME [facility] Last Admin: 05/28/23 20:00 Dose: 1 mg Senna/Docusate Sodium (Sennosides/Docusate Sodium Tablet) 1 tab PO BEDTIME [facility] Last Admin: 05/28/23 19:59 Dose: 1 tab Trazodone HCl (Trazodone Hcl 50 Mg Tablet) 50 mg PO BEDTIME PRN PRN Reason: Insomnia Last Admin: 05/28/23 22:36 Dose: 50 mg Trazodone HCl (Trazodone Hcl 25 Mg Halftab) 25 mg PO TID PRN PRN Reason: Anxiety Last Admin: 05/28/23 22:36 Dose: 25 mg Allergies Allergies Allergy/AdvReac Type Severity Reaction Status Date / Time No Known Allergies Allergy Verified 04/06/23 05:59 Assessment & Plan Assessment & Plan (1) Major neurocognitive disorder: Status: Acute Code(s): F03.90 - Unspecified dementia, unspecified severity, without behavioral disturbance, psychotic disturbance, mood disturbance, and anxiety Plan Pt is a 72-year-old female with a PMH significant for advanced dementia, cerebral amyloid angiopathy, GERD, and HLD who is admitted to [facility] for worsening dementia with increased confusion, agitation, and aggressive behaviors. Patient is a transfer from [facility]. Medical consult for admission H&P. Pt is alert to person only, and only occasionally capable of following basic commands. Mood disorder Plan as per Psychiatry Advanced dementia Patient presents with worsening dementia with behavioral disturbances No signs of precipitating factors: No clear sign of infection, no known recent med changes Most likely due to progression of disease HLD Continue aspirin, statin GERD Continue omeprazole Thank you for allowing us to participate in the care of this patient. Signing off at this time. Please let us know if there are any acute complaints or questions. Plan 1. Keep on one-to-one. 2. Depakote level for tomorrow. 3. Continue antipsychotics as prescribed. On May 01 we increased Risperdal at to 3 mg a day 4. Depakote level, CBC with differential BMP and lipid panel came back with therapeutic Depakote and low TSH. 5. Start Namenda 5 mg p.o. daily. On May 02 it was increased to 5 mg p.o. b.i.d. but later on May 06 we discontinued due to over-sedation. We started our rechallenge on May 23 at 5 mg p.o. q.h.s. to help her sleep since it over- sedated her 6. Referral to hospitalist team for low TSH. Workout came up negative no need to add any medication at this point 7. Family meeting last Saturday and discussed discharge planning. The family is aware that the barrier for discharge is the need of one-to-one for safety. 8. Risperdal has been lowered due to over-sedation but still she walks with her eyes closed. She is on 1 mg p.o. q.h.s. with resolution of her psychosis. 9. Waiting for placement. 10. Increase Namenda up to 5 mg p.o. b.i.d. on May 27 Reason for continued inpatient stay Substantial Risk for: inability to function, rapid decompensation and med/psych decompensation Time Spent With Patient Time: Total time managing care of this patient today __20__ minutes.
[2023-05-29 18:00] VITALS: BP 125/56; PULSE 91; RESP 18; TEMP 36.6; O2SAT 97
[2023-05-29] MEDS: Acetaminophen 325 MG TABLET 650 MG PO (20:17)
[2023-05-29] MEDS: Atorvastatin Calcium 40 MG TABLET PO (20:17)
[2023-05-29] MEDS: risperiDONE 1 MG TABLET PO (20:18)
[2023-05-29] MEDS: Sennosides/Docusate Sodium TABLET 1 TAB PO (20:18)
[2023-05-29] MEDS: Melatonin 3 MG TABLET PO (20:18)
[2023-05-30] MEDS: Omeprazole 20 MG CAPSULE.DR PO (04:10)
[2023-05-30] MEDS: traZODone HCL 25 MG HALFTAB PO (04:10)
[2023-05-30 07:00] VITALS: BMI 23.5
[2023-05-30 07:25] VITALS: BP 123/61; PULSE 76; RESP 18; TEMP 35.8; O2SAT 98
[2023-05-30] MEDS: Memantine HCl 5 MG TABLET PO ×2 (08:33→20:42)
[2023-05-30] MEDS: amLODIPine Besylate 2.5 MG TABLET PO (08:33)
[2023-05-30] MEDS: Divalproex Sodium Sprinkles 125 MG CAP.DR.SPR 250 MG PO ×3 (08:33→20:41)
--- NOTE | 2023-05-30 11:36 | HO.PSYCHPN ---
Subjective Subjective Date of Service: 05/30/23 Reason For Visit: Dementia w/ Psychosis; Amyloid Angiopathy Subjective Notes: Conditional Voluntary Interim History: The nursing staff reported the patient had been wandering, pleasant cooperative on one-to-one restless at times. She required p.r.n. trazodone last night. The clinical social work aide reported that she will be possibly discharged tomorrow to [facility]. On interview the patient is pleasantly confused no changes in her mental status, waiting for placement. Mental Status Exam Mental Status Exam Patient Appearance: Well Grooomed and Appropriate Patient Orientation: Person and Situation Level of Consciousness: Awake Patient Behavior: Guarded and Passive Mood Description: Withdrawn Affect Description: Constricted Patient Cognition Impaired: Yes Ability to Follow Directions: Good Speech Pattern: Clear Hallucinations: None Delusions: Not Present Thought Process: Distracted Thought Content: positive for [place] and positive for Poverty of Content Judgement: Poor Diagnostics Vital Signs (24Hr): Vital Signs - 24 hr 05/29/23 18:00 05/30/23 07:25 Temperature 98 F 96.5 F L Pulse Rate 91 76 Respiratory Rate 18 18 Blood Pressure 125/56 L 123/61 Pulse Oximetry 97 98 Oxygen Delivery Method Room Air Room Air BMI result Body Mass Index 23.5 Labs 05/10/23 07:03 05/10/23 07:03 Imaging Radiology Impressions: ITS Impressions Head CT 05/27/23 08:09 IMPRESSION: There are scattered chronic small vessel ischemic changes within the periventricular white matter. Otherwise unremarkable examination. No evidence of acute territorial infarct or hemorrhage. Medications Medications Current Medications Acetaminophen (Acetaminophen 325 Mg Tablet) 650 mg PO Q6H PRN PRN Reason: Headache/Pain Mild Scale (1-3) Last Admin: 05/29/23 20:17 Dose: 650 mg Al Hydroxide/Mg Hydroxide (Magnesium Hydrox/Alum Hydrox 30 Ml Oral.Susp) 30 ml PO Q6H PRN PRN Reason: Heartburn/Nausea Amlodipine Besylate (Amlodipine Besylate 2.5 Mg Tablet) 2.5 mg PO DAILY [facility]; Protocol Last Admin: 05/30/23 08:33 Dose: 2.5 mg Atorvastatin Calcium (Atorvastatin Calcium 40 Mg Tablet) 40 mg PO BEDTIME [facility] Last Admin: 05/29/23 20:17 Dose: 40 mg Divalproex Sodium (Divalproex Sodium Sprinkles 125 Mg Cap..Spr) 250 mg PO TID [facility] Last Admin: 05/30/23 08:33 Dose: 250 mg Magnesium Hydroxide (Milk Of Magnesia 30 Ml Oral.Susp) 30 ml PO DAILY PRN PRN Reason: Constipation Melatonin (Melatonin 3 Mg Tablet) 3 mg PO BEDTIME PRN PRN Reason: Insomnia Last Admin: 05/29/23 20:18 Dose: 3 mg Memantine (Memantine Hcl 5 Mg Tablet) 5 mg PO BID [facility] Last Admin: 05/30/23 08:33 Dose: 5 mg Omeprazole (Omeprazole 20 Mg Capsule.) 20 mg PO DAILY@0630 [facility] Last Admin: 05/30/23 04:10 Dose: 20 mg Risperidone (Risperidone 1 Mg Tablet) 1 mg PO BEDTIME [facility] Last Admin: 05/29/23 20:18 Dose: 1 mg Senna/Docusate Sodium (Sennosides/Docusate Sodium Tablet) 1 tab PO BEDTIME [facility] Last Admin: 05/29/23 20:18 Dose: 1 tab Trazodone HCl (Trazodone Hcl 50 Mg Tablet) 50 mg PO BEDTIME PRN PRN Reason: Insomnia Last Admin: 05/28/23 22:36 Dose: 50 mg Trazodone HCl (Trazodone Hcl 25 Mg Halftab) 25 mg PO TID PRN PRN Reason: Anxiety Last Admin: 05/30/23 04:10 Dose: 25 mg Allergies Allergies Allergy/AdvReac Type Severity Reaction Status Date / Time No Known Allergies Allergy Verified 04/06/23 05:59 Assessment & Plan Assessment & Plan (1) Major neurocognitive disorder: Status: Acute Code(s): F03.90 - Unspecified dementia, unspecified severity, without behavioral disturbance, psychotic disturbance, mood disturbance, and anxiety Plan Pt is a 72-year-old female with a PMH significant for advanced dementia, cerebral amyloid angiopathy, GERD, and HLD who is admitted to [facility] for worsening dementia with increased confusion, agitation, and aggressive behaviors. Patient is a transfer from [facility]. Medical consult for admission H&P. Pt is alert to person only, and only occasionally capable of following basic commands. Mood disorder Plan as per Psychiatry Advanced dementia Patient presents with worsening dementia with behavioral disturbances No signs of precipitating factors: No clear sign of infection, no known recent med changes Most likely due to progression of disease HLD Continue aspirin, statin GERD Continue omeprazole Thank you for allowing us to participate in the care of this patient. Signing off at this time. Please let us know if there are any acute complaints or questions. Plan 1. Keep on one-to-one. 2. Depakote level for tomorrow. 3. Continue antipsychotics as prescribed. On May 01 we increased Risperdal at to 3 mg a day 4. Depakote level, CBC with differential BMP and lipid panel came back with therapeutic Depakote and low TSH. 5. Start Namenda 5 mg p.o. daily. On May 02 it was increased to 5 mg p.o. b.i.d. but later on May 06 we discontinued due to over-sedation. We started our rechallenge on May 23 at 5 mg p.o. q.h.s. to help her sleep since it over-sedated her 6. Referral to hospitalist team for low TSH. Workout came up negative no need to add any medication at this point 7. Family meeting last Saturday and discussed discharge planning. The family is aware that the barrier for discharge is the need of one-to-one for safety. 8. Risperdal has been lowered due to over-sedation but still she walks with her eyes closed. She is on 1 mg p.o. q.h.s. with resolution of her psychosis. 9. Waiting for placement. 10. Increase Namenda up to 5 mg p.o. b.i.d. on May 27 Reason for continued inpatient stay Substantial Risk for: inability to function, rapid decompensation and med/psych decompensation Time Spent With Patient Time: Total time managing care of this patient today __20__ minutes.
[2023-05-30 20:23] VITALS: BP 118/57; PULSE 81; RESP 18; TEMP 36.3; O2SAT 96
[2023-05-30] MEDS: Atorvastatin Calcium 40 MG TABLET PO (20:42)
[2023-05-30] MEDS: risperiDONE 1 MG TABLET PO (20:42)
[2023-05-30] MEDS: Sennosides/Docusate Sodium TABLET 1 TAB PO (20:42)
[2023-05-31] MEDS: Melatonin 3 MG TABLET PO (02:24)
[2023-05-31] MEDS: traZODone HCL 50 MG TABLET PO (02:24)
[2023-05-31] MEDS: Omeprazole 20 MG CAPSULE.DR PO (06:38)
[2023-05-31] MEDS: Divalproex Sodium Sprinkles 125 MG CAP.DR.SPR 250 MG PO ×3 (08:10→20:20)
[2023-05-31] MEDS: Memantine HCl 5 MG TABLET PO (08:10)
--- NOTE | 2023-05-31 14:44 | HO.PSYCHPN ---
Subjective Subjective Date of Service: 05/31/23 Reason For Visit: Dementia w/ Psychosis; Amyloid Angiopathy Subjective Notes: Conditional Voluntary Interim History: The nursing staff reported that she was slightly agitated last night at 02:00 o'clock in the morning but she slept plantar on. She remains profoundly confused and is one-to-one. The social human services assistants reported the most likely she could be discharged next Saturday to group home facility. On interview she is pleasantly confused still very demented so we will increase Namenda to 10 mg p.o. b.i.d. since her vital signs are stable. Mental Status Exam Mental Status Exam Patient Appearance: Appropriate Patient Orientation: Person Level of Consciousness: Awake and Restless Patient Behavior: Cooperative and Passive Mood Description: Calm Affect Description: Labile Patient Cognition Impaired: Yes Ability to Follow Directions: Good Speech Pattern: Clear Hallucinations: None Delusions: Not Present Thought Process: Illogical, Distracted and Slowed Thinking Thought Content: positive for Poverty of Content and positive for Thought Blocking Judgement: Poor Diagnostics Vital Signs (24Hr): Vital Signs - 24 hr 05/30/23 20:23 Temperature 97.3 F Pulse Rate 81 Respiratory Rate 18 Blood Pressure 118/57 L Pulse Oximetry 96 Oxygen Delivery Method Room Air BMI result Body Mass Index 23.5 Labs 05/10/23 07:03 05/10/23 07:03 Imaging Radiology Impressions: ITS Impressions Head CT 05/27/23 08:09 IMPRESSION: There are scattered chronic small vessel ischemic changes within the periventricular white matter. Otherwise unremarkable examination. No evidence of acute territorial infarct or hemorrhage. Medications Medications Current Medications Acetaminophen (Acetaminophen 325 Mg Tablet) 650 mg PO Q6H PRN PRN Reason: Headache/Pain Mild Scale (1-3) Last Admin: 05/29/23 20:17 Dose: 650 mg Al Hydroxide/Mg Hydroxide (Magnesium Hydrox/Alum Hydrox 30 Ml Oral.Susp) 30 ml PO Q6H PRN PRN Reason: Heartburn/Nausea Amlodipine Besylate (Amlodipine Besylate 2.5 Mg Tablet) 2.5 mg PO DAILY [facility]; Protocol Last Admin: 05/31/23 12:34 Dose: Not Given Atorvastatin Calcium (Atorvastatin Calcium 40 Mg Tablet) 40 mg PO BEDTIME [facility] Last Admin: 05/30/23 20:42 Dose: 40 mg Divalproex Sodium (Divalproex Sodium Sprinkles 125 Mg Cap.Spr) 250 mg PO TID [facility] Last Admin: 05/31/23 08:10 Dose: 250 mg Magnesium Hydroxide (Milk Of Magnesia 30 Ml Oral.Susp) 30 ml PO DAILY PRN PRN Reason: Constipation Melatonin (Melatonin 3 Mg Tablet) 3 mg PO BEDTIME PRN PRN Reason: Insomnia Last Admin: 05/31/23 02:24 Dose: 3 mg Memantine (Memantine Hcl 10 Mg Tablet) 10 mg PO BID [facility] Last Admin: 05/31/23 12:34 Dose: Not Given Omeprazole (Omeprazole 20 Mg Capsule.) 20 mg PO DAILY@0630 [facility] Last Admin: 05/31/23 06:38 Dose: 20 mg Risperidone (Risperidone 1 Mg Tablet) 1 mg PO BEDTIME [facility] Last Admin: 05/30/23 20:42 Dose: 1 mg Senna/Docusate Sodium (Sennosides/Docusate Sodium Tablet) 1 tab PO BEDTIME [facility] Last Admin: 05/30/23 20:42 Dose: 1 tab Trazodone HCl (Trazodone Hcl 50 Mg Tablet) 50 mg PO BEDTIME PRN PRN Reason: Insomnia Last Admin: 05/31/23 02:24 Dose: 50 mg Trazodone HCl (Trazodone Hcl 25 Mg Halftab) 25 mg PO TID PRN PRN Reason: Anxiety Last Admin: 05/30/23 04:10 Dose: 25 mg Allergies Allergies Allergy/AdvReac Type Severity Reaction Status Date / Time No Known Allergies Allergy Verified 04/06/23 05:59 Assessment & Plan Assessment & Plan (1) Major neurocognitive disorder: Status: Acute Code(s): F03.90 - Unspecified dementia, unspecified severity, without behavioral disturbance, psychotic disturbance, mood disturbance, and anxiety Plan Pt is a 72-year-old female with a PMH significant for advanced dementia, cerebral amyloid angiopathy, GERD, and HLD who is admitted to [facility] for worsening dementia with increased confusion, agitation, and aggressive behaviors. Patient is a transfer from [facility]. Medical consult for admission H&P. Pt is alert to person only, and only occasionally capable of following basic commands. Mood disorder Plan as per Psychiatry Advanced dementia Patient presents with worsening dementia with behavioral disturbances No signs of precipitating factors: No clear sign of infection, no known recent med changes Most likely due to progression of disease HLD Continue aspirin, statin GERD Continue omeprazole Thank you for allowing us to participate in the care of this patient. Signing off at this time. Please let us know if there are any acute complaints or questions. Plan 1. Keep on one-to-one. 2. Depakote level for tomorrow. 3. Continue antipsychotics as prescribed. On May 01 we increased Risperdal at to 3 mg a day 4. Depakote level, CBC with differential BMP and lipid panel came back with therapeutic Depakote and low TSH. 5. Start Namenda 5 mg p.o. daily. On May 02 it was increased to 5 mg p.o. b.i.d. but later on May 06 we discontinued due to over-sedation. We started our rechallenge on May 23 at 5 mg p.o. q.h.s. to help her sleep since it over-sedated her 6. Referral to hospitalist team for low TSH. Workout came up negative no need to add any medication at this point 7. Family meeting last Saturday and discussed discharge planning. The family is aware that the barrier for discharge is the need of one-to-one for safety. 8. Risperdal has been lowered due to over-sedation but still she walks with her eyes closed. She is on 1 mg p.o. q.h.s. with resolution of her psychosis. 9. Waiting for placement. 10. Increase Namenda up to 5 mg p.o. b.i.d. on May 27 . It was increased up to 10 mg p.o. b.i.d. on May 31. Reason for continued inpatient stay Substantial Risk for: inability to function, rapid decompensation and med/psych decompensation Time Spent With Patient Time: Total time managing care of this patient today __20__ minutes.
[2023-05-31] MEDS: Acetaminophen 325 MG TABLET 650 MG PO (17:03)
[2023-05-31 18:00] VITALS: BP 136/63; PULSE 87; RESP 18; TEMP 37.1; O2SAT 96
[2023-05-31] MEDS: Atorvastatin Calcium 40 MG TABLET PO (20:19)
[2023-05-31] MEDS: Memantine HCl 10 MG TABLET PO (20:19)
[2023-05-31] MEDS: risperiDONE 1 MG TABLET PO (20:19)
[2023-05-31] MEDS: Sennosides/Docusate Sodium TABLET 1 TAB PO (20:20)
[2023-06-01] MEDS: traZODone HCL 50 MG TABLET PO ×2 (00:13→23:00)
[2023-06-01] MEDS: Acetaminophen 325 MG TABLET 650 MG PO ×4 (00:13→23:01)
[2023-06-01] MEDS: Melatonin 3 MG TABLET PO ×2 (00:13→23:00)
[2023-06-01] MEDS: Omeprazole 20 MG CAPSULE.DR PO (05:30)
[2023-06-01 08:15] VITALS: BP 122/57; PULSE 75; RESP 18; TEMP 36.5; O2SAT 98
[2023-06-01] MEDS: Divalproex Sodium Sprinkles 125 MG CAP.DR.SPR 250 MG PO ×3 (08:22→20:38)
[2023-06-01] MEDS: Memantine HCl 10 MG TABLET PO ×2 (08:22→20:38)
--- NOTE | 2023-06-01 15:07 | PC.NURSE ---
Morning Norvasc held due to BP 122/57;Amy was asymptomatic. +[address] Elizabeth notified that Norvasc was held and edema to LLE present.
--- NOTE | 2023-06-01 15:12 | HO.PSYCHPN ---
Subjective Subjective Date of Service: 06/01/23 Reason For Visit: Dementia w/ Psychosis; Amyloid Angiopathy Subjective Notes: Conditional Voluntary Interim History: Back on 1:1 since falling at the beginning of the week. Left lower extremity edema noted today. Medication Compliance: Yes Side effects from medications: No Review of Systems Acute medical concerns: Yes Ordered duplex scan of LLE due to swelling with positive salvatore's sign to rule out DVT Medical Review of Systems: changed (as above, left calf swelling and pain) Review of Systems Review of Systems Yes Unobtainable due to mental status Mental Status Exam Mental Status Exam Patient Appearance: Well Grooomed Patient Orientation: Person Level of Consciousness: Alert and Follows Commands Patient Behavior: Confused Mood Description: Calm Affect Description: Appropriate Ability to Follow Directions: Good Speech Pattern: Clear Memory Description: Working Impaired Hallucinations: None Delusions: Not Present Thought Process: Distracted Thought Content: positive for Disoriented Abnormal Motor Activity Signs and Symptoms: Restlessness Judgement: Poor Diagnostics Vital Signs (24Hr): Vital Signs - 24 hr 05/31/23 18:00 06/01/23 08:15 Temperature 98.7 F 97.7 F Pulse Rate 87 75 Respiratory Rate 18 18 Blood Pressure 136/63 122/57 L Pulse Oximetry 96 98 Oxygen Delivery Method Room Air Room Air BMI result Body Mass Index 23.5 Labs 05/10/23 07:03 05/10/23 07:03 Imaging Radiology Impressions: ITS Impressions Head CT 05/27/23 08:09 IMPRESSION: There are scattered chronic small vessel ischemic changes within the periventricular white matter. Otherwise unremarkable examination. No evidence of acute territorial infarct or hemorrhage. Medications Medications Current Medications Acetaminophen (Acetaminophen 325 Mg Tablet) 650 mg PO Q6H PRN PRN Reason: Headache/Pain Mild Scale (1-3) Last Admin: 06/01/23 08:22 Dose: 650 mg Al Hydroxide/Mg Hydroxide (Magnesium Hydrox/Alum Hydrox 30 Ml Oral.Susp) 30 ml PO Q6H PRN PRN Reason: Heartburn/Nausea Amlodipine Besylate (Amlodipine Besylate 2.5 Mg Tablet) 2.5 mg PO DAILY INEZ; Protocol Last Admin: 06/01/23 08:28 Dose: Not Given Atorvastatin Calcium (Atorvastatin Calcium 40 Mg Tablet) 40 mg PO BEDTIME [facility] Last Admin: 05/31/23 20:19 Dose: 40 mg Divalproex Sodium (Divalproex Sodium Sprinkles 125 Mg ) 250 mg PO TID [facility] Last Admin: 06/01/23 08:22 Dose: 250 mg Magnesium Hydroxide (Milk Of Magnesia 30 Ml Oral.Susp) 30 ml PO DAILY PRN PRN Reason: Constipation Melatonin (Melatonin 3 Mg Tablet) 3 mg PO BEDTIME PRN PRN Reason: Insomnia Last Admin: 06/01/23 00:13 Dose: 3 mg Memantine (Memantine Hcl 10 Mg Tablet) 10 mg PO BID [facility] Last Admin: 06/01/23 08:22 Dose: 10 mg Omeprazole (Omeprazole 20 Mg Capsule.) 20 mg PO DAILY@0630 [facility] Last Admin: 06/01/23 05:30 Dose: 20 mg Risperidone (Risperidone 1 Mg Tablet) 1 mg PO BEDTIME [facility] Last Admin: 05/31/23 20:19 Dose: 1 mg Senna/Docusate Sodium (Sennosides/Docusate Sodium Tablet) 1 tab PO BEDTIME [facility] Last Admin: 05/31/23 20:20 Dose: 1 tab Trazodone HCl (Trazodone Hcl 50 Mg Tablet) 50 mg PO BEDTIME PRN PRN Reason: Insomnia Last Admin: 06/01/23 00:13 Dose: 50 mg Trazodone HCl (Trazodone Hcl 25 Mg Halftab) 25 mg PO TID PRN PRN Reason: Anxiety Last Admin: 05/30/23 04:10 Dose: 25 mg Allergies Allergies Allergy/AdvReac Type Severity Reaction Status Date / Time No Known Allergies Allergy Verified 04/06/23 05:59 Assessment & Plan Assessment & Plan (1) Major neurocognitive disorder: Status: Acute Code(s): F03.90 - Unspecified dementia, unspecified severity, without behavioral disturbance, psychotic disturbance, mood disturbance, and anxiety Assessment and Plan: Stable psychiatrically. Need to rule out DVT. Duplex scan ordered urgently Plan Pt is a 72-year-old female with a PMH significant for advanced dementia, cerebral amyloid angiopathy, GERD, and HLD who is admitted to [facility] for worsening dementia with increased confusion, agitation, and aggressive behaviors. Patient is a transfer from [facility]. Medical consult for admission H&P. Pt is alert to person only, and only occasionally capable of following basic commands. Mood disorder Plan as per Psychiatry Advanced dementia Patient presents with worsening dementia with behavioral disturbances No signs of precipitating factors: No clear sign of infection, no known recent med changes Most likely due to progression of disease HLD Continue aspirin, statin GERD Continue omeprazole Thank you for allowing us to participate in the care of this patient. Signing off at this time. Please let us know if there are any acute complaints or questions. Plan 1. Keep on one-to-one. 2. Depakote level for tomorrow. 3. Continue antipsychotics as prescribed. On May 01 we increased Risperdal at to 3 mg a day 4. Depakote level, CBC with differential BMP and lipid panel came back with therapeutic Depakote and low TSH. 5. Start Namenda 5 mg p.o. daily. On May 02 it was increased to 5 mg p.o. b.i.d. but later on May 06 we discontinued due to over-sedation. We started our rechallenge on May 23 at 5 mg p.o. q.h.s. to help her sleep since it over-sedated her 6. Referral to hospitalist team for low TSH. Workout came up negative no need to add any medication at this point 7. Family meeting last Saturday and discussed discharge planning. The family is aware that the barrier for discharge is the need of one-to-one for safety. 8. Risperdal has been lowered due to over-sedation but still she walks with her eyes closed. She is on 1 mg p.o. q.h.s. with resolution of her psychosis. 9. Waiting for placement. 10. Increase Namenda up to 5 mg p.o. b.i.d. on May 27 . It was increased up to 10 mg p.o. b.i.d. on May 31. Reason for continued inpatient stay Substantial Risk for: inability to function Time Spent With Patient Time: Total time managing care of this patient today 25____ minutes.
[2023-06-01 18:00] VITALS: BP 134/63; PULSE 75; RESP 18; TEMP 37.2; O2SAT 98
[2023-06-01] MEDS: Atorvastatin Calcium 40 MG TABLET PO (20:38)
[2023-06-01] MEDS: Sennosides/Docusate Sodium TABLET 1 TAB PO (20:38)
[2023-06-01] MEDS: risperiDONE 1 MG TABLET PO (20:38)
[2023-06-02] MEDS: Omeprazole 20 MG CAPSULE.DR PO (06:14)
[2023-06-02 07:52] VITALS: BP 114/57; PULSE 95; RESP 20; TEMP 36.5; O2SAT 95
[2023-06-02] MEDS: Divalproex Sodium Sprinkles 125 MG CAP.DR.SPR 250 MG PO ×3 (08:23→20:50)
[2023-06-02] MEDS: traZODone HCL 25 MG HALFTAB PO ×2 (08:24→18:37)
[2023-06-02] MEDS: Memantine HCl 10 MG TABLET PO ×2 (08:24→20:50)
[2023-06-02] MEDS: Acetaminophen 325 MG TABLET 650 MG PO ×3 (08:24→20:49)
--- NOTE | 2023-06-02 10:03 | PC.NURSE ---
+2 edema and warmth noted to LLE. Amy reported pain to that area despite receiving Tylenol. US performed yesterday of LLE and negative for DVT. Dr. Elizabeth notified and routine hospitalist consult placed. Hospitalist change control coordinator Dr. Baker notified of consult and reported Amy will be seen by hospitlaist today. [facility] held for BP 114/57; Amy was asymptomatic and Dr. Elizabeth notified.
--- NOTE | 2023-06-02 11:43 | P.EN_ITS ---
Event Note Date of Service: 06/02/23 Event Note: 72-year-old female admitted to [facility]ry with consult placed to Hospital Medicine for evaluation erythema, warmth and swelling of the left lower extremity noted yesterday. Per the patient, she recalls accidentally hitting the left ankle but is unable to tell me details surrounding this event and nursing is unable to corroborate this story. On exam, there are significant torturous varicosities to the lower extremities bilaterally without any overly ing tenderness over the veins. There is no erythema or significant warmth. There is 2+ pitting edema to the anterior/medial aspect of the left ankle without any evidence of trauma or skin breaks. There is no suspicion for cellulitis at this time. Venous duplex of the left lower extremity yesterday was negative for DVT. There is no evidence of a superficial thrombophlebitis. At this time suspect lower extremity edema is related to varicose veins. Recommend compression stockings to be removed at bedtime with leg elevation. She can use ibuprofen or Tylenol as needed for pain. Would recommend adequate foot support if possible. Thank you for allowing me to participate in this consult. Signing off at this time. Please do not hesitate to call for further questions. Time Spent With Patient Time: Total time managing care of this patient today ____ minutes.
[2023-06-02] MEDS: Ibuprofen 600 MG TABLET PO (12:16)
--- NOTE | 2023-06-02 12:59 | HO.PSYCHPN ---
Subjective Subjective Date of Service: 06/02/23 Reason For Visit: Dementia w/ Psychosis; Amyloid Angiopathy Subjective Notes: Conditional Voluntary Medical Problems Affecting Mental Status: Yes (left leg swelling, warmth, pain) Interim History: Duplex scan of left leg was negative for DVT. Patient reports continued pain in her left leg. Sleep somewhat disturbed related to pain. Per staff, patient is continuously walking during the whole day. Medication Compliance: Yes Side effects from medications: No (possible contribution of depakote to edema) Attending Groups: Intermittent Review of Systems Acute medical concerns: Yes Hospitalist to consult regarding swollen, painful left lower extremity Medical Review of Systems: unchanged Mental Status Exam Mental Status Exam Patient Appearance: Well Grooomed Patient Orientation: Person Level of Consciousness: Alert Patient Behavior: Wandering Mood Description: Nervous Affect Description: Apprehensive Patient Cognition Impaired: Yes Ability to Follow Directions: Good Speech Pattern: Clear and Impoverished Memory Description: Working Impaired Hallucinations: None Delusions: Not Present Thought Process: Distracted Thought Content: positive for Poverty of Content Judgement: Fair Diagnostics Vital Signs (24Hr): Vital Signs - 24 hr 06/01/23 18:00 06/02/23 07:52 Temperature 98.9 F 97.7 F Pulse Rate 75 95 Respiratory Rate 18 20 Blood Pressure 134/63 114/57 L Pulse Oximetry 98 95 Oxygen Delivery Method Room Air Room Air BMI result Body Mass Index 23.5 Labs 05/10/23 07:03 05/10/23 07:03 Imaging Radiology Impressions: ITS Impressions Head CT 05/27/23 08:09 IMPRESSION: There are scattered chronic small vessel ischemic changes within the periventricular white matter. Otherwise unremarkable examination. No evidence of acute territorial infarct or hemorrhage. Venous Duplex 06/01/23 15:29 IMPRESSION: No evidence of deep venous thrombosis in the visualized veins of the left lower extremity. Mild subcutaneous edema in the left calf. Medications Medications Current Medications Acetaminophen (Acetaminophen 325 Mg Tablet) 650 mg PO Q6H PRN PRN Reason: Headache/Pain Mild Scale (1-3) Last Admin: 06/02/23 08:24 Dose: 650 mg Al Hydroxide/Mg Hydroxide (Magnesium Hydrox/Alum Hydrox 30 Ml Oral.Susp) 30 ml PO Q6H PRN PRN Reason: Heartburn/Nausea Amlodipine Besylate (Amlodipine Besylate 2.5 Mg Tablet) 2.5 mg PO DAILY INEZ; Protocol Last Admin: 06/02/23 08:30 Dose: Not Given Atorvastatin Calcium (Atorvastatin Calcium 40 Mg Tablet) 40 mg PO BEDTIME [facility] BEDS AT [facility] Last Admin: 06/01/23 20:38 Dose: 40 mg Divalproex Sodium (Divalproex Sodium Sprinkles 125 Mg Cap) 250 mg PO TID [facility]S [facility] 234 BEDS AT [facility] Last Admin: 06/02/23 08:23 Dose: 250 mg Ibuprofen (Ibuprofen 600 Mg Tablet) 600 mg PO Q6H PRN PRN Reason: extremity pain Last Admin: 06/02/23 12:16 Dose: 600 mg Magnesium Hydroxide (Milk Of Magnesia 30 Ml Oral.Susp) 30 ml PO DAILY PRN PRN Reason: Constipation Melatonin (Melatonin 3 Mg Tablet) 3 mg PO BEDTIME PRN PRN Reason: Insomnia Last Admin: 06/01/23 23:00 Dose: 3 mg Memantine (Memantine Hcl 10 Mg Tablet) 10 mg PO BID [facility] 234 BEDS AT [facility] Last Admin: 06/02/23 08:24 Dose: 10 mg Omeprazole (Omeprazole 20 Mg Capsule.) 20 mg PO DAILY@0630 [facility] 234 BEDS AT [facility] Last Admin: 06/02/23 06:14 Dose: 20 mg Risperidone (Risperidone 1 Mg Tablet) 1 mg PO BEDTIME [facility]S [facility] 234 BEDS AT [facility] Last Admin: 06/01/23 20:38 Dose: 1 mg Senna/Docusate Sodium (Sennosides/Docusate Sodium Tablet) 1 tab PO BEDTIME [facility] 234 BEDS AT [facility] Last Admin: 06/01/23 20:38 Dose: 1 tab Trazodone HCl (Trazodone Hcl 50 Mg Tablet) 50 mg PO BEDTIME PRN PRN Reason: Insomnia Last Admin: 06/01/23 23:00 Dose: 50 mg Trazodone HCl (Trazodone Hcl 25 Mg Halftab) 25 mg PO TID PRN PRN Reason: Anxiety Last Admin: 06/02/23 08:24 Dose: 25 mg Allergies Allergies Allergy/AdvReac Type Severity Reaction Status Date / Time No Known Allergies Allergy Verified 04/06/23 05:59 Assessment & Plan Assessment & Plan (1) Major neurocognitive disorder: Status: Acute Code(s): F03.90 - Unspecified dementia, unspecified severity, without behavioral disturbance, psychotic disturbance, mood disturbance, and anxiety Assessment and Plan: Stable psychiatrically. Need to rule out DVT. Duplex scan ordered urgently Plan Pt is a 72-year-old female with a PMH significant for advanced dementia, cerebral amyloid angiopathy, GERD, and HLD who is admitted to [facility] for worsening dementia with increased confusion, agitation, and aggressive behaviors. Patient is a transfer from [facility]. Medical consult for admission H&P. Pt is alert to person only, and only occasionally capable of following basic commands. Mood disorder Plan as per Psychiatry Advanced dementia Patient presents with worsening dementia with behavioral disturbances No signs of precipitating factors: No clear sign of infection, no known recent med changes Most likely due to progression of disease HLD Continue aspirin, statin GERD Continue omeprazole Thank you for allowing us to participate in the care of this patient. Signing off at this time. Please let us know if there are any acute complaints or questions. Plan 1. Keep on one-to-one. 2. Depakote level for tomorrow. 3. Continue antipsychotics as prescribed. On May 01 we increased Risperdal at to 3 mg a day 4. Depakote level, CBC with differential BMP and lipid panel came back with therapeutic Depakote and low TSH. 5. Start Namenda 5 mg p.o. daily. On May 02 it was increased to 5 mg p.o. b.i.d. but later on May 06 we discontinued due to over-sedation. We started our rechallenge on May 23 at 5 mg p.o. q.h.s. to help her sleep since it over-sedated her 6. Referral to hospitalist team for low TSH. Workout came up negative no need to add any medication at this point 7. Family meeting last Saturday and discussed discharge planning. The family is aware that the barrier for discharge is the need of one-to-one for safety. 8. Risperdal has been lowered due to over-sedation but still she walks with her eyes closed. She is on 1 mg p.o. q.h.s. with resolution of her psychosis. 9. Waiting for placement. 10. Increase Namenda up to 5 mg p.o. b.i.d. on May 27 . It was increased up to 10 mg p.o. b.i.d. on May 31. 11. Hopsitalist consult pending. ?depakote contributing to edema Reason for continued inpatient stay Substantial Risk for: inability to function Time Spent With Patient Time: Total time managing care of this patient today __25__ minutes.
--- NOTE | 2023-06-02 14:39 | PC.NURSE ---
This grant writer called son Matt to update him on LLE swelling and interventions. Left VM with return phone #.
[2023-06-02 19:45] VITALS: BP 119/58; PULSE 77; RESP 17; TEMP 36.6; O2SAT 95
[2023-06-02] MEDS: Melatonin 3 MG TABLET PO (20:48)
[2023-06-02] MEDS: Atorvastatin Calcium 40 MG TABLET PO (20:48)
[2023-06-02] MEDS: Sennosides/Docusate Sodium TABLET 1 TAB PO (20:49)
[2023-06-02] MEDS: risperiDONE 1 MG TABLET PO (20:50)
[2023-06-03] MEDS: traZODone HCL 50 MG TABLET PO ×2 (00:16→20:44)
[2023-06-03] MEDS: Ibuprofen 600 MG TABLET PO ×2 (00:35→12:40)
[2023-06-03] MEDS: traZODone HCL 25 MG HALFTAB PO (02:27)
[2023-06-03] MEDS: Acetaminophen 325 MG TABLET 650 MG PO ×2 (02:34→20:44)
[2023-06-03] MEDS: Omeprazole 20 MG CAPSULE.DR PO (06:24)
[2023-06-03 08:10] VITALS: BP 121/58; PULSE 80; RESP 20; TEMP 36.4; O2SAT 98
[2023-06-03] MEDS: Memantine HCl 10 MG TABLET PO ×2 (08:13→20:42)
[2023-06-03] MEDS: Divalproex Sodium Sprinkles 125 MG CAP.DR.SPR 250 MG PO ×3 (08:13→20:41)
[2023-06-03] MEDS: amLODIPine Besylate 2.5 MG TABLET PO (08:13)
--- NOTE | 2023-06-03 08:26 | P.PNPSI_ITS ---
Subjective Subjective Date of Service: 06/03/23 Reason For Visit: Dementia w/ Psychosis; Amyloid Angiopathy Subjective Notes: Conditional Voluntary Interim History: The nursing staff reported the patient had been compliant with treatment, pacing the hallway with one-to-one, very confused. On interview the patient denies new symptoms, waiting for placement. Mental Status Exam Mental Status Exam Patient Appearance: Well Grooomed and Appropriate Patient Orientation: Person Level of Consciousness: Awake Patient Behavior: Guarded and Passive Mood Description: Withdrawn Affect Description: Constricted Patient Cognition Impaired: Yes Ability to Follow Directions: Good Speech Pattern: Clear Hallucinations: None Delusions: Not Present Thought Process: Illogical Thought Content: positive for [place] and positive for Poverty of Content Judgement: Poor Diagnostics Vital Signs (24Hr): Vital Signs - 24 hr 06/02/23 19:45 Temperature 97.8 F Pulse Rate 77 Respiratory Rate 17 Blood Pressure 119/58 L Pulse Oximetry 95 Oxygen Delivery Method Room Air BMI result Body Mass Index 23.5 Labs 05/10/23 07:03 05/10/23 07:03 Imaging Radiology Impressions: ITS Impressions Head CT 05/27/23 08:09 IMPRESSION: There are scattered chronic small vessel ischemic changes within the periventricular white matter. Otherwise unremarkable examination. No evidence of acute territorial infarct or hemorrhage. Venous Duplex 06/01/23 15:29 IMPRESSION: No evidence of deep venous thrombosis in the visualized veins of the left lower extremity. Mild subcutaneous edema in the left calf. Medications Medications Current Medications Acetaminophen (Acetaminophen 325 Mg Tablet) 650 mg PO Q6H PRN PRN Reason: Headache/Pain Mild Scale (1-3) Last Admin: 06/03/23 02:34 Dose: 650 mg Al Hydroxide/Mg Hydroxide (Magnesium Hydrox/Alum Hydrox 30 Ml Oral.Susp) 30 ml PO Q6H PRN PRN Reason: Heartburn/Nausea Amlodipine Besylate (Amlodipine Besylate 2.5 Mg Tablet) 2.5 mg PO DAILY INEZ; Protocol Last Admin: 06/03/23 08:13 Dose: 2.5 mg Atorvastatin Calcium (Atorvastatin Calcium 40 Mg Tablet) 40 mg PO BEDTIME [facility] Last Admin: 06/02/23 20:48 Dose: 40 mg Divalproex Sodium (Divalproex Sodium Sprinkles 125 Mg ) 250 mg PO TID [facility] Last Admin: 06/03/23 08:13 Dose: 250 mg Ibuprofen (Ibuprofen 600 Mg Tablet) 600 mg PO Q6H PRN PRN Reason: extremity pain Last Admin: 06/03/23 00:35 Dose: 600 mg Magnesium Hydroxide (Milk Of Magnesia 30 Ml Oral.Susp) 30 ml PO DAILY PRN PRN Reason: Constipation Melatonin (Melatonin 3 Mg Tablet) 3 mg PO BEDTIME PRN PRN Reason: Insomnia Last Admin: 06/02/23 20:48 Dose: 3 mg Memantine (Memantine Hcl 10 Mg Tablet) 10 mg PO BID [facility] Last Admin: 06/03/23 08:13 Dose: 10 mg Omeprazole (Omeprazole 20 Mg Capsule.Dr) 20 mg PO DAILY@0630 [facility] Last Admin: 06/03/23 06:24 Dose: 20 mg Risperidone (Risperidone 1 Mg Tablet) 1 mg PO BEDTIME [facility] Last Admin: 06/02/23 20:50 Dose: 1 mg Senna/Docusate Sodium (Sennosides/Docusate Sodium Tablet) 1 tab PO BEDTIME [facility] Last Admin: 06/02/23 20:49 Dose: 1 tab Trazodone HCl (Trazodone Hcl 50 Mg Tablet) 50 mg PO BEDTIME PRN PRN Reason: Insomnia Last Admin: 06/03/23 00:16 Dose: 50 mg Trazodone HCl (Trazodone Hcl 25 Mg Halftab) 25 mg PO TID PRN PRN Reason: Anxiety Last Admin: 06/03/23 02:27 Dose: 25 mg Allergies Allergies Allergy/AdvReac Type Severity Reaction Status Date / Time No Known Allergies Allergy Verified 04/06/23 05:59 Assessment & Plan Assessment & Plan (1) Major neurocognitive disorder: Status: Acute Code(s): F03.90 - Unspecified dementia, unspecified severity, without behavioral disturbance, psychotic disturbance, mood disturbance, and anxiety Assessment and Plan: Stable psychiatrically. Need to rule out DVT. Duplex scan ordered urgently Plan Pt is a 72-year-old female with a PMH significant for advanced dementia, cerebral amyloid angiopathy, GERD, and HLD who is admitted to [facility] for worsening dementia with increased confusion, agitation, and aggressive behaviors. Patient is a transfer from [facility]. Medical consult for admission H&P. Pt is alert to person only, and only occasionally capable of following basic commands. Mood disorder Plan as per Psychiatry Advanced dementia Patient presents with worsening dementia with behavioral disturbances No signs of precipitating factors: No clear sign of infection, no known recent med changes Most likely due to progression of disease HLD Continue aspirin, statin GERD Continue omeprazole Thank you for allowing us to participate in the care of this patient. Signing off at this time. Please let us know if there are any acute complaints or questions. Plan 1. Keep on one-to-one. 2. Depakote level for tomorrow. 3. Continue antipsychotics as prescribed. On May 01 we increased Risperdal at to 3 mg a day 4. Depakote level, CBC with differential BMP and lipid panel came back with therapeutic Depakote and low TSH. 5. Start Namenda 5 mg p.o. daily. On May 02 it was increased to 5 mg p.o. b.i.d. but later on May 06 we discontinued due to over-sedation. We started our rechallenge on May 23 at 5 mg p.o. q.h.s. to help her sleep since it over- sedated her 6. Referral to hospitalist team for low TSH. Workout came up negative no need to add any medication at this point 7. Family meeting last Saturday and discussed discharge planning. The family is aware that the barrier for discharge is the need of one-to-one for safety. 8. Risperdal has been lowered due to over-sedation but still she walks with her eyes closed. She is on 1 mg p.o. q.h.s. with resolution of her psychosis. 9. Waiting for placement. 10. Increase Namenda up to 5 mg p.o. b.i.d. on May 27 . It was increased up to 10 mg p.o. b.i.d. on May 31. 11. Hopsitalist consult pending. ?depakote contributing to edema Reason for continued inpatient stay Substantial Risk for: inability to function, rapid decompensation and med/psych decompensation Time Spent With Patient Time: Total time managing care of this patient today __20__ minutes.
[2023-06-03 18:00] VITALS: BP 130/60; PULSE 74; RESP 20; TEMP 37.1; O2SAT 96
[2023-06-03] MEDS: Atorvastatin Calcium 40 MG TABLET PO (20:41)
[2023-06-03] MEDS: Sennosides/Docusate Sodium TABLET 1 TAB PO (20:42)
[2023-06-03] MEDS: risperiDONE 1 MG TABLET PO (20:42)
[2023-06-03] MEDS: Melatonin 3 MG TABLET PO (20:44)
[2023-06-04] MEDS: Ibuprofen 600 MG TABLET PO (02:13)
[2023-06-04] MEDS: traZODone HCL 50 MG TABLET PO (02:13)
[2023-06-04] MEDS: Omeprazole 20 MG CAPSULE.DR PO (07:32)
--- NOTE | 2023-06-04 08:24 | PM.PSYDC ---
DS: Providers Provider Date of Service: 06/04/23 Date of admission: 04/06/23 05:58 Date of discharge: 06/04/23 Primary care physician: Unknown Physician Consults: 04/06/23 06:00 Consult to Hospitalist Routine Comment: Consulting Provider: Hospitalist Reason For Exam: Transfer from [facility] 05/27/23 10:58 Consult to Hospitalist Routine Comment: Consulting Provider: Hospitalist Reason For Exam: fall 06/02/23 10:01 Consult to Hospitalist Routine Comment: Consulting Provider: Hospitalist Reason For Exam: LLE swelling, pain, warmth; r/o phlebitis DS: Diagnosis Discharge Diagnosis (1) Major neurocognitive disorder: Status: Acute DS: Medications Discharge Medications Home Medications: Home Medications Medication Instructions Recorded Confirmed aspirin 81 mg tablet,delayed 81 mg PO DAILY 04/06/23 04/06/23 release atorvastatin 40 mg tablet 40 mg PO DAILY 04/06/23 04/06/23 chlorpromazine 25 mg/mL injection See Rx Instructions .Route 04/06/23 04/06/23 solution .COMPLEX PRN Agitation chlorpromazine 50 mg tablet 50 mg PO TID 04/06/23 04/06/23 melatonin 5 mg tablet 5 mg PO BEDTIME 04/06/23 04/06/23 omeprazole 20 mg capsule,delayed 20 mg PO DAILY 04/06/23 04/06/23 release Mental Status Exam Mental Status Exam Patient Appearance: Well Grooomed Patient Orientation: Person Level of Consciousness: Awake Patient Behavior: Guarded and Passive Mood Description: Calm Affect Description: Constricted Patient Cognition Impaired: Yes Ability to Follow Directions: Fair Speech Pattern: Clear Hallucinations: None Delusions: Not Present Thought Process: Illogical, Distracted and Evasive Thought Content: positive for [place], positive for Poverty of Content and positive for Loose Associations Judgement: Poor Data Imaging Diagnostic Imaging Impressions Head CT 05/27/23 08:09 IMPRESSION: There are scattered chronic small vessel ischemic changes within the periventricular white matter. Otherwise unremarkable examination. No evidence of acute territorial infarct or hemorrhage. Venous Duplex 06/01/23 15:29 IMPRESSION: No evidence of deep venous thrombosis in the visualized veins of the left lower extremity. Mild subcutaneous edema in the left calf. DS: Summary Hospital Course Hospital Course: The patient is a 72-year-old female with a prior history of dementia, resident of an [facility] facility who was brought to the emergency room of a local hospital for exacerbation of agitation and disorganized behavior. She was initially admitted medically and started on Thorazine 50 mg p.o. t.i.d. to target her disorganized behavior. She was assessed by crisis and transferring to this facility for continuation of care. Please see the HPI note of the admission for further details. On admission, the patient was grossly demented, confused and wandering in the unit with some exit seeking behavior. Also her blood pressure was low and we decided to change Thorazine to Risperdal titrated up to 3 mg a day. The patient remains very confused and she needed to be on one-to-one for several weeks. Eventually with a buried Risperdal up to 1 mg p.o. q.h.s. with no changes in her mental status. Also we added Depakote to target impulsivity titrated up to 50 mg p.o. t.i.d. with a therapeutic level. The patient improved a little on her impulsivity with this medication. We had several family meetings and the patient remain on one-to-one for safety. We explained to the family that unfortunately, her dementia has worsened to the point that she will need total care. Even though the patient is severely demented, she can the ambulate by herself and she needs cues on her ADLs. We start treating her dementia with Aricept and other medications but she became hypotensive so we stick only on amantadine with further ability. The patient's mental status did not change, she was very demented and the family agreed to transfer her to a fpc facility for continuation of care. Since there were no safety concerns discharge planning was discussed. Time spent discussing smoking cessation with patient: 3 to 10 minutes Status at Discharge Cognitive/behavioral status at discharge: Impaired at baseline Functional status at discharge: independent ambulation Overall status at discharge: patient is back to baseline Time Spent with Patient Time attestation: Total time managing care of this patient today __30__ minutes. Time spent: Less than 30 minutes Discharge Plan Discharge Anticipated Discharge Date/Time: 06/04/23 10:00 Patient Disposition: Xfer SNF Discharge Diagnosis: Dementia advanced Referrals: [facility] and [facility] [Other] - 06/04/23 10:30 am (Transfer to [facility] for LT care in detention setting. ) Discharge Medications: New amlodipine 2.5 mg Tablet 2.5 mg PO DAILY 30 Days Qty: 30 0RF Protocol: Hold for SBP< HOLD for SBP < : 90 acetaminophen 325 mg Tablet 650 mg PO Q6H PRN (Reason: Headache/Pain Mild Scale (1-3)) Qty: 60 0RF trazodone 50 mg Tablet 50 mg PO BEDTIME PRN (Reason: Insomnia) 30 Days Qty: 30 0RF sennosides-docusate sodium [Senna Plus] 8.6-50 mg Tablet 1 tab PO BEDTIME Qty: 30 0RF ibuprofen 600 mg Tablet 600 mg PO Q6H PRN (Reason: extremity pain) 30 Days Qty: 60 0RF divalproex 125 mg Capsule, Delayed Rel Sprinkle 250 mg PO TID 30 Days Qty: 180 0RF risperidone 1 mg Tablet 1 mg PO BEDTIME 30 Days Qty: 30 0RF memantine [Namenda] 10 mg Tablet 10 mg PO BID 30 Days Qty: 60 0RF Continued atorvastatin 40 mg Tablet 40 mg PO DAILY 30 Days Qty: 30 0RF aspirin 81 mg Tablet,Delayed Release (Dr/Ec) 81 mg PO DAILY 30 Days Qty: 30 0RF omeprazole 20 mg Capsule,Delayed Release(Dr/Ec) 20 mg PO DAILY 30 Days Qty: 30 0RF melatonin 5 mg Tablet 5 mg PO BEDTIME 30 Days Qty: 30 0RF Discontinued chlorpromazine 25 mg/mL Solution See Rx Instructions .ROUTE .COMPLEX PRN (Reason: Agitation) Rx Instructions: Inject 0.2-0.4 mL ( 5-10 mg total ) into the muscle every 6 (six) hours as needed (agitation) chlorpromazine 50 mg Tablet 50 mg PO TID Rx Instructions: Afternoon dose at 3PM, Nightly dose at 8PM. Discharge Orders: Discharge Order (Routine); Ordered 06/04/23 Ordered By: Soren Green Diet: Advance to usual diet Activity on Discharge: As tolerated Stand Alone Forms: Patient Portal Discharge page Care Plan Goals: Care plan goals achieved in this admission Health Concerns: Continue treatment with outpatient providers Plan of Treatment: Continue treatment with outpatient providers Assessment: Elderly female with a history of dementia that the vast with psychotic symptoms admitted for agitation from her [facility]. She was medically treated started on Depakote with a therapeutic level but still with some cognitive impairment. Overall, her level of agitation has been resolved and she is at baseline, ready to be discharged to fpc facility. No safety concerns at this moment
[2023-06-04 08:54] VITALS: BP 106/53; PULSE 84; RESP 15; TEMP 36.4; O2SAT 98
[2023-06-04] MEDS: Memantine HCl 10 MG TABLET PO (08:56)
[2023-06-04] MEDS: Divalproex Sodium Sprinkles 125 MG CAP.DR.SPR 250 MG PO (08:56)
== END 2023-06-04 11:10 | disposition skilled nursing facility (03) | DRG 884 ==
PROVIDERS: Physician Assistant; Psychiatry & Neurology Psychiatry; Admitting Provider Clinical Nurse Specialist Psychiatric/Mental Health, Adult; Visit Provider Psychiatry & Neurology Psychiatry
DX: F03.918 Unspecified dementia, unspecified severity, with other behavioral disturbance (principal); K21.9 Gastro-esophageal reflux disease without esophagitis; E78.5 Hyperlipidemia, unspecified; S01.81XA Laceration without foreign body of other part of head, initial encounter; I95.2 Hypotension due to drugs; W19.XXXA Unspecified fall, initial encounter; I83.892 Varicose veins of left lower extremity with other complications; I68.0 Cerebral amyloid angiopathy; Z75.1 Person awaiting admission to adequate facility elsewhere; Z79.82 Long term (current) use of aspirin; Z79.899 Other long term (current) drug therapy
CPT/HCPCS: 36415; 70450; 80048; 80061; 80076; 80164; 81001; 82140; 82947; 83036; 83520; 84439; 84443; 84481; 85025; 93971

== ENCOUNTER → 2023-04-06 05:58 | Outpatient (BNV) | payer MEDICARE, SELFPAY | PROVIDERS: Admitting Provider Clinical Nurse Specialist Psychiatric/Mental Health, Adult; Visit Provider Student in an Organized Health Care Education/Training Program | DX: L53.9 Erythematous condition, unspecified (principal) | CPT/HCPCS: 99429; 99499 ==

== ENCOUNTER → 2023-04-06 05:58 | Outpatient (BNV) | payer MEDICARE, SELFPAY | PROVIDERS: Admitting Provider Clinical Nurse Specialist Psychiatric/Mental Health, Adult; Visit Provider Psychiatry & Neurology Psychiatry | DX: F03.90 Unspecified dementia, unspecified severity, without behavioral disturbance, psychotic disturbance, mood disturbance, and anxiety (principal) | CPT/HCPCS: 90792; 99231; 99232; 99238 ==